=== PATIENT | male | born 1935 | race African-American/Black ===

== ENCOUNTER 2017-02-01 19:03 | Inpatient (IN) | payer OTHER, MEDICARE ==
--- NOTE | 2017-02-01 19:08 | ER Document Report ---
ED General - General Chief Complaint: Altered Mental Status Stated Complaint: ALTERED MENTAL STATUS Time Seen by Provider: 02/01/17 19:04 Notes: The patient is a 81-year-old male, past medical history dementia, HTN, presents with increasing altered mental status over the past week. He was diagnosed with a UTI 5 days ago and started on Cipro by his primary care physician, Dr. Ojeda. Patient's and son are at bedside and said that he is taking his Cipro as prescribed. Patient also having increased abdominal distention over the past day. At baseline, patient is interactive and able to ambulate without assistance, but he is frequently confused due to his dementia. Patient is confirmed to be full code by and son. Unable to obtain any additional history from patient. TRAVEL OUTSIDE OF THE [place] IN LAST 30 DAYS: No - Related Data Allergies/Adverse Reactions: No Known Allergies Allergy (Verified 02/01/17 19:12) Home Medications: Current Home Medications Glipizide [Glipizide] 5 mg PO DAILY 02/01/17 [History] Hydroxyzine Pamoate [Vistaril 25 mg Capsule] 25 mg PO QHS 02/01/17 [History] Lisinopril [Lisinopril] 0.5 tab PO DAILY 02/01/17 [History] Simvastatin [Zocor 40 mg Tablet] 0.5 tab PO DAILY 02/01/17 [History] Past Medical History - General Information source: Patient, Relative, Emergency Med Personnel - Social History Smoking Status: Unknown if Ever Smoked Family History: Hypertension - Past Medical History Cardiac Medical History: Reports: Hx Hypertension GI Medical History: Reports: Hx Gastroesophageal Reflux Disease Psychiatric Medical History: Reports: Hx Dementia - Immunizations Hx Diphtheria, Pertussis, Tetanus Vaccination: Yes Review of Systems - Review of Systems -: Yes ROS unobtainable due to patient's medical condition Physical Exam - Vital signs Vitals: Pulse Ox 96 02/01/17 19:06 - Notes Notes: PHYSICAL EXAMINATION: GENERAL: No acute distress. Somnolent, but will open his eyes to voice. Does not follow commands. HEAD: Atraumatic, normocephalic. EYES: Pupils equal round and reactive to light, extraocular movements intact, sclera anicteric, conjunctiva are normal. ENT: nares patent, oropharynx clear without exudates. Moist mucous membranes. NECK: Normal range of motion, supple without lymphadenopathy LUNGS: Breath sounds clear to auscultation bilaterally and equal. No wheezes rales or rhonchi. HEART: Tachycardia, regular rhythm ABDOMEN: Distended. Soft, nontender, normoactive bowel sounds. No guarding, no rebound. No masses appreciated. EXTREMITIES: No pitting or edema. No cyanosis. Strong distal pulses. NEUROLOGICAL: Moving all 4 extremities. Symmetrical facial movements. Unable to test strength or sensation. SKIN: Warm, Dry, normal turgor, no rashes or lesions noted. Course - Re-evaluation Re-evalutation: Patient with altered mental status for the past week with evidence of a right hypodense subacute infarction on CT head. MRI is recommended and ordered, but unable to be completed until the morning. He is out of the TPA window because of 7 days of symptoms. Patient is protecting his airway. He has a lactic acidosis and hyperglycemia with anion gap. His accucheck improved to low 300's from 550's after IVF. No ketones in urine to suggest DKA. Patient also has acute kidney injury with doubling of his prior creatinine. Chest x-ray and CT abdomen and pelvis did not show any acute changes. No evidence of infection at this time, but Zosyn was started prior to urine collection due to suspected worsening UTI. Patient's primary care physician is Dr. Victor/Markus. 02/01/17 23:[address] Song and will admit patient to [facility] as full admission. - Vital Signs Vital signs: Temp Pulse Resp BP Pulse Ox 96.2 F L 18 125/73 96 02/01/17 19:08 02/01/17 22:32 02/01/17 22:32 02/01/17 22:32 - Laboratory Result Diagrams: 02/01/17 19:30 02/01/17 19:30 Laboratory results interpreted by me: 02/01/17 02/01/17 02/01/17 19:30 19:30 19:30 WBC 12.8 H RBC 6.42 H MCV 72 L MCH 23.1 L MCHC 31.9 L RDW 15.3 H Seg Neutrophils % 79.3 H Lymphocytes % 7.8 L Absolute Neutrophils 10.2 H Absolute Monocytes 1.6 H VBG pH VBG HCO3 Carbon Dioxide 16 L Anion Gap 20 H BUN 53 H Creatinine 2.74 H Est GFR ( Amer) 27 L Est GFR (Non-Af Amer) 22 L Glucose 534 H* POC Glucose Lactic Acid 3.4 H Direct Bilirubin 0.6 H Alkaline Phosphatase 132 H Urine Protein Urine Glucose (UA) Urine Blood 02/01/17 02/01/17 02/01/17 21:30 22:00 22:28 WBC RBC MCV MCH MCHC RDW Seg Neutrophils % Lymphocytes % Absolute Neutrophils Absolute Monocytes VBG pH 7.24 L VBG HCO3 19.2 L Carbon Dioxide Anion Gap BUN Creatinine Est GFR ( Amer) Est GFR (Non-Af Amer) Glucose POC Glucose 319 H Lactic Acid Direct Bilirubin Alkaline Phosphatase Urine Protein 30 H Urine Glucose (UA) >=500 H Urine Blood MODERATE H - Diagnostic Test Radiology reviewed: Image reviewed, Reports reviewed Radiology results interpreted by me: CT Head: Ovoid 5 cm hypodense area is present in the right frontotemporal region , possible subacute infarct, consider MRI to further characterize. CT A/P: No acute inflammatory changes. Mild gas distention of the colon. No evidence for obstruction or free fluid. CXR: Gas-filled bowel throughout the upper abdomen.Mild basilar subsegmental atelectasis. - EKG Interpretation by Me EKG shows normal: Sinus rhythm, Wittmann, Intervals, QRS Complexes, ST-T Waves Rate: Tachycardia Discharge - Discharge Clinical Impression: DIAMANTE (acute kidney injury), Hyperglycemia, Lactic acidosis Altered mental status Qualifiers: Altered mental status type: unspecified Qualified Code(s): R41.82 - Altered mental status, unspecified CVA (cerebral vascular accident) Qualifiers: CVA mechanism: unspecified Qualified Code(s): I63.9 - Cerebral infarction, unspecified Condition: Serious Disposition: ADMITTED INPATIENT Admitting Provider: [facility] Admitted: [facility] Referrals: OMAR LOWE MD [Primary Care Provider] - Follow up as needed
[2017-02-01] MEDS ORDERED: PIPERACILLIN/TAZOBACTAM 3.375 GM VIAL IV ONE (19:19)
[2017-02-01] MEDS ORDERED: NORMAL SALINE 500 ML IV ONE (19:19)
[2017-02-01 19:48] LABS: ABSOLUTE MONOCYTES (AUTO) 1.6 10^3/uL (0.1-1.4); ABSOLUTE NEUT (AUTO) 10.2 10^3/uL (1.7-8.2); BASOPHILS % (AUTO) 0.3 % (0-2); HEMATOCRIT 46.4 % (37.9-51.0); HEMOGLOBIN 14.8 g/dL (13.5-17.0); LYMPHOCYTES % (AUTO) 7.8 % (13-45); MEAN CORPUSCULAR HEMOGLOBIN 23.1 pg (27.0-33.4); MEAN CORPUSCULAR HGB CONC 31.9 g/dL (32.0-36.0); MEAN CORPUSCULAR VOLUME 72 fl (80-97); MONOCYTES % (AUTO) 12.6 % (3-13); RED BLOOD COUNT 6.42 10^6/uL (4.35-5.55); RED CELL DISTRIBUTION WIDTH 15.3 % (11.5-14.0); SEGMENTED NEUTROPHILS % (AUTO) 79.3 % (42-78); WHITE BLOOD COUNT 12.8 10^3/uL (4.0-10.5)
[2017-02-01 19:59] LABS: ALANINE AMINOTRANSFERASE 43 U/L (21-72); ALBUMIN 4.1 g/dL (3.5-5.0); ALKALINE PHOSPHATASE 132 U/L (38-126); ASPARTATE AMINO TRANSFERASE 31 U/L (17-59); BILIRUBIN,DIRECT 0.6 mg/dL (0.0-0.4); BILIRUBIN,TOTAL 0.7 mg/dL (0.2-1.3); BLOOD UREA NITROGEN 53 mg/dL (7-20); CALCIUM 9.8 mg/dL (8.4-10.2); CARBON DIOXIDE 16 mmol/L (22-30); CREATININE RESULT 2.74 mg/dL (0.52-1.25); POTASSIUM 4.1 mmol/L (3.6-5.0); TOTAL PROTEIN 7.7 g/dL (6.3-8.2)
[2017-02-01 20:15] LABS: CHLORIDE 105 mmol/L (98-107); SODIUM 141.1 mmol/L (137-145)
[2017-02-01 20:18] LABS: ANION GAP 20 (5-19); GLUCOSE 534 mg/dL (75-110)
[2017-02-01] MEDS: NORMAL SALINE 1000 ML 1,000 ML IV PRN ×2 (20:24→22:51)
--- NOTE | 2017-02-01 20:45 | RADIOLOGY REPORT (SQ) ---
EXAM DESCRIPTION: CHEST SINGLE VIEW COMPLETED DATE/TIME: 02/01/2017 8:08 pm REASON FOR STUDY: bed 2 sepsis protocol COMPARISON: None. EXAM PARAMETERS: NUMBER OF VIEWS: One view. TECHNIQUE: Single frontal radiographic view of the chest acquired. RADIATION DOSE: NA LIMITATIONS: Expiratory lung volume. FINDINGS: LUNGS AND PLEURA: Mild basilar subsegmental atelectasis. No consolidation, masses or pneu mothorax. No pleural effusion. MEDIASTINUM AND HILAR STRUCTURES: No masses. Contour normal. HEART AND VASCULAR STRUCTURES: Heart normal in size. Normal vasculature. BONES: No acute findings. HARDWARE: None in the chest. OTHER: Gas-filled bowel throughout the upper abdomen. IMPRESSION: Gas-filled bowel throughout the upper abdomen.Mild basilar subsegmental atelectasis. TECHNICAL DOCUMENTATION: JOB ID: [id number]
--- NOTE | 2017-02-01 21:23 | RADIOLOGY REPORT (SQ) ---
EXAM DESCRIPTION: CT HEAD WITHOUT COMPLETED DATE/TIME: 02/01/2017 9:02 pm REASON FOR STUDY: AMS COMPARISON: 08/08/2014 TECHNIQUE: Axial images acquired through the brain without intravenous contrast. Images reviewed wi th bone, brain and subdural windows. Images stored on PACS. All CT scanners at this facility use dose modulation, iterative reconstruction, and/or weight based d osing when appropriate to reduce radiation dose to as low as reasonably achievable (ALARA). [facility]: Dose Right [facility]: CareDose [facility]: Dose Right [facility]: Teradose 4D [facility]: [employer] RADIATION DOSE: Up-to-date CT equipment and radiation dose reduction techniques were employed. CTDIv ol: 64.6 mGy. DLP: 1163 mGy-cm. mGy. LIMITATIONS: None. FINDINGS: VENTRICLES: Stable. CEREBRUM: Ovoid 5 cm hypodense area is present in the right frontotemporal region. No hemorrhage. N o midline shift. CEREBELLUM: No masses. No hemorrhage. No alteration of density. No evidence for acute infarction. EXTRAAXIAL SPACES: No fluid collections. No masses. ORBITS AND GLOBE: No intra- or extraconal masses. Normal contour of globe without masses. CALVARIUM: No fracture. PARANASAL SINUSES: No fluid or mucosal thickening. SOFT TISSUES: No mass or hematoma. OTHER: No other significant finding. IMPRESSION: Ovoid 5 cm hypodense area is present in the right frontotemporal region, possible subacu te infarct, consider MRI to further characterize. TECHNICAL DOCUMENTATION: JOB ID: [id number] Quality ID # [id number]: Final reports with documentation of one or more dose reduction techniques (e.g., Au tomated exposure control, adjustment of the mA and/or kV according to patient size, use of iterative reconstruction technique) 2010 [employer]- All Rights Reserved
--- NOTE | 2017-02-01 21:29 | RADIOLOGY REPORT (SQ) ---
EXAM DESCRIPTION: CT ABDOMEN NO ORAL OR IV COMPLETED DATE/TIME: 02/01/2017 9:06 pm REASON FOR STUDY: abdominal distention and tenderness; septic COMPARISON: None. TECHNIQUE: CT scan of the abdomen performed without intravenous contrast and without oral contrast. Images reviewed with lung, soft tissue, and bone windows. Reconstructed coronal and sagittal MPR im ages reviewed. All images stored on PACS. All CT scanners at this facility use dose modulation, iterative reconstruction, and/or weight based d osing when appropriate to reduce radiation dose to as low as reasonably achievable (ALARA). [facility]: Dose Right [facility]: CareDose [facility]: Dose Right [facility]: Teradose 4D [facility]: Smart [employer] RADIATION DOSE: Up-to-date CT equipment and radiation dose reduction techniques were employed. CTDIv ol: 14.4 mGy. DLP: 922 mGy-cm.mGy. LIMITATIONS: None. FINDINGS: LOWER CHEST: No significant findings. No nodules or infiltrates. NONCONTRASTED LIVER, SPLEEN, ADRENALS: Evaluation limited by lack of IV contrast. No identified sign ificant masses. PANCREAS: No masses. No peripancreatic inflammatory changes. GALLBLADDER: Surgically absent. RIGHT KIDNEY AND URETER: No suspicious masses. Assessment limited by lack of IV contrast. No signif icant calcifications. No hydronephrosis or hydroureter. LEFT KIDNEY AND URETER: No suspicious masses. Assessment limited by lack of IV contrast. No signifi cant calcifications. No hydronephrosis or hydroureter. AORTA AND RETROPERITONEUM: No aneurysm. No retroperitoneal masses or adenopathy. BOWEL AND PERITONEAL CAVITY: Mild gas distention of the colon. No evidence for obstruction or free f luid. APPENDIX: Normal. ABDOMINAL WALL: No abdominal wall hernias. BONES: No significant findings. OTHER: No other significant finding. IMPRESSION: No acute inflammatory changes. Mild gas distention of the colon. No evidence for obst ruction or free fluid. TECHNICAL DOCUMENTATION: JOB ID: [id number] Quality ID # [id number]: Final reports with documentation of one or more dose reduction techniques (e.g., Au tomated exposure control, adjustment of the mA and/or kV according to patient size, use of iterative reconstruction technique) 2010 [employer]- All Rights Reserved
[2017-02-01 21:39] LABS: VENOUS BLOOD BASE EXCESS -8.2 mmol/L; VENOUS BLOOD HCO3 19.2 mmol/L (20-32); VENOUS BLOOD PCO2 46.4 mmHg (35-63); VENOUS BLOOD PH 7.24 (7.30-7.42)
[2017-02-01] MEDS ORDERED: INSULIN REG, HUMAN 100 UNIT/ML 3 ML VIAL (PYX) IV ONE (21:41)
[2017-02-01] MEDS ORDERED: NORMAL SALINE 100 ML with INSULIN REGULAR, HUMAN 100 UNIT IV PRN ×2 (22:25)
[2017-02-01 22:37] LABS: APPEARANCE,URINE SLIGHTLY-CLOUDY; BILIRUBIN,URINE NEGATIVE (NEGATIVE); GLUCOSE, URINE >=500 mg/dL (NEGATIVE); KETONES,URINE NEGATIVE (NEGATIVE); LEUKOCYTE ESTERASE,URINE NEGATIVE (NEGATIVE); NITRITE,URINE NEGATIVE (NEGATIVE); PROTEIN,URINE 30 mg/dL (NEGATIVE); URINE SPECIFIC GRAVITY 1.021; UROBILINOGEN,URINE NEGATIVE mg/dL (<2.0)
--- NOTE | 2017-02-01 23:05 | EKG REPORT ---
SEVERITY:- ABNORMAL ECG - SINUS TACHYCARDIA ATRIAL PREMATURE COMPLEX LVH WITH SECONDARY REPOLARIZATION ABNORMALITY : Confirmed by: Alfonso Werner 01-Feb-2017 23:04:38
[2017-02-01] MEDS ORDERED: NORMAL SALINE 1000 ML 1,000 ML IV ONE (23:06)
--- NOTE | 2017-02-01 23:37 | ER Document Report ---
ED NIH Stroke Scale - NIH Stroke Scale When completed:: Before Alteplase *: 1. NIH scale should be completed with appropriate accompanying assessment tools. *: 2. The NIH should reflect what the patient is capable of doing and should not be coached by the clinician. 1a. Level of Consciousness: 0=Alert;keenly responsive -: 1=Drowsy -: 2=Obtunded -: 3=Coma/unresponsive or reflex to noxious stimuli. 1a. Responses: 1 1b. Orientation Questions: a. What month is it? -: b. How old are you? -: 0=Answers both questions correctly. -: 1=Answers one question correctly or patient is intubated or has orotracheal trauma. -: 2=Answers neither question correctly. 1b. Responses: 0 - unable to assess 1c. Response to commands: a. Open and close eyes? -: b. Maintenance Equipment Operator and release hand? -: Credit is given despite weakness. Demonstration of task is permitted. Substitute command if hands cannot be used. -: 0=Performs both tasks correctly -: 1=Performs one task correctly -: 2=Performs neither task correctly 1c. Responses: 2 2. Gaze: Establish eye contact and instruct patient to "Follow my finger" -: 0=Normal -: 1=Partial gaze palsy. Gaze is abnormal in one or both eyes, but where forced deviation or total gaze paresis is not present. -: 2=Forced deviation or total gaze paresis. 2. Responses: 0 3. Visual Butcher: Sees fingers in all four quadrants. -: 0=No visual loss. -: 1=Partial hemianopsia. -: 2=Complete hemianopsia. -: 3=Bilateral hemianopsia (including Cortical blindness) 3. Responses: 0 - unable to assess 4. Facial Movement: Instruct patient to: -: a. Show me your teeth -: b. Raise your eyebrows -: c. Close your eyes -: d. Smile -: 0=Normal symmetrical movement -: 1=Minor paralysis (flattened nasolabial fold, asymmetry on smiling). -: 2=Partial paralysis (total or near total paralysis of lower face). -: 3=Complete paralysis of upper and lower face 4. Responses: 0 5. Motor functions (left arm): Alternate sides and extend each arm with palms down (90 degrees if sitting or 45 degrees for supine). -: 0=No drift;limb holds for full 10 seconds. -: 1=Drift; limb holds but drifts down before full 10 seconds, but does not hit bed. -: 2=Some effort against gravity; limb cannot get to or maintain position. -: 3=No effort against gravity; limb falls. -: 4=No movement. -: UN=Amputation, joint fusion, explain in comments. 5. Responses (left arm): UN - uncooperative 5. Motor Functions (right arm): Alternate sides and extend each arm with palms down (90 degrees if sitting or 45 degrees for supine). -: 0=No drift;limb holds for full 10 seconds. -: 1=Drift; limb holds but drifts down before full 10 seconds, but does not hit bed. -: 2=Some effort against gravity; limb cannot get to or maintain position. -: 3=No effort against gravity; limb falls. -: 4=No movement. -: UN=Amputation, joint fusion, explain in comments. 5. Responses (right arm): UN - uncooperative 6. Motor Functions (left leg): With patient lying supine, alternate sides and extend each leg (30 degrees always while supine). -: 0=No drift, leg holds position for full 5 seconds -: 1=Drift; leg falls before full 5 seconds but does not hit bed. -: 2=Some effort against gravity, leg falls to bed but some effort against gravity. -: 3=No effort against gravity, leg falls to bed immediately. -: 4=No movement. -: UN=Amputation, joint fusion; explain in comments. 6. Responses (left leg): UN - uncooperative 6. Motor Functions (right leg): With patient lying supine, alternate sides and extend each leg (30 degrees always while supine). -: 0=No drift, leg holds position for full 5 seconds -: 1=Drift; leg falls before full 5 seconds but does not hit bed. -: 2=Some effort against gravity, leg falls to bed but some effort against gravity. -: 3=No effort against gravity, leg falls to bed immediately. -: 4=No movement. -: UN=Amputation, joint fusion; explain in comments. 6. Responses (right leg): UN - uncooperative 7. Limb Ataxia: With eyes open instruct patient to: -: a. "Touch your finger to your nose". -: b. "Touch your heel to your hardy" -: 0=Absent -: 1=Present in one limb. -: 2=Present in two limbs. -: UN=Amputation or joint fusion; explain in comments. 7. Responses: UN - uncooperative 8. Sensory: Test sensation using pinprick or noxious stimuli. Test as many body parts as possible. -: 0=Normal;no sensory loss -: 1=Mile to moderate sensory loss (patient feels pin prick but is less sharp on affected side). -: 2=Severe or total sensory loss. 8. Responses: 0 - uncooperative 9. Best Language: Instruct patient to: -: a. "Describe what you see in this picture." -: b. "Name the items in this picture." -: c. "Read these sentences." -: 0=No aphasia, normal -: 1=Mild to moderate aphasia. -: 2=Severe aphasia -: 3=Mute, global aphasia, no usable speech or auditory comprehension. 9. Responses: 0 - unable to assess 10. Articulation, Dysarthia: Instruct patient to: -: "Read these words" or "Repeat these words" -: 0=Normal -: 1=Mild to moderate; patient may slur some words but can be understood without difficulty. -: 2=Severe; patients speech so slurred as to be unintelligible in the absence of dysphasia. -: UN=Intubated or other physical barrier, explain in comments. 10. Responses: UN - unable to assess 11. Extinction or inattention: 0=No abnormality -: 1= Visual, tactile, auditory, spatial, or personal inattention or extinction to bilateral simulation in one or the sensory modalities. -: 2=Profound riya-inattention or riya-inattention to more than one modality; does not recognize own hand. 11. Responses: 0 - unable to assess Total Score: 3 Notes: Limited NIHSS exam due to AMS and uncooperative state.
[2017-02-01] MEDS ORDERED: ASPIRIN 300 MG SUPP, RECTAL PR ONE (23:47)
[2017-02-02 00:33] LABS: ANION GAP 12 (5-19); BLOOD UREA NITROGEN 47 mg/dL (7-20); CARBON DIOXIDE 19 mmol/L (22-30); CHLORIDE 114 mmol/L (98-107); CREATININE RESULT 2.28 mg/dL (0.52-1.25); GLUCOSE 320 mg/dL (75-110); POTASSIUM 3.8 mmol/L (3.6-5.0); SODIUM 145.4 mmol/L (137-145)
[2017-02-02 01:08] LABS: ADD ON TESTING BLD IN LAB ACKNOWLEDGE
[2017-02-02 01:35] LABS: MAGNESIUM 2.6 mg/dL (1.6-2.3)
[2017-02-02] MEDS ORDERED: DEXTROSE 40% GEL 15 GM TUBE PO PRN ×2 (02:48)
[2017-02-02] MEDS ORDERED: GLUCAGON,HUMAN RECOMB 1 MG INJ IM PRN (02:48)
[2017-02-02] MEDS ORDERED: DEXTROSE 50%-WATER 25 GM/50 ML DISP.SYRIN IV PRN ×2 (02:48)
[2017-02-02] MEDS ORDERED: 1/2 NORMAL SALINE 1,000 ML IV PRN (02:49)
[2017-02-02] MEDS ORDERED: PROMETHAZINE HCL 25 MG SUPP.RECT PR PRN (03:08)
[2017-02-02] MEDS ORDERED: ACETAMINOPHEN 650 MG SUPP.RECT PR PRN (03:09)
--- NOTE | 2017-02-02 03:35 | PDOC H&P ---
History of Present Illness Admission Date/PCP: 02/01/17 23:48 Dr. Victor, [place] Patient complains of: Altered mental status History of Present Illness: COMPA CHOI JR is a 81 year old -[place]ian male, with underlying prominent dementia, hypertension, type 2 diabetes mellitus, hyperlipidemia, who presents to the emergency room for evaluation of above complaint. Patient has been discussed with emergency room physician who evaluated the patient. Patient is globally disoriented and minimally conversant and is able to provide no history whatsoever in terms of acute or chronic events, review of systems, personal habits, family history, etc. and son, along with 2 friends and/or family members are present and are helpful, although they themselves are not the best historians. Old inpatient records are reviewed. At his baseline, patient is able to walk unassisted, and is somewhat interactive. However, over the last week he has been sleeping more than usual, less oral intake, and less interactive. Has been sweating a lot. Generalized weakness, and occasional shaking. At times he has been holding food in his mouth instead of swallowing. no vomiting or diarrhea. Started on Cipro 5 days ago by his primary care provider for a urinary tract infection. Has been taking this as prescribed. Family has also noted increased abdominal distention over the last day. No patient complaints of pain. Hospitalized on our service the through 10 August 2014, with final diagnoses including likely TIA, along dementia with sundowning newly diagnosed diabetes mellitus, and bilateral lower extremity weakness, improved, among other diagnoses. Was not able to undergo MRI during that hospital stay due to metal in his hand from prior surgery. History and physical and discharge summary have been reviewed. Dictation via voice recognition software. Laboratory results are listed in [employer] and are reviewed. X-ray summary results are listed below, with full report(s) reviewed. . EKG reviewed and compared to prior tracing from August 052014. Social history/personal habits: . Has a son. Disabled due to his severe dementia. No use of alcohol tobacco or illicit drugs. No known drug allergies. Home medications initially autopopulated into [place] [facility] may not accurately reflect patient's true medications, dosages, and/or frequencies. prior authorization technician to reconcile medications. Unfortunately, patient not able to provide any information related to medications/dosages/frequencies. Family also uncertain as to his medications. REVIEW OF SYSTEMS: See history and present illness. No further information available this point in time. PHYSICAL EXAMINATION: 76 kg. Height is not recorded on the chart. Blood pressure 136/89. Pulse 97 and regular. 97% saturation on room air. Respirations are 14 and unlabored. Temperature 98.4. Well-nourished well-developed -[place] male appearing a number of years younger than his stated age. Keeps eyes tightly shut. Occasionally speaks 3 or 4 words at a time, sometimes parroting what has been said to him. Sometimes does not answer questions. Globally disoriented. and son and 2 other friends and/or family members are present at his side. Skin is warm and dry. No grossly obvious evidence of rash in areas of skin examined. No subcutaneous nodules palpated. ENT: Hearing grossly normal to normal conversation. Will not protrude tongue on request. Eyes: Not able to be adequately evaluated; patient keeps eyes tightly shut during attempted exam. No raccoon eyes. Neck is supple and nontender to gentle active range of motion and palpation. Midline trachea. No palpable thyroid nodule mass enlargement or tenderness. Lymphatic: No palpable cervical or clavicular nodes. Neck and lymphatic exams limited by patient body habitus. Psychiatric: Not able to be adequately evaluated due to his current status. See above comments. Lungs: Auscultation reveals clear and equal breath sounds bilaterally. No use of accessory respiratory muscles. Cardiovascular: Heart regular rate and rhythm, without gallop murmur or rub. No carotid or abdominal aortic bruits. Very slight bilateral symmetric ankle and pedal edema. Faintly palpable posterior tibial pulses. Abdomen:soft moderately distended nontender with positive bowel sounds. Unable to adequately evaluate abdomen for masses or organomegaly due to distention. Extremities: Hands and feet are warm and dry. No calf tenderness to compression. No grossly obvious visual evidence of calf swelling. Gentle manipulation of lower extremities fails to reveal any obvious evidence of injury or instability to knees hips or ankles. Neurologic: Moves all 4 extremities grossly normally. Patellar reflexes absent. Absent Babinski. Light touch cannot be adequately evaluated due to his current status. Past Medical History Cardiac Medical History: Reports: Hyperlipidema, Hypertension Denies: Atrial Fibrillation, Congestive Heart Failure, Coronary Artery Disease, DVT, Myocardial Infarction, Pulmonary Embolism Pulmonary Medical History: Denies: Asthma, Chronic Obstructive Pulmonary Disease (COPD), Sleep Apnea EENT Medical History: Denies: Eyes, Ears, Throat Neurological Medical History: Reports: Other - History of TIA, July 2014 Denies: Hemorrhagic CVA, Ischemic CVA, Seizures Endocrine Medical History: Reports: Diabetes Mellitus Type 2 Denies: Diabetes Mellitus Type 1, Hyperthyroidism, Hypothyroidism Renal/ Medical History: Reports: None GI Medical History: Reports: Peptic Ulcer Disease - History of Denies: Cirrhosis, Hepatitis Musculoskeltal Medical History: Denies: Arthritis Skin Medical History: Reports: None Psychiatric Medical History: Reports: Dementia Denies: Alcohol Dependency, Substance Abuse, Tobacco Dependency Hematology: Reports: None Infectious Medical History: Denies: Hepatitis B, Hepatitis C Past Surgical History Past Surgical History: Reports: None Social History Information Source: Relative - and son, Emergency Med Personnel, [facility] Records Lives with: Family Smoking Status: Unknown if Ever Smoked Frequency of Alcohol Use: None Hx Recreational Drug Use: No Drugs: None Hx Prescription Drug Abuse: No - Advance Directive Resuscitation Status: Full Code Surrogate healthcare decision maker:: and son Family History Family History: Hypertension Parental Family History Reviewed: Yes - Cause of parents deaths uncertain Children Family History Reviewed: Yes - Healthy Sibling(s) Family History Reviewed.: Yes - Uncertain health status Medication/Allergy Home Medications: Aspirin [Aspirin EC] 81 mg PO DAILY 02/02/17 Ciprofloxacin HCl [Cipro 500 mg Tablet] 500 mg PO BID 02/02/17 Glipizide [Glocotrol 5 Mg Tablet] 5 mg PO QAM 02/02/17 Hydroxyzine Pamoate [Vistaril 25 mg Capsule] 25 mg PO QHS 02/02/17 Lisinopril [Prinivil] 10 mg PO DAILY 02/02/17 Metoprolol Tartrate [Lopressor 25 mg Tablet] 12.5 mg PO Q12 02/02/17 Omeprazole 40 mg PO BIDBS 02/02/17 Simvastatin 20 mg PO QHS 02/02/17 Allergies/Adverse Reactions: No Known Allergies Allergy (Verified 02/01/17 19:12) Physical Exam Vital Signs: Temp Pulse Resp BP Pulse Ox 98.4 F 95 16 136/110 H 97 02/01/17 23:00 02/02/17 02:59 02/02/17 00:45 02/02/17 00:33 02/02/17 00:45 Results Laboratory Results: 02/02/17 00:06 02/02/17 02/02/1702/02/17 00:06 00:06 00:06 Sodium 145.4 H Potassium 3.8 Chloride 114 H Carbon Dioxide 19 L Anion Gap 12 BUN 47 H Creatinine 2.28 H Est GFR ( Amer) 34 L Est GFR (Non-Af Amer) 28 L Glucose 320 H Lactic Acid 3.0 H Calcium 8.0 L Magnesium 2.6 H 02/02/17 00:06 Troponin I 1.300 Impressions: Chest X-Ray 02/01/17 19:04 IMPRESSION: Gas-filled bowel throughout the upper abdomen.Mild basilar subsegmental atelectasis. Abdomen CT 02/01/17 19:14 IMPRESSION: No acute inflammatory changes. Mild gas distention of the colon. No evidence for obstruction or free fluid. Head CT 02/01/17 19:14 IMPRESSION: Ovoid 5 cm hypodense area is present in the right frontotemporal region, possible subacute infarct, consider MRI to further characterize. Assessment & Plan - Diagnosis (1) ARF (acute renal failure) Qualifiers: Acute renal failure type: unspecified Qualified Code(s): N17.9 - Acute kidney failure, unspecified Is this a current diagnosis for this admission?: Yes Plan: Suspect prerenal due to decreased p.o. intake over the last week. No evidence of obstruction on CT scan. IV fluids. Serial chemistry. (2) Acute encephalopathy Is this a current diagnosis for this admission?: Yes (3) CVA (cerebral vascular accident) Qualifiers: CVA mechanism: unspecified Qualified Code(s): I63.9 - Cerebral infarction, unspecified Is this a current diagnosis for this admission?: Yes Plan: Patient will be placed in observation bed admitted under CVA/TIA protocol. Multiple imaging procedures, intracranial, vascular, and cardiac. lipid panel. Will proceed with repeat CT scan; patient not able to have MRI due to metal in hand. Permissive hypertension. Patient is a full code. Knee high SCDs for DVT prophylaxis, along with subcutaneous heparin. Impression and plans were discussed with family, who concur. and son both understand his underlying dementia and confusion may very well worsen during his hospital stay. Time spent in evaluation and management of patient: 76 minutes (4) Elevated troponin Is this a current diagnosis for this admission?: Yes Plan: Suspect due to underlying stroke, but will trend troponins. Discussed with and son. Cardiology consult. (5) Dementia Qualifiers: Dementia type: unspecified type Dementia behavioral disturbance: without behavioral disturbance Qualified Code(s): F03.90 - Unspecified dementia without behavioral disturbance Is this a current diagnosis for this admission?: Yes (6) Diabetes mellitus type 2 in nonobese Is this a current diagnosis for this admission?: Yes Plan: N.p.o. until seen by speech therapy. Accu-Cheks with appropriate sliding scale coverage. (7) HLD (hyperlipidemia) Qualifiers: Hyperlipidemia type: unspecified Qualified Code(s): E78.5 - Hyperlipidemia , unspecified Is this a current diagnosis for this admission?: Yes Plan: Lipid panel. Resume home medications as appropriate once these have been determined and reviewed. (8) HTN (hypertension) Qualifiers: Hypertension type: essential hypertension Qualified Code(s): I10 - Essential (primary) hypertension Is this a current diagnosis for this admission?: Yes Plan: Permissive hypertension - Time Time Spent: Greater than 70 Minutes Anticipated discharge: Acute Rehab Within: within 72 hours - Inpatient Certification Based on my medical assessment, after consideration of the patient's comorbidities, presenting symptoms, or acuity I expect that the services needed warrant INPATIENT care.: Yes I certify that my determination is in accordance with my understanding of Medicare's requirements for reasonable and necessary INPATIENT services [42 CFR 412.3e].: Yes Medical Necessity: Need Close Monitoring Due to Risk of Patient Decompensation, Need For IV Fluids, Need for Neurological Checks, Risk of Complication if Not Cared For in Hospital Post Hospital Care: D/C or Transfer Summary
[2017-02-02 03:47] LABS: VENOUS BLOOD BASE EXCESS -5.5 mmol/L; VENOUS BLOOD HCO3 19.9 mmol/L (20-32); VENOUS BLOOD PCO2 38.3 mmHg (35-63); VENOUS BLOOD PH 7.33 (7.30-7.42)
[2017-02-02 03:53] LABS: PARTIAL THROMBOPLASTIN TIME 27.7 SEC (23.5-35.8); PROTHROMBIN TIME 15.3 SEC (11.4-15.4)
[2017-02-02] MEDS: INSULIN REG, HUMAN 100 UNIT/ML 3 ML VIAL (PYX) SUBCUT PRN (07:08)
[2017-02-02 07:32] LABS: ABSOLUTE LYMPHOCYTES (AUTO) 1.2 10^3/uL (0.5-4.7); ABSOLUTE MONOCYTES (AUTO) 1.5 10^3/uL (0.1-1.4); ABSOLUTE NEUT (AUTO) 7.7 10^3/uL (1.7-8.2); BASOPHILS % (AUTO) 0.5 % (0-2); EOSINOPHILS % (AUTO) 0.1 % (0-6); HEMATOCRIT 40.2 % (37.9-51.0); HGB HCT DIFFERENCE -1.2; LYMPHOCYTES % (AUTO) 11.2 % (13-45); MEAN CORPUSCULAR HEMOGLOBIN 23.4 pg (27.0-33.4); MEAN CORPUSCULAR HGB CONC 32.3 g/dL (32.0-36.0); MEAN CORPUSCULAR VOLUME 72 fl (80-97); MONOCYTES % (AUTO) 14.4 % (3-13); RED BLOOD COUNT 5.55 10^6/uL (4.35-5.55); SEGMENTED NEUTROPHILS % (AUTO) 73.8 % (42-78); WHITE BLOOD COUNT 10.5 10^3/uL (4.0-10.5)
--- NOTE | 2017-02-02 07:51 | EKG REPORT ---
SEVERITY:- ABNORMAL ECG - SINUS RHYTHM MULTIFORM VENTRICULAR PREMATURE COMPLEXES LEFT AXIS DEVIATION BORDERLINE T WAVE ABNORMALITIES : Confirmed by: Joey Jaramillo MD 02-Feb-2017 07:50:39
[2017-02-02 07:54] LABS: ANION GAP 9 (5-19); BLOOD UREA NITROGEN 40 mg/dL (7-20); CALCIUM 8.4 mg/dL (8.4-10.2); CARBON DIOXIDE 19 mmol/L (22-30); CHLORIDE 117 mmol/L (98-107); CHOLESTEROL 114.67 mg/dL (0-200); CREATININE RESULT 2.05 mg/dL (0.52-1.25); Direct HDL 17 mg/dL (>40); GLUCOSE 261 mg/dL (75-110); POTASSIUM 3.7 mmol/L (3.6-5.0); SODIUM 145.3 mmol/L (137-145); TRIGLYCERIDES 179 mg/dL (<150)
[2017-02-02 08:05] LABS: DIRECT LDL 62 mg/dL (<100)
[2017-02-02 08:11] LABS: VLDL CHOLESTEROL 35.8 mg/dL (10-31)
[2017-02-02] MEDS: HEPARIN SOD (PORCINE) 5,000 UNIT/ML 1 ML SYRINGE SUBCUT SCH ×2 (09:56→21:37)
[2017-02-02] MEDS: ASPIRIN 300 MG SUPP, RECTAL PR SCH (09:57)
[2017-02-02] MEDS: POTASSI CL 20 MEQ/1/2NS 1L 1,000 ML IV PRN (13:56)
[2017-02-02] MEDS ORDERED: METOPROLOL TARTRATE PF/INJ 5 MG/5 ML SDV IV PRN (14:05)
--- NOTE | 2017-02-02 14:09 | PDOC PROGRESS REPORT ---
Subjective Progress Note for:: 02/02/17 Subjective:: Patient remains very confused. Difficult to obtain any history from patient secondary to altered mental status. Physical Exam Vital Signs: Temp Pulse Resp BP Pulse Ox 97.7 F 91 18 153/94 H 100 02/02/17 07:20 02/02/17 07:20 02/02/17 07:20 02/02/17 07:20 02/02/17 07:20 Intake & Output 02/01/17 02/02/17 02/03/17 06:59 06:59 06:59 Intake Total 300 Balance 300 Weight 76.9 kg GENERAL: No acute distress HEENT: Conjunctiva clear, nonicteric, moist mucous membranes, no JVD, midline trachea RESPIRATORY: Clear to auscultation bilaterally, no wheezes, no rhonchi CARDIAC: Regular rate and rhythm, no murmurs/gallops/rubs ABDOMEN: Soft, nondistended, nontender, positive bowel sounds, no rebound, no guarding EXTREMETIES: No edema, cyanosis, clubbing NEUROLOGIC: Alert, disoriented, CN's grossly intact, no focal deficits SKIN: No rash, wounds Results Laboratory Results: 02/02/17 07:10 02/02/17 07:10 02/02/17 02/02/17 02/02/17 03:35 07:10 07:10 WBC 10.5 RBC 5.55 Hgb 13.0 L Hct 40.2 MCV 72 L MCH 23.4 L MCHC 32.3 RDW 15.0 H Plt Count 165 Seg Neutrophils % 73.8 Lymphocytes % 11.2 L Monocytes % 14.4 H Eosinophils % 0.1 Basophils % 0.5 Absolute Neutrophils 7.7 Absolute Lymphocytes 1.2 Absolute Monocytes 1.5 H Absolute Eosinophils 0.0 Absolute Basophils 0.0 VBG pH 7.33 VBG pCO2 38.3 VBG HCO3 19.9 L VBG Base Excess -5.5 Sodium 145.3 H Potassium 3.7 Chloride 117 H Carbon Dioxide 19 L Anion Gap 9 BUN 40 H Creatinine 2.05 H Est GFR ( Amer) 38 L Est GFR (Non-Af Amer) 31 L Glucose 261 H Calcium 8.4 Triglycerides 179 H Cholesterol 114.67 LDL Cholesterol Direct 62 VLDL Cholesterol 35.8 H HDL Cholesterol 17 L TSH 02/02/17 12:04 WBC RBC Hgb Hct MCV MCH MCHC RDW Plt Count Seg Neutrophils % Lymphocytes % Monocytes % Eosinophils % Basophils % Absolute Neutrophils Absolute Lymphocytes Absolute Monocytes Absolute Eosinophils Absolute Basophils VBG pH VBG pCO2 VBG HCO3 VBG Base Excess Sodium Potassium Chloride Carbon Dioxide Anion Gap BUN Creatinine Est GFR ( Amer) Est GFR (Non-Af Amer) Glucose Calcium Triglycerides Cholesterol LDL Cholesterol Direct VLDL Cholesterol HDL Cholesterol TSH 0.99 02/02/17 02/02/17 07:10 12:04 Troponin I 1.720 1.590 Impressions: Chest X-Ray 02/01/17 19:04 IMPRESSION: Gas-filled bowel throughout the upper abdomen.Mild basilar subsegmental atelectasis. Abdomen CT 02/01/17 19:14 IMPRESSION: No acute inflammatory changes. Mild gas distention of the colon. No evidence for obstruction or free fluid. Head CT 02/01/17 19:14 IMPRESSION: Ovoid 5 cm hypodense area is present in the right frontotemporal region, possible subacute infarct, consider MRI to further characterize. Assessment & Plan - Diagnosis (1) CVA (cerebral vascular accident) Qualifiers: CVA mechanism: unspecified Qualified Code(s): I63.9 - Cerebral infarction, unspecified Is this a current diagnosis for this admission?: YesPlan: Continue rectal aspirin for now until able to take oral intake. Resume outpatient simvastatin once able to take oral intake. PT/OT/ST evaluation. N.p.o. status and IV fluids pending speech therapy evaluation. No MRI due to metal in hand. (2) Acute encephalopathy Is this a current diagnosis for this admission?: YesPlan: Likely secondary to acute stroke and dehydration. Continue n.p.o. status pending speech therapy evaluation. Continue supportive care. (3) ARF (acute renal failure) Qualifiers: Acute renal failure type: unspecified Qualified Code(s): N17.9 - Acute kidney failure, unspecified Is this a current diagnosis for this admission?: YesPlan: Hold lisinopril. Improving with IV fluid administration. (4) Elevated troponin Is this a current diagnosis for this admission?: YesPlan: Secondary to acute stroke. (5) Dementia Qualifiers: Dementia type: unspecified type Dementia behavioral disturbance: without behavioral disturbance Qualified Code(s): F03.90 - Unspecified dementia without behavioral disturbance Is this a current diagnosis for this admission?: Yes (6) Diabetes mellitus type 2 in nonobese Is this a current diagnosis for this admission?: YesPlan: Hold oral hypoglycemics while n.p.o. Sliding scale insulin. (7) HLD (hyperlipidemia) Qualifiers: Hyperlipidemia type: unspecified Qualified Code(s): E78.5 - Hyperlipidemia, unspecified Is this a current diagnosis for this admission?: Yes (8) HTN (hypertension) Qualifiers: Hypertension type: essential hypertension Qualified Code(s): I10 - Essential (primary) hypertension Is this a current diagnosis for this admission?: YesPlan: Resume oral metoprolol once able to take oral intake. As needed IV Lopressor. (9) Frequent PVCs Is this a current diagnosis for this admission?: YesPlan: resume metoprolol - Time Time Spent with patient: 35 or more minutes
[2017-02-02] MEDS: LORAZEPAM INJ 2 MG/1 ML VIAL IV PRN (17:01)
--- NOTE | 2017-02-02 17:30 | RADIOLOGY REPORT (SQ) ---
EXAM DESCRIPTION: CAROTID DOPPLER COMPLETED DATE/TIME: 02/02/2017 5:11 pm REASON FOR STUDY: cva COMPARISON: None. TECHNIQUE: Grayscale ultrasound, Doppler velocity and spectra, and color Doppler images acquired of the extra-cranial carotid and vertebral arteries. Images stored on PACS. LIMITATIONS: Study is limited somewhat due to the patient's condition and noncompliance FINDINGS: RIGHT CAROTID CCA Velocities: Within normal limits. ICA Velocities Peak systolic 0.42 m/s. End diastolic 0.11 m/s. Proximal ICA/CCA peak systolic ratio 0.8. Spectra normal. No significant plaque. LEFT CAROTID CCA Velocities: Within normal limits. ICA Velocities Peak systolic 0.41 m/s. End diastolic 0.12 m/s. Proximal ICA/CCA peak systolic ratio 0.7. Spectra normal. No significant plaque. VERTEBRAL ARTERIES: Right vertebral artery could not be visualized. Antegrade flow is identified in the left vertebral artery. SUBCLAVIAN ARTERIES: No finding. OTHER: No other significant finding. IMPRESSION: NO HEMODYNAMICALLY SIGNIFICANT STENOSIS. Right vertebral artery could not be visualized COMMENT: Quality ID #[id number]: Velocity criteria are extrapolated from the diameter data as defined by t he Society of Radiologists in Ultrasound Consensus Conference. Radiology 2003: 229; 340-346. TECHNICAL DOCUMENTATION: JOB ID: [id number] [employer]- All Rights Reserved
--- NOTE | 2017-02-02 19:51 | XCELERA REPORT ---
[address] [address] Transthoracic Echocardiogram Report Name: COMPA CHIO JR Age: 81 yrs Gender: Male : 1935 Patient Status: Inpatient Patient Location: [id number] Study Date: 02/02/2017 02:57 PM Procedure: A two-dimensional transthoracic echocardiogram with color flow and Doppler was performed. Study Quality: Technically suboptimal. Reason For Study: CVA / ELEVATED TROPONIN History: CVA / ELEVATED TROPONIN. Ordering Physician: SANDIE BERNARD Performed By: Prisca Stone Interpretation Summary There is no obvious cardiac source of embolus noted on this transthoracic echocardiogram. Follow-up with a [facility] is suggested if cardiac source is still suspected. The left ventricle is normal in size. There is normal left ventricular wall thickness. LV EF is > than 60% Left ventricular systolic function is normal. Doppler measurements suggest impaired left ventricular relaxation, which is associated with grade I/IV or mild diastolic dysfunction The left ventricular wall motion is normal. There is no thrombus. The left atrial size is normal. There is no evidence of mitral valve prolapse. There is no mitral valve stenosis. There is a trace to mild amount of mitral regurgitation There is no aortic valve stenosis There is no LVOT obstruction. No aortic regurgitation is present. There is no tricuspid stenosis. There is a trace to mild amount of tricuspid regurgitation There is mild to moderate pulmonary hypertension by echo RVSP is 49 mm of Hg , with RA mean of 10. There is no pericardial effusion. MMode/2D Measurements \T\ Calculations RVDd: 3.8 cm LVIDd: 4.6 cm FS: 37.6 % Ao root diam: 3.5 cm IVSd: 1.1 cm LVIDs: 2.9 cm EDV(Teich): 97.5 ml Ao root area: 9.6 cm2 LVPWd: 1.1 cm ESV(Teich): 31.5 ml EF(Teich): 67.7 % Doppler Measurements \T\ Calculations MV E max martin: MV dec slope: Ao V2 max: LV V1 max P.9 cm/sec 206.0 cm/sec2 98.6 cm/sec 2.4 mmHg MV A max martin: MV dec time: Ao max PG: LV V1 max: 109.8 cm/sec 0.23 sec 3.9 mmHg 76.9 cm/sec MV E/A: 0.42 PA V2 max: PI end-d martin: TR max martin: 76.3 cm/sec 171.7 cm/sec 313.2 cm/sec PA max P.3 mmHg TR max P.2 mmHg Left Ventricle The left ventricle is normal in size. There is normal left ventricular wall thickness. LV EF is > than 60%. Left ventricular systolic function is normal. Doppler measurements suggest impaired left ventricular relaxation, which is associated with grade I/IV or mild diastolic dysfunction. The left ventricular wall motion is normal. There is no thrombus. Right Ventricle The right ventricle is not well visualized secondary to technical limitations. Atria The right atrium is normal. The left atrial size is normal. Mitral Valve There is mild mitral annular calcification. There is no evidence of mitral valve prolapse. There is no mitral valve stenosis. There is a trace to mild amount of mitral regurgitation. Aortic Valve There is no aortic valvular vegetation. There is no aortic valve stenosis. There is no LVOT obstruction. No aortic regurgitation is present. Tricuspid Valve There is no tricuspid stenosis. There is a trace to mild amount of tricuspid regurgitation. There is mild to moderate pulmonary hypertension by echo. RVSP is 49 mm of Hg , with RA mean of 10. Pulmonic Valve There is no pulmonic valvular stenosis. There is a trace amount of pulmonic regurgitation. Great Vessels The aortic root is normal size. Effusions There is no pericardial effusion. : SANDIE BERNARD > Samantha Soares
[2017-02-02] MEDS: METOPROLOL TARTRATE 25 MG TABLET PO SCH (21:40)
[2017-02-02] MEDS: SIMVASTATIN 40 MG TABLET PO SCH (21:40)
[2017-02-03] MEDS: LORAZEPAM INJ 2 MG/1 ML VIAL IV PRN ×3 (02:29→23:42)
[2017-02-03 06:04] LABS: ABSOLUTE EOSINOPHILS # (AUTO) 0.1 10^3/uL (0.0-0.6); ABSOLUTE LYMPHOCYTES (AUTO) 1.4 10^3/uL (0.5-4.7); ABSOLUTE NEUT (AUTO) 7.1 10^3/uL (1.7-8.2); BASOPHILS % (AUTO) 0.3 % (0-2); EOSINOPHILS % (AUTO) 1.1 % (0-6); HEMATOCRIT 38.7 % (37.9-51.0); HEMOGLOBIN 12.6 g/dL (13.5-17.0); HGB HCT DIFFERENCE -0.9; LYMPHOCYTES % (AUTO) 14.7 % (13-45); MEAN CORPUSCULAR HEMOGLOBIN 23.4 pg (27.0-33.4); MEAN CORPUSCULAR HGB CONC 32.5 g/dL (32.0-36.0); MEAN CORPUSCULAR VOLUME 72 fl (80-97); MONOCYTES % (AUTO) 10.8 % (3-13); RED BLOOD COUNT 5.36 10^6/uL (4.35-5.55); RED CELL DISTRIBUTION WIDTH 14.8 % (11.5-14.0); SEGMENTED NEUTROPHILS % (AUTO) 73.1 % (42-78); WHITE BLOOD COUNT 9.7 10^3/uL (4.0-10.5)
[2017-02-03 06:18] LABS: ANION GAP 9 (5-19); BLOOD UREA NITROGEN 24 mg/dL (7-20); CALCIUM 8.5 mg/dL (8.4-10.2); CARBON DIOXIDE 23 mmol/L (22-30); CHLORIDE 115 mmol/L (98-107); GLUCOSE 156 mg/dL (75-110); POTASSIUM 3.8 mmol/L (3.6-5.0); SODIUM 146.7 mmol/L (137-145)
[2017-02-03] MEDS: POTASSI CL 20 MEQ/1/2NS 1L 1,000 ML IV PRN (09:48)
[2017-02-03] MEDS: METOPROLOL TARTRATE 25 MG TABLET PO SCH ×2 (11:47→23:41)
[2017-02-03] MEDS: ASPIRIN 300 MG SUPP, RECTAL PR SCH (11:48)
[2017-02-03] MEDS: HEPARIN SOD (PORCINE) 5,000 UNIT/ML 1 ML SYRINGE SUBCUT SCH ×2 (11:48→23:40)
--- NOTE | 2017-02-03 15:27 | PDOC PROGRESS REPORT ---
Subjective Progress Note for:: 02/03/17 Subjective:: Patient was seen this morning at the bedside. Unfortunately not very verbal. He is also not with physical exam. There have been no acute events overnight. I have spoken with his nurse about his current behavior. Apparently the patient had been combative at some point during this hospitalization. At the moment he is calm but is in generally not cooperative. Physical Exam Vital Signs: Temp Pulse Resp BP Pulse Ox 97.9 F 102 H 19 164/105 H 100 02/03/17 11:51 02/03/17 12:00 02/03/17 12:00 02/03/17 12:00 02/03/17 12:00 Intake & Output 02/02/17 02/03/17 02/04/17 06:59 06:59 06:59 Intake Total 300 1650 Balance 300 1650 Weight 76.9 kg 77.6 kg GENERAL: This is a well-developed and nourished appearing -[place] male resting in bed currently in no acute distress. HEART: Regular rate and rhythm. No murmurs, rubs or gallops. LUNGS: Clear to auscultation anterior perspective bilaterally with equal rise and fall of the chest. ABDOMEN: Soft, nontender, nondistended with normoactive bowel sounds EXTREMETIES: No clubbing, cyanosis , edema. 2+ peripheral pulses bilaterally. NEURO: Awake. Alert and not oriented. Moves all extremities. He does not cooperate with neurologic exam. When asked to squeeze my hand in order to move his arms and legs he does not do them upon request. Results Laboratory Results: 02/03/17 05:20 02/03/17 05:20 02/03/17 02/03/17 05:20 05:20 WBC 9.7 RBC 5.36 Hgb 12.6 L Hct 38.7 MCV 72 L MCH 23.4 L MCHC 32.5 RDW 14.8 H Plt Count 163 Seg Neutrophils % 73.1 Lymphocytes % 14.7 Monocytes % 10.8 Eosinophils % 1.1 Basophils % 0.3 Absolute Neutrophils 7.1 Absolute Lymphocytes 1.4 Absolute Monocytes 1.0 Absolute Eosinophils 0.1 Absolute Basophils 0.0 Sodium 146.7 H Potassium 3.8 Chloride 115 H Carbon Dioxide 23 Anion Gap 9 BUN 24 H Creatinine 1.50 H Est GFR ( Amer) 54 L Est GFR (Non-Af Amer) 45 L Glucose 156 H Calcium 8.5 02/02/17 02/02/17 02/03/17 07:10 12:04 05:20 Troponin I 1.720 1.590 0.624 Impressions: Chest X-Ray 02/01/17 19:04 IMPRESSION: Gas-filled bowel throughout the upper abdomen.Mild basilar subsegmental atelectasis. Abdomen CT 02/01/17 19:14 IMPRESSION: No acute inflammatory changes. Mild gas distention of the colon. No evidence for obstruction or free fluid. Carotid Doppler Study 02/02/17 03:07 IMPRESSION: NO HEMODYNAMICALLY SIGNIFICANT STENOSIS. Right vertebral artery could not be visualized Assessment & Plan - Diagnosis (1) Acute encephalopathy Is this a current diagnosis for this admission?: YesPlan: Seems to be a change from his baseline of known dementia. It could be secondary to recently diagnosed urinary tract infection and or use of Cipro. Continue to monitor. (2) CVA (cerebral vascular accident) Qualifiers: CVA mechanism: unspecified Qualified Code(s): I63.9 - Cerebral infarction, unspecified Is this a current diagnosis for this admission?: YesPlan: There appears to be a possible right frontal temporal subacute infarct. At the moment the patient is altered. He did receive a speech evaluation. Pure with thin liquids is recommended at this time. If his mentation clears certainly bump this up. I will be the next step in assessment of his subacute stroke. (3) Diabetes Plan: Current regimen (4) Dementia Qualifiers: Dementia type: unspecified type Dementia behavioral disturbance: without behavioral disturbance Qualified Code(s): F03.90 - Unspecified dementia without behavioral disturbance Is this a current diagnosis for this admission?: Yes - Time Time Spent with patient: 25-34 minutes
--- NOTE | 2017-02-03 16:06 | RADIOLOGY REPORT (SQ) ---
EXAM DESCRIPTION: CT HEAD WITHOUT COMPLETED DATE/TIME: 02/03/2017 2:35 pm REASON FOR STUDY: REPEAT. INPT FOR CVA/TIA OBSERVATION. COMPARISON: 02/01/2017 TECHNIQUE: Axial images acquired through the brain without intravenous contrast. Images reviewed wi th bone, brain and subdural windows. Images stored on PACS. All CT scanners at this facility use dose modulation, iterative reconstruction, and/or weight based d osing when appropriate to reduce radiation dose to as low as reasonably achievable (ALARA). [facility]: Dose Right [facility]: CareDose [facility]: Dose Right [facility]: Teradose 4D [facility]: Smart [employer] Software RADIATION DOSE: Up-to-date CT equipment and radiation dose reduction techniques were employed. CTDIv ol: 49.0 mGy. DLP: 1371 mGy-cm. mGy. LIMITATIONS: None. FINDINGS: VENTRICLES: Normal size and contour. CEREBRUM: 5 cm area generally decreased attenuation in the right frontal temporal region. No masses. No hemorrhage. No midline shift. Normal waldrop/white matter differentiation. No evidence for acute infarction. CEREBELLUM: No masses. No hemorrhage. No alteration of density. No evidence for acute infarction. EXTRAAXIAL SPACES: No fluid collections. No masses. ORBITS AND GLOBE: No intra- or extraconal masses. Normal contour of globe without masses. CALVARIUM: No fracture. PARANASAL SINUSES: No fluid or mucosal thickening. SOFT TISSUES: No mass or hematoma. OTHER: No other significant finding. IMPRESSION: Subacute right frontal temporal infarct with little change since the earlier study of Angela blake . TECHNICAL DOCUMENTATION: JOB ID: [id number] Quality ID # [id number]: Final reports with documentation of one or more dose reduction techniques (e.g., Au tomated exposure control, adjustment of the mA and/or kV according to patient size, use of iterative reconstruction technique) 2010 [employer]- All Rights Reserved
[2017-02-03] MEDS: SIMVASTATIN 40 MG TABLET PO SCH (23:39)
[2017-02-04] MEDS: POTASSI CL 20 MEQ/1/2NS 1L 1,000 ML IV PRN (04:43)
[2017-02-04 07:43] LABS: ABSOLUTE BASOPHILS # (AUTO) 0.1 10^3/uL (0.0-0.2); ABSOLUTE EOSINOPHILS # (AUTO) 0.2 10^3/uL (0.0-0.6); ABSOLUTE LYMPHOCYTES (AUTO) 1.6 10^3/uL (0.5-4.7); ABSOLUTE NEUT (AUTO) 8.9 10^3/uL (1.7-8.2); BASOPHILS % (AUTO) 0.9 % (0-2); EOSINOPHILS % (AUTO) 1.5 % (0-6); HEMATOCRIT 41.4 % (37.9-51.0); HEMOGLOBIN 13.5 g/dL (13.5-17.0); HGB HCT DIFFERENCE -0.9; MEAN CORPUSCULAR HEMOGLOBIN 23.3 pg (27.0-33.4); MEAN CORPUSCULAR HGB CONC 32.6 g/dL (32.0-36.0); MEAN CORPUSCULAR VOLUME 72 fl (80-97); MONOCYTES % (AUTO) 8.1 % (3-13); RED BLOOD COUNT 5.79 10^6/uL (4.35-5.55); RED CELL DISTRIBUTION WIDTH 15.1 % (11.5-14.0); SEGMENTED NEUTROPHILS % (AUTO) 75.5 % (42-78); WHITE BLOOD COUNT 11.7 10^3/uL (4.0-10.5)
[2017-02-04 07:58] LABS: ANION GAP 8 (5-19); BLOOD UREA NITROGEN 17 mg/dL (7-20); CARBON DIOXIDE 24 mmol/L (22-30); CHLORIDE 113 mmol/L (98-107); CREATININE RESULT 1.39 mg/dL (0.52-1.25); GLUCOSE 172 mg/dL (75-110); MAGNESIUM 2.2 mg/dL (1.6-2.3); POTASSIUM 3.8 mmol/L (3.6-5.0); SODIUM 145.3 mmol/L (137-145)
[2017-02-04] MEDS: INSULIN REG, HUMAN 100 UNIT/ML 3 ML VIAL (PYX) SUBCUT PRN ×2 (08:43→12:13)
[2017-02-04] MEDS ORDERED: POTASSI CL 20 MEQ/D5-1/2NS 1L 1000 ML IV PRN (11:23)
[2017-02-04] MEDS: METOPROLOL TARTRATE 25 MG TABLET PO SCH ×2 (12:13→22:33)
[2017-02-04] MEDS: ASPIRIN 300 MG SUPP, RECTAL PR SCH (12:13)
[2017-02-04] MEDS: HEPARIN SOD (PORCINE) 5,000 UNIT/ML 1 ML SYRINGE SUBCUT SCH ×2 (12:13→22:35)
[2017-02-04] MEDS: LORAZEPAM INJ 2 MG/1 ML VIAL IV PRN ×2 (13:00→22:33)
--- NOTE | 2017-02-04 13:36 | PDOC PROGRESS REPORT ---
Subjective Progress Note for:: 02/04/17 Subjective:: The patient was seen in the presence of his . He was just getting back into bed after working with occupational therapy and physical therapy. Apparently the patient was able to stand. He was not able to follow even simple commands. I tried to get him to open his eyes for me several times that he does not. I had his tries well and he does not open his eyes for her either. According to his , he had opened his eyes earlier in the morning. The patient does not verbalize very well. He says good morning once while in the room but does not answer other questions. It is difficult to ascertain whether or not this is deliberate or part of his symptomatology. Physical Exam Vital Signs: Temp Pulse Resp BP Pulse Ox 98.6 F 82 19 141/72 H 97 02/04/17 11:45 02/04/17 11:45 02/04/17 11:45 02/04/17 11:45 02/04/17 11:45 Intake & Output 02/03/17 02/04/17 02/05/17 06:59 06:59 06:59 Intake Total 1650 1825 320 Balance 1650 1825 320 Weight 77.6 kg 77.4 kg GENERAL: This is a well-developed and nourished appearing -[place] male resting in bed currently in no acute distress. HEART: Regular rate and rhythm. No murmurs, rubs or gallops. LUNGS: Clear to auscultation anteriorlly with equal rise and fall of the chest. ABDOMEN: Soft, nontender, nondistended with normoactive bowel sounds EXTREMETIES: No clubbing, cyanosis , edema. 2+ peripheral pulses bilaterally. NEURO: Moves all extremities. He does not cooperate with neurologic exam. He does not follow simple commands. Results Laboratory Results: 02/04/17 05:47 02/04/17 05:47 02/04/17 02/04/17 05:47 05:47 WBC 11.7 H RBC 5.79 H Hgb 13.5 Hct 41.4 MCV 72 L MCH 23.3 L MCHC 32.6 RDW 15.1 H Plt Count 199 Seg Neutrophils % 75.5 Lymphocytes % 14.0 Monocytes % 8.1 Eosinophils % 1.5 Basophils % 0.9 Absolute Neutrophils 8.9 H Absolute Lymphocytes 1.6 Absolute Monocytes 1.0 Absolute Eosinophils 0.2 Absolute Basophils 0.1 Sodium 145.3 H Potassium 3.8 Chloride 113 H Carbon Dioxide 24 Anion Gap 8 BUN 17 Creatinine 1.39 H Est GFR ( Amer) 59 L Est GFR (Non-Af Amer) 49 L Glucose 172 H Calcium 9.0 Magnesium 2.2 02/02/17 02/02/17 02/03/17 07:10 12:04 05:20 Troponin I 1.720 1.590 0.624 Impressions: Chest X-Ray 02/01/17 19:04 IMPRESSION: Gas-filled bowel throughout the upper abdomen.Mild basilar subsegmental atelectasis. Abdomen CT 02/01/17 19:14 IMPRESSION: No acute inflammatory changes. Mild gas distention of the colon. No evidence for obstruction or free fluid. Carotid Doppler Study 02/02/17 03:07 IMPRESSION: NO HEMODYNAMICALLY SIGNIFICANT STENOSIS. Right vertebral artery could not be visualized Head CT 02/03/17 03:06 IMPRESSION: Subacute right frontal temporal infarct with little change since the earlier study of February 01. Assessment & Plan - Diagnosis (1) Acute encephalopathy Is this a current diagnosis for this admission?: Yes Plan: Seems to be a change from his baseline of known dementia. His confirms that he is not exactly himself. Likely this change is secondary from his new stroke. Continue to monitor. (2) CVA (cerebral vascular accident) Qualifiers: CVA mechanism: unspecified Qualified Code(s): I63.9 - Cerebral infarction, unspecified Is this a current diagnosis for this admission?: Yes Plan: Right frontal temporal subacute infarct. Continue pure with thin liquids at this time. If his mentation clears we can certainly bump this up. Repeat CT scan of the brain confirms subacute infarct. The patient will need continued physical therapy and Occupational Therapy. Will discuss with discharge planning. He will likely need SNF placement (3) Diabetes Qualifiers: Diabetes mellitus type: type 2 Plan: Continue current regimen (4) Dementia Qualifiers: Dementia type: unspecified type Dementia behavioral disturbance: without behavioral disturbance Qualified Code(s): F03.90 - Unspecified dementia without behavioral disturbance Is this a current diagnosis for this admission?: Yes (5) ARF (acute renal failure) Qualifiers: Acute renal failure type: unspecified Qualified Code(s): N17.9 - Acute kidney failure, unspecified Is this a current diagnosis for this admission?: Yes Plan: Improved with hydration. (6) HTN (hypertension) Qualifiers: Hypertension type: essential hypertension Qualified Code(s): I10 - Essential (primary) hypertension Is this a current diagnosis for this admission?: Yes Plan: Continue antihypertensives - Time Time Spent with patient: 15-24 minutes - Inpatient Certification Medical Necessity: Need Close Monitoring Due to Risk of Patient Decompensation
[2017-02-04] MEDS: POTASSI CL 20 MEQ/1/2NS 1L 20 MEQ/1,000 ML RTUINJ IV PRN (14:02)
[2017-02-04] MEDS: ASPIRIN/DIPYRIDAMOLE 25-200 MG 1 CAP.SR CPMP.12HR PO SCH (22:34)
[2017-02-04] MEDS: SIMVASTATIN 40 MG TABLET PO SCH (22:35)
[2017-02-05] MEDS: POTASSI CL 20 MEQ/1/2NS 1L 20 MEQ/1,000 ML RTUINJ IV PRN ×2 (04:15→17:57)
[2017-02-05] MEDS: INSULIN REG, HUMAN 100 UNIT/ML 3 ML VIAL (PYX) SUBCUT PRN ×3 (08:05→16:46)
[2017-02-05] MEDS: HEPARIN SOD (PORCINE) 5,000 UNIT/ML 1 ML SYRINGE SUBCUT SCH ×2 (10:59→22:05)
[2017-02-05] MEDS: METOPROLOL TARTRATE 25 MG TABLET PO SCH ×2 (11:11→22:04)
[2017-02-05] MEDS: ASPIRIN/DIPYRIDAMOLE 25-200 MG 1 CAP.SR CPMP.12HR PO SCH ×2 (11:16→22:05)
--- NOTE | 2017-02-05 14:03 | PDOC PROGRESS REPORT ---
Subjective Progress Note for:: 02/05/17 Subjective:: The patient was seen in the presence of his and son. He is more awake this morning and says good morning to me and nice to see you. Other than this salutation the patient does not speak when asked questions. He is just finishing up breakfast. No acute events overnight. Physical Exam Vital Signs: Temp Pulse Resp BP Pulse Ox 98.7 F 91 21 H 117/77 93 02/05/17 11:20 02/05/17 11:20 02/05/17 11:20 02/05/17 11:20 02/05/17 11:20 Intake & Output 02/04/17 02/05/17 02/06/17 06:59 06:59 06:59 Intake Total 1825 2367 100 Balance 1825 2367 100 Weight 77.4 kg 77 kg GENERAL: This is a well-developed and nourished appearing -[place]izen [place] male resting in bed currently in no acute distress. HEART: Regular rate and rhythm. No murmurs, rubs or gallops. LUNGS: Clear to auscultation anteriorlly with equal rise and fall of the chest. ABDOMEN: Soft, nontender, nondistended with normoactive bowel sounds EXTREMETIES: No clubbing, cyanosis , edema. 2+ peripheral pulses bilaterally. NEURO: Moves all extremities. He does not cooperate with neurologic exam. He does not follow simple commands. Results Laboratory Results: 02/04/17 05:47 02/04/17 05:47 02/02/17 02/02/17 02/03/17 07:10 12:04 05:20 Troponin I 1.720 1.590 0.624 Impressions: Chest X-Ray 02/01/17 19:04 IMPRESSION: Gas-filled bowel throughout the upper abdomen.Mild basilar subsegmental atelectasis. Abdomen CT 02/01/17 19:14 IMPRESSION: No acute inflammatory changes. Mild gas distention of the colon. No evidence for obstruction or free fluid. Carotid Doppler Study 02/02/17 03:07 IMPRESSION: NO HEMODYNAMICALLY SIGNIFICANT STENOSIS. Right vertebral artery could not be visualized Head CT 02/03/17 03:06 IMPRESSION: Subacute right frontal temporal infarct with little change since the earlier study of February 01. Assessment & Plan - Diagnosis (1) Acute encephalopathy Is this a current diagnosis for this admission?: Yes Plan: Seems to be a change from his baseline of known dementia. His confirms that he is not exactly himself. Likely this change is secondary from his new stroke. He is only slightly improved today. Continue to monitor. (2) CVA (cerebral vascular accident) Qualifiers: CVA mechanism: unspecified Qualified Code(s): I63.9 - Cerebral infarction, unspecified Is this a current diagnosis for this admission?: Yes Plan: Right frontal temporal subacute infarct. Continue pure with thin liquids at this time. If his mentation clears we can certainly bump this up. Repeat CT scan of the brain confirms subacute infarct. The patient will need continued physical therapy and Occupational Therapy. He will likely need SNF placement (3) Diabetes Qualifiers: Diabetes mellitus type: type 2 Plan: Continue current regimen (4) Dementia Qualifiers: Dementia type: unspecified type Dementia behavioral disturbance: without behavioral disturbance Qualified Code(s): F03.90 - Unspecified dementia without behavioral disturbance Is this a current diagnosis for this admission?: Yes (5) ARF (acute renal failure) Qualifiers: Acute renal failure type: unspecified Qualified Code(s): N17.9 - Acute kidney failure, unspecified Is this a current diagnosis for this admission?: Yes Plan: Improved with hydration. (6) HTN (hypertension) Qualifiers: Hypertension type: essential hypertension Qualified Code(s): I10 - Essential (primary) hypertension Is this a current diagnosis for this admission?: Yes Plan: Continue antihypertensives - Time Time Spent with patient: 25-34 minutes - Inpatient Certification Medical Necessity: Need Close Monitoring Due to Risk of Patient Decompensation
[2017-02-05] MEDS ORDERED: METOPROLOL TARTRATE PF/INJ 5 MG/5 ML SDV IV PRN (15:30)
[2017-02-05] MEDS: SIMVASTATIN 40 MG TABLET PO SCH (22:05)
[2017-02-06] MEDS: POTASSI CL 20 MEQ/1/2NS 1L 20 MEQ/1,000 ML RTUINJ IV PRN ×2 (06:23→18:27)
[2017-02-06] MEDS: METOPROLOL TARTRATE 25 MG TABLET PO SCH ×2 (09:26→21:39)
[2017-02-06] MEDS: HEPARIN SOD (PORCINE) 5,000 UNIT/ML 1 ML SYRINGE SUBCUT SCH ×2 (09:28→21:46)
[2017-02-06] MEDS: ASPIRIN/DIPYRIDAMOLE 25-200 MG 1 CAP.SR CPMP.12HR PO SCH ×2 (09:28→21:31)
--- NOTE | 2017-02-06 17:37 | PDOC PROGRESS REPORT ---
Subjective Progress Note for:: 02/06/17 Subjective:: The patient was seen in the presence of his . No acute events overnight. The patient is not as awake as he was yesterday. He is quite fidgety at the bedside. I have discussed with the at length about rehab. She is chosen [facility]. She is been very specific that she does not want him transferred to the [place] for rehab because it is at such a great distance. Physical Exam Vital Signs: Temp Pulse Resp BP Pulse Ox 97.8 F 93 20 133/99 H 98 02/06/17 16:00 02/06/17 16:00 02/06/17 16:00 02/06/17 16:00 02/06/17 16:00 Intake & Output 02/05/17 02/06/17 02/07/17 06:59 06:59 06:59 Intake Total 2367 1549 240 Balance 2367 1549 240 Weight 77 kg 77 kg GENERAL: This is a well-developed and nourished appearing -[place] male resting in bed currently in no acute distress. HEART: Regular rate and rhythm. No murmurs, rubs or gallops. LUNGS: Clear to auscultation anteriorly with equal rise and fall of the chest. ABDOMEN: Soft, nontender, nondistended with normoactive bowel sounds EXTREMETIES: No clubbing, cyanosis , edema. 2+ peripheral pulses bilaterally. NEURO: He is not quite as wide-eyed and awake as he was yesterday. Moves all extremities. He does not cooperate with neurologic exam. He does not follow simple commands. He has a fidget blanket in place that he plays with. Results Laboratory Results: 02/04/17 05:47 02/04/17 05:47 02/02/17 02/02/17 02/03/17 07:10 12:04 05:20 Troponin I 1.720 1.590 0.624 Impressions: Chest X-Ray 02/01/17 19:04 IMPRESSION: Gas-filled bowel throughout the upper abdomen.Mild basilar subsegmental atelectasis. Abdomen CT 02/01/17 19:14 IMPRESSION: No acute inflammatory changes. Mild gas distention of the colon. No evidence for obstruction or free fluid. Carotid Doppler Study 02/02/17 03:07 IMPRESSION: NO HEMODYNAMICALLY SIGNIFICANT STENOSIS. Right vertebral artery could not be visualized Head CT 02/03/17 03:06 IMPRESSION: Subacute right frontal temporal infarct with little change since the earlier study of February 01. Assessment & Plan - Diagnosis (1) Acute encephalopathy Is this a current diagnosis for this admission?: Yes Plan: Seems to be a change from his baseline of known dementia. His confirms that he is not exactly himself. Likely this change is secondary from his new stroke. No change from yesterday. Continue to monitor. (2) CVA (cerebral vascular accident) Qualifiers: CVA mechanism: unspecified Qualified Code(s): I63.9 - Cerebral infarction, unspecified Is this a current diagnosis for this admission?: Yes Plan: Right frontal temporal subacute infarct. Continue pure with thin liquids at this time. If his mentation clears we can increase. Repeat CT scan of the brain confirms subacute infarct. The patient will need continued physical therapy and Occupational Therapy. His has chosen [facility]. Aggrenox was started 2 days ago. (3) Diabetes Qualifiers: Diabetes mellitus type: type 2 Plan: Continue current regimen (4) Dementia Qualifiers: Dementia type: unspecified type Dementia behavioral disturbance: without behavioral disturbance Qualified Code(s): F03.90 - Unspecified dementia without behavioral disturbance Is this a current diagnosis for this admission?: Yes Plan: Begin Namenda. (5) ARF (acute renal failure) Qualifiers: Acute renal failure type: unspecified Qualified Code(s): N17.9 - Acute kidney failure, unspecified Is this a current diagnosis for this admission?: Yes Plan: Improved with hydration. (6) HTN (hypertension) Qualifiers: Hypertension type: essential hypertension Qualified Code(s): I10 - Essential (primary) hypertension Is this a current diagnosis for this admission?: Yes Plan: Continue antihypertensives - Time Time Spent with patient: 35 or more minutes - Inpatient Certification I certify that my determination is in accordance with my understanding of Medicare's requirements for reasonable and necessary INPATIENT services [42 CFR 412.3e].: Yes Medical Necessity: Need Close Monitoring Due to Risk of Patient Decompensation
[2017-02-06] MEDS: SIMVASTATIN 40 MG TABLET PO SCH (21:40)
[2017-02-06] MEDS: INSULIN REG, HUMAN 100 UNIT/ML 3 ML VIAL (PYX) SUBCUT PRN (21:54)
[2017-02-07 05:12] LABS: ABSOLUTE BASOPHILS # (AUTO) 0.1 10^3/uL (0.0-0.2); ABSOLUTE EOSINOPHILS # (AUTO) 0.2 10^3/uL (0.0-0.6); ABSOLUTE LYMPHOCYTES (AUTO) 1.5 10^3/uL (0.5-4.7); ABSOLUTE NEUT (AUTO) 8.2 10^3/uL (1.7-8.2); BASOPHILS % (AUTO) 0.8 % (0-2); EOSINOPHILS % (AUTO) 1.8 % (0-6); HEMOGLOBIN 12.2 g/dL (13.5-17.0); HGB HCT DIFFERENCE -1.4; MEAN CORPUSCULAR HEMOGLOBIN 23.1 pg (27.0-33.4); MEAN CORPUSCULAR VOLUME 72 fl (80-97); MONOCYTES % (AUTO) 9.4 % (3-13); RED BLOOD COUNT 5.26 10^6/uL (4.35-5.55); RED CELL DISTRIBUTION WIDTH 14.7 % (11.5-14.0); WHITE BLOOD COUNT 11.1 10^3/uL (4.0-10.5)
[2017-02-07 05:25] LABS: ANION GAP 6 (5-19); BLOOD UREA NITROGEN 12 mg/dL (7-20); CARBON DIOXIDE 24 mmol/L (22-30); CHLORIDE 107 mmol/L (98-107); CREATININE RESULT 1.33 mg/dL (0.52-1.25); GLUCOSE 158 mg/dL (75-110); MAGNESIUM 1.9 mg/dL (1.6-2.3); POTASSIUM 4.1 mmol/L (3.6-5.0); SODIUM 137.2 mmol/L (137-145)
[2017-02-07] MEDS: METOPROLOL TARTRATE 25 MG TABLET PO SCH ×2 (11:50→22:55)
[2017-02-07] MEDS: ASPIRIN/DIPYRIDAMOLE 25-200 MG 1 CAP.SR CPMP.12HR PO SCH ×2 (11:53→22:55)
[2017-02-07] MEDS: HEPARIN SOD (PORCINE) 5,000 UNIT/ML 1 ML SYRINGE SUBCUT SCH ×2 (11:53→22:55)
[2017-02-07] MEDS: POTASSI CL 20 MEQ/1/2NS 1L 20 MEQ/1,000 ML RTUINJ IV PRN (12:01)
--- NOTE | 2017-02-07 15:48 | PDOC PROGRESS REPORT ---
Subjective Progress Note for:: 02/07/17 Subjective:: No new issues. Nursing states that pt will occasionally refuse medications. Physical Exam Vital Signs: Temp Pulse Resp BP Pulse Ox 97.9 F 96 20 145/94 H 98 02/07/17 12:00 02/07/17 12:00 02/07/17 12:00 02/07/17 12:00 02/07/17 12:00 Intake & Output 02/06/17 02/07/17 02/08/17 06:59 06:59 06:59 Intake Total 1549 1290 Balance 1549 1290 Weight 77 kg 77 kg General appearance: PRESENT: no acute distress, well-developed, well-nourished Head exam: PRESENT: atraumatic, normocephalic Eye exam: PRESENT: conjunctiva pink, EOMI Respiratory exam: PRESENT: clear to auscultation samreen. ABSENT: rales, rhonchi, wheezes Cardiovascular exam: PRESENT: RRR. ABSENT: diastolic murmur, rubs, systolic murmur GI/Abdominal exam: PRESENT: normal bowel sounds, soft. ABSENT: distended, guarding, mass, organolmegaly, rebound, tenderness Neurological exam: PRESENT: awake, oriented to person Psychiatric exam: PRESENT: agitated, flat affect Skin exam: PRESENT: dry, warm Results Laboratory Results: 02/07/17 04:45 02/07/17 04:45 02/07/17 02/07/17 04:45 04:45 WBC 11.1 H RBC 5.26 Hgb 12.2 L Hct 38.0 MCV 72 L MCH 23.1 L MCHC 32.0 RDW 14.7 H Plt Count 312 Seg Neutrophils % 74.0 Lymphocytes % 14.0 Monocytes % 9.4 Eosinophils % 1.8 Basophils % 0.8 Absolute Neutrophils 8.2 Absolute Lymphocytes 1.5 Absolute Monocytes 1.0 Absolute Eosinophils 0.2 Absolute Basophils 0.1 Sodium 137.2 Potassium 4.1 Chloride 107 Carbon Dioxide 24 Anion Gap 6 BUN 12 Creatinine 1.33 H Est GFR ( Amer) > 60 Est GFR (Non-Af Amer) 52 L Glucose 158 H Calcium 9.0 Magnesium 1.9 02/02/17 02/02/17 02/03/17 07:10 12:04 05:20 Troponin I 1.720 1.590 0.624 Impressions: Chest X-Ray 02/01/17 19:04 IMPRESSION: Gas-filled bowel throughout the upper abdomen.Mild basilar subsegmental atelectasis. Abdomen CT 02/01/17 19:14 IMPRESSION: No acute inflammatory changes. Mild gas distention of the colon. No evidence for obstruction or free fluid. Carotid Doppler Study 02/02/17 03:07 IMPRESSION: NO HEMODYNAMICALLY SIGNIFICANT STENOSIS. Right vertebral artery could not be visualized Head CT 02/03/17 03:06 IMPRESSION: Subacute right frontal temporal infarct with little change since the earlier study of February 01. Assessment & Plan - Diagnosis (1) Altered mental status Qualifiers: Altered mental status type: unspecified Qualified Code(s): R41.82 - Altered mental status, unspecified Is this a current diagnosis for this admission?: Yes Plan: Secondary to New CVA and Underlying Dementia: Resolving. Will continue to monitor. (2) CVA (cerebral vascular accident) Qualifiers: CVA mechanism: unspecified Qualified Code(s): I63.9 - Cerebral infarction, unspecified Is this a current diagnosis for this admission?: Yes Plan: Secondar to Right frontal temporal Subacute infarct: Will continue Aggrenox. (3) ARF (acute renal failure) Qualifiers: Acute renal failure type: unspecified Qualified Code(s): N17.9 - Acute kidney failure, unspecified Is this a current diagnosis for this admission?: Yes Plan: Resolving with IVF. Will continue to monitor. (4) Acute encephalopathy Is this a current diagnosis for this admission?: Yes Plan: in setting of CVA and Underlying Dementia: Will continue current treatment (5) Diabetes Qualifiers: Diabetes mellitus type: type 2 (6) Elevated troponin Is this a current diagnosis for this admission?: Yes Plan: Secondary to Acute Renal Injury:2 D echo demonstrated normal EF. No new changes. No additional workup needed. (7) Dementia Qualifiers: Dementia type: unspecified type Dementia behavioral disturbance: without behavioral disturbance Qualified Code(s): F03.90 - Unspecified dementia without behavioral disturbance Is this a current diagnosis for this admission?: Yes Plan: Nemanda. (8) Diabetes mellitus type 2 in nonobese Is this a current diagnosis for this admission?: Yes - Time Time Spent with patient: Less than 15 minutes
[2017-02-07] MEDS: SIMVASTATIN 40 MG TABLET PO SCH (22:55)
[2017-02-08] MEDS: POTASSI CL 20 MEQ/1/2NS 1L 20 MEQ/1,000 ML RTUINJ IV PRN (00:37)
[2017-02-08] MEDS: METOPROLOL TARTRATE 25 MG TABLET PO SCH ×2 (10:34→22:05)
[2017-02-08] MEDS: ASPIRIN/DIPYRIDAMOLE 25-200 MG 1 CAP.SR CPMP.12HR PO SCH ×2 (10:35→22:06)
[2017-02-08] MEDS: HEPARIN SOD (PORCINE) 5,000 UNIT/ML 1 ML SYRINGE SUBCUT SCH ×2 (10:36→22:06)
--- NOTE | 2017-02-08 13:20 | PDOC PROGRESS REPORT ---
Subjective Progress Note for:: 02/08/17 Subjective:: No new issues. Pt doing well. Physical Exam Vital Signs: Temp Pulse Resp BP Pulse Ox 97.8 F 67 20 131/93 H 96 02/08/17 12:00 02/08/17 12:00 02/08/17 12:00 02/08/17 12:00 02/08/17 12:00 Intake & Output 02/07/17 02/08/17 02/09/17 06:59 06:59 06:59 Intake Total 1290 1850 Balance 1290 1850 Weight 77 kg 77.6 kg General appearance: PRESENT: no acute distress, well-developed, well-nourished Head exam: PRESENT: atraumatic, normocephalic Eye exam: PRESENT: conjunctiva pink, EOMI Ear exam: PRESENT: normal external ear exam Mouth exam: PRESENT: moist Neck exam: PRESENT: full ROM Respiratory exam: PRESENT: clear to auscultation samreen. ABSENT: rales, rhonchi, wheezes Cardiovascular exam: PRESENT: RRR. ABSENT: diastolic murmur, rubs, systolic murmur Pulses: PRESENT: normal dorsalis pedis pul GI/Abdominal exam: PRESENT: normal bowel sounds, soft. ABSENT: distended, guarding, mass, organolmegaly, rebound, tenderness Extremities exam: PRESENT: full ROM. ABSENT: calf tenderness, clubbing, pedal edema Neurological exam: PRESENT: awake Skin exam: PRESENT: dry, warm Results Laboratory Results: 02/07/17 04:45 02/07/17 04:45 02/02/17 02/02/17 02/03/17 07:10 12:04 05:20 Troponin I 1.720 1.590 0.624 Impressions: Chest X-Ray 02/01/17 19:04 IMPRESSION: Gas-filled bowel throughout the upper abdomen.Mild basilar subsegmental atelectasis. Abdomen CT 02/01/17 19:14 IMPRESSION: No acute inflammatory changes. Mild gas distention of the colon. No evidence for obstruction or free fluid. Carotid Doppler Study 02/02/17 03:07 IMPRESSION: NO HEMODYNAMICALLY SIGNIFICANT STENOSIS. Right vertebral artery could not be visualized Head CT 02/03/17 03:06 IMPRESSION: Subacute right frontal temporal infarct with little change since the earlier study of February 01. Assessment & Plan - Diagnosis (1) Altered mental status Qualifiers: Altered mental status type: unspecified Qualified Code(s): R41.82 - Altered mental status, unspecified Is this a current diagnosis for this admission?: Yes Plan: Secondary to New CVA and Underlying Dementia: Resolving. Will continue to monitor. Pt placed Aggrenox. (2) CVA (cerebral vascular accident) Qualifiers: CVA mechanism: unspecified Qualified Code(s): I63.9 - Cerebral infarction, unspecified Is this a current diagnosis for this admission?: Yes Plan: Secondar to Right frontal temporal Subacute infarct: Will continue Aggrenox. (3) ARF (acute renal failure) Qualifiers: Acute renal failure type: unspecified Qualified Code(s): N17.9 - Acute kidney failure, unspecified Is this a current diagnosis for this admission?: Yes Plan: Resolved. (4) Acute encephalopathy Is this a current diagnosis for this admission?: Yes Plan: in setting of CVA and Underlying Dementia: Will continue current treatment (5) Diabetes Qualifiers: Diabetes mellitus type: type 2 Plan: Will continue current treatment. (6) Elevated troponin Is this a current diagnosis for this admission?: Yes Plan: Secondary to Acute Renal Injury:2 D echo demonstrated normal EF. No new changes. No additional workup needed. (7) Dementia Qualifiers: Dementia type: unspecified type Dementia behavioral disturbance: without behavioral disturbance Qualified Code(s): F03.90 - Unspecified dementia without behavioral disturbance Is this a current diagnosis for this admission?: Yes Plan: Nemanda. (8) Diabetes mellitus type 2 in nonobese Is this a current diagnosis for this admission?: Yes Plan: Will continue current treatment plan. - Time Time Spent with patient: 15-24 minutes - Spoke to and sister in-law.
[2017-02-08] MEDS: NORMAL SALINE 1000 ML 1,000 ML IV PRN (14:41)
[2017-02-08] MEDS: SIMVASTATIN 40 MG TABLET PO SCH (22:06)
[2017-02-09 07:05] LABS: ALANINE AMINOTRANSFERASE 35 U/L (21-72); ALBUMIN 3.4 g/dL (3.5-5.0); ALKALINE PHOSPHATASE 94 U/L (38-126); ANION GAP 8 (5-19); ASPARTATE AMINO TRANSFERASE 37 U/L (17-59); BILIRUBIN,DIRECT 0.6 mg/dL (0.0-0.4); BLOOD UREA NITROGEN 15 mg/dL (7-20); CALCIUM 9.3 mg/dL (8.4-10.2); CARBON DIOXIDE 23 mmol/L (22-30); CHLORIDE 104 mmol/L (98-107); CREATININE RESULT 1.34 mg/dL (0.52-1.25); GLUCOSE 152 mg/dL (75-110); POTASSIUM 5.2 mmol/L (3.6-5.0); SODIUM 135.1 mmol/L (137-145); TOTAL PROTEIN 6.6 g/dL (6.3-8.2)
[2017-02-09] MEDS: ASPIRIN/DIPYRIDAMOLE 25-200 MG 1 CAP.SR CPMP.12HR PO SCH ×2 (09:09→22:20)
[2017-02-09] MEDS: METOPROLOL TARTRATE 25 MG TABLET PO SCH ×2 (09:10→22:20)
[2017-02-09] MEDS: HEPARIN SOD (PORCINE) 5,000 UNIT/ML 1 ML SYRINGE SUBCUT SCH ×2 (09:11→22:20)
[2017-02-09] MEDS: NORMAL SALINE 1000 ML 1,000 ML IV PRN (11:08)
--- NOTE | 2017-02-09 12:07 | PDOC PROGRESS REPORT ---
Subjective Progress Note for:: 02/09/17 Subjective:: No new issues. Physical Exam Vital Signs: Temp Pulse Resp BP Pulse Ox 97.8 F 84 17 116/89 H 99 02/09/17 07:47 02/09/17 07:47 02/09/17 07:47 02/09/17 07:47 02/09/17 07:47 Intake & Output 02/08/17 02/09/17 02/10/17 06:59 06:59 06:59 Intake Total 1850 1270 Balance 1850 1270 Weight 77.6 kg 73.5 kg General appearance: PRESENT: no acute distress, well-developed, well-nourished Head exam: PRESENT: atraumatic, normocephalic Eye exam: PRESENT: conjunctiva pink, EOMI Ear exam: PRESENT: normal external ear exam Mouth exam: PRESENT: dry mucosa Neck exam: ABSENT: carotid bruit, JVD, lymphadenopathy, thyromegaly Respiratory exam: PRESENT: clear to auscultation samreen. ABSENT: rales, rhonchi, wheezes Cardiovascular exam: PRESENT: RRR. ABSENT: diastolic murmur, rubs, systolic murmur Pulses: PRESENT: normal dorsalis pedis pul Vascular exam: PRESENT: normal capillary refill GI/Abdominal exam: PRESENT: normal bowel sounds, soft. ABSENT: distended, guarding, mass, organolmegaly, rebound, tenderness Extremities exam: PRESENT: full ROM. ABSENT: calf tenderness, clubbing, pedal edema Musculoskeletal exam: PRESENT: full ROM Neurological exam: PRESENT: awake Skin exam: PRESENT: dry, warm Results Laboratory Results: 02/07/17 04:45 02/09/17 06:14 02/09/17 06:14 Sodium 135.1 L Potassium 5.2 H Chloride 104 Carbon Dioxide 23 Anion Gap 8 BUN 15 Creatinine 1.34 H Est GFR ( Amer) > 60 Est GFR (Non-Af Amer) 51 L Glucose 152 H Calcium 9.3 Total Bilirubin 1.0 AST 37 ALT 35 Alkaline Phosphatase 94 Total Protein 6.6 Albumin 3.4 L 02/02/17 02/02/17 02/03/17 07:10 12:04 05:20 Troponin I 1.720 1.590 0.624 Impressions: Chest X-Ray 02/01/17 19:04 IMPRESSION: Gas-filled bowel throughout the upper abdomen.Mild basilar subsegmental atelectasis. Abdomen CT 02/01/17 19:14 IMPRESSION: No acute inflammatory changes. Mild gas distention of the colon. No evidence for obstruction or free fluid. Carotid Doppler Study 02/02/17 03:07 IMPRESSION: NO HEMODYNAMICALLY SIGNIFICANT STENOSIS. Right vertebral artery could not be visualized Head CT 02/03/17 03:06 IMPRESSION: Subacute right frontal temporal infarct with little change since the earlier study of February 01. Assessment & Plan - Diagnosis (1) Altered mental status Qualifiers: Altered mental status type: unspecified Qualified Code(s): R41.82 - Altered mental status, unspecified Is this a current diagnosis for this admission?: Yes Plan: Secondary to New CVA and Underlying Dementia: Resolving. Will continue to monitor. Pt placed Aggrenox. (2) CVA (cerebral vascular accident) Qualifiers: CVA mechanism: unspecified Qualified Code(s): I63.9 - Cerebral infarction, unspecified Is this a current diagnosis for this admission?: Yes Plan: Secondar to Right frontal temporal Subacute infarct: Will continue Aggrenox. (3) ARF (acute renal failure) Qualifiers: Acute renal failure type: unspecified Qualified Code(s): N17.9 - Acute kidney failure, unspecified Is this a current diagnosis for this admission?: Yes Plan: Resolved. (4) Acute encephalopathy Is this a current diagnosis for this admission?: Yes Plan: in setting of CVA and Underlying Dementia: Will continue current treatment (5) Diabetes Qualifiers: Diabetes mellitus type: type 2 Plan: Will continue current treatment. (6) Elevated troponin Is this a current diagnosis for this admission?: Yes Plan: Secondary to Acute Renal Injury:2 D echo demonstrated normal EF. No new changes. No additional workup needed. (7) Dementia Qualifiers: Dementia type: unspecified type Dementia behavioral disturbance: without behavioral disturbance Qualified Code(s): F03.90 - Unspecified dementia without behavioral disturbance Is this a current diagnosis for this admission?: Yes Plan: Nemanda. (8) Diabetes mellitus type 2 in nonobese Is this a current diagnosis for this admission?: Yes Plan: Will continue current treatment plan. - Time Time Spent with patient: 15-24 minutes
[2017-02-09] MEDS: SIMVASTATIN 40 MG TABLET PO SCH (22:20)
[2017-02-10 06:31] LABS: ANION GAP 8 (5-19); BLOOD UREA NITROGEN 16 mg/dL (7-20); CALCIUM 9.3 mg/dL (8.4-10.2); CARBON DIOXIDE 24 mmol/L (22-30); CHLORIDE 105 mmol/L (98-107); CREATININE RESULT 1.42 mg/dL (0.52-1.25); GLUCOSE 160 mg/dL (75-110); POTASSIUM 4.5 mmol/L (3.6-5.0); SODIUM 137.4 mmol/L (137-145)
[2017-02-10] MEDS: METOPROLOL TARTRATE 25 MG TABLET PO SCH ×2 (10:00→22:51)
[2017-02-10] MEDS: HEPARIN SOD (PORCINE) 5,000 UNIT/ML 1 ML SYRINGE SUBCUT SCH ×2 (10:18→22:51)
[2017-02-10] MEDS ORDERED: CLOPIDOGREL BISULFATE 75 MG TABLET PO ONE (11:00)
[2017-02-10] MEDS ORDERED: ASPIRIN 81 MG TABLET, ENT COATED PO ONE (11:00)
[2017-02-10] MEDS ORDERED: NORMAL SALINE 1000 ML 500 ML IV ONE (13:51)
--- NOTE | 2017-02-10 14:03 | PDOC PROGRESS REPORT ---
Subjective Progress Note for:: 02/10/17 Subjective:: No new issues. Physical Exam Vital Signs: Temp Pulse Resp BP Pulse Ox 97.5 F 73 20 132/79 H 96 02/10/17 11:30 02/10/17 11:30 02/10/17 11:30 02/10/17 11:30 02/10/17 11:30 Intake & Output 02/09/17 02/10/17 02/11/17 06:59 06:59 06:59 Intake Total 1270 1300 Balance 1270 1300 Weight 73.5 kg 74.3 kg General appearance: PRESENT: no acute distress, well-developed, well-nourished Head exam: PRESENT: atraumatic, normocephalic Eye exam: PRESENT: conjunctiva pink, EOMI. ABSENT: scleral icterus Ear exam: PRESENT: normal external ear exam Neck exam: ABSENT: carotid bruit, JVD, lymphadenopathy, thyromegaly Respiratory exam: PRESENT: clear to auscultation samreen. ABSENT: rales, rhonchi, wheezes Cardiovascular exam: PRESENT: RRR. ABSENT: diastolic murmur, rubs, systolic murmur Pulses: PRESENT: normal dorsalis pedis pul GI/Abdominal exam: PRESENT: normal bowel sounds, soft. ABSENT: distended, guarding, mass, organolmegaly, rebound, tenderness Extremities exam: PRESENT: full ROM. ABSENT: calf tenderness, clubbing, pedal edema Musculoskeletal exam: PRESENT: full ROM Neurological exam: PRESENT: awake, other - Pt will speak occasionally. Skin exam: PRESENT: dry, warm Results Laboratory Results: 02/07/17 04:45 02/10/17 06:02 02/10/17 06:02 Sodium 137.4 Potassium 4.5 Chloride 105 Carbon Dioxide 24 Anion Gap 8 BUN 16 Creatinine 1.42 H Est GFR ( Amer) 58 L Est GFR (Non-Af Amer) 48 L Glucose 160 H Calcium 9.3 02/02/17 02/02/17 02/03/17 07:10 12:04 05:20 Troponin I 1.720 1.590 0.624 Impressions: Chest X-Ray 02/01/17 19:04 IMPRESSION: Gas-filled bowel throughout the upper abdomen.Mild basilar subsegmental atelectasis. Abdomen CT 02/01/17 19:14 IMPRESSION: No acute inflammatory changes. Mild gas distention of the colon. No evidence for obstruction or free fluid. Carotid Doppler Study 02/02/17 03:07 IMPRESSION: NO HEMODYNAMICALLY SIGNIFICANT STENOSIS. Right vertebral artery could not be visualized Head CT 02/03/17 03:06 IMPRESSION: Subacute right frontal temporal infarct with little change since the earlier study of February 01. Assessment & Plan - Diagnosis (1) Altered mental status Qualifiers: Altered mental status type: unspecified Qualified Code(s): R41.82 - Altered mental status, unspecified Is this a current diagnosis for this admission?: Yes Plan: Secondary to New CVA and Underlying Dementia: Resolving. Will continue to monitor. Pt not consistent about taking Aggrenox. Will discontinue Aggrenox and place on ASA 81mg/Plavix 75 mg PO due to being able to be crushed. (2) CVA (cerebral vascular accident) Qualifiers: CVA mechanism: unspecified Qualified Code(s): I63.9 - Cerebral infarction, unspecified Is this a current diagnosis for this admission?: Yes Plan: Secondar to Right frontal temporal Subacute infarct: Will continue ASA and Plavix. (3) ARF (acute renal failure) Qualifiers: Acute renal failure type: unspecified Qualified Code(s): N17.9 - Acute kidney failure, unspecified Is this a current diagnosis for this admission?: Yes Plan: Will give 500cc fluid bolus X 1. (4) Acute encephalopathy Is this a current diagnosis for this admission?: Yes Plan: in setting of CVA and Underlying Dementia: Will continue current treatment (5) Diabetes Qualifiers: Diabetes mellitus type: type 2 Plan: Will continue current treatment. (6) Elevated troponin Is this a current diagnosis for this admission?: Yes Plan: Secondary to Acute Renal Injury:2 D echo demonstrated normal EF. No new changes. No additional workup needed. (7) Dementia Qualifiers: Dementia type: unspecified type Dementia behavioral disturbance: without behavioral disturbance Qualified Code(s): F03.90 - Unspecified dementia without behavioral disturbance Is this a current diagnosis for this admission?: Yes Plan: Nemanda. (8) Diabetes mellitus type 2 in nonobese Is this a current diagnosis for this admission?: Yes Plan: Will continue current treatment plan. - Time Time Spent with patient: Less than 15 minutes
[2017-02-10] MEDS: SIMVASTATIN 40 MG TABLET PO SCH (22:51)
[2017-02-11 05:40] LABS: ANION GAP 10 (5-19); BLOOD UREA NITROGEN 16 mg/dL (7-20); CALCIUM 9.3 mg/dL (8.4-10.2); CARBON DIOXIDE 21 mmol/L (22-30); CHLORIDE 104 mmol/L (98-107); CREATININE RESULT 1.34 mg/dL (0.52-1.25); GLUCOSE 142 mg/dL (75-110); POTASSIUM 5.1 mmol/L (3.6-5.0); SODIUM 134.8 mmol/L (137-145)
[2017-02-11] MEDS ORDERED: CLOPIDOGREL BISULFATE 75 MG TABLET PO SCH (10:00)
[2017-02-11] MEDS ORDERED: ASPIRIN 81 MG TABLET, ENT COATED PO SCH (10:00)
--- NOTE | 2017-02-11 13:11 | PDOC DISCHARGE SUMMARY ---
General - Admit/Disc Date/PCP Admission Date/Primary Care Provider: 02/02/17 02:54 OMAR LOWE MD Discharge Date: 02/11/17 - Discharge Diagnosis (1) Altered mental status Is this a current diagnosis for this admission?: Yes Summary: Secondary to right frontal temporal subacute infarct: Patient on aspirin and Plavix. (2) CVA (cerebral vascular accident) Is this a current diagnosis for this admission?: Yes Summary: Subacute right frontal temporal infarct: Patient on aspirin and Plavix (3) ARF (acute renal failure) Is this a current diagnosis for this admission?: Yes Summary: In setting of chronic CKD stage II secondary to dehydration: Resolved (4) Acute encephalopathy Is this a current diagnosis for this admission?: Yes Summary: Secondary to right frontotemporal subacute infarct: Patient currently at baseline (5) Diabetes Is this a current diagnosis for this admission?: Yes Summary: We will continue sliding scale insulin (6) Elevated troponin Is this a current diagnosis for this admission?: Yes Summary: In setting of acute renal injury: Patient had 2D echo that demonstrated preserved left EF. No further evaluation was warranted. (7) Dementia Is this a current diagnosis for this admission?: Yes Summary: Supportive care. Will add Megace BID - Additional Information Resuscitation Status: Full Code Discharge Diet: Other (Comments) - regular pureed regular liquid diet. Discharge Activity: Other - fall precautions Home Medications: Aspirin [Aspirin EC] 81 mg PO DAILY 02/02/17 Metoprolol Tartrate [Lopressor 25 mg Tablet] 12.5 mg PO Q12 02/02/17 Omeprazole 40 mg PO BIDBS 02/02/17 Simvastatin 20 mg PO QHS 02/02/17 Acetaminophen [Tylenol 650 mg Supp] 650 mg VT Q8HP PRN supp.rect 02/11/17 Clopidogrel Bisulfate [Plavix 75 mg Tablet] 75 mg PO DAILY tablet 02/11/17 Insulin Regular, Human [Humulin R (Reg) Insulin 100 unit/mL] 0 - 12 unit SUBCUT Q6HP PRN #1 unit 02/11/17 Lisinopril 5 mg PO DAILY #30 tablet 02/11/17 Megestrol Acetate [Megace Es] 625 mg PO BID #60 ml 02/11/17 History of Present Illness History of Present Illness: COMPA CHOI is a 81 year old male admitted for Acute Metabolic Encephalopathy Secondary to Subacute Right Frontotemporal Infarct. Hospital Course Hospital Course: Patient is an 81-year-old gentleman that was admitted for acute metabolic encephalopathy. Patient was brought to the emergency room for further evaluation because family had noted that he was slow with ambulating around the house and appear to be more confused. When patient was evaluated patient was found to have a right frontal temporal CVA. She was admitted to the hospital where he was evaluated further. The recommendation was to place patient on Aggrenox. Patient did not take Aggrenox as prescribed and therefore patient was transitioned to aspirin and Plavix which could be crushed. Patient's appetite would wax and wane therefore patient was placed on Megace for more consistent food intake. Prior to admission have been's placed on Cipro for 5 days by his primary doctor during this hospitalization patient had no problems in regards to infection. Patient was noted to have acute renal injury in setting of chronic kidney disease 23 which resolved with IV fluids. Patient was noted to have elevated troponins at time of admission which was due to patient's acute renal injury. When patient received IV fluids patient's troponins trended down. Patient did have a 2D echo that demonstrated normal left ventricular function. Patient did not complain of chest pain or chest discomfort. EKGs demonstrated no acute findings. Patient has underlying dementia which has demonstrated no significant changes. Physical Exam Vital Signs: Temp Pulse Resp BP Pulse Ox 97.5 F 65 19 123/88 H 100 02/11/17 07:29 02/11/17 07:29 02/11/17 07:29 02/11/17 07:29 02/11/17 07:29 Intake & Output 02/10/17 02/11/17 02/12/17 06:59 06:59 06:59 Intake Total 1300 1780 Balance 1300 1780 Weight 74.3 kg 72.4 kg General appearance: PRESENT: no acute distress Head exam: PRESENT: atraumatic, normocephalic Eye exam: PRESENT: conjunctiva pink, EOMI Ear exam: PRESENT: normal external ear exam Mouth exam: PRESENT: moist, tongue midline Neck exam: ABSENT: carotid bruit, JVD, lymphadenopathy, thyromegaly Respiratory exam: PRESENT: clear to auscultation samreen. ABSENT: rales, rhonchi, wheezes Cardiovascular exam: PRESENT: RRR. ABSENT: diastolic murmur, rubs, systolic murmur Pulses: PRESENT: normal dorsalis pedis pul GI/Abdominal exam: PRESENT: normal bowel sounds, soft. ABSENT: distended, guarding, mass, organolmegaly, rebound, tenderness Extremities exam: PRESENT: full ROM. ABSENT: calf tenderness, clubbing, pedal edema Musculoskeletal exam: PRESENT: full ROM Neurological exam: PRESENT: alert Psychiatric exam: PRESENT: flat affect Skin exam: PRESENT: erythema, warm Results Laboratory Results: 02/07/17 04:45 02/11/17 04:42 02/11/17 04:42 Sodium 134.8 L Potassium 5.1 H Chloride 104 Carbon Dioxide 21 L Anion Gap 10 BUN 16 Creatinine 1.34 H Est GFR ( Amer) > 60 Est GFR (Non-Af Amer) 51 L Glucose 142 H Calcium 9.3 02/02/17 02/02/17 02/03/17 07:10 12:04 05:20 Troponin I 1.720 1.590 0.624 Impressions: Chest X-Ray 02/01/17 19:04 IMPRESSION: Gas-filled bowel throughout the upper abdomen.Mild basilar subsegmental atelectasis. Abdomen CT 02/01/17 19:14 IMPRESSION: No acute inflammatory changes. Mild gas distention of the colon. No evidence for obstruction or free fluid. Carotid Doppler Study 02/02/17 03:07 IMPRESSION: NO HEMODYNAMICALLY SIGNIFICANT STENOSIS. Right vertebral artery could not be visualized Head CT 02/03/17 03:06 IMPRESSION: Subacute right frontal temporal infarct with little change since the earlier study of February 01. Qualifiers PATEINT BEING DISCHARGED WITH ANY OF THE FOLLOWING DIAGNOSIS?: Stroke VTE patient discharged on overlapping Therapy?: Yes Stroke Pt being discharged on Anti-thrombolytic therapy?: Yes Stroke Pt being discharged on Anti-coagulation therapy?: Yes Stroke Pt being discharged on Statins?: Yes
[2017-02-11] MEDS: NORMAL SALINE 1000 ML 1,000 ML IV PRN (13:44)
[2017-02-11] MEDS: HEPARIN SOD (PORCINE) 5,000 UNIT/ML 1 ML SYRINGE SUBCUT SCH (13:45)
[2017-02-11] MEDS: METOPROLOL TARTRATE 25 MG TABLET PO SCH (13:46)
[2017-02-11 17:11] VITALS: BP 122/44
[2017-02-11] MEDS ORDERED: MEGESTROL ACETATE SUSP 400 MG/10 ML UDCUP PO SCH (18:00)
== END 2017-02-11 17:20 | DRG 64 ==
LOC: ER 19:03 → EH 23:48 → UNDOADMIN 23:48 → 3S 02-02 02:15 → EH 02-02 02:15 → 3S 02-02 02:54 → 3W 02-02 17:22 → 4N 02-05 15:15
PROVIDERS: ADMIT Family Medicine; ATTEND Family Medicine
DX: I63.8 Other cerebral infarction (principal); G93.41 Metabolic encephalopathy; N17.9 Acute kidney failure, unspecified; I12.9 Hypertensive chronic kidney disease with stage 1 through stage 4 chronic kidney disease, or unspecified chronic kidney disease; E11.22 Type 2 diabetes mellitus with diabetic chronic kidney disease; N18.9 Chronic kidney disease, unspecified; E78.5 Hyperlipidemia, unspecified; F03.90 Unspecified dementia, unspecified severity, without behavioral disturbance, psychotic disturbance, mood disturbance, and anxiety; Z79.82 Long term (current) use of aspirin; Z79.899 Other long term (current) drug therapy; Z86.73 Personal history of transient ischemic attack (TIA), and cerebral infarction without residual deficits
CPT/HCPCS: 36415; 70450; 71010; 74150; 80048; 80053; 80061; 81001; 82803; 82962; 83605; 83735; 84443; 84484; 85025; 85610; 85730; 87040; 87086; 93005; 93010; 93306; 93880; 96361; 96365; 99291; G8978-GP; G8979-GP; G8987-GO; G8988-GO; G8989-GO; J1644; J1815; J2060; J2543; J3480; J3490; J7030; J7040

== ENCOUNTER 2017-02-18 14:27 | Inpatient (IN) | payer OTHER, MEDICARE ==
[2017-02-18] MEDS ORDERED: DEXTROSE 5%-1/2 NORMAL SALINE 1,000 ML IV ONE (15:29)
[2017-02-18 16:03] LABS: ABSOLUTE LYMPHOCYTES (AUTO) 1.2 10^3/uL (0.5-4.7); ABSOLUTE MONOCYTES (AUTO) 0.9 10^3/uL (0.1-1.4); ABSOLUTE NEUT (AUTO) 5.3 10^3/uL (1.7-8.2); BASOPHILS % (AUTO) 0.5 % (0-2); EOSINOPHILS % (AUTO) 0.4 % (0-6); HEMATOCRIT 50.2 % (37.9-51.0); HEMOGLOBIN 16.2 g/dL (13.5-17.0); HGB HCT DIFFERENCE -1.6; LYMPHOCYTES % (AUTO) 16.7 % (13-45); MEAN CORPUSCULAR HEMOGLOBIN 23.7 pg (27.0-33.4); MEAN CORPUSCULAR HGB CONC 32.2 g/dL (32.0-36.0); MEAN CORPUSCULAR VOLUME 74 fl (80-97); MONOCYTES % (AUTO) 11.8 % (3-13); RED BLOOD COUNT 6.83 10^6/uL (4.35-5.55); RED CELL DISTRIBUTION WIDTH 15.3 % (11.5-14.0); SEGMENTED NEUTROPHILS % (AUTO) 70.6 % (42-78); WHITE BLOOD COUNT 7.5 10^3/uL (4.0-10.5)
[2017-02-18 16:22] LABS: ALANINE AMINOTRANSFERASE 42 U/L (21-72); ALBUMIN 4.8 g/dL (3.5-5.0); ALKALINE PHOSPHATASE 134 U/L (38-126); ANION GAP 19 (5-19); ASPARTATE AMINO TRANSFERASE 34 U/L (17-59); BILIRUBIN,DIRECT 1.3 mg/dL (0.0-0.4); BILIRUBIN,TOTAL 2.3 mg/dL (0.2-1.3); BLOOD UREA NITROGEN 42 mg/dL (7-20); CALCIUM 11.4 mg/dL (8.4-10.2); CARBON DIOXIDE 20 mmol/L (22-30); CHLORIDE 104 mmol/L (98-107); CREATININE RESULT 2.05 mg/dL (0.52-1.25); GLUCOSE 164 mg/dL (75-110); POTASSIUM 5.5 mmol/L (3.6-5.0); SODIUM 142.7 mmol/L (137-145); TOTAL PROTEIN 9.1 g/dL (6.3-8.2)
--- NOTE | 2017-02-18 16:59 | ER Document Report ---
ED General - General Chief Complaint: General Weakness Stated Complaint: WEAKNESS Time Seen by Provider: 02/18/17 15:26 Notes: Patient was sent here from a local detention to have a PEG tube inserted. Patient had a stroke about 3 weeks ago. He was admitted to this hospital for 10 days. He was transferred to the local detention 1 week ago today. He has not been eating or drinking. He was assessed and felt to need a feeding PEG tube and was referred here for admission for that procedure. TRAVEL OUTSIDE OF THE [place] IN LAST 30 DAYS: No - Related Data Allergies/Adverse Reactions: No Known Allergies Allergy (Verified 02/01/17 19:12) Past Medical History - Social History Smoking Status: Unknown if Ever Smoked Chew tobacco use (# tins/day): No Frequency of alcohol use: None Drug Abuse: None Family History: Reviewed & Not Pertinent, Hypertension - Past Medical History Cardiac Medical History: Reports: Hx Hypercholesterolemia, Hx Hypertension Neurological Medical History: Reports: Hx Cerebrovascular Accident Endocrine Medical History: Reports: Hx Diabetes Mellitus Type 2 Renal/ Medical History: Denies: Hx Peritoneal Dialysis GI Medical History: Reports: Hx Gastroesophageal Reflux Disease. Denies: Hx Cirrhosis, Hx Hepatitis Musculoskeltal Medical History: Denies Hx Arthritis Psychiatric Medical History: Reports: Hx Dementia Infectious Medical History: Denies: Hx Hepatitis - Immunizations Hx Diphtheria, Pertussis, Tetanus Vaccination: Yes Review of Systems - Review of Systems -: Yes ROS unobtainable due to patient's medical condition - Patient does not speak. Family is not very helpful with history either. Physical Exam - Vital signs Vitals: Resp Pulse Ox 17 97 02/18/17 14:43 02/18/17 14:43 Interpretation: Normal - Notes Notes: PHYSICAL EXAMINATION: GENERAL: Vital signs essentially normal. Patient is poorly responsive. Moves his extremities, does not open his eyes, does not respond to commands or questions. HEAD: Atraumatic, normocephalic. EYES: Unable to visualize because of lack of patient cooperation. ENT: oropharynx clear without exudates. Dry mucous membranes. NECK: Normal range of motion, supple. LUNGS: Breath sounds clear and equal bilaterally. HEART: Regular rate and rhythm without murmurs. ABDOMEN: Soft, nontender. No guarding or rebound. BACK: No tenderness throughout entire back. EXTREMITIES: Normal range of motion without pain. NEUROLOGICAL: Patient does not respond to questions. Does not follow commands. Appears to be moving all 4 extremities to some extent, but not necessarily purposeful. PSYCH: Normal mood, normal affect. SKIN: Warm, dry, no rashes. Course - Vital Signs Vital signs: Temp Pulse Resp BP Pulse Ox 97.5 F 16 137/101 H 99 02/18/17 16:51 02/18/17 16:51 02/18/17 16:51 02/18/17 16:51 - Laboratory Result Diagrams: 02/18/17 15:39 02/18/17 15:39 Laboratory results interpreted by me: 02/18/17 02/18/17 15:39 15:39 RBC 6.83 H MCV 74 L MCH 23.7 L RDW 15.3 H Potassium 5.5 H Carbon Dioxide 20 L BUN 42 H Creatinine 2.05 H Est GFR ( Amer) 38 L Est GFR (Non-Af Amer) 31 L Glucose 164 H Calcium 11.4 H Total Bilirubin 2.3 H Direct Bilirubin 1.3 H Alkaline Phosphatase 134 H Total Protein 9.1 H Discharge - Discharge Clinical Impression: Dehydration Condition: Fair Disposition: ADMITTED OBSERVATION Admitting Provider: Hospitalist Unit Admitted: Medical Floor
[2017-02-18] MEDS ORDERED: DEXTROSE 50%-WATER 25 GM/50 ML DISP.SYRIN IV PRN ×4 (17:07→17:21)
[2017-02-18] MEDS ORDERED: DEXTROSE 40% GEL 15 GM TUBE PO PRN ×4 (17:07→17:21)
[2017-02-18] MEDS ORDERED: ACETAMINOPHEN 325 MG TABLET PO PRN (17:07)
[2017-02-18] MEDS ORDERED: GLUCAGON,HUMAN RECOMB 1 MG INJ SUBCUT PRN (17:07)
[2017-02-18] MEDS ORDERED: GLUCAGON,HUMAN RECOMB 1 MG INJ IM PRN (17:21)
[2017-02-18] MEDS ORDERED: INSULIN LISPRO 100 UNIT/ML 3 ML VIAL SUBCUT PRN (17:21)
--- NOTE | 2017-02-18 17:44 | PDOC H&P ---
History of Present Illness Admission Date/PCP: 02/18/17 17:04 Patient complains of: Not eating or drinking History of Present Illness: COMPA CHOI JR is a 81 year old male who was discharged earlier this month from our service after having a CVA in the frontotemporal area. Patient was sent to the longterm for rehabilitation however he has had very little p.o. intake. The gives most of the history and she is at the bedside. The patient has not shown any interest in food. He does not have any problems swallowing just does not want to eat. Patient was seen at the longterm by gastroenterology who suggested placing a PEG tube. The patient presented today he shows evidence for some dehydration and he will be admitted as observation in anticipation of a PEG tube placement tomorrow. The patient gives no history as he will not interact with me. Past Medical History Cardiac Medical History: Reports: Hyperlipidema, Hypertension Denies: Atrial Fibrillation, Congestive Heart Failure, Myocardial Infarction Pulmonary Medical History: Denies: Asthma, Chronic Obstructive Pulmonary Disease (COPD) EENT Medical History: Reports: None Neurological Medical History: Reports: Ischemic CVA Denies: Seizures Endocrine Medical History: Reports: Diabetes Mellitus Type 2 Denies: Diabetes Mellitus Type 1 Renal/ Medical History: Reports: Chronic Kidney Disease Malignancy Medical History: Reports: None GI Medical History: Reports: Gastroesophageal Reflux Disease Denies: Cirrhosis, Hepatitis Musculoskeltal Medical History: Denies: Arthritis Skin Medical History: Reports: None Psychiatric Medical History: Reports: Dementia Traumatic Medical History: Reports: None Hematology: Reports: None Infectious Medical History: Reports: None Past Surgical History Past Surgical History: Reports: None Social History Information Source: Relative Lives with: Custodial Smoking Status: Unknown if Ever Smoked Frequency of Alcohol Use: None Hx Recreational Drug Use: No Drugs: None Hx Prescription Drug Abuse: No - Advance Directive Resuscitation Status: Full Code Surrogate healthcare decision maker:: Family History Family History: Hypertension Family History: is uncertain of the history but they lived to their 80's Parental Family History Reviewed: Yes Children Family History Reviewed: No Sibling(s) Family History Reviewed.: No Medication/Allergy Allergies/Adverse Reactions: No Known Allergies Allergy (Verified 02/01/17 19:12) Review of Systems ROS unobtainable: Due to mental status Physical Exam Vital Signs: Temp Pulse Resp BP Pulse Ox 97.5 F 16 137/101 H 99 02/18/17 16:51 02/18/17 16:51 02/18/17 16:51 02/18/17 16:51 General appearance: PRESENT: no acute distress, well-developed, well-nourished Head exam: PRESENT: atraumatic, normocephalic Eye exam: PRESENT: conjunctiva pink. ABSENT: scleral icterus Ear exam: PRESENT: normal external ear exam Mouth exam: PRESENT: moist, tongue midline Neck exam: ABSENT: carotid bruit, JVD, lymphadenopathy, thyromegaly Respiratory exam: PRESENT: clear to auscultation samreen. ABSENT: rales, rhonchi, wheezes Cardiovascular exam: PRESENT: RRR. ABSENT: diastolic murmur, rubs, systolic murmur Pulses: PRESENT: normal dorsalis pedis pul Vascular exam: PRESENT: normal capillary refill GI/Abdominal exam: PRESENT: normal bowel sounds, soft. ABSENT: distended, guarding, mass, organolmegaly, rebound, tenderness Rectal exam: PRESENT: deferred Extremities exam: PRESENT: full ROM. ABSENT: calf tenderness, clubbing, pedal edema Neurological exam: PRESENT: altered. ABSENT: motor sensory deficit Psychiatric exam: PRESENT: flat affect Skin exam: PRESENT: dry, intact, warm. ABSENT: cyanosis, rash Assessment & Plan - Diagnosis (1) Dehydration Is this a current diagnosis for this admission?: Yes Plan: Patient has had decreased p.o. intake since being sent to rehab after his stroke. Will start the patient on IV fluids. Patient is already been evaluated by gastroenterology for PEG tube placement. (2) ARF (acute renal failure) Qualifiers: Acute renal failure type: unspecified Qualified Code(s): N17.9 - Acute kidney failure, unspecified Is this a current diagnosis for this admission?: Yes Plan: Patient has acute on chronic renal failure stage III. This hopefully will improve with IV fluids. (3) CVA (cerebral vascular accident) Qualifiers: CVA mechanism: unspecified Qualified Code(s): I63.9 - Cerebral infarction, unspecified Is this a current diagnosis for this admission?: Yes Plan: The patient had a recent CVA. He is on aspirin and Plavix. Will hold the dose for now until after his PEG tube placement. (4) Diabetes Qualifiers: Diabetes mellitus type: type 2 Is this a current diagnosis for this admission?: Yes Plan: We will cover with sliding scale insulin. (5) Dementia Qualifiers: Dementia type: unspecified type Dementia behavioral disturbance: without behavioral disturbance Qualified Code(s): F03.90 - Unspecified dementia without behavioral disturbance Is this a current diagnosis for this admission?: Yes Plan: The reports that he is at his baseline since his stroke. (6) HLD (hyperlipidemia) Qualifiers: Hyperlipidemia type: unspecified Qualified Code(s): E78.5 - Hyperlipidemia , unspecified Is this a current diagnosis for this admission?: Yes Plan: We will continue with his statin. (7) HTN (hypertension) Qualifiers: Hypertension type: essential hypertension Qualified Code(s): I10 - Essential (primary) hypertension Is this a current diagnosis for this admission?: Yes Plan: We will continue with the lisinopril and metoprolol. - Time Time Spent: 50 to 70 Minutes - Inpatient Certification Medical Necessity: Need Close Monitoring Due to Risk of Patient Decompensation, Need For IV Fluids - Plan Summary Plan Summary: We will admit as observation. The patient's request that he be a full code.
[2017-02-18] MEDS ORDERED: MEGESTROL ACETATE 625 MG PO SCH ×2 (18:00)
[2017-02-18] MEDS: NORMAL SALINE 1000 ML 1,000 ML IV PRN (20:59)
[2017-02-18] MEDS: METOPROLOL TARTRATE 25 MG TABLET PO SCH (21:52)
[2017-02-18] MEDS: FAMOTIDINE INJ/PF 20 MG/2 ML SDV IV SCH (21:52)
[2017-02-18] MEDS: SIMVASTATIN 40 MG TABLET PO SCH (21:52)
[2017-02-19] MEDS: NORMAL SALINE 1000 ML 1,000 ML IV PRN ×2 (03:37→10:50)
[2017-02-19 05:41] LABS: PROTHROMBIN TIME 14.9 SEC (11.4-15.4)
[2017-02-19 05:42] LABS: PARTIAL THROMBOPLASTIN TIME 32.7 SEC (23.5-35.8)
[2017-02-19 06:00] LABS: ANION GAP 16 (5-19); BLOOD UREA NITROGEN 37 mg/dL (7-20); CARBON DIOXIDE 21 mmol/L (22-30); CHLORIDE 109 mmol/L (98-107); CREATININE RESULT 1.68 mg/dL (0.52-1.25); GLUCOSE 149 mg/dL (75-110); HEMATOCRIT 43.2 % (37.9-51.0); HGB HCT DIFFERENCE -1.5; MAGNESIUM 2.5 mg/dL (1.6-2.3); MEAN CORPUSCULAR HEMOGLOBIN 23.5 pg (27.0-33.4); MEAN CORPUSCULAR HGB CONC 32.1 g/dL (32.0-36.0); MEAN CORPUSCULAR VOLUME 73 fl (80-97); POTASSIUM 5.3 mmol/L (3.6-5.0); RED CELL DISTRIBUTION WIDTH 15.6 % (11.5-14.0); SODIUM 145.5 mmol/L (137-145); WHITE BLOOD COUNT 7.4 10^3/uL (4.0-10.5)
[2017-02-19 06:06] LABS: HEMOGLOBIN 13.9 g/dL (13.5-17.0)
[2017-02-19] MEDS: LANSOPRAZOLE 30 MG TAB.RAP.DR PO SCH ×2 (08:25→16:01)
--- NOTE | 2017-02-19 10:14 | PDOC PROGRESS REPORT ---
Subjective Progress Note for:: 02/19/17 Subjective:: Patient does not answer questions. Physical Exam Vital Signs: Temp Pulse Resp BP Pulse Ox 97.3 F 87 16 101/65 98 02/19/17 08:00 02/19/17 08:00 02/19/17 08:00 02/19/17 08:00 02/19/17 08:00 Intake & Output 02/18/17 02/19/17 02/20/17 06:59 06:59 06:59 Intake Total 240 Balance 240 Weight 53.3 kg General appearance: PRESENT: no acute distress Eye exam: PRESENT: conjunctiva pink. ABSENT: scleral icterus Mouth exam: PRESENT: moist, tongue midline Neck exam: ABSENT: JVD Respiratory exam: PRESENT: clear to auscultation samreen. ABSENT: rales, rhonchi, wheezes Cardiovascular exam: PRESENT: RRR. ABSENT: diastolic murmur, rubs, systolic murmur GI/Abdominal exam: PRESENT: normal bowel sounds, soft. ABSENT: distended, guarding, mass, organolmegaly, rebound, tenderness Extremities exam: ABSENT: calf tenderness, clubbing, pedal edema Neurological exam: PRESENT: awake. ABSENT: oriented to person, oriented to place, oriented to time, oriented to situation Psychiatric exam: PRESENT: flat affect Skin exam: PRESENT: dry, intact, warm. ABSENT: cyanosis, rash Results Laboratory Results: 02/19/17 04:40 02/19/17 04:40 02/19/17 02/19/17 04:40 04:40 WBC 7.4 RBC 5.90 H Hgb 13.9 D Hct 43.2 MCV 73 L MCH 23.5 L MCHC 32.1 RDW 15.6 H Plt Count 164 Sodium 145.5 H Potassium 5.3 H Chloride 109 H Carbon Dioxide 21 L Anion Gap 16 BUN 37 H Creatinine 1.68 H Est GFR ( Amer) 48 L Est GFR (Non-Af Amer) 39 L Glucose 149 H Calcium 10.0 Magnesium 2.5 H Assessment & Plan - Diagnosis (1) Dehydration Is this a current diagnosis for this admission?: Yes Plan: Patient has had decreased p.o. intake since being sent to rehab after his stroke. Will start the patient on IV fluids. Patient is already been evaluated by gastroenterology for PEG tube placement. (2) ARF (acute renal failure) Qualifiers: Acute renal failure type: unspecified Qualified Code(s): N17.9 - Acute kidney failure, unspecified Is this a current diagnosis for this admission?: Yes Plan: Patient has acute on chronic renal failure stage III. This has improved with IV fluids. (3) CVA (cerebral vascular accident) Qualifiers: CVA mechanism: unspecified Qualified Code(s): I63.9 - Cerebral infarction, unspecified Is this a current diagnosis for this admission?: Yes Plan: The patient had a recent CVA. He is on aspirin and Plavix. Will hold the dose for now until after his PEG tube placement. (4) Diabetes Qualifiers: Diabetes mellitus type: type 2 Is this a current diagnosis for this admission?: Yes Plan: We will cover with sliding scale insulin. (5) Dementia Qualifiers: Dementia type: unspecified type Dementia behavioral disturbance: without behavioral disturbance Qualified Code(s): F03.90 - Unspecified dementia without behavioral disturbance Is this a current diagnosis for this admission?: Yes Plan: The reports that he is at his baseline since his stroke. (6) HLD (hyperlipidemia) Qualifiers: Hyperlipidemia type: unspecified Qualified Code(s): E78.5 - Hyperlipidemia , unspecified Is this a current diagnosis for this admission?: Yes Plan: We will continue with his statin. (7) HTN (hypertension) Qualifiers: Hypertension type: essential hypertension Qualified Code(s): I10 - Essential (primary) hypertension Is this a current diagnosis for this admission?: Yes Plan: We will continue with the lisinopril and metoprolol. - Time Time Spent with patient: 25-34 minutes - Plan Summary Plan Summary: The patient should get his PEG tube placed today.
[2017-02-19] MEDS: LISINOPRIL 5 MG TABLET PO SCH (10:59)
[2017-02-19] MEDS: METOPROLOL TARTRATE 25 MG TABLET PO SCH ×2 (10:59→22:14)
[2017-02-19] MEDS: FAMOTIDINE INJ/PF 20 MG/2 ML SDV IV SCH (11:33)
[2017-02-19] MEDS: MEGESTROL ACETATE SUSP 400 MG/10 ML UDCUP PO SCH (16:01)
[2017-02-19] MEDS: 1/2 NORMAL SALINE 1,000 ML IV PRN ×2 (16:10→22:12)
[2017-02-19] MEDS ORDERED: MEGESTROL ACETATE SUSP 400 MG/10 ML UDCUP PO SCH (18:00)
[2017-02-19] MEDS: SIMVASTATIN 40 MG TABLET PO SCH (22:14)
[2017-02-20 05:18] LABS: ANION GAP 11 (5-19); BLOOD UREA NITROGEN 24 mg/dL (7-20); CALCIUM 9.4 mg/dL (8.4-10.2); CARBON DIOXIDE 17 mmol/L (22-30); CHLORIDE 112 mmol/L (98-107); CREATININE RESULT 1.39 mg/dL (0.52-1.25); GLUCOSE 118 mg/dL (75-110); POTASSIUM 4.5 mmol/L (3.6-5.0); SODIUM 139.6 mmol/L (137-145)
[2017-02-20 05:24] LABS: ABSOLUTE EOSINOPHILS # (AUTO) 0.1 10^3/uL (0.0-0.6); ABSOLUTE LYMPHOCYTES (AUTO) 1.3 10^3/uL (0.5-4.7); ABSOLUTE MONOCYTES (AUTO) 0.8 10^3/uL (0.1-1.4); ABSOLUTE NEUT (AUTO) 3.4 10^3/uL (1.7-8.2); BASOPHILS % (AUTO) 0.6 % (0-2); EOSINOPHILS % (AUTO) 2.5 % (0-6); HEMATOCRIT 38.4 % (37.9-51.0); HEMOGLOBIN 12.3 g/dL (13.5-17.0); HGB HCT DIFFERENCE -1.5; LYMPHOCYTES % (AUTO) 22.3 % (13-45); MEAN CORPUSCULAR HEMOGLOBIN 23.6 pg (27.0-33.4); MEAN CORPUSCULAR HGB CONC 32.1 g/dL (32.0-36.0); MEAN CORPUSCULAR VOLUME 74 fl (80-97); MONOCYTES % (AUTO) 13.6 % (3-13); RED BLOOD COUNT 5.22 10^6/uL (4.35-5.55); RED CELL DISTRIBUTION WIDTH 14.9 % (11.5-14.0); WHITE BLOOD COUNT 5.6 10^3/uL (4.0-10.5)
[2017-02-20] MEDS: 1/2 NORMAL SALINE 1,000 ML IV PRN ×3 (05:59→21:37)
[2017-02-20] MEDS: FAMOTIDINE INJ/PF 20 MG/2 ML SDV IV SCH (09:44)
[2017-02-20] MEDS: CEFAZOLIN 1 GM/D5W RTU 1 GM/50 ML RTUPB IV SCH ×3 (09:47→21:38)
[2017-02-20] MEDS ORDERED: FAMOTIDINE INJ/PF 20 MG/2 ML SDV IV SCH (10:00)
--- NOTE | 2017-02-20 10:05 | PDOC PROGRESS REPORT ---
Subjective Progress Note for:: 02/20/17 Subjective:: Patient does not answer questions. Physical Exam Vital Signs: Temp Pulse Resp BP Pulse Ox 97.5 F 83 20 135/99 H 99 02/20/17 04:11 02/20/17 04:11 02/20/17 04:11 02/20/17 04:11 02/20/17 04:11 Intake & Output 02/19/17 02/20/17 02/21/17 06:59 06:59 06:59 Intake Total 240 3600 Balance 240 3600 Weight 53.3 kg 67.3 kg General appearance: PRESENT: no acute distress Eye exam: PRESENT: conjunctiva pink. ABSENT: scleral icterus Mouth exam: PRESENT: moist, tongue midline Neck exam: ABSENT: JVD Respiratory exam: PRESENT: clear to auscultation samreen. ABSENT: rales, rhonchi, wheezes Cardiovascular exam: PRESENT: RRR. ABSENT: diastolic murmur, rubs, systolic murmur GI/Abdominal exam: PRESENT: normal bowel sounds, soft. ABSENT: distended, guarding, mass, organolmegaly, rebound, tenderness Extremities exam: ABSENT: calf tenderness, clubbing, pedal edema Neurological exam: PRESENT: other - Will not cooperate for an exam but moves all 4 extremities. Psychiatric exam: PRESENT: flat affect Skin exam: PRESENT: dry, intact, warm. ABSENT: cyanosis, rash Results Laboratory Results: 02/20/17 04:23 02/20/17 04:23 02/20/17 02/20/17 04:23 04:23 WBC 5.6 RBC 5.22 Hgb 12.3 L Hct 38.4 MCV 74 L MCH 23.6 L MCHC 32.1 RDW 14.9 H Plt Count 143 L Seg Neutrophils % 61.0 Lymphocytes % 22.3 Monocytes % 13.6 H Eosinophils % 2.5 Basophils % 0.6 Absolute Neutrophils 3.4 Absolute Lymphocytes 1.3 Absolute Monocytes 0.8 Absolute Eosinophils 0.1 Absolute Basophils 0.0 Sodium 139.6 Potassium 4.5 Chloride 112 H Carbon Dioxide 17 L Anion Gap 11 BUN 24 H Creatinine 1.39 H Est GFR ( Amer) 59 L Est GFR (Non-Af Amer) 49 L Glucose 118 H Calcium 9.4 Assessment & Plan - Diagnosis (1) Dehydration Is this a current diagnosis for this admission?: Yes Plan: Patient has had decreased p.o. intake since being sent to rehab after his stroke. Continue with IV fluids. (2) ARF (acute renal failure) Qualifiers: Acute renal failure type: unspecified Qualified Code(s): N17.9 - Acute kidney failure, unspecified Is this a current diagnosis for this admission?: Yes Plan: Patient has acute on chronic renal failure stage III. This has improved with IV fluids. (3) CVA (cerebral vascular accident) Qualifiers: CVA mechanism: unspecified Qualified Code(s): I63.9 - Cerebral infarction, unspecified Is this a current diagnosis for this admission?: Yes Plan: The patient had a recent CVA. He is on aspirin and Plavix. Will hold the dose for now until after his PEG tube placement. (4) Diabetes Qualifiers: Diabetes mellitus type: type 2 Is this a current diagnosis for this admission?: Yes Plan: We will cover with sliding scale insulin. (5) Dementia Qualifiers: Dementia type: unspecified type Dementia behavioral disturbance: without behavioral disturbance Qualified Code(s): F03.90 - Unspecified dementia without behavioral disturbance Is this a current diagnosis for this admission?: Yes Plan: The reports that he is at his baseline since his stroke. (6) HLD (hyperlipidemia) Qualifiers: Hyperlipidemia type: unspecified Qualified Code(s): E78.5 - Hyperlipidemia , unspecified Is this a current diagnosis for this admission?: Yes Plan: We will continue with his statin. (7) HTN (hypertension) Qualifiers: Hypertension type: essential hypertension Qualified Code(s): I10 - Essential (primary) hypertension Is this a current diagnosis for this admission?: Yes Plan: We will continue with the lisinopril and metoprolol. - Time Time Spent with patient: 25-34 minutes - Inpatient Certification Medical Necessity: Need Close Monitoring Due to Risk of Patient Decompensation - Plan Summary Plan Summary: We will hopefully get PEG tube placement today.
[2017-02-20] MEDS: LANSOPRAZOLE 30 MG TAB.RAP.DR PO SCH ×2 (10:16→17:06)
[2017-02-20] MEDS: MEGESTROL ACETATE SUSP 400 MG/10 ML UDCUP PO SCH ×2 (10:16→17:06)
[2017-02-20] MEDS: LISINOPRIL 5 MG TABLET PO SCH (10:16)
[2017-02-20] MEDS: METOPROLOL TARTRATE 25 MG TABLET PO SCH (10:16)
[2017-02-20] MEDS ORDERED: NALOXONE HCL INJ/PF 0.4 MG/1 ML SDV ONE (15:05)
[2017-02-20] MEDS ORDERED: MIDAZOLAM 2 MG/2 ML INJ ONE (15:05)
[2017-02-20] MEDS ORDERED: FENTANYL CITRATE INJ/PF 100 MCG/2 ML AMPUL ONE (15:06)
[2017-02-20] MEDS ORDERED: FLUMAZENIL INJ 0.5 MG/5 ML VIAL ONE (15:06)
[2017-02-20] MEDS ORDERED: GLUCAGON,HUMAN RECOMB 1 MG INJ ONE (15:06)
[2017-02-20] MEDS ORDERED: EPINEPHRINE INJ 1 MG/10 ML DISP.SYRIN ONE (15:06)
--- NOTE | 2017-02-20 17:26 | PDOC CONSULTATION ---
Consultation Consult Date: 02/19/17 History of Present Illness Admission Date/PCP: 02/20/17 14:15 History of Present Illness: This is an 81-year-old patient was admitted to the hospital on 02/19/2017 with dehydration, inability to eat or drink. I saw the patient in the office on the day of admission. He had not been eating or drinking for more than a week, was tachycardic, very dry and with increased confusion according to the family. He had a stroke a few weeks ago. On admission his sodium was 145 with elevated BUN and creatinine. No history is obtainable from patient. He is currently on hydration and does require a PEG tube. He had the swallow study performed at the [facility] a few days ago which he failed. Past Medical History Cardiac Medical History: Reports: Hyperlipidema, Hypertension Denies: Atrial Fibrillation, Congestive Heart Failure, Myocardial Infarction Pulmonary Medical History: Denies: Asthma, Chronic Obstructive Pulmonary Disease (COPD) EENT Medical History: Reports: None Neurological Medical History: Reports: Ischemic CVA Denies: Seizures Endocrine Medical History: Reports: Diabetes Mellitus Type 2 Denies: Diabetes Mellitus Type 1 Renal/ Medical History: Reports: Chronic Kidney Disease Malignancy Medical History: Reports: None GI Medical History: Reports: Gastroesophageal Reflux Disease Denies: Cirrhosis, Hepatitis Musculoskeltal Medical History: Denies: Arthritis Skin Medical History: Reports: None Psychiatric Medical History: Reports: Dementia Traumatic Medical History: Reports: None Hematology: Reports: None Infectious Medical History: Reports: None Past Surgical History Past Surgical History: Reports: None Social History Lives with: [facility] Smoking Status: Unknown if Ever Smoked Frequency of Alcohol Use: None Hx Recreational Drug Use: No Drugs: None Hx Prescription Drug Abuse: No - Advance Directive Resuscitation Status: Full Code Family History Family History: Reviewed & Not Pertinent, Hypertension Parental Family History Reviewed: No Children Family History Reviewed: NA Sibling(s) Family History Reviewed.: NA Medication/Allergy Home Medications: Clopidogrel Bisulfate [Plavix 75 mg Tablet] 75 mg PO DAILY 02/18/17 Glipizide [Glocotrol 5 Mg Tablet] 5 mg PO DAILY 02/18/17 Hydroxyzine Pamoate [Vistaril 25 mg Capsule] 25 mg PO DAILY 02/18/17 Insulin Regular, Human [Humulin R (Pyxis) Insulin 100 Unit/ml 3Ml] 0 unit SUBCUT ASDIR PRN 02/18/17 Metoprolol Tartrate [Lopressor 25 mg Tablet] 25 mg PO DAILY 02/18/17 Omeprazole 20 mg PO DAILY 02/18/17 Allergies/Adverse Reactions: No Known Allergies Allergy (Verified 02/01/17 19:12) Review of Systems ROS unobtainable: Due to mental status Physical Exam Vital Signs: Temp Pulse Resp BP Pulse Ox 97.7 F 84 11 L 178/102 H 98 02/20/17 08:16 02/20/17 17:15 02/20/17 17:15 02/20/17 17:15 02/20/17 17:15 Exam: General: Patient is alert but not communicative. HEENT: There is no pallor or jaundice. PERRLA. Oropharynx dry Respiratory: No chest deformity. No respiratory distress. Chest wall palpitation was unremarkable. Breath sounds were normal Cardiovascular: Heart sounds 1 and 2 normal with no murmurs. Abdominal: Not distended. Soft and nontender. Liver and spleen not palpable. No ascites demonstrated. Bowel sounds active. Rectal examination was deferred. Extremities: No edema Neurological: There is left hemiparesis. He is aphasic Skin: Dry Assessment & Plan - Diagnosis (1) Dysphagia due to recent cerebrovascular accident Is this a current diagnosis for this admission?: Yes Plan: He has developed significant dysphagia following his recent stroke. He will undergo a PEG tube placement and this was explained to his family (2) Dehydration Is this a current diagnosis for this admission?: Yes (3) ARF (acute renal failure) Qualifiers: Acute renal failure type: unspecified Qualified Code(s): N17.9 - Acute kidney failure, unspecified Is this a current diagnosis for this admission?: Yes Plan: His sodium has actually increased since admission and he is currently receiving 150 cc/ hour of normal saline. This was changed to half normal saline (4) Altered mental status Qualifiers: Altered mental status type: unspecified Qualified Code(s): R41.82 - Altered mental status, unspecified Is this a current diagnosis for this admission?: Yes
--- NOTE | 2017-02-20 17:28 | Operative Report ---
Operative Report DATE OF SURGERY: 02/20/17 Operative Report: Pre-op diagnosis: Dysphagia status post CVA Post-op diagnosis: Antral gastritis Surgery: Esophagogastroduodenoscopy with biopsy and PEG tube placement Medications: Versed 3mg Fentanyl 100mcg IV push Tissue removed: Antral biopsy for pathology Procedure: After informed consent obtained from patient, the throat was sprayed with Hurricane and conscious sedation was achieved. The upper endoscope was inserted into the esophagus under direct vision and advanced into the stomach. The duodenum was entered and examined to the second part. An appropriate site was then localized in the gastric body and over the abdominal wall. The site was cleaned with Betadine and draped. Xylocaine was then injected for local anesthesia. In the standard fashion a 20 Maltese gastrostomy tube was then placed with no difficulty. The position of the inner bumper was confirmed at the second endoscopy. Patient tolerated procedure well. Findings Esophagus: Normal Z-line at: 40 cm Antrum: Moderate erythema Body: Normal. Gastrostomy tube was placed in this area Fundus: Normal Duodenum first part: Normal Duodenum second part: Normal Plan: Resume feeding in the morning. Prevacid 30 mg daily OPERATION: .
[2017-02-20] MEDS ORDERED: ACETAMINOPHEN SOLN 325 MG/10.15 ML UDCUP PEG PRN (18:17)
[2017-02-20] MEDS: SIMVASTATIN 40 MG TABLET PEG SCH (21:37)
[2017-02-20] MEDS: METOPROLOL TARTRATE 25 MG TABLET PEG SCH (21:38)
[2017-02-21] MEDS: CEFAZOLIN 1 GM/D5W RTU 1 GM/50 ML RTUPB IV SCH (03:08)
[2017-02-21 05:08] LABS: ABSOLUTE EOSINOPHILS # (AUTO) 0.1 10^3/uL (0.0-0.6); ABSOLUTE MONOCYTES (AUTO) 0.6 10^3/uL (0.1-1.4); ABSOLUTE NEUT (AUTO) 4.7 10^3/uL (1.7-8.2); BASOPHILS % (AUTO) 0.5 % (0-2); EOSINOPHILS % (AUTO) 0.8 % (0-6); HEMATOCRIT 38.3 % (37.9-51.0); HEMOGLOBIN 12.4 g/dL (13.5-17.0); HGB HCT DIFFERENCE -1.1; LYMPHOCYTES % (AUTO) 15.1 % (13-45); MEAN CORPUSCULAR HEMOGLOBIN 23.4 pg (27.0-33.4); MEAN CORPUSCULAR HGB CONC 32.3 g/dL (32.0-36.0); MEAN CORPUSCULAR VOLUME 73 fl (80-97); MONOCYTES % (AUTO) 9.6 % (3-13); RED BLOOD COUNT 5.27 10^6/uL (4.35-5.55); RED CELL DISTRIBUTION WIDTH 15.3 % (11.5-14.0); WHITE BLOOD COUNT 6.3 10^3/uL (4.0-10.5)
[2017-02-21] MEDS: 1/2 NORMAL SALINE 1,000 ML IV PRN ×2 (05:18→18:57)
[2017-02-21 05:24] LABS: ANION GAP 13 (5-19); BLOOD UREA NITROGEN 18 mg/dL (7-20); CALCIUM 9.2 mg/dL (8.4-10.2); CARBON DIOXIDE 16 mmol/L (22-30); CHLORIDE 103 mmol/L (98-107); CREATININE RESULT 1.22 mg/dL (0.52-1.25); GLUCOSE 155 mg/dL (75-110); POTASSIUM 4.4 mmol/L (3.6-5.0); SODIUM 131.7 mmol/L (137-145)
[2017-02-21 09:38] LABS: PROTHROMBIN TIME 16.3 SEC (11.4-15.4)
[2017-02-21 09:39] LABS: PARTIAL THROMBOPLASTIN TIME 36.7 SEC (23.5-35.8)
[2017-02-21] MEDS: ENOXAPARIN SODIUM INJ 40 MG/0.4 ML DISP.SYRIN SUBCUT SCH (09:59)
[2017-02-21] MEDS: FAMOTIDINE INJ/PF 20 MG/2 ML SDV IV SCH (09:59)
--- NOTE | 2017-02-21 10:18 | PDOC PROGRESS REPORT ---
Subjective Progress Note for:: 02/21/17 Subjective:: Patient does not answer questions. Physical Exam Vital Signs: Temp Pulse Resp BP Pulse Ox 98.4 F 92 12 127/73 H 95 02/21/17 07:43 02/21/17 08:36 02/21/17 07:43 02/21/17 07:43 02/21/17 07:43 Intake & Output 02/20/17 02/21/17 02/22/17 06:59 06:59 06:59 Intake Total 3720 Balance 3720 Weight 67.3 kg General appearance: PRESENT: no acute distress Eye exam: PRESENT: conjunctiva pink. ABSENT: scleral icterus Mouth exam: PRESENT: moist, tongue midline Neck exam: ABSENT: JVD Respiratory exam: PRESENT: clear to auscultation samreen. ABSENT: rales, rhonchi, wheezes Cardiovascular exam: PRESENT: irregular rhythm, tachycardia. ABSENT: diastolic murmur, rubs, systolic murmur GI/Abdominal exam: PRESENT: normal bowel sounds, soft, other - PEG tube in place in the upper abdomen.. ABSENT: distended, guarding, mass, organolmegaly, rebound, tenderness Extremities exam: ABSENT: calf tenderness, clubbing, pedal edema Neurological exam: PRESENT: awake. ABSENT: oriented to person, oriented to place, oriented to time, oriented to situation Psychiatric exam: PRESENT: flat affect Skin exam: PRESENT: dry, intact, warm. ABSENT: cyanosis, rash Results Laboratory Results: 02/21/17 04:20 02/21/17 04:20 02/21/17 02/21/17 04:20 04:20 WBC 6.3 RBC 5.27 Hgb 12.4 L Hct 38.3 MCV 73 L MCH 23.4 L MCHC 32.3 RDW 15.3 H Plt Count 143 L Seg Neutrophils % 74.0 Lymphocytes % 15.1 Monocytes % 9.6 Eosinophils % 0.8 Basophils % 0.5 Absolute Neutrophils 4.7 Absolute Lymphocytes 1.0 Absolute Monocytes 0.6 Absolute Eosinophils 0.1 Absolute Basophils 0.0 Sodium 131.7 L Potassium 4.4 Chloride 103 Carbon Dioxide 16 L Anion Gap 13 BUN 18 Creatinine 1.22 Est GFR ( Amer) > 60 Est GFR (Non-Af Amer) 57 L Glucose 155 H Calcium 9.2 Assessment & Plan - Diagnosis (1) Dehydration Is this a current diagnosis for this admission?: Yes Plan: Patient has had decreased p.o. intake since being sent to rehab after his stroke. Continue with IV fluids. (2) ARF (acute renal failure) Qualifiers: Acute renal failure type: unspecified Qualified Code(s): N17.9 - Acute kidney failure, unspecified Is this a current diagnosis for this admission?: Yes Plan: Patient has acute on chronic renal failure stage III. This has improved with IV fluids. (3) CVA (cerebral vascular accident) Qualifiers: CVA mechanism: unspecified Qualified Code(s): I63.9 - Cerebral infarction, unspecified Is this a current diagnosis for this admission?: Yes Plan: The patient had a recent CVA. Will restart the aspirin and Plavix. (4) Diabetes Qualifiers: Diabetes mellitus type: type 2 Is this a current diagnosis for this admission?: Yes Plan: We will cover with sliding scale insulin. (5) Dementia Qualifiers: Dementia type: unspecified type Dementia behavioral disturbance: without behavioral disturbance Qualified Code(s): F03.90 - Unspecified dementia without behavioral disturbance Is this a current diagnosis for this admission?: Yes Plan: The reports that he is at his baseline since his stroke. (6) HLD (hyperlipidemia) Qualifiers: Hyperlipidemia type: unspecified Qualified Code(s): E78.5 - Hyperlipidemia , unspecified Is this a current diagnosis for this admission?: Yes Plan: We will continue with his statin. (7) HTN (hypertension) Qualifiers: Hypertension type: essential hypertension Qualified Code(s): I10 - Essential (primary) hypertension Is this a current diagnosis for this admission?: Yes Plan: We will continue with the lisinopril and metoprolol. - Time Time Spent with patient: 25-34 minutes - Inpatient Certification Medical Necessity: Need Close Monitoring Due to Risk of Patient Decompensation
[2017-02-21] MEDS: LANSOPRAZOLE 30 MG TAB.RAP.DR PEG SCH ×2 (10:19→17:19)
[2017-02-21] MEDS: LISINOPRIL 5 MG TABLET PEG SCH (10:20)
[2017-02-21] MEDS: METOPROLOL TARTRATE 25 MG TABLET PEG SCH ×2 (10:20→22:51)
--- NOTE | 2017-02-21 13:55 | EKG REPORT ---
SEVERITY:- ABNORMAL ECG - SINUS RHYTHM ATRIAL PREMATURE COMPLEX LEFT AXIS DEVIATION ABNORMAL T, CONSIDER ISCHEMIA, LATERAL LEADS : Confirmed by: Alfonso Werner 21-Feb-2017 13:54:26
[2017-02-21] MEDS: SIMVASTATIN 40 MG TABLET PEG SCH (22:51)
--- NOTE | 2017-02-22 05:17 | RADIOLOGY REPORT (SQ) ---
EXAM DESCRIPTION: ACUTE ABDOMEN SERIES COMPLETED DATE/TIME: 02/22/2017 5:01 am REASON FOR STUDY: High residual, possible retention COMPARISON: CT abdomen and pelvis and chest x-ray 02/01/2017. NUMBER OF VIEWS: Three views. TECHNIQUE: Frontal chest, supine abdomen and upright/decubitus abdomen radiographic images acquired. LIMITATIONS: None. FINDINGS: CHEST: Mild bibasilar atelectasis. No pleural effusion or pneumothorax. FREE AIR: None. BOWEL GAS PATTERN: There is diffuse gaseous distension of the small and large bowel. CALCIFICATIONS: No suspicious calcifications. HARDWARE: None in the abdomen. SOFT TISSUES: No gross mass or suggestion of organomegaly. BONES: Degenerative changes in the spine. IMPRESSION: Diffuse gaseous distention of the bowel, suggestive of generalized ileus. Mild bibasilar atelectasis. TECHNICAL DOCUMENTATION: JOB ID: [id number] [email or web address]- All Rights Reserved
[2017-02-22 06:46] LABS: ABSOLUTE EOSINOPHILS # (AUTO) 0.1 10^3/uL (0.0-0.6); ABSOLUTE MONOCYTES (AUTO) 0.8 10^3/uL (0.1-1.4); ABSOLUTE NEUT (AUTO) 3.7 10^3/uL (1.7-8.2); BASOPHILS % (AUTO) 0.3 % (0-2); EOSINOPHILS % (AUTO) 2.3 % (0-6); HEMATOCRIT 38.5 % (37.9-51.0); HEMOGLOBIN 12.6 g/dL (13.5-17.0); HGB HCT DIFFERENCE -0.7; LYMPHOCYTES % (AUTO) 17.4 % (13-45); MEAN CORPUSCULAR HEMOGLOBIN 23.3 pg (27.0-33.4); MEAN CORPUSCULAR HGB CONC 32.6 g/dL (32.0-36.0); MEAN CORPUSCULAR VOLUME 71 fl (80-97); MONOCYTES % (AUTO) 14.8 % (3-13); RED CELL DISTRIBUTION WIDTH 15.2 % (11.5-14.0); SEGMENTED NEUTROPHILS % (AUTO) 65.2 % (42-78); WHITE BLOOD COUNT 5.7 10^3/uL (4.0-10.5)
[2017-02-22 06:58] LABS: ANION GAP 12 (5-19); BLOOD UREA NITROGEN 15 mg/dL (7-20); CALCIUM 9.3 mg/dL (8.4-10.2); CARBON DIOXIDE 19 mmol/L (22-30); CHLORIDE 104 mmol/L (98-107); CREATININE RESULT 1.17 mg/dL (0.52-1.25); GLUCOSE 148 mg/dL (75-110); POTASSIUM 4.1 mmol/L (3.6-5.0); SODIUM 135.4 mmol/L (137-145)
[2017-02-22] MEDS: 1/2 NORMAL SALINE 1,000 ML IV PRN ×2 (07:04→17:21)
[2017-02-22] MEDS: LANSOPRAZOLE 30 MG TAB.RAP.DR PEG SCH (09:09)
[2017-02-22] MEDS: METOPROLOL TARTRATE PF/INJ 5 MG/5 ML SDV IV PRN (09:34)
[2017-02-22] MEDS ORDERED: CLOPIDOGREL BISULFATE 75 MG TABLET PO SCH (10:00)
[2017-02-22] MEDS ORDERED: ASPIRIN 81 MG TABLET, ENT COATED PO SCH ×2 (10:00)
--- NOTE | 2017-02-22 10:09 | PDOC PROGRESS REPORT ---
Subjective Progress Note for:: 02/22/17 Subjective:: The patient has developed an ileus overnight. He is demented and gives no history. Physical Exam Vital Signs: Temp Pulse Resp BP Pulse Ox 97.4 F 85 16 131/76 H 99 02/22/17 07:29 02/22/17 07:29 02/22/17 07:29 02/22/17 07:29 02/22/17 07:29 Intake & Output 02/21/17 02/22/17 02/23/17 06:59 06:59 06:59 Intake Total 3720 3326 Balance 3720 3326 Weight 67.3 kg 71.2 kg General appearance: PRESENT: no acute distress Eye exam: PRESENT: conjunctiva pink. ABSENT: scleral icterus Mouth exam: PRESENT: moist, tongue midline Neck exam: ABSENT: JVD Respiratory exam: PRESENT: clear to auscultation samreen. ABSENT: rales, rhonchi, wheezes Cardiovascular exam: PRESENT: RRR. ABSENT: diastolic murmur, rubs, systolic murmur GI/Abdominal exam: PRESENT: normal bowel sounds, soft, other - PEG tube in place.. ABSENT: distended, guarding, mass, organolmegaly, rebound, tenderness Extremities exam: ABSENT: calf tenderness, clubbing, pedal edema Neurological exam: PRESENT: awake. ABSENT: oriented to person, oriented to place, oriented to time, oriented to situation Psychiatric exam: PRESENT: flat affect Skin exam: PRESENT: dry, intact, warm. ABSENT: cyanosis, rash Results Laboratory Results: 02/22/17 06:35 02/22/17 06:35 02/22/17 02/22/17 06:35 06:35 WBC 5.7 RBC 5.40 Hgb 12.6 L Hct 38.5 MCV 71 L MCH 23.3 L MCHC 32.6 RDW 15.2 H Plt Count 113 L Seg Neutrophils % 65.2 Lymphocytes % 17.4 Monocytes % 14.8 H Eosinophils % 2.3 Basophils % 0.3 Absolute Neutrophils 3.7 Absolute Lymphocytes 1.0 Absolute Monocytes 0.8 Absolute Eosinophils 0.1 Absolute Basophils 0.0 Sodium 135.4 L Potassium 4.1 Chloride 104 Carbon Dioxide 19 L Anion Gap 12 BUN 15 Creatinine 1.17 Est GFR ( Amer) > 60 Est GFR (Non-Af Amer) > 60 Glucose 148 H Calcium 9.3 Magnesium 2.0 Impressions: Acute Abdomen Series 02/22/17 00:00 IMPRESSION: Diffuse gaseous distention of the bowel, suggestive of generalized ileus. Mild bibasilar atelectasis. Assessment & Plan - Diagnosis (1) Dehydration Is this a current diagnosis for this admission?: Yes Plan: Patient has had decreased p.o. intake since being sent to rehab after his stroke. Continue with IV fluids. (2) ARF (acute renal failure) Qualifiers: Acute renal failure type: unspecified Qualified Code(s): N17.9 - Acute kidney failure, unspecified Is this a current diagnosis for this admission?: Yes Plan: Patient has acute on chronic renal failure stage III. It has resolved (3) CVA (cerebral vascular accident) Qualifiers: CVA mechanism: unspecified Qualified Code(s): I63.9 - Cerebral infarction, unspecified Is this a current diagnosis for this admission?: Yes Plan: The patient had a recent CVA. Continue with the aspirin and Plavix. (4) Diabetes Qualifiers: Diabetes mellitus type: type 2 Is this a current diagnosis for this admission?: Yes Plan: We will cover with sliding scale insulin. (5) Dementia Qualifiers: Dementia type: unspecified type Dementia behavioral disturbance: without behavioral disturbance Qualified Code(s): F03.90 - Unspecified dementia without behavioral disturbance Is this a current diagnosis for this admission?: Yes Plan: The reports that he is at his baseline since his stroke. (6) HLD (hyperlipidemia) Qualifiers: Hyperlipidemia type: unspecified Qualified Code(s): E78.5 - Hyperlipidemia , unspecified Is this a current diagnosis for this admission?: Yes Plan: We will continue with his statin. (7) HTN (hypertension) Qualifiers: Hypertension type: essential hypertension Qualified Code(s): I10 - Essential (primary) hypertension Is this a current diagnosis for this admission?: Yes Plan: We will continue with the lisinopril and metoprolol. (8) Ileus Is this a current diagnosis for this admission?: Yes Plan: We will hold PEG tube feedings for today and hopefully be able to restart tomorrow. - Time Time Spent with patient: 25-34 minutes - Inpatient Certification Medical Necessity: Need For IV Fluids
[2017-02-22] MEDS: ENOXAPARIN SODIUM INJ 40 MG/0.4 ML DISP.SYRIN SUBCUT SCH (10:48)
[2017-02-22] MEDS: FAMOTIDINE INJ/PF 20 MG/2 ML SDV IV SCH (10:48)
[2017-02-23 06:25] LABS: ABSOLUTE EOSINOPHILS # (AUTO) 0.2 10^3/uL (0.0-0.6); ABSOLUTE LYMPHOCYTES (AUTO) 1.1 10^3/uL (0.5-4.7); ABSOLUTE NEUT (AUTO) 3.2 10^3/uL (1.7-8.2); BASOPHILS % (AUTO) 0.4 % (0-2); EOSINOPHILS % (AUTO) 2.9 % (0-6); HEMATOCRIT 39.5 % (37.9-51.0); HEMOGLOBIN 12.9 g/dL (13.5-17.0); HGB HCT DIFFERENCE -0.8; LYMPHOCYTES % (AUTO) 20.6 % (13-45); MEAN CORPUSCULAR HEMOGLOBIN 23.7 pg (27.0-33.4); MEAN CORPUSCULAR HGB CONC 32.8 g/dL (32.0-36.0); MEAN CORPUSCULAR VOLUME 73 fl (80-97); MONOCYTES % (AUTO) 18.1 % (3-13); RED BLOOD COUNT 5.44 10^6/uL (4.35-5.55); RED CELL DISTRIBUTION WIDTH 14.9 % (11.5-14.0); WHITE BLOOD COUNT 5.5 10^3/uL (4.0-10.5)
[2017-02-23 06:37] LABS: ANION GAP 13 (5-19); BLOOD UREA NITROGEN 11 mg/dL (7-20); CALCIUM 9.5 mg/dL (8.4-10.2); CARBON DIOXIDE 18 mmol/L (22-30); CHLORIDE 104 mmol/L (98-107); CREATININE RESULT 1.02 mg/dL (0.52-1.25); GLUCOSE 124 mg/dL (75-110); SODIUM 134.6 mmol/L (137-145)
--- NOTE | 2017-02-23 08:36 | RADIOLOGY REPORT (SQ) ---
EXAM DESCRIPTION: KUB/ABDOMEN (SINGLE VIEW) COMPLETED DATE/TIME: 02/23/2017 8:05 am REASON FOR STUDY: ileus COMPARISON: 02/22/2017 NUMBER OF VIEWS: One view. TECHNIQUE: Supine radiographic image of the abdomen acquired. LIMITATIONS: None. FINDINGS: BOWEL GAS PATTERN: Essentially stable appearance of gas distended small and large bowel co mpatible with ileus. CALCIFICATIONS: No suspicious calcifications. SOFT TISSUES: No gross mass or suggestion of organomegaly. HARDWARE: None in the abdomen. BONES: No acute fracture. No worrisome bone lesions. OTHER: No other significant finding. IMPRESSION: STABLE RADIOGRAPHIC APPEARANCE OF THE ABDOMEN AGAIN CONSISTENT WITH ILEUS. TECHNICAL DOCUMENTATION: JOB ID: [id number] [employer]- All Rights Reserved
[2017-02-23] MEDS: FAMOTIDINE INJ/PF 20 MG/2 ML SDV IV SCH (09:58)
[2017-02-23] MEDS: ENOXAPARIN SODIUM INJ 40 MG/0.4 ML DISP.SYRIN SUBCUT SCH (09:58)
[2017-02-23] MEDS: METOCLOPRAMIDE HCL INJ/PF 10 MG/2 ML SDV IV SCH ×2 (12:15→18:38)
--- NOTE | 2017-02-23 13:27 | PDOC PROGRESS REPORT ---
Subjective Progress Note for:: 02/23/17 Subjective:: The patient has an ileus. He is demented and gives no history. This occurred since having his PEG tube placed. Physical Exam Vital Signs: Temp Pulse Resp BP Pulse Ox 97.6 F 83 17 153/90 H 100 02/23/17 11:16 02/23/17 11:16 02/23/17 11:16 02/23/17 11:16 02/23/17 11:16 Intake & Output 02/22/17 02/23/17 02/24/17 06:59 06:59 06:59 Intake Total 3326 2260 Balance 3326 2260 Weight 71.2 kg 70.9 kg General appearance: PRESENT: no acute distress Eye exam: PRESENT: conjunctiva pink. ABSENT: scleral icterus Mouth exam: PRESENT: moist, tongue midline Neck exam: ABSENT: JVD Respiratory exam: PRESENT: clear to auscultation samreen. ABSENT: rales, rhonchi, wheezes Cardiovascular exam: PRESENT: RRR. ABSENT: diastolic murmur, rubs, systolic murmur GI/Abdominal exam: PRESENT: normal bowel sounds, soft, other - PEG tube in place.. ABSENT: distended, guarding, mass, organolmegaly, rebound, tenderness Extremities exam: ABSENT: calf tenderness, clubbing, pedal edema Neurological exam: PRESENT: other - Patient is nonverbal. He is moving all 4 extremities. Psychiatric exam: PRESENT: appropriate affect Skin exam: PRESENT: dry, intact, warm. ABSENT: cyanosis, rash Results Laboratory Results: 02/23/17 06:04 02/23/17 06:04 02/23/17 02/23/17 02/23/17 04:18 04:18 06:04 WBC Cancelled 5.5 RBC Cancelled 5.44 Hgb Cancelled 12.9 L Hct Cancelled 39.5 MCV Cancelled 73 L MCH Cancelled 23.7 L MCHC Cancelled 32.8 RDW Cancelled 14.9 H Plt Count Cancelled 102 L Seg Neutrophils % Cancelled 58.0 Lymphocytes % Cancelled 20.6 Monocytes % Cancelled 18.1 H Eosinophils % Cancelled 2.9 Basophils % Cancelled 0.4 Absolute Neutrophils Cancelled 3.2 Absolute Lymphocytes Cancelled 1.1 Absolute Monocytes Cancelled 1.0 Absolute Eosinophils Cancelled 0.2 Absolute Basophils Cancelled 0.0 Sodium Cancelled Potassium Cancelled Chloride Cancelled Carbon Dioxide Cancelled Anion Gap Cancelled BUN Cancelled Creatinine Cancelled Est GFR ( Amer) Cancelled Est GFR (Non-Af Amer) Cancelled Glucose Cancelled Calcium Cancelled 02/23/17 06:04 WBC RBC Hgb Hct MCV MCH MCHC RDW Plt Count Seg Neutrophils % Lymphocytes % Monocytes % Eosinophils % Basophils % Absolute Neutrophils Absolute Lymphocytes Absolute Monocytes Absolute Eosinophils Absolute Basophils Sodium 134.6 L Potassium 4.0 Chloride 104 Carbon Dioxide 18 L Anion Gap 13 BUN 11 Creatinine 1.02 Est GFR ( Amer) > 60 Est GFR (Non-Af Amer) > 60 Glucose 124 H Calcium 9.5 Impressions: Acute Abdomen Series 02/22/17 00:00 IMPRESSION: Diffuse gaseous distention of the bowel, suggestive of generalized ileus. Mild bibasilar atelectasis. KUB X-Ray 02/23/17 06:00 IMPRESSION: STABLE RADIOGRAPHIC APPEARANCE OF THE ABDOMEN AGAIN CONSISTENT WITH ILEUS. Assessment & Plan - Diagnosis (1) Dehydration Is this a current diagnosis for this admission?: Yes Plan: Patient has had decreased p.o. intake since being sent to rehab after his stroke. Continue with IV fluids. Will start tube feeds again once his ileus resolves. (2) ARF (acute renal failure) Qualifiers: Acute renal failure type: unspecified Qualified Code(s): N17.9 - Acute kidney failure, unspecified Is this a current diagnosis for this admission?: Yes Plan: Patient has acute on chronic renal failure stage III. It has resolved (3) CVA (cerebral vascular accident) Qualifiers: CVA mechanism: unspecified Qualified Code(s): I63.9 - Cerebral infarction, unspecified Is this a current diagnosis for this admission?: Yes Plan: The patient had a recent CVA. Continue with the aspirin and Plavix when he is able to take po or per PEG (4) Diabetes Qualifiers: Diabetes mellitus type: type 2 Is this a current diagnosis for this admission?: Yes Plan: We will cover with sliding scale insulin. (5) Dementia Qualifiers: Dementia type: unspecified type Dementia behavioral disturbance: without behavioral disturbance Qualified Code(s): F03.90 - Unspecified dementia without behavioral disturbance Is this a current diagnosis for this admission?: Yes Plan: The reports that he is at his baseline since his stroke. (6) HLD (hyperlipidemia) Qualifiers: Hyperlipidemia type: unspecified Qualified Code(s): E78.5 - Hyperlipidemia , unspecified Is this a current diagnosis for this admission?: Yes Plan: We will continue with his statin. (7) HTN (hypertension) Qualifiers: Hypertension type: essential hypertension Qualified Code(s): I10 - Essential (primary) hypertension Is this a current diagnosis for this admission?: Yes Plan: We will continue with the lisinopril and metoprolol. (8) Ileus Is this a current diagnosis for this admission?: Yes Plan: We will continue to hold his PEG tube feedings. We will start the patient on IV Reglan today. Will repeat KUB tomorrow to see if his ileus has resolved. As will be started his PEG tube feedings. - Time Time Spent with patient: 25-34 minutes - Inpatient Certification Medical Necessity: Need Close Monitoring Due to Risk of Patient Decompensation, Need For IV Fluids
[2017-02-23] MEDS: 1/2 NORMAL SALINE 1,000 ML IV PRN (15:02)
[2017-02-23] MEDS: METOPROLOL TARTRATE PF/INJ 5 MG/5 ML SDV IV PRN (19:55)
[2017-02-24] MEDS: METOCLOPRAMIDE HCL INJ/PF 10 MG/2 ML SDV IV SCH ×2 (00:01→05:36)
[2017-02-24 05:41] LABS: ABSOLUTE EOSINOPHILS # (AUTO) 0.2 10^3/uL (0.0-0.6); ABSOLUTE LYMPHOCYTES (AUTO) 1.4 10^3/uL (0.5-4.7); ABSOLUTE MONOCYTES (AUTO) 0.9 10^3/uL (0.1-1.4); ABSOLUTE NEUT (AUTO) 2.6 10^3/uL (1.7-8.2); BASOPHILS % (AUTO) 0.4 % (0-2); EOSINOPHILS % (AUTO) 3.5 % (0-6); HEMATOCRIT 41.4 % (37.9-51.0); HEMOGLOBIN 13.7 g/dL (13.5-17.0); HGB HCT DIFFERENCE -0.3; LYMPHOCYTES % (AUTO) 26.9 % (13-45); MEAN CORPUSCULAR HEMOGLOBIN 23.6 pg (27.0-33.4); MEAN CORPUSCULAR VOLUME 72 fl (80-97); MONOCYTES % (AUTO) 17.6 % (3-13); RED BLOOD COUNT 5.79 10^6/uL (4.35-5.55); RED CELL DISTRIBUTION WIDTH 14.9 % (11.5-14.0); SEGMENTED NEUTROPHILS % (AUTO) 51.6 % (42-78); WHITE BLOOD COUNT 5.1 10^3/uL (4.0-10.5)
[2017-02-24 05:55] LABS: ANION GAP 13 (5-19); BLOOD UREA NITROGEN 11 mg/dL (7-20); CALCIUM 9.9 mg/dL (8.4-10.2); CARBON DIOXIDE 21 mmol/L (22-30); CHLORIDE 102 mmol/L (98-107); CREATININE RESULT 1.08 mg/dL (0.52-1.25); GLUCOSE 116 mg/dL (75-110); SODIUM 136.1 mmol/L (137-145)
--- NOTE | 2017-02-24 09:13 | PDOC PROGRESS REPORT ---
Subjective Progress Note for:: 02/24/17 Subjective:: Family at bedside. Patient has been nonverbal. Occasionally he can respond but most of the time he does not. He did have 2 bowel movements reported. No temperature spikes, respiratory distress, chills or fever reported. Off tube feedings for now due to ileus. Physical Exam Vital Signs: Temp Pulse Resp BP Pulse Ox 97.6 F 74 17 156/92 H 96 02/24/17 03:43 02/24/17 07:00 02/24/17 03:43 02/24/17 03:43 02/24/17 03:43 Intake & Output 02/23/17 02/24/17 02/25/17 06:59 06:59 06:59 Intake Total 2260 2500 Balance 2260 2500 Weight 70.9 kg General appearance: PRESENT: no acute distress Head exam: PRESENT: normocephalic Eye exam: PRESENT: EOMI Mouth exam: PRESENT: moist, neck supple Neck exam: ABSENT: JVD Respiratory exam: PRESENT: clear to auscultation samreen, decreased breath sounds, unlabored Cardiovascular exam: PRESENT: RRR. ABSENT: gallop GI/Abdominal exam: PRESENT: distended - Mildly, soft, other - Tympanitic to percussion slightly Extremities exam: ABSENT: pedal edema Neurological exam: PRESENT: alert, awake Psychiatric exam: ABSENT: agitated Focused psych exam: ABSENT: restlessness Skin exam: PRESENT: dry, warm. ABSENT: cyanosis Results Laboratory Results: 02/24/17 05:21 02/24/17 05:21 02/24/17 02/24/17 05:21 05:21 WBC 5.1 RBC 5.79 H Hgb 13.7 Hct 41.4 MCV 72 L MCH 23.6 L MCHC 33.0 RDW 14.9 H Plt Count 119 L Seg Neutrophils % 51.6 Lymphocytes % 26.9 Monocytes % 17.6 H Eosinophils % 3.5 Basophils % 0.4 Absolute Neutrophils 2.6 Absolute Lymphocytes 1.4 Absolute Monocytes 0.9 Absolute Eosinophils 0.2 Absolute Basophils 0.0 Sodium 136.1 L Potassium 4.0 Chloride 102 Carbon Dioxide 21 L Anion Gap 13 BUN 11 Creatinine 1.08 Est GFR ( Amer) > 60 Est GFR (Non-Af Amer) > 60 Glucose 116 H Calcium 9.9 Impressions: Acute Abdomen Series 02/22/17 00:00 IMPRESSION: Diffuse gaseous distention of the bowel, suggestive of generalized ileus. Mild bibasilar atelectasis. KUB X-Ray 02/23/17 06:00 IMPRESSION: STABLE RADIOGRAPHIC APPEARANCE OF THE ABDOMEN AGAIN CONSISTENT WITH ILEUS. Assessment & Plan - Diagnosis (1) Ileus Is this a current diagnosis for this admission?: Yes (2) Dehydration Is this a current diagnosis for this admission?: Yes (3) Dysphagia due to recent cerebrovascular accident Is this a current diagnosis for this admission?: Yes (4) Gastritis Qualifiers: Gastritis type: unspecified gastritis Chronicity: unspecified Gastritis bleeding: without bleeding Qualified Code(s): K29.70 - Gastritis, unspecified , without bleeding Is this a current diagnosis for this admission?: Yes (5) GERD (gastroesophageal reflux disease) Qualifiers: Esophagitis presence: without esophagitis Qualified Code(s): K21.9 - Gastro -esophageal reflux disease without esophagitis Is this a current diagnosis for this admission?: Yes (6) ARF (acute renal failure) Qualifiers: Acute renal failure type: unspecified Qualified Code(s): N17.9 - Acute kidney failure, unspecified Is this a current diagnosis for this admission?: Yes (7) CVA (cerebral vascular accident) Qualifiers: CVA mechanism: unspecified Qualified Code(s): I63.9 - Cerebral infarction, unspecified Is this a current diagnosis for this admission?: Yes (8) Diabetes mellitus type 2 in nonobese Is this a current diagnosis for this admission?: Yes (9) HLD (hyperlipidemia) Qualifiers: Hyperlipidemia type: unspecified Qualified Code(s): E78.5 - Hyperlipidemia , unspecified Is this a current diagnosis for this admission?: Yes (10) HTN (hypertension) Qualifiers: Hypertension type: essential hypertension Qualified Code(s): I10 - Essential (primary) hypertension Is this a current diagnosis for this admission?: Yes - Time Time Spent with patient: 25-34 minutes - Plan Summary Plan Summary: Obtain KUB. Check serum magnesium. Try Dulcolax suppository. We will discontinue Reglan at this time. Patient had good bowel movements reported. Continue supportive care. Hopefully we can restart tube feedings sometime today.
--- NOTE | 2017-02-24 09:16 | RADIOLOGY REPORT (SQ) ---
EXAM DESCRIPTION: KUB/ABDOMEN (SINGLE VIEW) COMPLETED DATE/TIME: 02/24/2017 9:02 am REASON FOR STUDY: ileus COMPARISON: Abdominal films 02/23/2017, 02/22/2017 NUMBER OF VIEWS: One view. TECHNIQUE: Supine radiographic image of the abdomen acquired. LIMITATIONS: None. FINDINGS: BOWEL GAS PATTERN: Diffuse gaseous distension of colon out of proportion to small bowel. Question colonic ileus. No constipation or fecal impaction. There is a gastrostomy tube with the ti p in the gastric antrum. Stomach decompressed. Overall bowel gas pattern is similar compared to 02/23 and 02/22/2017 CALCIFICATIONS: Calcified pelvic phleboliths. SOFT TISSUES: No gross mass or suggestion of organomegaly. HARDWARE: None in the abdomen. BONES: Osteopenic. Lower lumbar degenerative disc changes OTHER: No other significant finding. IMPRESSION: Gaseous distension of colon out of proportion to stomach and small bowel. Question colo jean carlos ileus. TECHNICAL DOCUMENTATION: JOB ID: [id number] [employer]- All Rights Reserved
[2017-02-24] MEDS: ENOXAPARIN SODIUM INJ 40 MG/0.4 ML DISP.SYRIN SUBCUT SCH (09:50)
[2017-02-24] MEDS: FAMOTIDINE INJ/PF 20 MG/2 ML SDV IV SCH (09:53)
[2017-02-24] MEDS ORDERED: BISACODYL 10 MG SUPP.RECT PR ONE (10:15)
[2017-02-24] MEDS: NORMAL SALINE 1000 ML 1,000 ML IV PRN (11:19)
[2017-02-24] MEDS ORDERED: METOPROLOL TARTRATE PF/INJ 5 MG/5 ML SDV IV PRN (20:30)
[2017-02-24] MEDS: METOPROLOL TARTRATE 25 MG TABLET PEG SCH (21:15)
[2017-02-25 05:14] LABS: ANION GAP 13 (5-19); BLOOD UREA NITROGEN 12 mg/dL (7-20); CALCIUM 9.9 mg/dL (8.4-10.2); CARBON DIOXIDE 22 mmol/L (22-30); CHLORIDE 103 mmol/L (98-107); CREATININE RESULT 1.17 mg/dL (0.52-1.25); GLUCOSE 116 mg/dL (75-110); POTASSIUM 4.3 mmol/L (3.6-5.0); SODIUM 138.2 mmol/L (137-145)
--- NOTE | 2017-02-25 10:55 | PDOC PROGRESS REPORT ---
Subjective Progress Note for:: 02/25/17 Subjective:: Patient is nonverbal. Had to reported good bowel movements yesterday. Still not back on tube feedings due to ileus. No reported nausea or vomiting. No chills or fever nor respiratory distress. Physical Exam Vital Signs: Temp Pulse Resp BP Pulse Ox 98.3 F 68 18 154/85 H 100 02/25/17 07:54 02/25/17 07:54 02/25/17 07:54 02/25/17 07:54 02/25/17 07:54 Intake & Output 02/24/17 02/25/17 02/26/17 06:59 06:59 06:59 Intake Total 2500 1920 Balance 2500 1920 Weight 71.8 kg General appearance: PRESENT: no acute distress, cooperative Head exam: PRESENT: normocephalic Eye exam: PRESENT: EOMI Mouth exam: PRESENT: moist, neck supple Neck exam: ABSENT: JVD Respiratory exam: PRESENT: clear to auscultation samreen. ABSENT: rhonchi, wheezes Cardiovascular exam: PRESENT: RRR. ABSENT: gallop GI/Abdominal exam: PRESENT: soft, other - Slight tympany to percussion. ABSENT : distended Extremities exam: ABSENT: pedal edema Neurological exam: PRESENT: awake Skin exam: PRESENT: dry, warm. ABSENT: cyanosis Results Laboratory Results: 02/24/17 05:21 02/25/17 04:46 02/25/17 04:46 Sodium 138.2 Potassium 4.3 Chloride 103 Carbon Dioxide 22 Anion Gap 13 BUN 12 Creatinine 1.17 Est GFR ( Amer) > 60 Est GFR (Non-Af Amer) > 60 Glucose 116 H Calcium 9.9 Impressions: Acute Abdomen Series 02/22/17 00:00 IMPRESSION: Diffuse gaseous distention of the bowel, suggestive of generalized ileus. Mild bibasilar atelectasis. KUB X-Ray 02/24/17 06:00 IMPRESSION: Gaseous distension of colon out of proportion to stomach and small bowel. Question colonic ileus. Assessment & Plan - Diagnosis (1) Ileus Is this a current diagnosis for this admission?: Yes (2) Dehydration Is this a current diagnosis for this admission?: Yes (3) Dysphagia due to recent cerebrovascular accident Is this a current diagnosis for this admission?: Yes (4) Gastritis Qualifiers: Gastritis type: unspecified gastritis Chronicity: unspecified Gastritis bleeding: without bleeding Qualified Code(s): K29.70 - Gastritis, unspecified , without bleeding Is this a current diagnosis for this admission?: Yes (5) GERD (gastroesophageal reflux disease) Qualifiers: Esophagitis presence: without esophagitis Qualified Code(s): K21.9 - Gastro -esophageal reflux disease without esophagitis Is this a current diagnosis for this admission?: Yes (6) ARF (acute renal failure) Qualifiers: Acute renal failure type: unspecified Qualified Code(s): N17.9 - Acute kidney failure, unspecified Is this a current diagnosis for this admission?: Yes (7) CVA (cerebral vascular accident) Qualifiers: CVA mechanism: unspecified Qualified Code(s): I63.9 - Cerebral infarction, unspecified Is this a current diagnosis for this admission?: Yes (8) Diabetes mellitus type 2 in nonobese Is this a current diagnosis for this admission?: Yes (9) HLD (hyperlipidemia) Qualifiers: Hyperlipidemia type: unspecified Qualified Code(s): E78.5 - Hyperlipidemia , unspecified Is this a current diagnosis for this admission?: Yes (10) HTN (hypertension) Qualifiers: Hypertension type: essential hypertension Qualified Code(s): I10 - Essential (primary) hypertension Is this a current diagnosis for this admission?: Yes - Time Time Spent with patient: 25-34 minutes - Plan Summary Plan Summary: Continue hydration. Recheck KUB if x-ray improved we will do a trial of resumption of tube feedings. Check electrolytes. Continue supportive care.
[2017-02-25] MEDS: NORMAL SALINE 1000 ML 1,000 ML IV PRN (12:36)
[2017-02-25] MEDS: FAMOTIDINE INJ/PF 20 MG/2 ML SDV IV SCH (12:37)
[2017-02-25] MEDS: ENOXAPARIN SODIUM INJ 40 MG/0.4 ML DISP.SYRIN SUBCUT SCH (12:39)
--- NOTE | 2017-02-25 14:44 | RADIOLOGY REPORT (SQ) ---
EXAM DESCRIPTION: KUB/ABDOMEN (SINGLE VIEW) COMPLETED DATE/TIME: 02/25/2017 2:31 pm REASON FOR STUDY: Follow-up ileus COMPARISON: CT abdomen pelvis 02/01/2017 Abdominal films 02/22/2017, 02/23/2017, 02/24/2017 NUMBER OF VIEWS: One view. TECHNIQUE: Supine radiographic image of the abdomen acquired. LIMITATIONS: None. FINDINGS: BOWEL GAS PATTERN: Mild gas distention of colon. This is improved compared to 02/22/2017. Small bowel decompressed. Stomach decompressed, gastrostomy tube in the gastric antrum. . CALCIFICATIONS: No suspicious calcifications. SOFT TISSUES: No gross mass or suggestion of organomegaly. HARDWARE: Gastrostomy tube tip in the gastric antrum. BONES: No acute fracture. No worrisome bone lesions. OTHER: Results called to Dr. Heaton IMPRESSION: Decrease in gaseous distension of colon and small bowel compared to previous studies TECHNICAL DOCUMENTATION: JOB ID: [id number] [employer]- All Rights Reserved
[2017-02-25] MEDS: METOPROLOL TARTRATE 25 MG TABLET PEG SCH ×2 (19:50→23:38)
[2017-02-26 05:38] LABS: ANION GAP 10 (5-19); BLOOD UREA NITROGEN 11 mg/dL (7-20); CALCIUM 9.7 mg/dL (8.4-10.2); CARBON DIOXIDE 22 mmol/L (22-30); CHLORIDE 103 mmol/L (98-107); CREATININE RESULT 1.13 mg/dL (0.52-1.25); GLUCOSE 116 mg/dL (75-110); MAGNESIUM 1.8 mg/dL (1.6-2.3); POTASSIUM 4.1 mmol/L (3.6-5.0); SODIUM 134.8 mmol/L (137-145)
[2017-02-26] MEDS: ENOXAPARIN SODIUM INJ 40 MG/0.4 ML DISP.SYRIN SUBCUT SCH (11:39)
[2017-02-26] MEDS: FAMOTIDINE INJ/PF 20 MG/2 ML SDV IV SCH (11:43)
[2017-02-26] MEDS: METOPROLOL TARTRATE 25 MG TABLET PEG SCH ×2 (11:43→22:58)
--- NOTE | 2017-02-26 13:40 | PDOC PROGRESS REPORT ---
Subjective Progress Note for:: 02/26/17 Subjective:: Patient does not verbalize. No reported temperature spikes, respiratory distress, chills nor fever. Patient had another bowel movement according to the staff. KUB showed improvement in ileus. Discussed with radiologist, picture looks like institutionalized colon. Physical Exam Vital Signs: Temp Pulse Resp BP Pulse Ox 97.5 F 95 16 153/88 H 100 02/26/17 11:27 02/26/17 11:27 02/26/17 11:27 02/26/17 11:27 02/26/17 11:27 Intake & Output 02/25/17 02/26/17 02/27/17 06:59 06:59 06:59 Intake Total 1919 2009 Balance 1919 2009 Weight 71.8 kg 68.8 kg General appearance: PRESENT: no acute distress Head exam: PRESENT: normocephalic Eye exam: PRESENT: EOMI Mouth exam: PRESENT: moist, neck supple Neck exam: ABSENT: JVD Respiratory exam: PRESENT: clear to auscultation samreen - Poor effort however, unlabored. ABSENT: rhonchi, wheezes Cardiovascular exam: PRESENT: RRR. ABSENT: gallop GI/Abdominal exam: PRESENT: soft, other - No tympany noted. ABSENT: distended Extremities exam: ABSENT: pedal edema Neurological exam: PRESENT: altered Skin exam: PRESENT: dry, warm. ABSENT: cyanosis Results Laboratory Results: 02/24/17 05:21 02/26/17 05:06 02/26/17 05:06 Sodium 134.8 L Potassium 4.1 Chloride 103 Carbon Dioxide 22 Anion Gap 10 BUN 11 Creatinine 1.13 Est GFR ( Amer) > 60 Est GFR (Non-Af Amer) > 60 Glucose 116 H Calcium 9.7 Magnesium 1.8 Impressions: Acute Abdomen Series 02/22/17 00:00 IMPRESSION: Diffuse gaseous distention of the bowel, suggestive of generalized ileus. Mild bibasilar atelectasis. KUB X-Ray 02/25/17 00:00 IMPRESSION: Decrease in gaseous distension of colon and small bowel compared to previous studies Assessment & Plan - Diagnosis (1) Ileus Is this a current diagnosis for this admission?: Yes (2) Dehydration Is this a current diagnosis for this admission?: Yes (3) Dysphagia due to recent cerebrovascular accident Is this a current diagnosis for this admission?: Yes (4) Gastritis Qualifiers: Gastritis type: unspecified gastritis Chronicity: unspecified Gastritis bleeding: without bleeding Qualified Code(s): K29.70 - Gastritis, unspecified , without bleeding Is this a current diagnosis for this admission?: Yes (5) GERD (gastroesophageal reflux disease) Qualifiers: Esophagitis presence: without esophagitis Qualified Code(s): K21.9 - Gastro -esophageal reflux disease without esophagitis Is this a current diagnosis for this admission?: Yes (6) ARF (acute renal failure) Qualifiers: Acute renal failure type: unspecified Qualified Code(s): N17.9 - Acute kidney failure, unspecified Is this a current diagnosis for this admission?: Yes (7) CVA (cerebral vascular accident) Qualifiers: CVA mechanism: unspecified Qualified Code(s): I63.9 - Cerebral infarction, unspecified Is this a current diagnosis for this admission?: Yes (8) Diabetes mellitus type 2 in nonobese Is this a current diagnosis for this admission?: Yes (9) HLD (hyperlipidemia) Qualifiers: Hyperlipidemia type: unspecified Qualified Code(s): E78.5 - Hyperlipidemia , unspecified Is this a current diagnosis for this admission?: Yes (10) HTN (hypertension) Qualifiers: Hypertension type: essential hypertension Qualified Code(s): I10 - Essential (primary) hypertension Is this a current diagnosis for this admission?: Yes - Time Time Spent with patient: 25-34 minutes - Plan Summary Plan Summary: We are going to resume tube feedings. Begin water flushes as well through the PEG tube. We will decrease intravenous fluids to KVO. Once the patient tolerates then likely patient can return back to long term facility. Continue other medications and supportive care.
[2017-02-26] MEDS: NORMAL SALINE 1000 ML 1,000 ML IV PRN (16:55)
[2017-02-26 17:29] LABS: ANION GAP 14 (5-19); BLOOD UREA NITROGEN 12 mg/dL (7-20); CALCIUM 10.1 mg/dL (8.4-10.2); CARBON DIOXIDE 21 mmol/L (22-30); CHLORIDE 102 mmol/L (98-107); CREATININE RESULT 1.13 mg/dL (0.52-1.25); GLUCOSE 117 mg/dL (75-110); POTASSIUM 4.3 mmol/L (3.6-5.0); SODIUM 137.4 mmol/L (137-145)
[2017-02-27] MEDS: FAMOTIDINE INJ/PF 20 MG/2 ML SDV IV SCH (11:34)
[2017-02-27] MEDS: ENOXAPARIN SODIUM INJ 40 MG/0.4 ML DISP.SYRIN SUBCUT SCH (11:35)
[2017-02-27] MEDS: METOPROLOL TARTRATE 25 MG TABLET PEG SCH ×2 (11:36→23:18)
--- NOTE | 2017-02-27 11:42 | PDOC PROGRESS REPORT ---
Subjective Progress Note for:: 02/27/17 Subjective:: No reported agitation. Reported diarrhea. No nausea or vomiting reported. Tolerating tube feedings. Physical Exam Vital Signs: Temp Pulse Resp BP Pulse Ox 97.9 F 92 18 148/93 H 100 02/27/17 07:49 02/27/17 07:49 02/27/17 07:49 02/27/17 07:49 02/27/17 07:49 Intake & Output 02/26/17 02/27/17 02/28/17 06:59 06:59 06:59 Intake Total 2009 400 Balance 2009 400 Weight 68.8 kg 67.9 kg General appearance: PRESENT: no acute distress Head exam: PRESENT: normocephalic Mouth exam: PRESENT: moist, neck supple Neck exam: ABSENT: JVD Respiratory exam: PRESENT: clear to auscultation samreen - Poor effort however. Cardiovascular exam: PRESENT: RRR. ABSENT: gallop GI/Abdominal exam: PRESENT: normal bowel sounds, soft. ABSENT: distended, tenderness Extremities exam: ABSENT: pedal edema Neurological exam: PRESENT: awake Psychiatric exam: ABSENT: agitated Focused psych exam: ABSENT: restlessness Skin exam: PRESENT: dry, warm. ABSENT: cyanosis Results Laboratory Results: 02/24/17 05:21 02/26/17 16:40 02/26/17 02/26/17 15:50 16:40 Sodium Cancelled 137.4 Potassium Cancelled 4.3 Chloride Cancelled 102 Carbon Dioxide Cancelled 21 L Anion Gap Cancelled 14 BUN Cancelled 12 Creatinine Cancelled 1.13 Est GFR ( Amer) Cancelled > 60 Est GFR (Non-Af Amer) Cancelled > 60 Glucose Cancelled 117 H Calcium Cancelled 10.1 Impressions: Acute Abdomen Series 02/22/17 00:00 IMPRESSION: Diffuse gaseous distention of the bowel, suggestive of generalized ileus. Mild bibasilar atelectasis. KUB X-Ray 02/25/17 00:00 IMPRESSION: Decrease in gaseous distension of colon and small bowel compared to previous studies Assessment & Plan - Diagnosis (1) Ileus Is this a current diagnosis for this admission?: Yes (2) Dehydration Is this a current diagnosis for this admission?: Yes (3) Dysphagia due to recent cerebrovascular accident Is this a current diagnosis for this admission?: Yes (4) Gastritis Qualifiers: Gastritis type: unspecified gastritis Chronicity: unspecified Gastritis bleeding: without bleeding Qualified Code(s): K29.70 - Gastritis, unspecified , without bleeding Is this a current diagnosis for this admission?: Yes (5) GERD (gastroesophageal reflux disease) Qualifiers: Esophagitis presence: without esophagitis Qualified Code(s): K21.9 - Gastro -esophageal reflux disease without esophagitis Is this a current diagnosis for this admission?: Yes (6) ARF (acute renal failure) Qualifiers: Acute renal failure type: unspecified Qualified Code(s): N17.9 - Acute kidney failure, unspecified Is this a current diagnosis for this admission?: Yes (7) CVA (cerebral vascular accident) Qualifiers: CVA mechanism: unspecified Qualified Code(s): I63.9 - Cerebral infarction, unspecified Is this a current diagnosis for this admission?: Yes (8) Diabetes mellitus type 2 in nonobese Is this a current diagnosis for this admission?: Yes (9) HLD (hyperlipidemia) Qualifiers: Hyperlipidemia type: unspecified Qualified Code(s): E78.5 - Hyperlipidemia , unspecified Is this a current diagnosis for this admission?: Yes (10) HTN (hypertension) Qualifiers: Hypertension type: essential hypertension Qualified Code(s): I10 - Essential (primary) hypertension Is this a current diagnosis for this admission?: Yes - Time Time Spent with patient: Less than 15 minutes - Plan Summary Plan Summary: Try to increase tube feedings today. If patient continues to tolerate we will transfer back to skilled facility in the morning.
[2017-02-27] MEDS ORDERED: METOPROLOL TARTRATE 25 MG TABLET PEG ONE (19:30)
[2017-02-27] MEDS ORDERED: POLYETHYLENE GLYCOL 3350 POWDER 17 GM/1 PACKET PEG SCH (22:00)
[2017-02-28] MEDS: NORMAL SALINE 1000 ML 1,000 ML IV PRN (02:42)
[2017-02-28] MEDS: POLYETHYLENE GLYCOL 3350 POWDER 17 GM/1 PACKET PEG SCH (10:41)
[2017-02-28] MEDS: ENOXAPARIN SODIUM INJ 40 MG/0.4 ML DISP.SYRIN SUBCUT SCH (10:42)
[2017-02-28] MEDS: FAMOTIDINE INJ/PF 20 MG/2 ML SDV IV SCH (10:43)
[2017-02-28] MEDS: METOPROLOL TARTRATE 25 MG TABLET PEG SCH ×2 (10:43→23:12)
--- NOTE | 2017-02-28 11:16 | PDOC PROGRESS REPORT ---
Subjective Progress Note for:: 02/28/17 Subjective:: Nonverbal, reported episodes of sinus tachycardia yesterday, metoprolol was increased, no further episodes were reported per staff. No bowel movement reported yet. Tolerating 20 mL/h tube feedings. No chills or fever, nor any respiratory distress. Physical Exam Vital Signs: Temp Pulse Resp BP Pulse Ox 97.6 F 70 12 131/78 H 99 02/28/17 08:09 02/28/17 08:09 02/28/17 08:09 02/28/17 08:09 02/28/17 08:09 Intake & Output 02/27/17 02/28/17 03/01/17 06:59 06:59 06:59 Intake Total 400 1021 Balance 400 1021 Weight 67.9 kg 68 kg General appearance: PRESENT: no acute distress, other - Aphasic Head exam: PRESENT: normocephalic Eye exam: PRESENT: EOMI Mouth exam: PRESENT: moist, neck supple Neck exam: ABSENT: JVD Respiratory exam: PRESENT: clear to auscultation samreen. ABSENT: rhonchi, wheezes Cardiovascular exam: PRESENT: RRR. ABSENT: gallop GI/Abdominal exam: PRESENT: soft. ABSENT: distended, tenderness Extremities exam: ABSENT: pedal edema Neurological exam: PRESENT: alert, awake Skin exam: PRESENT: dry, warm. ABSENT: cyanosis Results Laboratory Results: 02/24/17 05:21 02/26/17 16:40 Impressions: Acute Abdomen Series 02/22/17 00:00 IMPRESSION: Diffuse gaseous distention of the bowel, suggestive of generalized ileus. Mild bibasilar atelectasis. KUB X-Ray 02/25/17 00:00 IMPRESSION: Decrease in gaseous distension of colon and small bowel compared to previous studies Assessment & Plan - Diagnosis (1) Ileus Is this a current diagnosis for this admission?: Yes (2) Dehydration Is this a current diagnosis for this admission?: Yes (3) Dysphagia due to recent cerebrovascular accident Is this a current diagnosis for this admission?: Yes (4) Gastritis Qualifiers: Gastritis type: unspecified gastritis Chronicity: unspecified Gastritis bleeding: without bleeding Qualified Code(s): K29.70 - Gastritis, unspecified , without bleeding Is this a current diagnosis for this admission?: Yes (5) GERD (gastroesophageal reflux disease) Qualifiers: Esophagitis presence: without esophagitis Qualified Code(s): K21.9 - Gastro -esophageal reflux disease without esophagitis Is this a current diagnosis for this admission?: Yes (6) ARF (acute renal failure) Qualifiers: Acute renal failure type: unspecified Qualified Code(s): N17.9 - Acute kidney failure, unspecified Is this a current diagnosis for this admission?: Yes (7) CVA (cerebral vascular accident) Qualifiers: CVA mechanism: unspecified Qualified Code(s): I63.9 - Cerebral infarction, unspecified Is this a current diagnosis for this admission?: Yes (8) Diabetes mellitus type 2 in nonobese Is this a current diagnosis for this admission?: Yes (9) HLD (hyperlipidemia) Qualifiers: Hyperlipidemia type: unspecified Qualified Code(s): E78.5 - Hyperlipidemia , unspecified Is this a current diagnosis for this admission?: Yes (10) HTN (hypertension) Qualifiers: Hypertension type: essential hypertension Qualified Code(s): I10 - Essential (primary) hypertension Is this a current diagnosis for this admission?: Yes - Time Time Spent with patient: 15-24 minutes - Plan Summary Plan Summary: Family refusing patient to return to the [facility] today and prefers patient to return on Thursday. Otherwise we will go ahead and increase the patient's tube feedings, give Dulcolax suppository today. Continue supportive care. Continue current dose of beta-federico for now.
[2017-02-28] MEDS ORDERED: BISACODYL 10 MG SUPP.RECT PR ONE (12:00)
[2017-03-01] MEDS: ENOXAPARIN SODIUM INJ 40 MG/0.4 ML DISP.SYRIN SUBCUT SCH (09:52)
[2017-03-01] MEDS: FAMOTIDINE INJ/PF 20 MG/2 ML SDV IV SCH (09:53)
[2017-03-01] MEDS: METOPROLOL TARTRATE 25 MG TABLET PEG SCH ×2 (09:53→22:37)
[2017-03-01] MEDS: POLYETHYLENE GLYCOL 3350 POWDER 17 GM/1 PACKET PEG SCH (09:54)
--- NOTE | 2017-03-01 12:10 | PDOC PROGRESS REPORT ---
Subjective Progress Note for:: 03/01/17 Subjective:: Patient is tolerating tube feedings well. Had bowel movement once yesterday. No reported respiratory distress or temperature spikes. Physical Exam Vital Signs: Temp Pulse Resp BP Pulse Ox 97.6 F 71 20 116/59 L 97 03/01/17 07:45 03/01/17 07:45 03/01/17 07:45 03/01/17 07:45 03/01/17 07:45 Intake & Output 02/28/17 03/01/17 03/02/17 06:59 06:59 06:59 Intake Total 1021 1996 Balance 1021 1996 Weight 68 kg 68.3 kg General appearance: PRESENT: no acute distress Head exam: PRESENT: normocephalic Eye exam: PRESENT: conjunctiva pink Mouth exam: PRESENT: moist, neck supple Neck exam: ABSENT: JVD Respiratory exam: PRESENT: clear to auscultation samreen Cardiovascular exam: PRESENT: RRR. ABSENT: gallop GI/Abdominal exam: PRESENT: soft. ABSENT: distended, tenderness Extremities exam: ABSENT: pedal edema Results Laboratory Results: 02/24/17 05:21 02/26/17 16:40 Impressions: Acute Abdomen Series 02/22/17 00:00 IMPRESSION: Diffuse gaseous distention of the bowel, suggestive of generalized ileus. Mild bibasilar atelectasis. KUB X-Ray 02/25/17 00:00 IMPRESSION: Decrease in gaseous distension of colon and small bowel compared to previous studies Assessment & Plan - Diagnosis (1) Ileus Is this a current diagnosis for this admission?: Yes (2) Dehydration Is this a current diagnosis for this admission?: Yes (3) Dysphagia due to recent cerebrovascular accident Is this a current diagnosis for this admission?: Yes (4) Gastritis Qualifiers: Gastritis type: unspecified gastritis Chronicity: unspecified Gastritis bleeding: without bleeding Qualified Code(s): K29.70 - Gastritis, unspecified , without bleeding Is this a current diagnosis for this admission?: Yes (5) GERD (gastroesophageal reflux disease) Qualifiers: Esophagitis presence: without esophagitis Qualified Code(s): K21.9 - Gastro -esophageal reflux disease without esophagitis Is this a current diagnosis for this admission?: Yes (6) ARF (acute renal failure) Qualifiers: Acute renal failure type: unspecified Qualified Code(s): N17.9 - Acute kidney failure, unspecified Is this a current diagnosis for this admission?: Yes (7) CVA (cerebral vascular accident) Qualifiers: CVA mechanism: unspecified Qualified Code(s): I63.9 - Cerebral infarction, unspecified Is this a current diagnosis for this admission?: Yes (8) Diabetes mellitus type 2 in nonobese Is this a current diagnosis for this admission?: Yes (9) HLD (hyperlipidemia) Qualifiers: Hyperlipidemia type: unspecified Qualified Code(s): E78.5 - Hyperlipidemia , unspecified Is this a current diagnosis for this admission?: Yes (10) HTN (hypertension) Qualifiers: Hypertension type: essential hypertension Qualified Code(s): I10 - Essential (primary) hypertension Is this a current diagnosis for this admission?: Yes - Time Time Spent with patient: Less than 15 minutes - Plan Summary Plan Summary: We will increase tube feedings to 40 mL/h today. Continue other medications and supportive care. I will resume the patient's home medication and discontinue the IV Pepcid.
[2017-03-01] MEDS: NORMAL SALINE 1000 ML 1,000 ML IV PRN (12:17)
[2017-03-01] MEDS: LANSOPRAZOLE 30 MG TAB.RAP.DR PEG SCH (17:22)
[2017-03-01] MEDS: SIMVASTATIN 40 MG TABLET PEG SCH (22:35)
[2017-03-02 07:04] LABS: HEMATOCRIT 39.7 % (37.9-51.0); HEMOGLOBIN 12.7 g/dL (13.5-17.0); HGB HCT DIFFERENCE -1.6; MEAN CORPUSCULAR HEMOGLOBIN 23.3 pg (27.0-33.4); MEAN CORPUSCULAR VOLUME 73 fl (80-97); RED BLOOD COUNT 5.44 10^6/uL (4.35-5.55); RED CELL DISTRIBUTION WIDTH 15.2 % (11.5-14.0); WHITE BLOOD COUNT 4.8 10^3/uL (4.0-10.5)
[2017-03-02] MEDS ORDERED: CLOPIDOGREL BISULFATE 75 MG TABLET PEG SCH (10:00)
[2017-03-02] MEDS ORDERED: ASPIRIN 81 MG TABLET, CHEWABLE PEG SCH (10:00)
[2017-03-02] MEDS: ENOXAPARIN SODIUM INJ 40 MG/0.4 ML DISP.SYRIN SUBCUT SCH (10:51)
[2017-03-02] MEDS: POLYETHYLENE GLYCOL 3350 POWDER 17 GM/1 PACKET PEG SCH (11:04)
[2017-03-02] MEDS: LANSOPRAZOLE 30 MG TAB.RAP.DR PEG SCH (11:04)
[2017-03-02] MEDS: METOPROLOL TARTRATE 25 MG TABLET PEG SCH (11:05)
[2017-03-02] MEDS: LISINOPRIL 5 MG TABLET PEG SCH (11:05)
--- NOTE | 2017-03-02 12:21 | PDOC DISCHARGE SUMMARY ---
General - Admit/Disc Date/PCP Admission Date/Primary Care Provider: 02/20/17 14:15 Discharge Date: 03/02/17 - Discharge Diagnosis (1) Ileus Is this a current diagnosis for this admission?: Yes (2) Dehydration Is this a current diagnosis for this admission?: Yes (3) Dysphagia due to recent cerebrovascular accident Is this a current diagnosis for this admission?: Yes (4) Gastritis Is this a current diagnosis for this admission?: Yes (5) GERD (gastroesophageal reflux disease) Is this a current diagnosis for this admission?: Yes (6) ARF (acute renal failure) Is this a current diagnosis for this admission?: Yes (7) CVA (cerebral vascular accident) Is this a current diagnosis for this admission?: Yes (8) Diabetes mellitus type 2 in nonobese Is this a current diagnosis for this admission?: Yes (9) HLD (hyperlipidemia) Is this a current diagnosis for this admission?: Yes (10) HTN (hypertension) Is this a current diagnosis for this admission?: Yes - Additional Information Resuscitation Status: Full Code Discharge Diet: Tube Feeding (Comments) - glucerna 1.2 at 40ml/hr. Flush tube with 30 ml of water q4h. Discharge Activity: Activity As Tolerated, Balance Activity w/Rest Home Medications: Clopidogrel Bisulfate [Plavix 75 mg Tablet] 75 mg PO DAILY 02/18/17 Glipizide [Glucotrol 5 mg Tablet] 5 mg PO DAILY 02/18/17 Insulin Regular, Human [Humulin R (Reg) Insulin 100 unit/mL] 0 unit SUBCUT ASDIR PRN 02/18/17 Omeprazole 20 mg PO DAILY 02/18/17 Lisinopril [Prinivil 5 mg Tablet] 5 mg PEG DAILY tablet 03/02/17 Metoprolol Tartrate [Lopressor 25 mg Tablet] 25 mg PEG Q12 tablet 03/02/17 Polyethylene Glycol 3350 [Miralax Powder 17 gm/Packet] 17 gm PEG DAILY #0 powd.pack 03/02/17 Simvastatin [Zocor 40 mg Tablet] 20 mg PEG QHS tablet 03/02/17 History of Present Illness Patient complains of: Failure to thrive History of Present Illness: COMPA CHOI JR is a 81 year old male who was discharged earlier this month from our service after having a CVA in the frontotemporal area. Patient was sent to the [facility] for [facility] however he has had very little p.o. intake. The gives most of the history and she is at the bedside. The patient has not shown any interest in food. He does not have any problems swallowing just does not want to eat. Patient was seen at the correction by gastroenterology who suggested placing a PEG tube. The patient presented today he shows evidence for some dehydration and he will be admitted as observation in anticipation of a PEG tube placement tomorrow. The patient gives no history as he will not interact with me. For details please refer to history and physical examination performed by the admitting physician. Hospital Course Hospital Course: The patient was admitted to the medical floor with telemetry. The patient was referred to gastroenterology for placement of feeding tube. Dr. Penn performed the procedure and eventually he was started on tube feedings. His course however was complicated by increasing residuals and unable to tolerate tube feedings. x-ray of the abdomen shows findings suggestive of ileus. CT of the abdomen did not reveal any obstruction. Therefore the patient was kept off the tube feedings until the ileus resolved. Electrolytes were monitored and were replaced. He was given laxatives and enema. Patient responded well to the medications. 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 This was described by radiology service. At this point the patient was started back on tube feedings and he tolerated it. It was slowly advanced to 40 mL/h. The rest of the hospital stay is unremarkable. Further titration of the tube feedings as per recommendation by the library aide of 60 mL/h can be done in a subacute facility. He was eventually transferred back to long-term care facility. Physical Exam Vital Signs: Temp Pulse Resp BP Pulse Ox 97.7 F 69 18 154/74 H 100 03/02/17 07:56 03/02/17 07:56 03/02/17 07:56 03/02/17 07:56 03/02/17 07:56 Intake & Output 03/01/17 03/02/17 03/03/17 06:59 06:59 06:59 Intake Total 1996 1505 120 Output Total 3 Balance 1996 1502 120 Weight 68.3 kg 68.3 kg General appearance: PRESENT: no acute distress Head exam: PRESENT: normocephalic Mouth exam: PRESENT: moist, neck supple Neck exam: ABSENT: JVD Respiratory exam: PRESENT: clear to auscultation samreen Cardiovascular exam: PRESENT: RRR GI/Abdominal exam: PRESENT: distended - mild, soft Extremities exam: ABSENT: pedal edema Neurological exam: PRESENT: alert, awake Skin exam: PRESENT: dry, warm. ABSENT: cyanosis Results Laboratory Results: 03/02/17 06:39 02/26/17 16:40 03/02/17 06:39 WBC 4.8 RBC 5.44 Hgb 12.7 L Hct 39.7 MCV 73 L MCH 23.3 L MCHC 32.0 RDW 15.2 H Plt Count 165 Impressions: Acute Abdomen Series 02/22/17 00:00 IMPRESSION: Diffuse gaseous distention of the bowel, suggestive of generalized ileus. Mild bibasilar atelectasis. KUB X-Ray 02/25/17 00:00 IMPRESSION: Decrease in gaseous distension of colon and small bowel compared to previous studies Qualifiers PATEINT BEING DISCHARGED WITH ANY OF THE FOLLOWING DIAGNOSIS?: No Plan Discharge Plan: Follow up with primary physician in 1 week. Time Spent: Less than 30 Minutes
[2017-03-02 16:52] VITALS: BP 128/75
== END 2017-03-02 19:40 | DRG 57 ==
LOC: ER 14:27 → EH 17:04 → UNDOADMOB 17:04 → EH 17:07 → 4N 20:15 → OBSVTOIN 02-20 14:15
PROVIDERS: ADMIT Family Medicine; ATTEND Family Medicine
PROC: 0DH63UZ Insertion of Feeding Device into Stomach, Percutaneous Approach (ICD-10-PCS; principal; 2017-02-20 15:00)
DX: I69.391 Dysphagia following cerebral infarction (principal); N17.9 Acute kidney failure, unspecified; K56.7 Ileus, unspecified; E86.0 Dehydration; I12.9 Hypertensive chronic kidney disease with stage 1 through stage 4 chronic kidney disease, or unspecified chronic kidney disease; N18.3 Chronic kidney disease, stage 3 (moderate); R13.10 Dysphagia, unspecified; E11.22 Type 2 diabetes mellitus with diabetic chronic kidney disease; R00.0 Tachycardia, unspecified; E78.5 Hyperlipidemia, unspecified; K21.9 Gastro-esophageal reflux disease without esophagitis; F03.90 Unspecified dementia, unspecified severity, without behavioral disturbance, psychotic disturbance, mood disturbance, and anxiety; K29.70 Gastritis, unspecified, without bleeding; Z82.49 Family history of ischemic heart disease and other diseases of the circulatory system; Z79.02 Long term (current) use of antithrombotics/antiplatelets; Z79.82 Long term (current) use of aspirin; Z79.899 Other long term (current) drug therapy
CPT/HCPCS: 36415; 43239; 43246; 74000; 74022; 80048; 80053; 82962; 83735; 85025; 85027; 85610; 85730; 88305; 88342; 93005; 93010; 96365; 96366; 99285; G0378; J0171; J0690; J1610; J1650; J2250; J2310; J2765; J3010; J3490; J7030; S0028

== ENCOUNTER 2017-03-03 12:00 | Emergency (ER) | payer OTHER, MEDICARE ==
[2017-03-03] MEDS ORDERED: DEXTROSE 50%-WATER 25 GM/50 ML DISP.SYRIN IV ONE (12:33)
--- NOTE | 2017-03-03 12:42 | ER Document Report ---
ED General - General Chief Complaint: Unresponsive Stated Complaint: UNRESPONSIVE Time Seen by Provider: 03/03/17 12:15 TRAVEL OUTSIDE OF THE [place] IN LAST 30 DAYS: No - HPI Notes: This is an 81-year-old male with history of diabetes recently discharged last night from the hospital after a CVA, problems with dehydration, poor p.o. intake with resultant PEG tube placement presents with decreased responsiveness. Apparently he was "unresponsive for a little bit of time". Limited history as this was not witnessed by family but they stated it was reported he took about 40 steps during rehab today and then almost collapsed. Patient is very somnolent which family states is normal for him but he will not give me history as apparently does not talk very much and when he does it usually in "spurts". He did have some problems getting PEG tube feeding after he developed an ileus so is currently per records receiving Glucerna 1.2 at 40 mL/h which he apparently got last night though it is recommended it be increased slowly to 60 mL's per hour. There is been no vomiting. states that his abdominal distention has improved significantly from admission. EMS noted his blood sugar to be 61. At this point he does not have an IV. Apparently he was normal after resting after physical therapy per report. - Related Data Allergies/Adverse Reactions: No Known Allergies Allergy (Verified 02/01/17 19:12) Past Medical History - Social History Smoking Status: Former Smoker Chew tobacco use (# tins/day): No Frequency of alcohol use: None Drug Abuse: None Lives with: Other - [facility] Family History: Reviewed & Not Pertinent, Hypertension - Past Medical History Cardiac Medical History: Reports: Hx Hypercholesterolemia, Hx Hypertension Denies: Hx Atrial Fibrillation, Hx Congestive Heart Failure, Hx Heart Attack Pulmonary Medical History: Denies: Hx Asthma, Hx COPD Neurological Medical History: Reports: Hx Cerebrovascular Accident. Denies: Hx Seizures Endocrine Medical History: Reports: Hx Diabetes Mellitus Type 2. Denies: Hx Diabetes Mellitus Type 1 Renal/ Medical History: Denies: Hx Peritoneal Dialysis GI Medical History: Reports: Hx Gastroesophageal Reflux Disease. Denies: Hx Cirrhosis, Hx Hepatitis Musculoskeltal Medical History: Denies Hx Arthritis Psychiatric Medical History: Reports: Hx Dementia Infectious Medical History: Denies: Hx Hepatitis - Immunizations Hx Diphtheria, Pertussis, Tetanus Vaccination: Yes Review of Systems - Review of Systems -: Yes ROS unobtainable due to patient's medical condition Physical Exam - Vital signs Vitals: Resp Pulse Ox 15 100 03/03/17 12:18 03/03/17 12:18 - Notes Notes: GENERAL: VS as per nursing doc. chronically ill-appearing, somnolent and in no acute distress. HEAD: Atraumatic, normocephalic. EYES: Sclera anicteric, no conjunctival injection or discharge. ENT: Nares patent, oropharynx clear without exudates, slightly dry mucous membranes. NECK: Normal range of motion, supple without lymphadenopathy. LUNGS: Coarse breath sounds bilaterally and equal. No wheezes rales or rhonchi. HEART: Regular rate and rhythm without murmurs. ABDOMEN: Soft, nontender, PEG tube in place. Some distention but no notable tenderness. Bowel sounds are very hyperactive EXTREMITIES: Some muscular wasting noted NEUROLOGICAL: Poorly responsive, will not follow commands PSYCH: Somnolent and flat l affect. SKIN: Dry flaking skin, no evidence of infection at PEG tube site. Course - Re-evaluation Re-evalutation: 03/03/17 14:35 I spoke with the at length. The patient is at his baseline. I am not convinced that the blood sugar of 61 documented by EMS is not incorrect as are actual blood stick showed a blood sugar much higher prior to the patient even receiving the half amp of D50. Obviously this will need to be watched as the Glucerna continuous feed is reinstituted and increased. There are no neurologic deficits that I can tell but are new. I discussed admission versus further observation. Family would like for the patient to go back which seems reasonable. They do request the patient be started back at a slower rate as a thought he may have overdone it as he has not been up and around. They understand the broad differential which could include cardiac arrhythmia, hypoglycemia, infection, hypotension, other and request discharge back to rehab. - Vital Signs Vital signs: Temp Pulse Resp BP Pulse Ox 97.2 F 83 13 111/78 98 03/03/17 12:22 03/03/17 12:22 03/03/17 14:02 03/03/17 14:02 03/03/17 14:02 - Laboratory Result Diagrams: 03/03/17 13:05 03/03/17 13:05 Laboratory results interpreted by me: 03/03/17 03/03/17 13:05 13:05 RBC 5.89 H Hgb 13.4 L MCV 74 L MCH 22.8 L MCHC 31.0 L RDW 15.7 H Monocytes % 13.1 H Est GFR (Non-Af Amer) 57 L Glucose 165 H - EKG Interpretation by Me EKG shows normal: Sinus rhythm - Normal sinus rhythm with frequent PVCs. Nonspecific ST abnormalities with some T-wave inversions laterally. These T- wave inversions are apparent on prior EKG from 02/21/2017. Discharge - Discharge Clinical Impression: Syncope Condition: Fair Disposition: REHAB FACILITY Additional Instructions: Return for any problems or concerns. Watch the blood sugars closely as the Glucerna is reinstituted and increased. Per family request, they would like to institute a more gradual rehab process. Please discuss with your staff if that is appropriate. Follow-up with primary care physician or rehab physician.
[2017-03-03 13:24] LABS: ABSOLUTE EOSINOPHILS # (AUTO) 0.1 10^3/uL (0.0-0.6); ABSOLUTE MONOCYTES (AUTO) 0.7 10^3/uL (0.1-1.4); ABSOLUTE NEUT (AUTO) 3.9 10^3/uL (1.7-8.2); BASOPHILS % (AUTO) 0.8 % (0-2); EOSINOPHILS % (AUTO) 1.2 % (0-6); HEMATOCRIT 43.3 % (37.9-51.0); HEMOGLOBIN 13.4 g/dL (13.5-17.0); HGB HCT DIFFERENCE -3.1; LYMPHOCYTES % (AUTO) 17.4 % (13-45); MEAN CORPUSCULAR HEMOGLOBIN 22.8 pg (27.0-33.4); MEAN CORPUSCULAR VOLUME 74 fl (80-97); MONOCYTES % (AUTO) 13.1 % (3-13); RED BLOOD COUNT 5.89 10^6/uL (4.35-5.55); RED CELL DISTRIBUTION WIDTH 15.7 % (11.5-14.0); SEGMENTED NEUTROPHILS % (AUTO) 67.5 % (42-78); WHITE BLOOD COUNT 5.7 10^3/uL (4.0-10.5)
[2017-03-03 13:46] LABS: ANION GAP 13 (5-19); BLOOD UREA NITROGEN 15 mg/dL (7-20); CARBON DIOXIDE 26 mmol/L (22-30); CHLORIDE 99 mmol/L (98-107); CREATININE RESULT 1.22 mg/dL (0.52-1.25); GLUCOSE 165 mg/dL (75-110); SODIUM 137.9 mmol/L (137-145)
[2017-03-03 15:31] VITALS: BP 130/97
--- NOTE | 2017-03-03 20:02 | EKG REPORT ---
SEVERITY:- ABNORMAL ECG - SINUS RHYTHM VENTRICULAR BIGEMINY BORDERLINE LEFT AXIS DEVIATION ABNORMAL T, CONSIDER ISCHEMIA, LATERAL LEADS : Confirmed by: Alfonso Werner 03-Mar-2017 20:02:30
== END 2017-03-03 15:40 ==
LOC: ER 12:00
DX: R55 Syncope and collapse (principal); E78.00 Pure hypercholesterolemia, unspecified; I10 Essential (primary) hypertension; E11.9 Type 2 diabetes mellitus without complications; Z86.73 Personal history of transient ischemic attack (TIA), and cerebral infarction without residual deficits; Z87.891 Personal history of nicotine dependence
CPT/HCPCS: 93005; 99285; 96374; 36415; 82962; 85025; 80048; 93010; J3490

== ENCOUNTER 2017-03-05 09:43 | Inpatient (IN) | payer OTHER, MEDICARE ==
[2017-03-05 10:22] LABS: ABSOLUTE LYMPHOCYTES (AUTO) 1.2 10^3/uL (0.5-4.7); ABSOLUTE MONOCYTES (AUTO) 1.1 10^3/uL (0.1-1.4); ABSOLUTE NEUT (AUTO) 14.6 10^3/uL (1.7-8.2); BASOPHILS % (AUTO) 0.2 % (0-2); EOSINOPHILS % (AUTO) 0.2 % (0-6); HEMATOCRIT 40.5 % (37.9-51.0); HEMOGLOBIN 13.4 g/dL (13.5-17.0); HGB HCT DIFFERENCE -0.3; LYMPHOCYTES % (AUTO) 6.9 % (13-45); MEAN CORPUSCULAR HEMOGLOBIN 23.4 pg (27.0-33.4); MEAN CORPUSCULAR HGB CONC 33.2 g/dL (32.0-36.0); MEAN CORPUSCULAR VOLUME 71 fl (80-97); MONOCYTES % (AUTO) 6.5 % (3-13); RED BLOOD COUNT 5.74 10^6/uL (4.35-5.55); RED CELL DISTRIBUTION WIDTH 15.5 % (11.5-14.0); SEGMENTED NEUTROPHILS % (AUTO) 86.2 % (42-78); VENOUS BLOOD HCO3 25.6 mmol/L (20-32); VENOUS BLOOD PCO2 40.6 mmHg (35-63); VENOUS BLOOD PH 7.42 (7.30-7.42)
[2017-03-05 10:34] LABS: WHITE BLOOD COUNT 16.9 10^3/uL (4.0-10.5)
[2017-03-05 10:36] LABS: PROTHROMBIN TIME 14.7 SEC (11.4-15.4)
[2017-03-05 10:41] LABS: ALANINE AMINOTRANSFERASE 42 U/L (21-72); ALBUMIN 4.2 g/dL (3.5-5.0); ALKALINE PHOSPHATASE 126 U/L (38-126); ANION GAP 16 (5-19); ASPARTATE AMINO TRANSFERASE 34 U/L (17-59); BILIRUBIN,DIRECT 0.6 mg/dL (0.0-0.4); BILIRUBIN,TOTAL 0.9 mg/dL (0.2-1.3); BLOOD UREA NITROGEN 32 mg/dL (7-20); CALCIUM 10.8 mg/dL (8.4-10.2); CARBON DIOXIDE 24 mmol/L (22-30); CHLORIDE 99 mmol/L (98-107); CREATININE RESULT 1.49 mg/dL (0.52-1.25); GLUCOSE 191 mg/dL (75-110); POTASSIUM 4.8 mmol/L (3.6-5.0); SODIUM 138.7 mmol/L (137-145); TOTAL PROTEIN 7.4 g/dL (6.3-8.2)
[2017-03-05] MEDS ORDERED: CEFTRIAXONE 1 GM/D5W RTU 1 GM/50 ML RTUPB IV ONE (10:57)
--- NOTE | 2017-03-05 10:59 | RADIOLOGY REPORT (SQ) ---
EXAM DESCRIPTION: CHEST SINGLE VIEW COMPLETED DATE/TIME: 03/05/2017 10:49 am REASON FOR STUDY: sob COMPARISON: 02/01/2017 EXAM PARAMETERS: NUMBER OF VIEWS: One view. TECHNIQUE: Single frontal radiographic view of the chest acquired. RADIATION DOSE: NA LIMITATIONS: None. FINDINGS: LUNGS AND PLEURA: Low lung volumes. Subsegmental atelectasis lung bases. There is retroc ardiac opacity on the left. The left hemidiaphragm is indistinct. MEDIASTINUM AND HILAR STRUCTURES: No masses. Contour normal. HEART AND VASCULAR STRUCTURES: Heart normal in size. Normal vasculature. BONES: No acute findings. HARDWARE: None in the chest. OTHER: There is gaseous distention of bowel in the upper abdomen. IMPRESSION: 1 Cannot exclude left lower lobe pneumonia. 2. Gaseous distension of bowel. TECHNICAL DOCUMENTATION: JOB ID: [id number]
[2017-03-05] MEDS: NORMAL SALINE 1000 ML 1,000 ML IV PRN ×3 (12:03→16:45)
--- NOTE | 2017-03-05 13:36 | ER Document Report ---
ED General - General Chief Complaint: Breathing Difficulty Stated Complaint: DIFFICULTY BREATHING Time Seen by Provider: 03/05/17 09:44 Mode of Arrival: Medic Information source: Patient, Relative, [facility] Records Cannot obtain history due to: Dementia Notes: 81-year-old male history of recent CVA as well as a visit to the emergency department 2 days prior for shortness of breath unresponsive episode presents by EMS with concerns of difficulty breathing. Patient himself denies any concerns but has history of severe dementia family member notes he does aspirate often and that he was having some difficulty breathing earlier today TRAVEL OUTSIDE OF THE [place] IN LAST 30 DAYS: No - HPI Onset: Last week Onset/Duration: Persistent, Worse Quality of pain: No pain Severity: Moderate Pain Level: Denies Associated symptoms: Shortness of breath Exacerbated by: Denies Relieved by: Denies Similar symptoms previously: Yes Recently seen / treated by doctor: Yes - Related Data Allergies/Adverse Reactions: No Known Allergies Allergy (Verified 02/01/17 19:12) Past Medical History - Social History Smoking Status: Never Smoker Cigarette use (# per day): No Chew tobacco use (# tins/day): No Smoking Education Provided: No Family History: Reviewed & Not Pertinent, Hypertension - Past Medical History Cardiac Medical History: Reports: Hx Hypercholesterolemia, Hx Hypertension Denies: Hx Atrial Fibrillation, Hx Congestive Heart Failure, Hx Heart Attack Pulmonary Medical History: Denies: Hx Asthma, Hx COPD Neurological Medical History: Reports: Hx Cerebrovascular Accident. Denies: Hx Seizures Endocrine Medical History: Reports: Hx Diabetes Mellitus Type 2. Denies: Hx Diabetes Mellitus Type 1 Renal/ Medical History: Denies: Hx Peritoneal Dialysis GI Medical History: Reports: Hx Gastroesophageal Reflux Disease. Denies: Hx Cirrhosis, Hx Hepatitis Musculoskeltal Medical History: Denies Hx Arthritis Psychiatric Medical History: Reports: Hx Dementia Infectious Medical History: Denies: Hx Hepatitis - Immunizations Hx Diphtheria, Pertussis, Tetanus Vaccination: Yes Review of Systems - Review of Systems Notes: REVIEW OF SYSTEMS: CONSTITUTIONAL : Denies fever, chills, or sweats. Denies recent illness. EENT: Denies eye, ear, throat, or mouth pain or symptoms. Denies nasal or sinus congestion or discharge. Denies throat, tongue, or mouth swelling or difficulty swallowing. CARDIOVASCULAR: Denies chest pain. Denies palpitations or racing or irregular heart beat. Denies ankle edema. RESPIRATORY: Cough noted as well as difficulty breathing GASTROINTESTINAL: Denies abdominal pain or distention. Denies nausea, vomiting , or diarrhea. Denies blood in vomitus, stools, or per rectum. Denies black, tarry stools. Denies constipation. GENITOURINARY: Denies difficulty urinating, painful urination, burning, frequency, blood in urine, or discharge. FEMALE GENITOURINARY: Denies vaginal bleeding, heavy or abnormal periods, irregular periods. Denies vaginal discharge or odor. MUSCULOSKELETAL: Denies back or neck pain or stiffness. Denies joint pain or swelling. SKIN: Denies rash, lesions or sores. HEMATOLOGIC : Denies easy bruising or bleeding. LYMPHATIC: Denies swollen, enlarged glands. NEUROLOGICAL: Denies confusion or altered mental status. Denies passing out or loss of consciousness. Denies dizziness or lightheadedness. Denies headache. Denies weakness or paralysis or loss of use of either side. Denies problems with gait or speech. Denies sensory loss, numbness, or tingling. Denies seizures. PSYCHIATRIC: Denies anxiety or stress. Denies depression, suicidal ideation, or homicidal ideation. ALL OTHER SYSTEMS REVIEWED AND NEGATIVE. PHYSICAL EXAMINATION: GENERAL: Well-appearing, well-nourished and in no acute distress. HEAD: Atraumatic, normocephalic. EYES: Pupils equal round and reactive to light, extraocular movements intact, conjunctiva are normal. ENT: Nares patent, oropharynx clear without exudates. Moist mucous membranes. NECK: Normal range of motion, supple without lymphadenopathy LUNGS: Coarse rhonchi left base HEART: Regular rate and rhythm without murmurs ABDOMEN: Abdominal distention Female : deferred Musculoskeletal: Normal range of motion, no pitting or edema. No cyanosis. NEUROLOGICAL: Cranial nerves grossly intact. Normal speech, normal gait. Normal sensory, motor exams PSYCH: Normal mood, normal affect. SKIN: Warm, Dry, normal turgor, no rashes or lesions noted. Dictation was performed using [employer] voice recognition software Physical Exam - Vital signs Vitals: Resp 22 H 03/05/17 09:56 Course - Re-evaluation Re-evalutation: 03/05/17 13:57 Patient is noted to have had an increase in white count over the past 2 days, patient x-ray is consistent with a left lower lobe pneumonia, there is abdominal distention and a CT has been ordered for this however he appears he has been evaluated multiple times for this distention over the past month patient does meet sepsis criteria - Vital Signs Vital signs: Temp Pulse Resp BP Pulse Ox 18 122/89 H 94 03/05/17 10:34 03/05/17 10:34 03/05/17 10:34 - Laboratory Result Diagrams: 03/05/17 10:08 03/05/17 10:08 Laboratory results interpreted by me: 03/05/17 03/05/17 03/05/17 10:08 10:08 10:08 WBC 16.9 H D RBC 5.74 H Hgb 13.4 L MCV 71 L MCH 23.4 L RDW 15.5 H Seg Neutrophils % 86.2 H Lymphocytes % 6.9 L Absolute Neutrophils 14.6 H BUN 32 H Creatinine 1.49 H Est GFR ( Amer) 55 L Est GFR (Non-Af Amer) 45 L Glucose 191 H Lactic Acid 3.3 H Calcium 10.8 H Direct Bilirubin 0.6 H - Diagnostic Test Radiology reviewed: Image reviewed, Reports reviewed - EKG Interpretation by Me EKG shows normal: Sinus rhythm, [place], Intervals, QRS Complexes Discharge - Discharge Clinical Impression: LLL pneumonia Qualifiers: Pneumonia type: due to unspecified organism Qualified Code(s): J18.1 - Lobar pneumonia, unspecified organism Sepsis Qualifiers: Sepsis type: sepsis due to unspecified organism Qualified Code(s): A41.9 - Sepsis, unspecified organism Altered mental status Qualifiers: Altered mental status type: unspecified Qualified Code(s): R41.82 - Altered mental status, unspecified Condition: Stable Disposition: ADMITTED INPATIENT Admitting Provider: Hospitalist Unit Admitted: Telemetry
[2017-03-05] MEDS ORDERED: DEXTROSE 50%-WATER 25 GM/50 ML DISP.SYRIN IV PRN ×2 (14:24)
[2017-03-05] MEDS ORDERED: ACETAMINOPHEN 325 MG TABLET PO PRN (14:24)
[2017-03-05] MEDS ORDERED: DEXTROSE 40% GEL 15 GM TUBE PO PRN ×2 (14:24)
[2017-03-05] MEDS ORDERED: GLUCAGON,HUMAN RECOMB 1 MG INJ SUBCUT PRN (14:24)
--- NOTE | 2017-03-05 14:27 | RADIOLOGY REPORT (SQ) ---
EXAM DESCRIPTION: CT ABD/PELVIS WITH IV ONLY COMPLETED DATE/TIME: 03/05/2017 1:57 pm REASON FOR STUDY: abd distension COMPARISON: 02/01/2017 TECHNIQUE: CT scan of the abdomen and pelvis performed using helical scanning technique with dynamic intravenous contrast injection. No oral contrast. Images reviewed with lung, soft tissue, and bone windows. Reconstructed coronal and sagittal MPR images reviewed. Delayed images for evaluation of the urinary system also acquired. All images stored on PACS. All CT scanners at this facility use dose modulation, iterative reconstruction, and/or weight based d osing when appropriate to reduce radiation dose to as low as reasonably achievable (ALARA). [facility]: Dose Right [facility]: CareDose [facility]: Dose Right [facility]: Teradose 4D [facility]: [place] CONTRAST TYPE AND DOSE: contrast/concentration: Isovue 370.00 mg/ml; Total Contrast Delivered: 79.0 ml; Total Saline Delivered: 64.0 ml RENAL FUNCTION: Creatinine 1.49 RADIATION DOSE: Up-to-date CT equipment and radiation dose reduction techniques were employed. CTDIv ol: 9.0 - 12.9 mGy. DLP: 1173 mGy-cm.. LIMITATIONS: None. FINDINGS: LOWER CHEST: Mild atelectasis or scarring. LIVER: Normal size. No masses. No dilated ducts. SPLEEN: Normal size. No focal lesions. PANCREAS: No masses. No significant calcifications. No adjacent inflammation or peripancreatic fluid collections. Pancreatic duct not dilated. GALLBLADDER: No identified stones by CT criteria. No inflammatory changes to suggest cholecystitis. ADRENAL GLANDS: No significant masses or asymmetry. RIGHT KIDNEY AND URETER: 1 cm cyst. No solid masses. No significant calcifications. No hydroneph rosis or hydroureter. LEFT KIDNEY AND URETER: No solid masses. No significant calcifications. No hydronephrosis or hydr oureter. AORTA AND VESSELS: No aneurysm. No dissection. Renal arteries, SMA, celiac without stenosis. RETROPERITONEUM: No retroperitoneal adenopathy, hemorrhage or masses. BOWEL AND PERITONEAL CAVITY: Gastrostomy tube which appears to be in good position. CT chest distens ion of the colon similar to the prior study without evidence of obstructing abnormality most consiste nt with colonic pseudo-obstruction. APPENDIX: Normal. PELVIS: No mass. No free fluid. Normal bladder. ABDOMINAL WALL: No masses. No hernias. BONES: No significant or acute findings. OTHER: No other significant finding. IMPRESSION: 1. Chronic colonic dilatation without evidence of obstructing abnormality consistent wi th colonic pseudo-obstruction. TECHNICAL DOCUMENTATION: JOB ID: [id number] Quality ID # [id number]: Final reports with documentation of one or more dose reduction techniques (e.g., Au tomated exposure control, adjustment of the mA and/or kV according to patient size, use of iterative reconstruction technique) 2010 [employer]- All Rights Reserved
--- NOTE | 2017-03-05 14:41 | PDOC H&P ---
History of Present Illness Admission Date/PCP: 03/05/17 13:50 Patient complains of: Cough History of Present Illness: COMPA CHOI JR is a 81 year old male who has dementia and is a resident at a skilled nurse facility who presents with cough. Patient was seen in the emergency room 2 days ago with cough and sent home. The patient presents today with worsening cough as well as fever. Patient is found to have a left lower lobe pneumonia. Patient is demented and there is no family at the bedside to give history. I have taken care of this patient within the last 2 weeks and am aware of his history after talking to his during the last hospitalization. He has had problems with a stroke earlier in January and was sent to rehab after that. At rehab he failed to eat or drink anything and presented back with dehydration. He had a PEG tube placed and was discharged back to rehab. Patient has had problems with an ileus while he was hospitalized. On x-ray today he is found to have dilated loops of bowel consistent with an ileus. Patient however is unable to give any complaint. Past Medical History Cardiac Medical History: Reports: Hyperlipidema, Hypertension Denies: Atrial Fibrillation, Congestive Heart Failure, Myocardial Infarction Pulmonary Medical History: Denies: Asthma, Chronic Obstructive Pulmonary Disease (COPD) Neurological Medical History: Reports: Ischemic CVA Denies: Seizures Endocrine Medical History: Reports: Diabetes Mellitus Type 2 Denies: Diabetes Mellitus Type 1 Renal/ Medical History: Reports: Chronic Kidney Disease Malignancy Medical History: Reports: None GI Medical History: Reports: Gastroesophageal Reflux Disease Denies: Cirrhosis, Hepatitis Musculoskeltal Medical History: Denies: Arthritis Psychiatric Medical History: Reports: Dementia Hematology: Reports: None Infectious Medical History: Reports: None Past Surgical History Past Surgical History: Reports: Other - PEG tube placement earlier this month. Social History Information Source: [facility] Records Lives with: Long Term Smoking Status: Never Smoker Frequency of Alcohol Use: None Hx Recreational Drug Use: No Drugs: None Hx Prescription Drug Abuse: No - Advance Directive Resuscitation Status: Full Code Surrogate healthcare decision maker:: His is his power of attorney at law and surrogate decision-maker. Family History Family History: Hypertension Parental Family History Reviewed: No - Patient is unable to comment. The gave this history during his last h Children Family History Reviewed: No Sibling(s) Family History Reviewed.: No Medication/Allergy Allergies/Adverse Reactions: No Known Allergies Allergy (Verified 02/01/17 19:12) Review of Systems ROS unobtainable: Due to mental status Physical Exam Vital Signs: Temp Pulse Resp BP Pulse Ox 18 122/89 H 94 03/05/17 10:34 03/05/17 10:34 03/05/17 10:34 General appearance: PRESENT: no acute distress Eye exam: PRESENT: conjunctiva pink. ABSENT: scleral icterus Ear exam: PRESENT: normal external ear exam Mouth exam: PRESENT: dry mucosa Neck exam: ABSENT: carotid bruit, JVD, lymphadenopathy, thyromegaly Respiratory exam: PRESENT: rales - Bibasilar inspiratory rales. ABSENT: rhonchi , wheezes Cardiovascular exam: PRESENT: RRR. ABSENT: diastolic murmur, rubs, systolic murmur GI/Abdominal exam: PRESENT: normal bowel sounds, soft. ABSENT: distended, guarding, mass, organolmegaly, rebound, tenderness Rectal exam: PRESENT: deferred Extremities exam: ABSENT: calf tenderness, clubbing, pedal edema Neurological exam: PRESENT: awake, CN II-XII grossly intact. ABSENT: oriented to person, oriented to place, oriented to time, oriented to situation, motor sensory deficit Psychiatric exam: PRESENT: flat affect Skin exam: PRESENT: dry, intact, warm. ABSENT: cyanosis, rash Results Laboratory Results: Labs- All tests 24 hr 03/05/17 03/05/17 03/05/17 10:08 10:08 10:08 WBC 16.9 H D RBC 5.74 H Hgb 13.4 L Hct 40.5 MCV 71 L MCH 23.4 L MCHC 33.2 RDW 15.5 H Plt Count 312 Seg Neutrophils % 86.2 H Lymphocytes % 6.9 L Monocytes % 6.5 Eosinophils % 0.2 Basophils % 0.2 Absolute Neutrophils 14.6 H Absolute Lymphocytes 1.2 Absolute Monocytes 1.1 Absolute Eosinophils 0.0 Absolute Basophils 0.0 PT 14.7 INR 1.07 VBG pH VBG pCO2 VBG HCO3 VBG Base Excess Sodium 138.7 Potassium 4.8 Chloride 99 Carbon Dioxide 24 Anion Gap 16 BUN 32 H Creatinine 1.49 H Est GFR ( Amer) 55 L Est GFR (Non-Af Amer) 45 L Glucose 191 H Lactic Acid Calcium 10.8 H Total Bilirubin 0.9 Direct Bilirubin 0.6 H Indirect Bilirubin Not Reportable Neonat Total Bilirubin Not Reportable AST 34 ALT 42 Alkaline Phosphatase 126 Total Protein 7.4 Albumin 4.2 03/05/17 03/05/17 10:08 10:08 WBC RBC Hgb Hct MCV MCH MCHC RDW Plt Count Seg Neutrophils % Lymphocytes % Monocytes % Eosinophils % Basophils % Absolute Neutrophils Absolute Lymphocytes Absolute Monocytes Absolute Eosinophils Absolute Basophils PT INR VBG pH 7.42 VBG pCO2 40.6 VBG HCO3 25.6 VBG Base Excess 1.0 Sodium Potassium Chloride Carbon Dioxide Anion Gap BUN Creatinine Est GFR ( Amer) Est GFR (Non-Af Amer) Glucose Lactic Acid 3.3 H Calcium Total Bilirubin Direct Bilirubin Indirect Bilirubin Neonat Total Bilirubin AST ALT Alkaline Phosphatase Total Protein Albumin Impressions: Chest X-Ray 03/05/17 10:34 IMPRESSION: 1 Cannot exclude left lower lobe pneumonia. 2. Gaseous distension of bowel. Abdomen/Pelvis CT 03/05/17 12:29 IMPRESSION: 1. 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 Assessment & Plan - Diagnosis (1) LLL pneumonia Qualifiers: Pneumonia type: due to unspecified organism Qualified Code(s): J18.1 - Lobar pneumonia, unspecified organism Is this a current diagnosis for this admission?: Yes Plan: The patient has pneumonia and we will start on Rocephin and Zithromax. We will also give oxygen and nebulizers as needed. Given the patient's recent ileus the possibility of aspiration is considered. We will check blood cultures and sputum cultures also. (2) ARF (acute renal failure) Qualifiers: Is this a current diagnosis for this admission?: Yes Plan: Patient has acute on chronic renal failure. Stage III. Will give IV fluids and watch closely. (3) Ileus Is this a current diagnosis for this admission?: Yes Plan: We will hold his tube feeds for now. (4) GERD (gastroesophageal reflux disease) Qualifiers: Is this a current diagnosis for this admission?: Yes Plan: We will give Pepcid. (5) Dementia Qualifiers: Is this a current diagnosis for this admission?: Yes (6) Diabetes mellitus type 2 in nonobese Is this a current diagnosis for this admission?: Yes Plan: We will hold his oral agents and give sliding scale insulin as needed. (7) HLD (hyperlipidemia) Qualifiers: Is this a current diagnosis for this admission?: Yes Plan: Patient has been on Zocor as an outpatient. (8) HTN (hypertension) Qualifiers: Is this a current diagnosis for this admission?: Yes Plan: Patient has been on Lopressor. (9) CVA (cerebral vascular accident) Is this a current diagnosis for this admission?: Yes Plan: Patient had a CVA last month. Will continue with the Plavix. - Time Time Spent: 50 to 70 Minutes - Inpatient Certification Medical Necessity: Need for IV Antibiotics
[2017-03-05] MEDS: AZITHROMYCIN 500 MG in DEXTROSE 5%-WATER 250 ML IV SCH (16:44)
--- NOTE | 2017-03-05 20:08 | EKG REPORT ---
SEVERITY:- ABNORMAL ECG - SINUS TACHYCARDIA VENTRICULAR PREMATURE COMPLEX LEFT AXIS DEVIATION LVH WITH SECONDARY REPOLARIZATION ABNORMALITY : Confirmed by: Alfonso Werner 05-Mar-2017 20:06:29
[2017-03-05] MEDS: IPRATROPIUM/ALBUTEROL 0.5-2.5 MG/3 ML AMPUL NEB SCH (20:47)
[2017-03-05] MEDS ORDERED: FAMOTIDINE 20 MG TABLET PO SCH (22:00)
[2017-03-05] MEDS ORDERED: FAMOTIDINE INJ/PF 20 MG/2 ML SDV IV ONE (23:48)
[2017-03-06] MEDS: IPRATROPIUM/ALBUTEROL 0.5-2.5 MG/3 ML AMPUL NEB SCH ×4 (01:53→20:37)
[2017-03-06 06:12] LABS: ABSOLUTE EOSINOPHILS # (AUTO) 0.1 10^3/uL (0.0-0.6); ABSOLUTE LYMPHOCYTES (AUTO) 0.9 10^3/uL (0.5-4.7); ABSOLUTE MONOCYTES (AUTO) 1.2 10^3/uL (0.1-1.4); ABSOLUTE NEUT (AUTO) 9.6 10^3/uL (1.7-8.2); BASOPHILS % (AUTO) 0.3 % (0-2); EOSINOPHILS % (AUTO) 0.4 % (0-6); HEMATOCRIT 34.2 % (37.9-51.0); HGB HCT DIFFERENCE -0.9; LYMPHOCYTES % (AUTO) 7.4 % (13-45); MEAN CORPUSCULAR HEMOGLOBIN 23.1 pg (27.0-33.4); MEAN CORPUSCULAR HGB CONC 32.5 g/dL (32.0-36.0); MEAN CORPUSCULAR VOLUME 71 fl (80-97); RED CELL DISTRIBUTION WIDTH 15.6 % (11.5-14.0); SEGMENTED NEUTROPHILS % (AUTO) 81.9 % (42-78); WHITE BLOOD COUNT 11.7 10^3/uL (4.0-10.5)
[2017-03-06 06:13] LABS: HEMOGLOBIN 11.1 g/dL (13.5-17.0)
[2017-03-06 06:23] LABS: ANION GAP 12 (5-19); BLOOD UREA NITROGEN 18 mg/dL (7-20); CALCIUM 9.3 mg/dL (8.4-10.2); CARBON DIOXIDE 22 mmol/L (22-30); CHLORIDE 106 mmol/L (98-107); CREATININE RESULT 1.16 mg/dL (0.52-1.25); GLUCOSE 136 mg/dL (75-110); SODIUM 139.8 mmol/L (137-145)
[2017-03-06] MEDS: ENOXAPARIN SODIUM INJ 40 MG/0.4 ML DISP.SYRIN SUBCUT SCH (10:05)
[2017-03-06] MEDS: CEFTRIAXONE 1 GM/D5W RTU 1 GM/50 ML RTUPB IV SCH (10:05)
[2017-03-06] MEDS: NORMAL SALINE 1000 ML 1,000 ML IV PRN (13:38)
--- NOTE | 2017-03-06 13:41 | PDOC PROGRESS REPORT ---
Subjective Progress Note for:: 03/06/17 Subjective:: Patient is nonverbal. The patient did have some episodes of tachycardia with SVT last night. Physical Exam Vital Signs: Temp Pulse Resp BP Pulse Ox 99.0 F 96 17 139/60 H 100 03/06/17 11:47 03/06/17 11:47 03/06/17 11:47 03/06/17 11:47 03/06/17 11:47 Intake & Output 03/05/17 03/06/17 03/07/17 06:59 06:59 06:59 Intake Total 788 Balance 788 Weight 72.6 kg General appearance: PRESENT: no acute distress Eye exam: PRESENT: conjunctiva pink. ABSENT: scleral icterus Mouth exam: PRESENT: moist, tongue midline Neck exam: ABSENT: JVD Respiratory exam: PRESENT: rhonchi - Coarse rhonchi bilaterally.. ABSENT: rales , wheezes Cardiovascular exam: PRESENT: RRR. ABSENT: diastolic murmur, rubs, systolic murmur GI/Abdominal exam: PRESENT: normal bowel sounds, soft, other - PEG tube in place.. ABSENT: distended, guarding, mass, organolmegaly, rebound, tenderness Extremities exam: ABSENT: calf tenderness, clubbing, pedal edema Neurological exam: PRESENT: other - Patient does not follow commands. Psychiatric exam: PRESENT: flat affect Skin exam: PRESENT: dry, intact, warm. ABSENT: cyanosis, rash Results Laboratory Results: 03/06/17 05:00 03/06/17 05:00 03/06/17 03/06/17 05:00 05:00 WBC 11.7 H RBC 4.80 Hgb 11.1 L D Hct 34.2 L MCV 71 L MCH 23.1 L MCHC 32.5 RDW 15.6 H Plt Count 281 Seg Neutrophils % 81.9 H Lymphocytes % 7.4 L Monocytes % 10.0 Eosinophils % 0.4 Basophils % 0.3 Absolute Neutrophils 9.6 H Absolute Lymphocytes 0.9 Absolute Monocytes 1.2 Absolute Eosinophils 0.1 Absolute Basophils 0.0 Sodium 139.8 Potassium 4.0 Chloride 106 Carbon Dioxide 22 Anion Gap 12 BUN 18 Creatinine 1.16 Est GFR ( Amer) > 60 Est GFR (Non-Af Amer) > 60 Glucose 136 H Calcium 9.3 Impressions: Chest X-Ray 03/05/17 10:34 IMPRESSION: 1 Cannot exclude left lower lobe pneumonia. 2. Gaseous distension of bowel. Abdomen/Pelvis CT 03/05/17 12:29 IMPRESSION: 1. 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 Assessment & Plan - Diagnosis (1) LLL pneumonia Qualifiers: Pneumonia type: due to unspecified organism Qualified Code(s): J18.1 - Lobar pneumonia, unspecified organism Is this a current diagnosis for this admission?: Yes Plan: The patient has pneumonia and we will start on Rocephin and Zithromax. We will also give oxygen and nebulizers as needed. Given the patient's recent ileus the possibility of aspiration is considered. (2) ARF (acute renal failure) Qualifiers: Is this a current diagnosis for this admission?: Yes Plan: Patient has acute on chronic renal failure. Stage III. Resolved. (3) Ileus Is this a current diagnosis for this admission?: Yes Plan: We will hold his tube feeds for now. (4) GERD (gastroesophageal reflux disease) Qualifiers: Is this a current diagnosis for this admission?: Yes Plan: We will give Pepcid. (5) Dementia Qualifiers: Is this a current diagnosis for this admission?: Yes (6) Diabetes mellitus type 2 in nonobese Is this a current diagnosis for this admission?: Yes Plan: We will hold his oral agents and give sliding scale insulin as needed. (7) HLD (hyperlipidemia) Qualifiers: Is this a current diagnosis for this admission?: Yes Plan: Patient has been on Zocor as an outpatient. (8) HTN (hypertension) Qualifiers: Is this a current diagnosis for this admission?: Yes Plan: Patient has been on Lopressor. (9) CVA (cerebral vascular accident) Is this a current diagnosis for this admission?: Yes Plan: Patient had a CVA last month. Will continue with the Plavix. - Time Time Spent with patient: 25-34 minutes - Inpatient Certification Medical Necessity: Need for IV Antibiotics
[2017-03-06] MEDS: AZITHROMYCIN 500 MG in DEXTROSE 5%-WATER 250 ML IV SCH (16:12)
[2017-03-06] MEDS: METOPROLOL TARTRATE 25 MG TABLET PEG SCH (21:10)
[2017-03-06] MEDS: SIMVASTATIN 40 MG TABLET PO SCH (21:10)
[2017-03-06] MEDS: FAMOTIDINE INJ/PF 20 MG/2 ML SDV IV SCH (21:10)
[2017-03-07] MEDS: IPRATROPIUM/ALBUTEROL 0.5-2.5 MG/3 ML AMPUL NEB SCH ×4 (02:30→19:57)
[2017-03-07 05:41] LABS: ABSOLUTE EOSINOPHILS # (AUTO) 0.1 10^3/uL (0.0-0.6); ABSOLUTE LYMPHOCYTES (AUTO) 1.1 10^3/uL (0.5-4.7); ABSOLUTE MONOCYTES (AUTO) 1.1 10^3/uL (0.1-1.4); ABSOLUTE NEUT (AUTO) 7.3 10^3/uL (1.7-8.2); BASOPHILS % (AUTO) 0.3 % (0-2); EOSINOPHILS % (AUTO) 1.3 % (0-6); HEMATOCRIT 32.3 % (37.9-51.0); HEMOGLOBIN 10.4 g/dL (13.5-17.0); HGB HCT DIFFERENCE -1.1; LYMPHOCYTES % (AUTO) 11.4 % (13-45); MEAN CORPUSCULAR HEMOGLOBIN 23.3 pg (27.0-33.4); MEAN CORPUSCULAR HGB CONC 32.3 g/dL (32.0-36.0); MEAN CORPUSCULAR VOLUME 72 fl (80-97); MONOCYTES % (AUTO) 11.2 % (3-13); RED BLOOD COUNT 4.49 10^6/uL (4.35-5.55); RED CELL DISTRIBUTION WIDTH 15.6 % (11.5-14.0); SEGMENTED NEUTROPHILS % (AUTO) 75.8 % (42-78); WHITE BLOOD COUNT 9.6 10^3/uL (4.0-10.5)
[2017-03-07 05:50] LABS: ANION GAP 11 (5-19); BLOOD UREA NITROGEN 12 mg/dL (7-20); CARBON DIOXIDE 23 mmol/L (22-30); CHLORIDE 104 mmol/L (98-107); CREATININE RESULT 0.99 mg/dL (0.52-1.25); GLUCOSE 147 mg/dL (75-110); POTASSIUM 3.9 mmol/L (3.6-5.0); SODIUM 137.8 mmol/L (137-145)
--- NOTE | 2017-03-07 11:08 | PDOC PROGRESS REPORT ---
Subjective Progress Note for:: 03/07/17 Subjective:: Patient is nonverbal. Physical Exam Vital Signs: Temp Pulse Resp BP Pulse Ox 98.3 F 99 18 139/89 H 96 03/07/17 07:46 03/07/17 08:29 03/07/17 08:29 03/07/17 07:46 03/07/17 08:29 Intake & Output 03/06/17 03/07/17 03/08/17 06:59 06:59 06:59 Intake Total 788 3842 Balance 788 3842 Weight 72.6 kg 71.7 kg General appearance: PRESENT: no acute distress Eye exam: PRESENT: conjunctiva pink. ABSENT: scleral icterus Mouth exam: PRESENT: moist, tongue midline Neck exam: ABSENT: JVD Respiratory exam: PRESENT: clear to auscultation samreen. ABSENT: rales, rhonchi, wheezes Cardiovascular exam: PRESENT: RRR. ABSENT: diastolic murmur, rubs, systolic murmur GI/Abdominal exam: PRESENT: normal bowel sounds, soft. ABSENT: distended, guarding, mass, organolmegaly, rebound, tenderness Extremities exam: ABSENT: calf tenderness, clubbing, pedal edema Neurological exam: PRESENT: other - Patient will not follow commands but is moving all 4 extremities. Psychiatric exam: PRESENT: flat affect Skin exam: PRESENT: dry, intact, warm. ABSENT: cyanosis, rash Results Laboratory Results: 03/07/17 04:46 03/07/17 04:46 03/07/17 03/07/17 04:46 04:46 WBC 9.6 RBC 4.49 Hgb 10.4 L Hct 32.3 L MCV 72 L MCH 23.3 L MCHC 32.3 RDW 15.6 H Plt Count 266 Seg Neutrophils % 75.8 Lymphocytes % 11.4 L Monocytes % 11.2 Eosinophils % 1.3 Basophils % 0.3 Absolute Neutrophils 7.3 Absolute Lymphocytes 1.1 Absolute Monocytes 1.1 Absolute Eosinophils 0.1 Absolute Basophils 0.0 Sodium 137.8 Potassium 3.9 Chloride 104 Carbon Dioxide 23 Anion Gap 11 BUN 12 Creatinine 0.99 Est GFR ( Amer) > 60 Est GFR (Non-Af Amer) > 60 Glucose 147 H Calcium 9.0 Impressions: Chest X-Ray 03/05/17 10:34 IMPRESSION: 1 Cannot exclude left lower lobe pneumonia. 2. Gaseous distension of bowel. Abdomen/Pelvis CT 03/05/17 12:29 IMPRESSION: 1. 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 Assessment & Plan - Diagnosis (1) LLL pneumonia Qualifiers: Pneumonia type: due to unspecified organism Qualified Code(s): J18.1 - Lobar pneumonia, unspecified organism Is this a current diagnosis for this admission?: Yes Plan: The patient has pneumonia and is on Rocephin and Zithromax. We will also give oxygen and nebulizers as needed. Given the patient's recent ileus the possibility of aspiration is considered. (2) ARF (acute renal failure) Qualifiers: Is this a current diagnosis for this admission?: Yes Plan: Patient has acute on chronic renal failure. Stage III. Resolved. (3) Ileus Is this a current diagnosis for this admission?: Yes Plan: Resolved (4) GERD (gastroesophageal reflux disease) Qualifiers: Is this a current diagnosis for this admission?: Yes Plan: We will give Pepcid. (5) Dementia Qualifiers: Is this a current diagnosis for this admission?: Yes (6) Diabetes mellitus type 2 in nonobese Is this a current diagnosis for this admission?: Yes Plan: We will hold his oral agents and give sliding scale insulin as needed. (7) HLD (hyperlipidemia) Qualifiers: Is this a current diagnosis for this admission?: Yes Plan: Patient has been on Zocor as an outpatient. (8) HTN (hypertension) Qualifiers: Is this a current diagnosis for this admission?: Yes Plan: Patient has been on Lopressor. (9) CVA (cerebral vascular accident) Is this a current diagnosis for this admission?: Yes Plan: Patient had a CVA last month. Will continue with the Plavix. - Time Time Spent with patient: 25-34 minutes - Inpatient Certification Medical Necessity: Need Close Monitoring Due to Risk of Patient Decompensation
[2017-03-07] MEDS: POLYETHYLENE GLYCOL 3350 POWDER 17 GM/1 PACKET PO SCH (11:43)
[2017-03-07] MEDS: CEFTRIAXONE 1 GM/D5W RTU 1 GM/50 ML RTUPB IV SCH (11:43)
[2017-03-07] MEDS: LISINOPRIL 5 MG TABLET PO SCH (11:44)
[2017-03-07] MEDS: ENOXAPARIN SODIUM INJ 40 MG/0.4 ML DISP.SYRIN SUBCUT SCH (11:44)
[2017-03-07] MEDS: METOPROLOL TARTRATE 25 MG TABLET PEG SCH ×2 (11:44→23:51)
[2017-03-07] MEDS: CLOPIDOGREL BISULFATE 75 MG TABLET PO SCH (11:45)
[2017-03-07] MEDS: NORMAL SALINE 1000 ML 1,000 ML IV PRN ×2 (12:33→23:57)
[2017-03-07] MEDS: AZITHROMYCIN 500 MG in DEXTROSE 5%-WATER 250 ML IV SCH (17:09)
[2017-03-07] MEDS: FAMOTIDINE INJ/PF 20 MG/2 ML SDV IV SCH (23:52)
[2017-03-07] MEDS: SIMVASTATIN 40 MG TABLET PO SCH (23:52)
[2017-03-08] MEDS: IPRATROPIUM/ALBUTEROL 0.5-2.5 MG/3 ML AMPUL NEB SCH ×4 (02:57→19:46)
[2017-03-08 05:28] LABS: ABSOLUTE BASOPHILS # (AUTO) 0.1 10^3/uL (0.0-0.2); ABSOLUTE EOSINOPHILS # (AUTO) 0.2 10^3/uL (0.0-0.6); ABSOLUTE LYMPHOCYTES (AUTO) 0.9 10^3/uL (0.5-4.7); ABSOLUTE MONOCYTES (AUTO) 1.2 10^3/uL (0.1-1.4); ABSOLUTE NEUT (AUTO) 5.3 10^3/uL (1.7-8.2); BASOPHILS % (AUTO) 0.8 % (0-2); HEMATOCRIT 33.3 % (37.9-51.0); HEMOGLOBIN 11.1 g/dL (13.5-17.0); LYMPHOCYTES % (AUTO) 12.2 % (13-45); MEAN CORPUSCULAR HEMOGLOBIN 23.6 pg (27.0-33.4); MEAN CORPUSCULAR HGB CONC 33.3 g/dL (32.0-36.0); MEAN CORPUSCULAR VOLUME 71 fl (80-97); MONOCYTES % (AUTO) 15.4 % (3-13); RED BLOOD COUNT 4.71 10^6/uL (4.35-5.55); RED CELL DISTRIBUTION WIDTH 15.5 % (11.5-14.0); SEGMENTED NEUTROPHILS % (AUTO) 69.6 % (42-78); WHITE BLOOD COUNT 7.6 10^3/uL (4.0-10.5)
[2017-03-08] MEDS: NORMAL SALINE 1000 ML 1,000 ML IV PRN ×2 (05:37→14:20)
[2017-03-08 05:48] LABS: ANION GAP 10 (5-19); BLOOD UREA NITROGEN 10 mg/dL (7-20); CALCIUM 9.2 mg/dL (8.4-10.2); CARBON DIOXIDE 21 mmol/L (22-30); CHLORIDE 104 mmol/L (98-107); CREATININE RESULT 0.92 mg/dL (0.52-1.25); GLUCOSE 174 mg/dL (75-110); POTASSIUM 4.2 mmol/L (3.6-5.0); SODIUM 134.6 mmol/L (137-145)
--- NOTE | 2017-03-08 09:53 | PDOC PROGRESS REPORT ---
Subjective Progress Note for:: 03/08/17 Subjective:: Patient is nonverbal. Physical Exam Vital Signs: Temp Pulse Resp BP Pulse Ox 98.2 F 99 18 134/77 H 95 03/08/17 04:29 03/08/17 08:43 03/08/17 08:43 03/08/17 04:29 03/08/17 08:43 Intake & Output 03/07/17 03/08/17 03/09/17 06:59 06:59 06:59 Intake Total 3842 3445 Balance 3842 3445 Weight 71.7 kg 70.7 kg General appearance: PRESENT: no acute distress, well-developed, well-nourished Eye exam: PRESENT: conjunctiva pink. ABSENT: scleral icterus Mouth exam: PRESENT: moist, tongue midline Neck exam: ABSENT: JVD Respiratory exam: PRESENT: clear to auscultation samreen. ABSENT: rales, rhonchi, wheezes Cardiovascular exam: PRESENT: RRR. ABSENT: diastolic murmur, rubs, systolic murmur GI/Abdominal exam: PRESENT: normal bowel sounds, soft, other - PEG tube in place.. ABSENT: distended, guarding, mass, organolmegaly, rebound, tenderness Extremities exam: ABSENT: calf tenderness, clubbing, pedal edema Neurological exam: PRESENT: other - Patient is nonverbal but moves all 4 extremities. Psychiatric exam: PRESENT: flat affect Skin exam: PRESENT: dry, intact, warm. ABSENT: cyanosis, rash Results Laboratory Results: 03/08/17 05:00 03/08/17 05:00 03/08/17 03/08/17 05:00 05:00 WBC 7.6 RBC 4.71 Hgb 11.1 L Hct 33.3 L MCV 71 L MCH 23.6 L MCHC 33.3 RDW 15.5 H Plt Count 279 Seg Neutrophils % 69.6 Lymphocytes % 12.2 L Monocytes % 15.4 H Eosinophils % 2.0 Basophils % 0.8 Absolute Neutrophils 5.3 Absolute Lymphocytes 0.9 Absolute Monocytes 1.2 Absolute Eosinophils 0.2 Absolute Basophils 0.1 Sodium 134.6 L Potassium 4.2 Chloride 104 Carbon Dioxide 21 L Anion Gap 10 BUN 10 Creatinine 0.92 Est GFR ( Amer) > 60 Est GFR (Non-Af Amer) > 60 Glucose 174 H Calcium 9.2 Impressions: Chest X-Ray 03/05/17 10:34 IMPRESSION: 1 Cannot exclude left lower lobe pneumonia. 2. Gaseous distension of bowel. Abdomen/Pelvis CT 03/05/17 12:29 IMPRESSION: 1. 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 Assessment & Plan - Diagnosis (1) LLL pneumonia Qualifiers: Pneumonia type: due to unspecified organism Qualified Code(s): J18.1 - Lobar pneumonia, unspecified organism Is this a current diagnosis for this admission?: Yes Plan: The patient has pneumonia and is on Rocephin and Zithromax. We will also give oxygen and nebulizers as needed. Given the patient's recent ileus the possibility of aspiration is considered. (2) ARF (acute renal failure) Qualifiers: Is this a current diagnosis for this admission?: Yes Plan: Patient has acute on chronic renal failure. Stage III. Resolved. (3) Ileus Is this a current diagnosis for this admission?: Yes Plan: Resolved (4) GERD (gastroesophageal reflux disease) Qualifiers: Is this a current diagnosis for this admission?: Yes Plan: We will give Pepcid. (5) Dementia Qualifiers: Is this a current diagnosis for this admission?: Yes (6) Diabetes mellitus type 2 in nonobese Is this a current diagnosis for this admission?: Yes Plan: We will hold his oral agents and give sliding scale insulin as needed. (7) HLD (hyperlipidemia) Qualifiers: Is this a current diagnosis for this admission?: Yes Plan: Patient has been on Zocor as an outpatient. (8) HTN (hypertension) Qualifiers: Is this a current diagnosis for this admission?: Yes Plan: Patient has been on Lopressor. (9) CVA (cerebral vascular accident) Is this a current diagnosis for this admission?: Yes Plan: Patient had a CVA last month. Will continue with the Plavix. - Inpatient Certification Medical Necessity: Need for IV Antibiotics
[2017-03-08] MEDS: CEFTRIAXONE 1 GM/D5W RTU 1 GM/50 ML RTUPB IV SCH (11:15)
[2017-03-08] MEDS: ENOXAPARIN SODIUM INJ 40 MG/0.4 ML DISP.SYRIN SUBCUT SCH (11:17)
[2017-03-08] MEDS: LISINOPRIL 5 MG TABLET PO SCH (11:18)
[2017-03-08] MEDS: CLOPIDOGREL BISULFATE 75 MG TABLET PO SCH (11:19)
[2017-03-08] MEDS: METOPROLOL TARTRATE 25 MG TABLET PEG SCH ×2 (11:21→22:55)
[2017-03-08] MEDS: POLYETHYLENE GLYCOL 3350 POWDER 17 GM/1 PACKET PO SCH (11:22)
[2017-03-08] MEDS: AZITHROMYCIN 500 MG in DEXTROSE 5%-WATER 250 ML IV SCH (15:59)
[2017-03-08] MEDS: FAMOTIDINE INJ/PF 20 MG/2 ML SDV IV SCH (22:54)
[2017-03-08] MEDS: SIMVASTATIN 40 MG TABLET PO SCH (22:54)
[2017-03-09] MEDS: IPRATROPIUM/ALBUTEROL 0.5-2.5 MG/3 ML AMPUL NEB SCH ×4 (02:59→20:26)
[2017-03-09 05:23] LABS: ANION GAP 11 (5-19); BLOOD UREA NITROGEN 9 mg/dL (7-20); CALCIUM 9.3 mg/dL (8.4-10.2); CARBON DIOXIDE 20 mmol/L (22-30); CHLORIDE 105 mmol/L (98-107); CREATININE RESULT 0.86 mg/dL (0.52-1.25); GLUCOSE 166 mg/dL (75-110); POTASSIUM 4.1 mmol/L (3.6-5.0); SODIUM 136.3 mmol/L (137-145)
[2017-03-09 06:52] LABS: ABSOLUTE BASOPHILS # (AUTO) 0.1 10^3/uL (0.0-0.2); ABSOLUTE EOSINOPHILS # (AUTO) 0.2 10^3/uL (0.0-0.6); ABSOLUTE LYMPHOCYTES (AUTO) 1.3 10^3/uL (0.5-4.7); ABSOLUTE MONOCYTES (AUTO) 1.3 10^3/uL (0.1-1.4); ABSOLUTE NEUT (AUTO) 5.1 10^3/uL (1.7-8.2); BASOPHILS % (AUTO) 0.8 % (0-2); EOSINOPHILS % (AUTO) 2.4 % (0-6); HEMATOCRIT 34.3 % (37.9-51.0); HEMOGLOBIN 11.3 g/dL (13.5-17.0); HGB HCT DIFFERENCE -0.4; LYMPHOCYTES % (AUTO) 16.4 % (13-45); MEAN CORPUSCULAR HEMOGLOBIN 23.2 pg (27.0-33.4); MEAN CORPUSCULAR HGB CONC 32.8 g/dL (32.0-36.0); MEAN CORPUSCULAR VOLUME 71 fl (80-97); MONOCYTES % (AUTO) 16.2 % (3-13); RED BLOOD COUNT 4.84 10^6/uL (4.35-5.55); RED CELL DISTRIBUTION WIDTH 15.3 % (11.5-14.0); SEGMENTED NEUTROPHILS % (AUTO) 64.2 % (42-78); WHITE BLOOD COUNT 7.9 10^3/uL (4.0-10.5)
[2017-03-09] MEDS: ENOXAPARIN SODIUM INJ 40 MG/0.4 ML DISP.SYRIN SUBCUT SCH (09:15)
[2017-03-09] MEDS: LISINOPRIL 5 MG TABLET PO SCH (09:15)
[2017-03-09] MEDS: METOPROLOL TARTRATE 25 MG TABLET PEG SCH ×2 (09:15→22:01)
[2017-03-09] MEDS: POLYETHYLENE GLYCOL 3350 POWDER 17 GM/1 PACKET PO SCH (09:15)
[2017-03-09] MEDS: CLOPIDOGREL BISULFATE 75 MG TABLET PO SCH (09:15)
[2017-03-09] MEDS: CEFTRIAXONE 1 GM/D5W RTU 1 GM/50 ML RTUPB IV SCH (09:15)
--- NOTE | 2017-03-09 12:55 | PDOC PROGRESS REPORT ---
Subjective Progress Note for:: 03/09/17 Subjective:: Patient is nonverbal. Physical Exam Vital Signs: Temp Pulse Resp BP Pulse Ox 98.1 F 70 16 147/92 H 98 03/09/17 08:00 03/09/17 08:37 03/09/17 08:37 03/09/17 08:00 03/09/17 08:37 Intake & Output 03/08/17 03/09/17 03/10/17 06:59 06:59 06:59 Intake Total 3445 6193 Balance 3445 6140 Weight 70.7 kg 70.2 kg General appearance: PRESENT: no acute distress Eye exam: PRESENT: conjunctiva pink. ABSENT: scleral icterus Ear exam: PRESENT: normal external ear exam Mouth exam: PRESENT: moist, tongue midline Neck exam: ABSENT: JVD Respiratory exam: PRESENT: clear to auscultation samreen. ABSENT: rales, rhonchi, wheezes Cardiovascular exam: PRESENT: RRR. ABSENT: diastolic murmur, rubs, systolic murmur GI/Abdominal exam: PRESENT: normal bowel sounds, soft, other - PEG tube in place. ABSENT: distended, guarding, mass, organolmegaly, rebound, tenderness Extremities exam: ABSENT: calf tenderness, clubbing, pedal edema Neurological exam: PRESENT: other - Patient is nonverbal Psychiatric exam: PRESENT: flat affect Skin exam: PRESENT: dry, intact, warm. ABSENT: cyanosis, rash Results Laboratory Results: 03/09/17 06:38 03/09/17 04:19 03/09/17 03/09/17 03/09/17 04:19 04:19 06:38 WBC Cancelled 7.9 RBC Cancelled 4.84 Hgb Cancelled 11.3 L Hct Cancelled 34.3 L MCV Cancelled 71 L MCH Cancelled 23.2 L MCHC Cancelled 32.8 RDW Cancelled 15.3 H Plt Count Cancelled 358 Seg Neutrophils % Cancelled 64.2 Lymphocytes % Cancelled 16.4 Monocytes % Cancelled 16.2 H Eosinophils % Cancelled 2.4 Basophils % Cancelled 0.8 Absolute Neutrophils Cancelled 5.1 Absolute Lymphocytes Cancelled 1.3 Absolute Monocytes Cancelled 1.3 Absolute Eosinophils Cancelled 0.2 Absolute Basophils Cancelled 0.1 Sodium 136.3 L Potassium 4.1 Chloride 105 Carbon Dioxide 20 L Anion Gap 11 BUN 9 Creatinine 0.86 Est GFR ( Amer) > 60 Est GFR (Non-Af Amer) > 60 Glucose 166 H Calcium 9.3 Impressions: Chest X-Ray 03/05/17 10:34 IMPRESSION: 1 Cannot exclude left lower lobe pneumonia. 2. Gaseous distension of bowel. Abdomen/Pelvis CT 03/05/17 12:29 IMPRESSION: 1. 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 Assessment & Plan - Diagnosis (1) LLL pneumonia Qualifiers: Pneumonia type: due to unspecified organism Qualified Code(s): J18.1 - Lobar pneumonia, unspecified organism Is this a current diagnosis for this admission?: Yes Plan: The patient has pneumonia and is on Rocephin and Zithromax. We will also give oxygen and nebulizers as needed. Given the patient's recent ileus the possibility of aspiration is considered. (2) ARF (acute renal failure) Qualifiers: Is this a current diagnosis for this admission?: Yes Plan: Patient has acute on chronic renal failure. Stage III. Resolved. (3) Ileus Is this a current diagnosis for this admission?: Yes Plan: Resolved (4) GERD (gastroesophageal reflux disease) Qualifiers: Is this a current diagnosis for this admission?: Yes Plan: We will give Pepcid. (5) Dementia Qualifiers: Is this a current diagnosis for this admission?: Yes (6) Diabetes mellitus type 2 in nonobese Is this a current diagnosis for this admission?: Yes Plan: We will hold his oral agents and give sliding scale insulin as needed. (7) HLD (hyperlipidemia) Qualifiers: Is this a current diagnosis for this admission?: Yes Plan: Patient has been on Zocor as an outpatient. (8) HTN (hypertension) Qualifiers: Is this a current diagnosis for this admission?: Yes Plan: Patient has been on Lopressor. (9) CVA (cerebral vascular accident) Is this a current diagnosis for this admission?: Yes Plan: Patient had a CVA last month. Will continue with the Plavix. (10) Tachycardia Is this a current diagnosis for this admission?: Yes Plan: We will consult cardiology. - Time Time Spent with patient: 25-34 minutes - Inpatient Certification Medical Necessity: Need Close Monitoring Due to Risk of Patient Decompensation
[2017-03-09] MEDS ORDERED: AZITHROMYCIN 500 MG in DEXTROSE 5%-WATER 250 ML IV SCH (16:00)
[2017-03-09] MEDS: DILTIAZEM HCL 30 MG TABLET GT SCH (18:02)
[2017-03-09] MEDS: INSULIN REG, HUMAN 100 UNIT/ML 3 ML VIAL (PYX) SUBCUT PRN (18:02)
--- NOTE | 2017-03-09 19:43 | PDOC CONSULTATION ---
Consultation Consult Date: 03/09/17 Attending physician:: MICHAEL GARZA Consult reason:: Tachycardia History of Present Illness Admission Date/PCP: 03/05/17 14:25 Patient complains of: Palpitations History of Present Illness: COMPA CHOI JR is a 81 year old male who has dementia and is a resident at a skilled nurse facility who presents with cough. Patient was seen in the emergency room 2 days ago with cough and sent home. The patient presents today with worsening cough as well as fever. Patient is found to have a left lower lobe pneumonia. Patient has dementia. He has had problems with a stroke earlier in January and was sent to rehab after that. At rehab he failed to eat or drink anything and presented back with dehydration. He had a PEG tube placed and was discharged back to rehab. Patient has had problems with an ileus while he was hospitalized. On x-ray today he is found to have dilated loops of bowel consistent with an ileus. Patient however is unable to give any complaint. While being monitored, he has had multiple episodes of narrow complex tachycardia, which seems to be junctional tachycardia but could well be a sinus tachycardia episode with prolonged [place] interval. Patient has been placed on increasing doses of metoprolol but so far patient still is having spells. I was therefore asked to evaluate this patient. He did have a echocardiogram last admission which showed normal LVEF without any significant valvular abnormalities. Past Medical History Cardiac Medical History: Reports: Hyperlipidema, Hypertension Denies: Atrial Fibrillation, Congestive Heart Failure, Myocardial Infarction Pulmonary Medical History: Denies: Asthma, Chronic Obstructive Pulmonary Disease (COPD) Neurological Medical History: Reports: Ischemic CVA Denies: Seizures Endocrine Medical History: Reports: Diabetes Mellitus Type 2 Denies: Diabetes Mellitus Type 1 Renal/ Medical History: Reports: Chronic Kidney Disease Malignancy Medical History: Reports: None GI Medical History: Reports: Gastroesophageal Reflux Disease Denies: Cirrhosis, Hepatitis Musculoskeltal Medical History: Denies: Arthritis Psychiatric Medical History: Reports: Dementia Hematology: Reports: None Infectious Medical History: Reports: None Past Surgical History Past Surgical History: Reports: Other - PEG tube placement earlier this month. Social History Information Source: Patient Lives with: Long Term Smoking Status: Never Smoker Frequency of Alcohol Use: None Hx Recreational Drug Use: No Drugs: None Hx Prescription Drug Abuse: No - Advance Directive Resuscitation Status: Full Code Family History Family History: Hypertension Parental Family History Reviewed: Yes Children Family History Reviewed: Yes Sibling(s) Family History Reviewed.: Yes Medication/Allergy Home Medications: Clopidogrel Bisulfate [Plavix 75 mg Tablet] 75 mg PO DAILY 03/05/17 Glipizide [Glucotrol 5 mg Tablet] 5 mg PO DAILY 03/05/17 Lisinopril [Prinivil 5 mg Tablet] 5 mg PO DAILY 03/05/17 Metoprolol Tartrate [Lopressor 25 mg Tablet] 25 mg PO Q12 03/05/17 Polyethylene Glycol 3350 [Miralax Powder 17 gm/Packet] 1 packet PO DAILY Simvastatin [Zocor 40 mg Tablet] 20 mg PO QHS 03/05/17 Bisacodyl [Dulcolax 10 mg Supp.rect] 10 mg [place] Q3D PRN 30 Days supp.rect Diltiazem HCl [Cardizem 30 mg Tablet] 30 mg GT Q6 tablet 03/12/17 Famotidine [Pepcid 20 mg Tablet] 20 mg PO QHS tablet 03/12/17 Ipratropium/Albuterol Sulfate [Duoneb 3 ml Ampul] 3 ml [facility] RTQ6 vial.neb Levofloxacin [Levaquin 750 mg Tablet] 750 mg GT NOON tablet 03/12/17 Metronidazole [Flagyl 500 mg Tablet] 500 mg PEG Q6 #0 tablet 03/12/17 Allergies/Adverse Reactions: No Known Allergies Allergy (Verified 02/01/17 19:12) Review of Systems Review of Systems: This is limited because patient cannot give any history, patient has dementia and also seems to have aphasia. Please see HPI for details. Physical Exam Vital Signs: Temp Pulse Resp BP Pulse Ox 98.1 F 139 H 18 130/85 H 92 03/09/17 16:00 03/09/17 16:00 03/09/17 16:00 03/09/17 16:00 03/09/17 16:00 Intake & Output 03/08/17 03/09/17 03/10/17 06:59 06:59 06:59 Intake Total 0063 8911 2084 Balance 8577 8612 2087 Weight 70.7 kg 70.2 kg 71.6 kg Exam: GENERAL: well-nourished and in no acute distress. Patient is alert but not oriented to place time or person. HEAD: Atraumatic, normocephalic. EYES: Pupils equal round and reactive to light, extraocular movements intact, sclera anicteric, conjunctiva are normal. ENT: TMs normal, nares patent, oropharynx clear without exudates. Moist mucous membranes. No oral ulcerations or bleeding gums noted NECK: supple without lymphadenopathy or JVD. Trachea is central. No cervical or axillary lymphadenopathy noted. Carotids are 2+ LUNGS: Breath sounds bibasilar fine crackles at bases. No significant dullness noted. CHEST: Palpation of chest wall shows no significant chest wall tenderness. 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 ABDOMEN: Soft, no significant tenderness appreciated, normoactive bowel sounds. No guarding, no rebound. No rigidity noted . No masses appreciated. EXTREMITIES: Pedal pulses are 1-2+, no calf tenderness noted, Trace + pedal edema noted. No clubbing or cyanosis. NEUROLOGICAL: Patient is alert but is not able to participate in neurological exam because of patient's current mental status. Patient noted to have signs of right hemiparesis and aphasia. PSYCH: Patient cannot participate in a neurologic and psych exam because of the patient's current mental status SKIN: No significant ecchymosis, rash, ulcerations or signs of pruritus noted. MUSCULOSKELETAL EXAM: No significant joint swelling noted. Results Laboratory Results: 03/09/17 06:38 03/09/17 04:19 03/09/17 03/09/17 03/09/17 04:19 04:19 06:38 WBC Cancelled 7.9 RBC Cancelled 4.84 Hgb Cancelled 11.3 L Hct Cancelled 34.3 L MCV Cancelled 71 L MCH Cancelled 23.2 L MCHC Cancelled 32.8 RDW Cancelled 15.3 H Plt Count Cancelled 358 Seg Neutrophils % Cancelled 64.2 Lymphocytes % Cancelled 16.4 Monocytes % Cancelled 16.2 H Eosinophils % Cancelled 2.4 Basophils % Cancelled 0.8 Absolute Neutrophils Cancelled 5.1 Absolute Lymphocytes Cancelled 1.3 Absolute Monocytes Cancelled 1.3 Absolute Eosinophils Cancelled 0.2 Absolute Basophils Cancelled 0.1 Sodium 136.3 L Potassium 4.1 Chloride 105 Carbon Dioxide 20 L Anion Gap 11 BUN 9 Creatinine 0.86 Est GFR ( Amer) > 60 Est GFR (Non-Af Amer) > 60 Glucose 166 H Calcium 9.3 EKG Comments: Sinus rhythm, no acute ST-T wave changes noted Impressions: Chest X-Ray 03/05/17 10:34 IMPRESSION: 1 Cannot exclude left lower lobe pneumonia. 2. Gaseous distension of bowel. Abdomen/Pelvis CT 03/05/17 12:29 IMPRESSION: 1. 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 Assessment & Plan - Diagnosis (1) Tachycardia Is this a current diagnosis for this admission?: Yes (2) LLL pneumonia Qualifiers: Pneumonia type: due to unspecified organism Qualified Code(s): J18.1 - Lobar pneumonia, unspecified organism Is this a current diagnosis for this admission?: Yes (3) Diabetes Qualifiers: Diabetes mellitus type: type 2 Diabetes mellitus complication status: with unspecified complications Diabetes mellitus salvage determiner insulin use: unspecified prison insulin use status Qualified Code(s): E11.8 - Type 2 diabetes mellitus with unspecified complications Is this a current diagnosis for this admission?: Yes (4) HLD (hyperlipidemia) Qualifiers: Is this a current diagnosis for this admission?: Yes (5) HTN (hypertension) Qualifiers: Hypertension type: essential hypertension Qualified Code(s): I10 - Essential (primary) hypertension Is this a current diagnosis for this admission?: Yes - Notes Notes: Tachycardia: Review of rhythm strip shows paroxysmal narrow complex tachycardia. Most likely junctional tachycardia, possible slow SVT, cannot rule out sinus tachycardia with a long [place] interval. At this point have added Cardizem 60 mg p.o. every 6 to metoprolol that he is already getting. Observe for any advanced AV block etc. Left lower lobe pneumonia: Continue antibiotic therapy. Diabetes: Recommend good management of blood sugar. Consider checking blood sugar at time of tachycardia to rule out any hypoglycemia induced tachycardia. Hypertension: Recommend liberal controlled in this patient with dementia and prior CVA. - Time Time Spent: 30 to 50 Minutes - CODE STATUS was discussed, patient remains full code. Surrogate decision-maker pt . Multiple medical problems were addressed. More than 50% of the time spent coordinating care, discussing management plans with involved caregivers. Management plans discussed with involved personnels. Medical decision making was of moderate to high complexity , patient's has multiple comorbidities. Medications reviewed and adjusted accordingly: Yes
[2017-03-09] MEDS: FAMOTIDINE 20 MG TABLET PO SCH (22:01)
[2017-03-09] MEDS: SIMVASTATIN 40 MG TABLET PO SCH (22:02)
[2017-03-10] MEDS: INSULIN REG, HUMAN 100 UNIT/ML 3 ML VIAL (PYX) SUBCUT PRN ×2 (00:23→17:25)
[2017-03-10] MEDS: DILTIAZEM HCL 30 MG TABLET GT SCH ×5 (01:04→23:36)
[2017-03-10] MEDS: IPRATROPIUM/ALBUTEROL 0.5-2.5 MG/3 ML AMPUL NEB SCH ×4 (01:57→20:19)
[2017-03-10 04:55] LABS: ABSOLUTE EOSINOPHILS # (AUTO) 0.2 10^3/uL (0.0-0.6); ABSOLUTE LYMPHOCYTES (AUTO) 1.3 10^3/uL (0.5-4.7); ABSOLUTE MONOCYTES (AUTO) 1.3 10^3/uL (0.1-1.4); ABSOLUTE NEUT (AUTO) 4.9 10^3/uL (1.7-8.2); BASOPHILS % (AUTO) 0.6 % (0-2); EOSINOPHILS % (AUTO) 2.5 % (0-6); HEMATOCRIT 33.4 % (37.9-51.0); HEMOGLOBIN 10.9 g/dL (13.5-17.0); HGB HCT DIFFERENCE -0.7; LYMPHOCYTES % (AUTO) 16.6 % (13-45); MEAN CORPUSCULAR HGB CONC 32.7 g/dL (32.0-36.0); MEAN CORPUSCULAR VOLUME 70 fl (80-97); MONOCYTES % (AUTO) 16.5 % (3-13); RED BLOOD COUNT 4.75 10^6/uL (4.35-5.55); RED CELL DISTRIBUTION WIDTH 15.1 % (11.5-14.0); SEGMENTED NEUTROPHILS % (AUTO) 63.8 % (42-78); WHITE BLOOD COUNT 7.7 10^3/uL (4.0-10.5)
[2017-03-10 05:03] LABS: ANION GAP 8 (5-19); BLOOD UREA NITROGEN 10 mg/dL (7-20); CALCIUM 9.2 mg/dL (8.4-10.2); CARBON DIOXIDE 22 mmol/L (22-30); CHLORIDE 107 mmol/L (98-107); CREATININE RESULT 0.99 mg/dL (0.52-1.25); GLUCOSE 141 mg/dL (75-110); SODIUM 136.9 mmol/L (137-145)
[2017-03-10] MEDS: CEFTRIAXONE 1 GM/D5W RTU 1 GM/50 ML RTUPB IV SCH (09:45)
[2017-03-10] MEDS: METOPROLOL TARTRATE 25 MG TABLET PEG SCH ×2 (09:45→23:35)
[2017-03-10] MEDS: CLOPIDOGREL BISULFATE 75 MG TABLET PO SCH (09:45)
[2017-03-10] MEDS: LISINOPRIL 5 MG TABLET PO SCH (09:45)
[2017-03-10] MEDS: ENOXAPARIN SODIUM INJ 40 MG/0.4 ML DISP.SYRIN SUBCUT SCH (09:45)
[2017-03-10] MEDS: POLYETHYLENE GLYCOL 3350 POWDER 17 GM/1 PACKET PO SCH (09:46)
--- NOTE | 2017-03-10 09:46 | PDOC PROGRESS REPORT ---
Subjective Progress Note for:: 03/10/17 Subjective:: Patient seems to be doing somewhat better and is showing some improvement in general status. Patient is not noted to have any chest arm or neck discomfort. Patient not noted to have or describing any PND, orthopnea.. Patient not noted to have fever chills. Patient does not seem to be in any other significant discomfort. Patient is maintaining sinus rhythm. Telemetry strips reviewed showed 1 episode of narrow complex tachycardia. System review: No significant changes Medications reviewed. Physical Exam Vital Signs: Temp Pulse Resp BP Pulse Ox 97.9 F 92 16 134/89 H 100 03/10/17 00:33 03/10/17 08:15 03/10/17 08:15 03/10/17 00:33 03/10/17 08:15 Intake & Output 03/09/17 03/10/17 03/11/17 06:59 06:59 06:59 Intake Total 6126 3920 Balance 6126 3920 Weight 70.2 kg 71.6 kg Exam: GENERAL: well-nourished and in no acute distress. Patient is alert but not oriented to place time or person. Patient noted to be intermittently agitated. HEAD: Atraumatic, normocephalic. EYES: Pupils equal round and reactive to light, extraocular movements intact, sclera anicteric, conjunctiva are normal. ENT: TMs normal, nares patent, oropharynx clear without exudates. Moist mucous membranes. No oral ulcerations or bleeding gums noted NECK: supple without lymphadenopathy or JVD. Trachea is central. No cervical or axillary lymphadenopathy noted. Carotids are 2+ LUNGS: Breath sounds bibasilar fine crackles at bases. No significant dullness noted. CHEST: Palpation of chest wall shows no significant chest wall tenderness. 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 ABDOMEN: Soft, no significant tenderness appreciated, normoactive bowel sounds. No guarding, no rebound. No rigidity noted . No masses appreciated. EXTREMITIES: Pedal pulses are 1-2+, no calf tenderness noted, Trace + pedal edema noted. No clubbing or cyanosis. NEUROLOGICAL: Patient is alert but is not able to participate in neurological exam because of patient's current mental status PSYCH: Patient cannot participate in a neurologic and psych exam because of the patient's current mental status SKIN: No significant ecchymosis, rash, ulcerations or signs of pruritus noted. MUSCULOSKELETAL EXAM: No significant joint swelling noted. Results Laboratory Results: 03/10/17 04:33 03/10/17 04:33 03/10/17 03/10/17 04:33 04:33 WBC 7.7 RBC 4.75 Hgb 10.9 L Hct 33.4 L MCV 70 L MCH 23.0 L MCHC 32.7 RDW 15.1 H Plt Count 305 Seg Neutrophils % 63.8 Lymphocytes % 16.6 Monocytes % 16.5 H Eosinophils % 2.5 Basophils % 0.6 Absolute Neutrophils 4.9 Absolute Lymphocytes 1.3 Absolute Monocytes 1.3 Absolute Eosinophils 0.2 Absolute Basophils 0.0 Sodium 136.9 L Potassium 4.0 Chloride 107 Carbon Dioxide 22 Anion Gap 8 BUN 10 Creatinine 0.99 Est GFR ( Amer) > 60 Est GFR (Non-Af Amer) > 60 Glucose 141 H Calcium 9.2 EKG Comments: Telemetry strips reviewed showed APCs, VPCs, underlying sinus rhythm with one episode of narrow complex tachycardia. Impressions: Chest X-Ray 03/05/17 10:34 IMPRESSION: 1 Cannot exclude left lower lobe pneumonia. 2. Gaseous distension of bowel. Abdomen/Pelvis CT 03/05/17 12:29 IMPRESSION: 1. 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 Assessment & Plan - Diagnosis (1) Tachycardia Is this a current diagnosis for this admission?: Yes (2) LLL pneumonia Qualifiers: Pneumonia type: due to unspecified organism Qualified Code(s): J18.1 - Lobar pneumonia, unspecified organism Is this a current diagnosis for this admission?: Yes (3) Diabetes Qualifiers: Diabetes mellitus type: type 2 Diabetes mellitus complication status: with unspecified complications Diabetes mellitus penitentiary insulin use: unspecified termite treater helper insulin use status Qualified Code(s): E11.8 - Type 2 diabetes mellitus with unspecified complications Is this a current diagnosis for this admission?: Yes (4) HLD (hyperlipidemia) Qualifiers: Is this a current diagnosis for this admission?: Yes (5) HTN (hypertension) Qualifiers: Hypertension type: essential hypertension Qualified Code(s): I10 - Essential (primary) hypertension Is this a current diagnosis for this admission?: Yes - Notes Notes: Tachycardia: Review of rhythm strip shows paroxysmal narrow complex tachycardia. Most likely junctional tachycardia, possible slow SVT, cannot rule out sinus tachycardia with a long [place] interval. Patient was started on Cardizem 30 mg p.o. every 6 yesterday. Will continue this dose for today and increase as needed.. Observe for any advanced AV block etc. Left lower lobe pneumonia: Continue antibiotic therapy. Diabetes: Recommend good management of blood sugar. Consider checking blood sugar at time of tachycardia to rule out any hypoglycemia induced tachycardia. Hypertension: Recommend liberal controlled in this patient with dementia and prior CVA. - Time Time with patient: 15-25 minutes - CODE STATUS was discussed, patient remains full code. Surrogate decision-maker unchanged. Multiple medical problems were addressed. More than 50% of the time spent coordinating care, discussing management plans with involved caregivers. Management plans discussed with involved personnels. Medical decision making was of moderate to high complexity , patient's has multiple comorbidities. Medications reviewed and adjusted accordingly: Yes
--- NOTE | 2017-03-10 10:06 | PDOC PROGRESS REPORT ---
Subjective Progress Note for:: 03/10/17 Subjective:: Readmitted back for aspiration and reported renal failure. No respiratory distress, temperature spikes, nausea nor vomiting. Still with tachycardia and patient started on Cardizem. Patient been having diarrhea. No noted aspiration while on the [facility]ensen. Physical Exam Vital Signs: Temp Pulse Resp BP Pulse Ox 97.9 F 92 16 134/89 H 100 03/10/17 00:33 03/10/17 08:15 03/10/17 08:15 03/10/17 00:33 03/10/17 08:15 Intake & Output 03/09/17 03/10/17 03/11/17 06:59 06:59 06:59 Intake Total 6126 3920 Balance 6126 3920 Weight 70.2 kg 71.6 kg General appearance: PRESENT: no acute distress Head exam: PRESENT: normocephalic Eye exam: PRESENT: EOMI Mouth exam: PRESENT: moist, neck supple Neck exam: ABSENT: JVD Respiratory exam: PRESENT: clear to auscultation samreen - Poor effort. ABSENT: rhonchi, wheezes Cardiovascular exam: PRESENT: RRR, tachycardia GI/Abdominal exam: PRESENT: hypoactive bowel sounds, soft. ABSENT: distended, tenderness Extremities exam: ABSENT: pedal edema Neurological exam: PRESENT: alert, awake, oriented to situation Results Laboratory Results: 03/10/17 04:33 03/10/17 04:33 03/10/17 03/10/17 04:33 04:33 WBC 7.7 RBC 4.75 Hgb 10.9 L Hct 33.4 L MCV 70 L MCH 23.0 L MCHC 32.7 RDW 15.1 H Plt Count 305 Seg Neutrophils % 63.8 Lymphocytes % 16.6 Monocytes % 16.5 H Eosinophils % 2.5 Basophils % 0.6 Absolute Neutrophils 4.9 Absolute Lymphocytes 1.3 Absolute Monocytes 1.3 Absolute Eosinophils 0.2 Absolute Basophils 0.0 Sodium 136.9 L Potassium 4.0 Chloride 107 Carbon Dioxide 22 Anion Gap 8 BUN 10 Creatinine 0.99 Est GFR ( Amer) > 60 Est GFR (Non-Af Amer) > 60 Glucose 141 H Calcium 9.2 Impressions: Chest X-Ray 03/05/17 10:34 IMPRESSION: 1 Cannot exclude left lower lobe pneumonia. 2. Gaseous distension of bowel. Abdomen/Pelvis CT 03/05/17 12:29 IMPRESSION: 1. 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 Assessment & Plan - Diagnosis (1) LLL pneumonia Qualifiers: Pneumonia type: due to unspecified organism Qualified Code(s): J18.1 - Lobar pneumonia, unspecified organism Is this a current diagnosis for this admission?: Yes (2) Tachycardia Is this a current diagnosis for this admission?: Yes (3) ARF (acute renal failure) Qualifiers: Acute renal failure type: unspecified Is this a current diagnosis for this admission?: Yes (4) Chronic kidney disease, stage III (moderate) Is this a current diagnosis for this admission?: Yes (5) Colonic pseudoobstruction Is this a current diagnosis for this admission?: Yes (6) Diabetes Qualifiers: Diabetes mellitus type: type 2 Diabetes mellitus complication status: with unspecified complications Diabetes mellitus group home insulin use: unspecified group home insulin use status Qualified Code(s): E11.8 - Type 2 diabetes mellitus with unspecified complications Is this a current diagnosis for this admission?: Yes (7) GERD (gastroesophageal reflux disease) Qualifiers: Is this a current diagnosis for this admission?: Yes (8) Dementia Qualifiers: Is this a current diagnosis for this admission?: Yes (9) Diabetes mellitus type 2 in nonobese Is this a current diagnosis for this admission?: Yes (10) HLD (hyperlipidemia) Qualifiers: Is this a current diagnosis for this admission?: Yes (11) HTN (hypertension) Qualifiers: Hypertension type: essential hypertension Qualified Code(s): I10 - Essential (primary) hypertension Is this a current diagnosis for this admission?: Yes (12) CVA (cerebral vascular accident) Qualifiers: CVA mechanism: unspecified Qualified Code(s): I63.9 - Cerebral infarction, unspecified Is this a current diagnosis for this admission?: Yes - Time Time Spent with patient: 25-34 minutes - Plan Summary Plan Summary: We will discontinue azithromycin. Check stool for Clostridium difficile toxin. Begin Flagyl and lactobacillus. Continue ceftriaxone. Continue tube feedings. Check magnesium and phosphorus level. Continue supportive care.
[2017-03-10 10:41] LABS: MAGNESIUM 1.8 mg/dL (1.6-2.3); PHOSPHORUS 3.2 mg/dL (2.5-4.5)
[2017-03-10] MEDS: METRONIDAZOLE 500 MG TABLET PEG SCH ×3 (11:02→23:36)
[2017-03-10] MEDS: LACTOBACILLUS ACIDOPHILUS 250 MG TAB PEG SCH ×2 (11:02→17:25)
[2017-03-10] MEDS: NORMAL SALINE 1000 ML 1,000 ML IV PRN ×2 (11:03→18:56)
[2017-03-10] MEDS: FAMOTIDINE 20 MG TABLET PO SCH (23:35)
[2017-03-10] MEDS: SIMVASTATIN 40 MG TABLET PO SCH (23:36)
[2017-03-11] MEDS: IPRATROPIUM/ALBUTEROL 0.5-2.5 MG/3 ML AMPUL NEB SCH ×4 (02:24→20:20)
[2017-03-11] MEDS: METRONIDAZOLE 500 MG TABLET PEG SCH ×3 (06:47→17:58)
[2017-03-11] MEDS: DILTIAZEM HCL 30 MG TABLET GT SCH ×3 (06:47→17:58)
[2017-03-11] MEDS: LACTOBACILLUS ACIDOPHILUS 250 MG TAB PEG SCH ×2 (10:09→17:58)
[2017-03-11] MEDS: METOPROLOL TARTRATE 25 MG TABLET PEG SCH (10:09)
[2017-03-11] MEDS: POLYETHYLENE GLYCOL 3350 POWDER 17 GM/1 PACKET PO SCH (10:09)
[2017-03-11] MEDS: LISINOPRIL 5 MG TABLET PO SCH (10:09)
[2017-03-11] MEDS: CLOPIDOGREL BISULFATE 75 MG TABLET PO SCH (10:09)
[2017-03-11] MEDS: ENOXAPARIN SODIUM INJ 40 MG/0.4 ML DISP.SYRIN SUBCUT SCH (10:10)
--- NOTE | 2017-03-11 10:13 | PDOC PROGRESS REPORT ---
Subjective Progress Note for:: 03/11/17 Subjective:: Patient reportedly doing well. Had the diarrhea resolved. No reported respiratory distress nor temperature spikes. No reported nausea and vomiting. Residuals were fine. Tolerating tube feedings. Physical Exam Vital Signs: Temp Pulse Resp BP Pulse Ox 98.3 F 97 16 126/82 H 96 03/11/17 04:38 03/11/17 08:39 03/11/17 08:39 03/11/17 04:38 03/11/17 08:39 Intake & Output 03/10/17 03/11/17 03/12/17 06:59 06:59 06:59 Intake Total 3920 4837 Output Total 200 Balance 3920 4637 Weight 71.6 kg 71.6 kg General appearance: PRESENT: no acute distress Head exam: PRESENT: normocephalic Eye exam: PRESENT: EOMI Mouth exam: PRESENT: moist, neck supple Neck exam: ABSENT: JVD Respiratory exam: PRESENT: rhonchi - few bilateral Cardiovascular exam: PRESENT: RRR. ABSENT: gallop GI/Abdominal exam: PRESENT: distended - Mildly, hyperactive bowel sounds, soft, tenderness - Slight tympany Extremities exam: ABSENT: pedal edema Neurological exam: PRESENT: alert, awake Skin exam: PRESENT: dry, warm. ABSENT: cyanosis Results Laboratory Results: 03/10/17 04:33 03/10/17 04:33 03/10/17 04:33 Phosphorus 3.2 Magnesium 1.8 Impressions: Chest X-Ray 03/05/17 10:34 IMPRESSION: 1 Cannot exclude left lower lobe pneumonia. 2. Gaseous distension of bowel. Abdomen/Pelvis CT 03/05/17 12:29 IMPRESSION: 1. 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 Assessment & Plan - Diagnosis (1) LLL pneumonia Qualifiers: Pneumonia type: due to unspecified organism Qualified Code(s): J18.1 - Lobar pneumonia, unspecified organism Is this a current diagnosis for this admission?: Yes (2) Tachycardia Is this a current diagnosis for this admission?: Yes (3) ARF (acute renal failure) Qualifiers: Acute renal failure type: unspecified Is this a current diagnosis for this admission?: Yes (4) Chronic kidney disease, stage III (moderate) Is this a current diagnosis for this admission?: Yes (5) Colonic pseudoobstruction Is this a current diagnosis for this admission?: Yes (6) Diabetes Qualifiers: Diabetes mellitus type: type 2 Diabetes mellitus complication status: with unspecified complications Diabetes mellitus senior care insulin use: unspecified termite control representative insulin use status Qualified Code(s): E11.8 - Type 2 diabetes mellitus with unspecified complications Is this a current diagnosis for this admission?: Yes (7) GERD (gastroesophageal reflux disease) Qualifiers: Is this a current diagnosis for this admission?: Yes (8) Dementia Qualifiers: Is this a current diagnosis for this admission?: Yes (9) Diabetes mellitus type 2 in nonobese Is this a current diagnosis for this admission?: Yes (10) HLD (hyperlipidemia) Qualifiers: Is this a current diagnosis for this admission?: Yes (11) HTN (hypertension) Qualifiers: Hypertension type: essential hypertension Qualified Code(s): I10 - Essential (primary) hypertension Is this a current diagnosis for this admission?: Yes (12) CVA (cerebral vascular accident) Qualifiers: CVA mechanism: unspecified Qualified Code(s): I63.9 - Cerebral infarction, unspecified Is this a current diagnosis for this admission?: Yes - Time Time Spent with patient: 15-24 minutes - Plan Summary Plan Summary: We are going to discontinue intravenous fluids. We will discontinue IV ceftriaxone and switch to oral Levaquin. Consult retail planner for possible return to half-way facility in the morning. Continue other medication and supportive care.
[2017-03-11] MEDS: INSULIN REG, HUMAN 100 UNIT/ML 3 ML VIAL (PYX) SUBCUT PRN (11:52)
[2017-03-11] MEDS: LEVOFLOXACIN 750 MG TABLET GT SCH (11:52)
[2017-03-12] MEDS: FAMOTIDINE 20 MG TABLET PO SCH (00:46)
[2017-03-12] MEDS: SIMVASTATIN 40 MG TABLET PO SCH (00:46)
[2017-03-12] MEDS: METOPROLOL TARTRATE 25 MG TABLET PEG SCH ×2 (00:46→10:29)
[2017-03-12] MEDS: METRONIDAZOLE 500 MG TABLET PEG SCH ×3 (00:46→12:40)
[2017-03-12] MEDS: DILTIAZEM HCL 30 MG TABLET GT SCH ×3 (00:47→12:41)
[2017-03-12] MEDS: IPRATROPIUM/ALBUTEROL 0.5-2.5 MG/3 ML AMPUL NEB SCH ×3 (02:33→13:59)
[2017-03-12] MEDS: LISINOPRIL 5 MG TABLET PO SCH (10:28)
[2017-03-12] MEDS: POLYETHYLENE GLYCOL 3350 POWDER 17 GM/1 PACKET PO SCH (10:28)
[2017-03-12] MEDS: LACTOBACILLUS ACIDOPHILUS 250 MG TAB PEG SCH (10:28)
[2017-03-12] MEDS: ENOXAPARIN SODIUM INJ 40 MG/0.4 ML DISP.SYRIN SUBCUT SCH (10:28)
[2017-03-12] MEDS: CLOPIDOGREL BISULFATE 75 MG TABLET PO SCH (10:29)
--- NOTE | 2017-03-12 11:55 | PDOC PROGRESS REPORT ---
Subjective Progress Note for:: 03/11/17 Subjective:: Patient seems to be doing somewhat better and is showing some improvement in general status. Patient is not noted to have any chest arm or neck discomfort. Patient not noted to have or describing any PND, orthopnea.. Patient not noted to have fever chills. Patient does not seem to be in any other significant discomfort. Patient is maintaining sinus rhythm. Telemetry strips reviewed showed 1 episode of narrow complex tachycardia, this happened yesterday. System review: No significant changes Medications reviewed. Physical Exam Vital Signs: Temp Pulse Resp BP Pulse Ox 98.4 F 98 20 182/93 H 96 03/11/17 15:59 03/11/17 15:59 03/11/17 15:59 03/11/17 15:59 03/11/17 16:00 Intake & Output 03/10/17 03/11/17 03/12/17 06:59 06:59 06:59 Intake Total 3920 4837 590 Output Total 200 2 Balance 3920 4637 588 Weight 71.6 kg 71.6 kg Exam: GENERAL: well-nourished and in no acute distress. Patient is alert but not oriented to place time or person. HEAD: Atraumatic, normocephalic. EYES: Pupils equal round and reactive to light, extraocular movements intact, sclera anicteric, conjunctiva are normal. ENT: TMs normal, nares patent, oropharynx clear without exudates. Moist mucous membranes. No oral ulcerations or bleeding gums noted NECK: supple without lymphadenopathy or JVD. Trachea is central. No cervical or axillary lymphadenopathy noted. Carotids are 2+ LUNGS: Breath sounds bibasilar fine crackles at bases. No significant dullness noted. CHEST: Palpation of chest wall shows no significant chest wall tenderness. 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 ABDOMEN: Soft, no significant tenderness appreciated, normoactive bowel sounds. No guarding, no rebound. No rigidity noted . No masses appreciated. Patient being fed via G-tube. EXTREMITIES: Pedal pulses are 1-2+, no calf tenderness noted, Trace + pedal edema noted. No clubbing or cyanosis. NEUROLOGICAL: Patient is alert but is not able to participate in neurological exam because of patient's current mental status PSYCH: Patient cannot participate in a neurologic and psych exam because of the patient's current mental status SKIN: No significant ecchymosis, rash, ulcerations or signs of pruritus noted. MUSCULOSKELETAL EXAM: No significant joint swelling noted. Results Laboratory Results: 03/10/17 04:33 03/10/17 04:33 Impressions: Chest X-Ray 03/05/17 10:34 IMPRESSION: 1 Cannot exclude left lower lobe pneumonia. 2. Gaseous distension of bowel. Abdomen/Pelvis CT 03/05/17 12:29 IMPRESSION: 1. 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 Assessment & Plan - Diagnosis (1) Tachycardia Is this a current diagnosis for this admission?: Yes (2) LLL pneumonia Qualifiers: Pneumonia type: due to unspecified organism Qualified Code(s): J18.1 - Lobar pneumonia, unspecified organism Is this a current diagnosis for this admission?: Yes (3) Diabetes Qualifiers: Diabetes mellitus type: type 2 Diabetes mellitus complication status: with unspecified complications Diabetes mellitus section 8 property manager insulin use: unspecified section 8 property manager insulin use status Qualified Code(s): E11.8 - Type 2 diabetes mellitus with unspecified complications Is this a current diagnosis for this admission?: Yes (4) HLD (hyperlipidemia) Qualifiers: Is this a current diagnosis for this admission?: Yes (5) HTN (hypertension) Qualifiers: Hypertension type: essential hypertension Qualified Code(s): I10 - Essential (primary) hypertension Is this a current diagnosis for this admission?: Yes - Notes Notes: Tachycardia: Review of rhythm strip shows paroxysmal narrow complex tachycardia. Most likely junctional tachycardia, possible slow SVT, cannot rule out sinus tachycardia with a long SD interval. Continue Cardizem at current dose delay steady-state levels are achieved after 4 or 5 doses. Will continue this dose for today and increase as needed. Observe for any advanced AV block etc. Left lower lobe pneumonia: Continue antibiotic therapy. Diabetes: Recommend good management of blood sugar. Consider checking blood sugar at time of tachycardia to rule out any hypoglycemia induced tachycardia. Hypertension: Recommend liberal controlled in this patient with dementia and prior CVA. Blood pressure seems to be under satisfactory control. Will continue to follow - Time Time with patient: 15-25 minutes - CODE STATUS was discussed, patient remains full code. Surrogate decision-maker unchanged. Multiple medical problems were addressed. More than 50% of the time spent coordinating care, discussing management plans with involved caregivers. Management plans discussed with involved personnels. Medical decision making was of moderate to high complexity , patient's has multiple comorbidities. Medications reviewed and adjusted accordingly: Yes
--- NOTE | 2017-03-12 11:58 | PDOC PROGRESS REPORT ---
Subjective Progress Note for:: 03/12/17 Subjective:: Patient seems to be doing about the same in general status. Patient is not noted to have any chest arm or neck discomfort. Patient not noted to have or describing any PND, orthopnea.. Patient not noted to have fever chills. Patient does not seem to be in any other significant discomfort. Patient is maintaining sinus rhythm. Telemetry strips reviewed showed occasional APCs and VPCs but no sustained narrow complex tachycardia noted. System review: No significant changes Medications reviewed. Physical Exam Vital Signs: Temp Pulse Resp BP Pulse Ox 97.5 F 94 18 132/69 H 94 03/12/17 08:18 03/12/17 08:38 03/12/17 08:38 03/12/17 08:18 03/12/17 08:38 Intake & Output 03/11/17 03/12/17 03/13/17 06:59 06:59 06:59 Intake Total 4837 2465 Output Total 200 3602 Balance 4637 -1137 Weight 71.6 kg 71.6 kg Exam: GENERAL: well-nourished and in no acute distress. Patient is alert but not oriented to place time or person. HEAD: Atraumatic, normocephalic. EYES: Pupils equal round and reactive to light, extraocular movements intact, sclera anicteric, conjunctiva are normal. ENT: TMs normal, nares patent, oropharynx clear without exudates. Moist mucous membranes. No oral ulcerations or bleeding gums noted NECK: supple without lymphadenopathy or JVD. Trachea is central. No cervical or axillary lymphadenopathy noted. Carotids are 2+ LUNGS: Breath sounds bibasilar fine crackles at bases. No significant dullness noted. Increased crackles noted left base CHEST: Palpation of chest wall shows no significant chest wall tenderness. 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 ABDOMEN: Soft, no significant tenderness appreciated, normoactive bowel sounds. No guarding, no rebound. No rigidity noted . No masses appreciated. EXTREMITIES: Pedal pulses are 1-2+, no calf tenderness noted, Trace + pedal edema noted. No clubbing or cyanosis. NEUROLOGICAL: Patient is alert but is not able to participate in neurological exam because of patient's current mental status PSYCH: Patient cannot participate in a neurologic and psych exam because of the patient's current mental status SKIN: No significant ecchymosis, rash, ulcerations or signs of pruritus noted. MUSCULOSKELETAL EXAM: No significant joint swelling noted. Results Laboratory Results: 03/10/17 04:33 03/10/17 04:33 Impressions: Chest X-Ray 03/05/17 10:34 IMPRESSION: 1 Cannot exclude left lower lobe pneumonia. 2. Gaseous distension of bowel. Abdomen/Pelvis CT 03/05/17 12:29 IMPRESSION: 1. 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 Assessment & Plan - Diagnosis (1) Tachycardia Is this a current diagnosis for this admission?: Yes (2) LLL pneumonia Qualifiers: Pneumonia type: due to unspecified organism Qualified Code(s): J18.1 - Lobar pneumonia, unspecified organism Is this a current diagnosis for this admission?: Yes (3) Diabetes Qualifiers: Diabetes mellitus type: type 2 Diabetes mellitus complication status: with unspecified complications Diabetes mellitus long-term insulin use: unspecified long-term insulin use status Qualified Code(s): E11.8 - Type 2 diabetes mellitus with unspecified complications Is this a current diagnosis for this admission?: Yes (4) HLD (hyperlipidemia) Qualifiers: Is this a current diagnosis for this admission?: Yes (5) HTN (hypertension) Qualifiers: Hypertension type: essential hypertension Qualified Code(s): I10 - Essential (primary) hypertension Is this a current diagnosis for this admission?: Yes - Notes Notes: Tachycardia: Review of rhythm strip shows paroxysmal narrow complex tachycardia. Most likely junctional tachycardia, possible slow SVT, cannot rule out sinus tachycardia with a long IN interval. Telemetry strips were reviewed. It seems medical management is working. Continue current dose of Cardizem. Observe for any advanced AV block etc. Left lower lobe pneumonia: Continue antibiotic therapy. Diabetes: Recommend good management of blood sugar. Consider checking blood sugar at time of tachycardia to rule out any hypoglycemia induced tachycardia. Hypertension: Recommend liberal controlled in this patient with dementia and prior CVA. Blood pressure seems under reasonable control. Overall prognosis is guarded because of poor baseline status. - Time Time with patient: 15-25 minutes - CODE STATUS was discussed, patient remains full code. Surrogate decision-maker unchanged. Multiple medical problems were addressed. More than 50% of the time spent coordinating care, discussing management plans with involved caregivers. Management plans discussed with involved personnels. Medical decision making was of moderate to high complexity , patient's has multiple comorbidities. Medications reviewed and adjusted accordingly: Yes
--- NOTE | 2017-03-12 12:00 | PDOC DISCHARGE SUMMARY ---
General - Admit/Disc Date/PCP Admission Date/Primary Care Provider: 03/05/17 14:25 Discharge Date: 03/12/17 - Discharge Diagnosis (1) LLL pneumonia Is this a current diagnosis for this admission?: Yes (2) Tachycardia Is this a current diagnosis for this admission?: Yes (3) ARF (acute renal failure) Is this a current diagnosis for this admission?: Yes (4) Chronic kidney disease, stage III (moderate) Is this a current diagnosis for this admission?: Yes (5) Colonic pseudoobstruction Is this a current diagnosis for this admission?: Yes (6) Diabetes Is this a current diagnosis for this admission?: Yes (7) GERD (gastroesophageal reflux disease) Is this a current diagnosis for this admission?: Yes (8) Dementia Is this a current diagnosis for this admission?: Yes (9) Diabetes mellitus type 2 in nonobese Is this a current diagnosis for this admission?: Yes (10) HLD (hyperlipidemia) Is this a current diagnosis for this admission?: Yes (11) HTN (hypertension) Is this a current diagnosis for this admission?: Yes (12) CVA (cerebral vascular accident) Is this a current diagnosis for this admission?: Yes - Additional Information Resuscitation Status: Full Code Discharge Diet: Other (Comments) - Tube feedings Glucerna 1.2 at 40 mL/h, water flush 30ml every 4 hours Discharge Activity: Activity As Tolerated, Balance Activity w/Rest Home Medications: Clopidogrel Bisulfate [Plavix 75 mg Tablet] 75 mg PO DAILY 03/05/17 Glipizide [Glucotrol 5 mg Tablet] 5 mg PO DAILY 03/05/17 Lisinopril [Prinivil 5 mg Tablet] 5 mg PO DAILY 03/05/17 Metoprolol Tartrate [Lopressor 25 mg Tablet] 25 mg PO Q12 03/05/17 Polyethylene Glycol 3350 [Miralax Powder 17 gm/Packet] 1 packet PO DAILY Simvastatin [Zocor 40 mg Tablet] 20 mg PO QHS 03/05/17 Bisacodyl [Dulcolax 10 mg Supp.rect] 10 mg AL Q3D PRN 30 Days supp.rect Diltiazem HCl [Cardizem 30 mg Tablet] 30 mg GT Q6 tablet 03/12/17 Famotidine [Pepcid 20 mg Tablet] 20 mg PO QHS tablet 03/12/17 Ipratropium/Albuterol Sulfate [Duoneb 3 ml Ampul] 3 ml NEB RTQ6 vial.neb Levofloxacin [Levaquin 750 mg Tablet] 750 mg GT NOON tablet 03/12/17 Metronidazole [Flagyl 500 mg Tablet] 500 mg PEG Q6 #0 tablet 03/12/17 Additional Information: Aspiration precautions per facility protocol. Antibiotics with Levaquin and Flagyl to continue for 7 days. History of Present Illness Patient complains of: Cough History of Present Illness: COMPA CHOI JR is a 81 year old male who has dementia and is a resident at a skilled nurse facility who presents with cough. Patient was seen in the emergency room 2 days ago with cough and sent home. The patient presents today with worsening cough as well as fever. Patient is found to have a left lower lobe pneumonia. Patient is demented and there is no family at the bedside to give history. I have taken care of this patient within the last 2 weeks and am aware of his history after talking to his during the last hospitalization. He has had problems with a stroke earlier in January and was sent to rehab after that. At rehab he failed to eat or drink anything and presented back with dehydration. He had a PEG tube placed and was discharged back to rehab. Patient has had problems with an ileus while he was hospitalized. On x-ray today he is found to have dilated loops of bowel consistent with an ileus. Patient however is unable to give any complaint. For details please refer to history and physical examination performed by the admitting physician. Hospital Course Hospital Course: The patient was admitted to telemetry. Plan mental was oxygen was given. Patient was placed on IV fluids. Intravenous antibiotic was started for aspiration pneumonia. Bronchodilators were likewise given. Patient was resumed on his tube feedings at 40 mL/h. Patient had an x-ray of the abdomen showing findings suggestive of institutional colon or colonic pseudoobstruction but no definite findings of ileus nor mechanical obstruction was noted. While in the [facility]ensen patient has no noted signs of aspiration. Aspiration precautions were maintained. Patient was likewise given laxatives for bowel movement, subsequently had some bout of diarrhea but Clostridium difficile toxin was negative. Patient was placed on lactobacillus and the diarrhea resolved. The patient improved, no respiratory distress was noted, patient has been off oxygen for a few days prior to discharge. Patient has tolerated continuous tube feedings at 40 mL/h without aspiration noted. Course also noted for tachycardia of which cardiology was consulted and the patient was placed on Cardizem on top of the beta-federico. Tachycardia reportedly junctional. Patient's tachycardia improved combination of beta-federico and calcium channel federico. The rest of the hospital stays unremarkable. His blood cultures remain negative. He was eventually transferred back to nursing home facility for long-term care. Physical Exam Vital Signs: Temp Pulse Resp BP Pulse Ox 97.5 F 94 18 132/69 H 94 03/12/17 08:18 03/12/17 08:38 03/12/17 08:38 03/12/17 08:18 03/12/17 08:38 Intake & Output 03/11/17 03/12/17 03/13/17 06:59 06:59 06:59 Intake Total 4837 2465 Output Total 200 3602 Balance 4637 -1137 Weight 71.6 kg 71.6 kg General appearance: PRESENT: no acute distress Head exam: PRESENT: normocephalic Mouth exam: PRESENT: moist, neck supple Neck exam: ABSENT: JVD Respiratory exam: PRESENT: clear to auscultation samreen - Bilateral but with poor effort. ABSENT: rhonchi, wheezes Cardiovascular exam: PRESENT: RRR. ABSENT: gallop GI/Abdominal exam: PRESENT: soft. ABSENT: distended, tenderness Extremities exam: ABSENT: pedal edema Neurological exam: PRESENT: alert, awake Skin exam: PRESENT: dry, warm. ABSENT: cyanosis Results Laboratory Results: 03/10/17 04:33 03/10/17 04:33 Impressions: Chest X-Ray 03/05/17 10:34 IMPRESSION: 1 Cannot exclude left lower lobe pneumonia. 2. Gaseous distension of bowel. Abdomen/Pelvis CT 03/05/17 12:29 IMPRESSION: 1. 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 Qualifiers PATEINT BEING DISCHARGED WITH ANY OF THE FOLLOWING DIAGNOSIS?: No Plan Discharge Plan: Follow-up with primary care physician in 1 week. She will be followed by the physician at the facility as well. Time Spent: Less than 30 Minutes
[2017-03-12] MEDS: LEVOFLOXACIN 750 MG TABLET GT SCH (12:40)
[2017-03-12 15:03] VITALS: BP 123/87
== END 2017-03-12 14:45 | DRG 194 ==
LOC: ER 09:43 → EH 13:50 → UNDOADMIN 13:50 → EH 14:25 → 4N 15:53
PROVIDERS: ADMIT Internal Medicine; ATTEND Internal Medicine
DX: J18.1 Lobar pneumonia, unspecified organism (principal); N17.9 Acute kidney failure, unspecified; I12.9 Hypertensive chronic kidney disease with stage 1 through stage 4 chronic kidney disease, or unspecified chronic kidney disease; E11.22 Type 2 diabetes mellitus with diabetic chronic kidney disease; N18.3 Chronic kidney disease, stage 3 (moderate); I47.9 Paroxysmal tachycardia, unspecified; K21.9 Gastro-esophageal reflux disease without esophagitis; F03.90 Unspecified dementia, unspecified severity, without behavioral disturbance, psychotic disturbance, mood disturbance, and anxiety; K59.8 Other specified functional intestinal disorders; E78.5 Hyperlipidemia, unspecified; Z79.02 Long term (current) use of antithrombotics/antiplatelets; Z79.899 Other long term (current) drug therapy; Z79.84 Long term (current) use of oral hypoglycemic drugs; Z93.1 Gastrostomy status; Z86.73 Personal history of transient ischemic attack (TIA), and cerebral infarction without residual deficits
CPT/HCPCS: 36415; 51702; 71010; 74177; 80048; 80053; 82803; 82962; 83605; 83735; 84100; 85025; 85610; 87040; 87493; 93005; 93010; 94640; 96361; 96365; 99285; J0456; J0696; J1650; J1815; J3490; J7030; J7060; J7620; S0028

== ENCOUNTER 2017-07-21 19:20 | Emergency (ER) | payer OTHER, MEDICARE ==
--- NOTE | 2017-07-21 19:54 | ER Document Report ---
ED General - General Stated Complaint: FEVER Time Seen by Provider: 07/21/17 19:26 Mode of Arrival: Medic Information source: Transfer Record, Outside Facility Records Cannot obtain history due to: Other - The patient has history of strokes and is a poor historian. Notes: This is an 81-year-old man with a history of CVA (aphasic), COPD, dysphagia ( with G-tube), BPH and CKD who is brought into the emergency room by EMS because of fever. Nursing staff reports cough. The patient's nephew does state that he has had urine infections in the past. They do state that he has had a difficult time getting a Lee in the past as well. Residents: [facility] Physician: At [facility]. Family contact: Vielka Dao (daughter): [phone] Prerna (nephew): [phone] TRAVEL OUTSIDE OF THE [place] IN LAST 30 DAYS: No - HPI Onset: Just prior to arrival Onset/Duration: Sudden Quality of pain: No pain Severity: None Pain Level: Denies Associated symptoms: Nonproductive cough, Fever. denies: Chest pain, Shortness of breath Exacerbated by: Denies Relieved by: Denies Similar symptoms previously: Yes Recently seen / treated by doctor: Yes - Related Data Allergies/Adverse Reactions: No Known Allergies Allergy (Verified 02/01/17 19:12) Past Medical History - General Information source: Patient - Social History Smoking Status: Former Smoker Cigarette use (# per day): No Chew tobacco use (# tins/day): No Smoking Education Provided: No Frequency of alcohol use: None Drug Abuse: None [facility] with: [facility] Family History: Hypertension Patient has suicidal ideation: No Patient has homicidal ideation: No - Past Medical History Cardiac Medical History: Reports: Hx Hypercholesterolemia, Hx Hypertension Denies: Hx Atrial Fibrillation, Hx Congestive Heart Failure, Hx Heart Attack Pulmonary Medical History: Denies: Hx Asthma, Hx COPD Neurological Medical History: Reports: Hx Cerebrovascular Accident. Denies: Hx Seizures Endocrine Medical History: Reports: Hx Diabetes Mellitus Type 2. Denies: Hx Diabetes Mellitus Type 1 Renal/ Medical History: Denies: Hx Peritoneal Dialysis GI Medical History: Reports: Hx Gastroesophageal Reflux Disease. Denies: Hx Cirrhosis, Hx Hepatitis Musculoskeltal Medical History: Denies Hx Arthritis Psychiatric Medical History: Reports: Hx Dementia Infectious Medical History: Denies: Hx Hepatitis Past Surgical History: Reports: Other - PEG tube placement earlier this month. - Immunizations Hx Diphtheria, Pertussis, Tetanus Vaccination: Yes Review of Systems - Review of Systems Constitutional: Chills, Fever EENT: No symptoms reported Cardiovascular: No symptoms reported Respiratory: Cough Gastrointestinal: No symptoms reported Genitourinary: No symptoms reported Male Genitourinary: No symptoms reported Musculoskeletal: No symptoms reported Skin: No symptoms reported Hematologic/Lymphatic: No symptoms reported Neurological/Psychological: See HPI - Patient is reported to be not as interactive as he normally has. Physical Exam - Vital signs Vitals: Temp Resp Pulse Ox 100.1 F 16 96 07/21/17 19:21 07/21/17 19:21 07/21/17 19:21 Notes: Physical exam: GENERAL: 81-year-old man, alert, nonverbal, no acute pain. His eyes are open and he does not appear to be bothered by the light. HEAD: Atraumatic, normocephalic. EYES: Pupils equal round and reactive to light, extraocular movements intact, sclera anicteric, conjunctiva are normal. ENT: TMs normal, nares patent, oropharynx clear without exudates. Moist mucous membranes. NECK: Normal range of motion, supple without obvious mass or JVD. LUNGS: Breath sounds clear to auscultation bilaterally and equal. No wheezes rales or rhonchi. HEART: Regular rate and rhythm without murmurs, rubs or gallops. ABDOMEN: Soft, normoactive bowel sounds. No tenderness to palpation. No guarding, no rebound. No masses appreciated. G-tube site is clear and there is no evidence of infection. Penis and perineum show no erythema or evidence of infection. Back: Other than an old shingles scar on the left flank, skin otherwise looks good and without infection. There is no breakdown. EXTREMITIES: Normal range of motion, no pitting or edema. No clubbing or cyanosis. NEUROLOGICAL: Patient has dementia at baseline and is non-mobile. SKIN: Warm, Dry, normal turgor, no rashes or lesions noted. Course - Re-evaluation Re-evalutation: 07/21/17 23:55 This is an 81-year-old long-term patient with a history of strokes and is nonverbal presenting with fever of 102.5. The patient does have a history of BPH and chronic kidney disease. His physical exam reveals a hemodynamically stable man in no acute distress. His lungs are relatively clear and there is no obvious infiltrate on his x-ray. His abdomen is soft and nontender. His suprapubic area is mildly distended. His back is clear and does not show any breakdown. His perineum is clear. His lactic acid is 1.1. The patient unfortunately is not able to make urine in the emergency room. Given his BPH and fever, the concern is for urosepsis. We did try multiple times to put in a Lee of varying sizes without success. He do not have urology services at this hospital. I had spoken to Dr. Pineda (urology) at [facility] and he is willing to see the patient in consult. I spoke to the hospitalist at [facility] (Dr. Moctezuma) and he is willing to accept patient in transport. 07/22/17 00:53 07/22/17 01:01 Note: Blood cultures have been sent. Ceftriaxone is been given. The family have been notified regarding transfer ([place]: [phone]) IV fluids held to reduce bladder distention. - Vital Signs Vital signs: Temp Pulse Resp BP Pulse Ox 99.4 F 16 131/87 H 98 07/22/17 00:52 07/22/17 00:01 07/22/17 00:01 07/22/17 00:01 - Laboratory Result Diagrams: 07/21/17 19:45 07/21/17 19:45 Laboratory results interpreted by me: 07/21/17 07/21/17 07/21/17 19:45 19:45 19:45 Hgb 12.4 L MCV 73 L MCH 23.5 L RDW 14.4 H Monocytes % 15.7 H VBG pH 7.50 H VBG pCO2 32.1 L BUN 29 H Creatinine 1.44 H Est GFR ( Amer) 57 L Est GFR (Non-Af Amer) 47 L Glucose 179 H Creatine Kinase 399 H - Diagnostic Test Radiology reviewed: Image reviewed, Reports reviewed - X-ray shows no obvious infiltrates - EKG Interpretation by Me Rate: Normal Rhythm: NSR - EKG shows normal sinus rhythm with a ventricular rate of 86, no acute ST-T wave changes Discharge - Discharge Clinical Impression: Acute febrile illness, Obstructive uropathy Condition: Stable Disposition: [facility] Referrals: NAVIN MOSELEY MD [Primary Care Provider] - Follow up as needed
[2017-07-21 20:00] LABS: ABSOLUTE LYMPHOCYTES (AUTO) 1.2 10^3/uL (0.5-4.7); ABSOLUTE MONOCYTES (AUTO) 1.3 10^3/uL (0.1-1.4); ABSOLUTE NEUT (AUTO) 5.5 10^3/uL (1.7-8.2); BASOPHILS % (AUTO) 0.5 % (0-2); HEMATOCRIT 38.6 % (37.9-51.0); HEMOGLOBIN 12.4 g/dL (13.5-17.0); LYMPHOCYTES % (AUTO) 14.5 % (13-45); MEAN CORPUSCULAR HEMOGLOBIN 23.5 pg (27.0-33.4); MEAN CORPUSCULAR HGB CONC 32.1 g/dL (32.0-36.0); MEAN CORPUSCULAR VOLUME 73 fl (80-97); MONOCYTES % (AUTO) 15.7 % (3-13); PLATELET COUNT 206 10^3/uL (150-450); RED BLOOD COUNT 5.29 10^6/uL (4.35-5.55); RED CELL DISTRIBUTION WIDTH 14.4 % (11.5-14.0); SEGMENTED NEUTROPHILS % (AUTO) 69.3 % (42-78); TOTAL CELLS COUNTED % (AUTO) 100 %
[2017-07-21 20:01] LABS: VENOUS BLOOD BASE EXCESS 1.7 mmol/L; VENOUS BLOOD HCO3 24.3 mmol/L (20-32); VENOUS BLOOD PCO2 32.1 mmHg (35-63); VENOUS BLOOD PH 7.5 (7.30-7.42)
[2017-07-21] MEDS ORDERED: LIDOCAINE 2% URO-JET 5 ML KIT MM ONE (20:12)
[2017-07-21 20:17] LABS: ALANINE AMINOTRANSFERASE 38 U/L (21-72); ALBUMIN 3.8 g/dL (3.5-5.0); ALKALINE PHOSPHATASE 82 U/L (38-126); ANION GAP 7 (5-19); ASPARTATE AMINO TRANSFERASE 43 U/L (17-59); BILIRUBIN,DIRECT 0.4 mg/dL (0.0-0.4); BILIRUBIN,TOTAL 0.7 mg/dL (0.2-1.3); BLOOD UREA NITROGEN 29 mg/dL (7-20); CALCIUM 9.4 mg/dL (8.4-10.2); CARBON DIOXIDE 27 mmol/L (22-30); CHLORIDE 106 mmol/L (98-107); CREATINE KINASE 399 U/L (55-170); GLUCOSE 179 mg/dL (75-110); POTASSIUM 3.9 mmol/L (3.6-5.0); TOTAL PROTEIN 7.1 g/dL (6.3-8.2)
[2017-07-21 20:29] LABS: TROPONIN I 0.025 ng/mL
[2017-07-21 20:32] LABS: CREATINE KINASE MB < 0.22 ng/mL (<4.55)
--- NOTE | 2017-07-21 20:42 | RADIOLOGY REPORT (SQ) ---
EXAM DESCRIPTION: CHEST SINGLE VIEW COMPLETED DATE/TIME: 07/21/2017 8:20 pm REASON FOR STUDY: fever COMPARISON: [address] NUMBER OF VIEWS: One view. TECHNIQUE: Single frontal radiographic view of the chest acquired. LIMITATIONS: None. FINDINGS: LUNGS AND PLEURA: Coarse markings in the left lung base look chronic. Low lung volumes ot herwise. No other evidence of infiltrate. MEDIASTINUM AND HILAR STRUCTURES: No masses. Contour normal. HEART AND VASCULAR STRUCTURES: Heart normal in size. Normal vasculature. BONES: No acute findings. HARDWARE: None in the chest. OTHER: No other significant finding. IMPRESSION: Chronic left lung changes, similar appearance to last year's imaging. TECHNICAL DOCUMENTATION: JOB ID: [id number] [employer]- All Rights Reserved
[2017-07-21 21:18] LABS: A TYPE INFLUENZA AG NEGATIVE (NEGATIVE); B INFLUENZA AG NEGATIVE (NEGATIVE)
[2017-07-22] MEDS ORDERED: CEFTRIAXONE 1 GM/D5W RTU 1 GM/50 ML RTUPB IV ONE ×2 (00:35→00:46)
[2017-07-22] MEDS ORDERED: CEFTRIAXONE INJ 1000 MG VIAL IV ONE (00:53)
[2017-07-22] MEDS ORDERED: CEFTRIAXONE INJ 1000 MG VIAL ONE (00:57)
[2017-07-22 01:11] VITALS: BP 126/84
[2017-07-22 01:26] LABS: AMORPHOUS SEDIMENT,URINE TRACE /HPF; APPEARANCE,URINE SLIGHTLY-CLOUDY; BILIRUBIN,URINE NEGATIVE (NEGATIVE); COLOR,URINE YELLOW; GLUCOSE, URINE NEGATIVE (NEGATIVE); KETONES,URINE NEGATIVE (NEGATIVE); LEUKOCYTE ESTERASE,URINE NEGATIVE (NEGATIVE); NITRITE,URINE NEGATIVE (NEGATIVE); PROTEIN,URINE 100 mg/dL (NEGATIVE); URINE SPECIFIC GRAVITY 1.027
--- NOTE | 2017-07-22 08:08 | EKG REPORT ---
SEVERITY:- ABNORMAL ECG - SINUS RHYTHM LEFT AXIS DEVIATION BORDERLINE T WAVE ABNORMALITIES : Confirmed by: Joey Jaramillo MD 22-Jul-2017 08:07:27
== END 2017-07-22 01:28 | disposition short-term general hospital (02) ==
LOC: ER 19:20
DX: R50.9 Fever, unspecified (principal); N13.9 Obstructive and reflux uropathy, unspecified; R05 Cough; J44.9 Chronic obstructive pulmonary disease, unspecified; E78.00 Pure hypercholesterolemia, unspecified; E11.9 Type 2 diabetes mellitus without complications; I10 Essential (primary) hypertension; I69.920 Aphasia following unspecified cerebrovascular disease; Z93.1 Gastrostomy status
CPT/HCPCS: 93005; 99285; 96365; 36415; 87040; 87086; 82553; 82550; 85025; 80053; 81001; 84484; 82803; 83605; 87804; 71045; 93010; J0696; J3490

== ENCOUNTER 2017-08-16 10:00 | Emergency (ER) | payer MEDICARE, OTHER ==
[2017-08-16] MEDS ORDERED: LIDOCAINE 1% INJ-PF (10 MG/ML) 30 ML SDV INJ ONE (11:30)
[2017-08-16] MEDS ORDERED: LIDOCAINE 1% INJ (10 MG/ML) 10 ML MDV INJ ONE (11:30)
--- NOTE | 2017-08-16 12:00 | ER Document Report ---
ED General - General Chief Complaint: Displaced G-tube Stated Complaint: GI TUBE REPLACEMENT Notes: Presents today for G-tube replacement because he has pulled it out in the long-term. No excessive bleeding. TRAVEL OUTSIDE OF THE [place] IN LAST 30 DAYS: No - Related Data Allergies/Adverse Reactions: No Known Allergies Allergy (Verified 08/16/17 10:57) Past Medical History - Social History Smoking Status: Unknown if Ever Smoked Chew tobacco use (# tins/day): No Smoking Education Provided: No Frequency of alcohol use: Living in long-term Family History: Hypertension Patient has suicidal ideation: No Patient has homicidal ideation: No - Past Medical History Cardiac Medical History: Reports: Hx Hypercholesterolemia, Hx Hypertension Denies: Hx Atrial Fibrillation, Hx Congestive Heart Failure, Hx Heart Attack Pulmonary Medical History: Denies: Hx Asthma, Hx COPD Neurological Medical History: Reports: Hx Cerebrovascular Accident. Denies: Hx Seizures Endocrine Medical History: Reports: Hx Diabetes Mellitus Type 2. Denies: Hx Diabetes Mellitus Type 1 Renal/ Medical History: Denies: Hx Peritoneal Dialysis GI Medical History: Reports: Hx Gastroesophageal Reflux Disease. Denies: Hx Cirrhosis, Hx Hepatitis Musculoskeltal Medical History: Denies Hx Arthritis Psychiatric Medical History: Reports: Hx Dementia Infectious Medical History: Denies: Hx Hepatitis Past Surgical History: Reports: Other - PEG tube placement earlier this month. - Immunizations Hx Diphtheria, Pertussis, Tetanus Vaccination: Yes Review of Systems - Review of Systems Constitutional: denies: No symptoms reported, See HPI, Chills, Diaphoresis, Fever, Malaise, Weakness, Other, Weight gain, Weight loss, Recent illness EENT: denies: No symptoms reported, See HPI, Eye pain, Eye discharge, Blurred vision, Tearing, Double vision, Ear pain, Ear discharge, Nose pain, Nose congestion, Nose discharge, Sinus pressure, Sinus discharge, Throat pain, Difficulty swallowing, Throat swelling, Mouth pain, Mouth swelling, Dental problem, Vertigo, Other Cardiovascular: denies: No symptoms reported, See HPI, Chest pain, Palpitations , Heart racing, Orthopnea, Dyspnea, Syncope, Dizziness, Lightheaded, Edema, Other, Paroxysmal Nocturnal Dysp Respiratory: No symptoms reported. denies: See HPI, Cough, Hurts to breathe, Hemoptysis, Short of breath, Sputum, Stridor, Wheezing, Other Gastrointestinal: denies: No symptoms reported, See HPI, Abdomen distended, Abdominal pain, Diarrhea, Nausea, Vomiting, Constipation, Blood streaked bowels , Poor appetite, Poor fluid intake, Blood in vomit, Black stools, Rectal bleeding, Last bowel movement, Fecal incontinence, Other Physical Exam - Notes Notes: Elderly male not in any acute distress Examination of the abdomen soft nontender feeding tube is out of place. Discharge - Discharge Clinical Impression: Feeding tube obstruction Qualifiers: Encounter type: initial encounter Qualified Code(s): T85.598A - Other mechanical complication of other gastrointestinal prosthetic devices, implants and grafts, initial encounter Condition: Fair Disposition: HOME, SELF-CARE Instructions: Transdermal Gastric Tube Placement ([facility]) Referrals: NAVIN MOSELEY MD [Primary Care Provider] - Follow up as needed
[2017-08-16 12:38] VITALS: BP 134/79
== END 2017-08-16 12:38 | disposition home or self-care (01) ==
LOC: ER 10:00
DX: T85.598A Other mechanical complication of other gastrointestinal prosthetic devices, implants and grafts, initial encounter (principal)
CPT/HCPCS: 99283; 43760; J3490

== ENCOUNTER 2017-10-14 11:04 | Inpatient (IN) | payer OTHER, MEDICARE ==
[2017-10-14] MEDS ORDERED: LORAZEPAM INJ 2 MG/1 ML VIAL IM ONE (11:26)
--- NOTE | 2017-10-14 11:36 | RADIOLOGY REPORT (SQ) ---
EXAM DESCRIPTION: CT HEAD WITHOUT COMPLETED DATE/TIME: 10/14/2017 11:19 am REASON FOR STUDY: facial droop seizur COMPARISON: CT brain exams 08/05/2014, 08/08/2014, 02/01/2017, 02/03/2017 Carotid Doppler 01/23/2017, 08/07/2014 TECHNIQUE: Axial images acquired through the brain without intravenous contrast. Images reviewed wi th bone, brain and subdural windows. Additional sagittal and coronal reconstructions were generated. Images stored on PACS. All CT scanners at this facility use dose modulation, iterative reconstruction, and/or weight based d osing when appropriate to reduce radiation dose to as low as reasonably achievable (ALARA). [facility]: Dose Right [facility]: CareDose [facility]: Dose Right [facility]: Teradose 4D [facility]: Akampus RADIATION DOSE: 53.2 mGy. LIMITATIONS: None. FINDINGS: VENTRICLES: Mildly prominent diffusely, stable CEREBRUM: There is low attenuation in the right frontal lobe predominant involving the subcortical wh ite matter in the perisylvian region. Although this could be an infarct, an underlying mass with vas ogenic edema could not be excluded. MRI brain without and with contrast is recommended for further e valuation. This finding was discussed with Dr. Cooley. Elsewhere, there is mild bifrontal and biparietal deep periventricular white matter low attenuation from small vessel ischemic change, stabl e. CEREBELLUM: Old left posterior cerebellar hemisphere infarct axial image [address] evidenc e of acute posterior fossa hemorrhage, mass effect midline shift. EXTRAAXIAL SPACES: No fluid collections. No masses. ORBITS AND GLOBE: No intra- or extraconal masses. Normal contour of globe without masses. CALVARIUM: No fracture. PARANASAL SINUSES: No fluid or mucosal thickening. SOFT TISSUES: No mass or hematoma. OTHER: No other significant finding. IMPRESSION: Low attenuation in the right frontal subcortical and deep white matter with minimal over lying cortical atrophy. Although this could represent an infarct, underlying mass with vasogenic jose a ma could not be excluded. Follow-up MRI brain without and with contrast recommended. Mild diffuse prominence of the cerebral ventricles, question communicating hydrocephalus. EVIDENCE OF ACUTE STROKE: NO. COMMENT: Pertinent findings on the imaging study reported as a CRITICAL RESULT to DIVYA VELASQUEZ DO at11:15 on 10/14/2017. Category of Critical Result: CT code stroke Quality ID # [id number]: Final reports with documentation of one or more dose reduction techniques (e.g., Au tomated exposure control, adjustment of the mA and/or kV according to patient size, use of iterative reconstruction technique) TECHNICAL DOCUMENTATION: JOB ID: [id number] [employer]- All Rights Reserved Reading location - IP/workstation name: [facility]
--- NOTE | 2017-10-14 11:43 | ER Document Report ---
ED General - General Stated Complaint: POSSIBLE SEIZURE Time Seen by Provider: 10/14/17 11:10 Mode of Arrival: Medic Information source: Patient Notes: 82-year-old male history of previous CVAs presents from care facility where he was having a grand mal seizure noted by staff, patient noted to have a facial droop Patient is on Plavix TRAVEL OUTSIDE OF THE [place] IN LAST 30 DAYS: No - HPI Onset: Just prior to arrival Onset/Duration: Sudden Quality of pain: No pain Severity: Moderate Pain Level: Denies Associated symptoms: Other Exacerbated by: Denies Relieved by: Denies Similar symptoms previously: No Recently seen / treated by doctor: No - Related Data Allergies/Adverse Reactions: No Known Allergies Allergy (Verified 10/14/17 17:54) Past Medical History - Social History Smoking Status: Never Smoker Cigarette use (# per day): No Chew tobacco use (# tins/day): No Smoking Education Provided: No Family History: Hypertension - Past Medical History Cardiac Medical History: Reports: Hx Hypercholesterolemia, Hx Hypertension Denies: Hx Atrial Fibrillation, Hx Congestive Heart Failure, Hx Heart Attack Pulmonary Medical History: Denies: Hx Asthma, Hx COPD Neurological Medical History: Reports: Hx Cerebrovascular Accident. Denies: Hx Seizures Endocrine Medical History: Reports: Hx Diabetes Mellitus Type 2. Denies: Hx Diabetes Mellitus Type 1 Renal/ Medical History: Denies: Hx Peritoneal Dialysis GI Medical History: Reports: Hx Gastroesophageal Reflux Disease. Denies: Hx Cirrhosis, Hx Hepatitis Musculoskeltal Medical History: Denies Hx Arthritis Psychiatric Medical History: Reports: Hx Dementia Infectious Medical History: Denies: Hx Hepatitis Past Surgical History: Reports: Other - PEG tube placement earlier this month. - Immunizations Hx Diphtheria, Pertussis, Tetanus Vaccination: Yes Review of Systems - Review of Systems Notes: REVIEW OF SYSTEMS: CONSTITUTIONAL : Denies fever, chills, or sweats. Denies recent illness. EENT: Denies eye, ear, throat, or mouth pain or symptoms. Denies nasal or sinus congestion or discharge. Denies throat, tongue, or mouth swelling or difficulty swallowing. CARDIOVASCULAR: Denies chest pain. Denies palpitations or racing or irregular heart beat. Denies ankle edema. RESPIRATORY: Denies cough, cold, or chest congestion. Denies shortness of breath, difficulty breathing, or wheezing. GASTROINTESTINAL: Denies abdominal pain or distention. Denies nausea, vomiting , or diarrhea. Denies blood in vomitus, stools, or per rectum. Denies black, tarry stools. Denies constipation. GENITOURINARY: Denies difficulty urinating, painful urination, burning, frequency, blood in urine, or discharge. FEMALE GENITOURINARY: Denies vaginal bleeding, heavy or abnormal periods, irregular periods. Denies vaginal discharge or odor. MUSCULOSKELETAL: Denies back or neck pain or stiffness. Denies joint pain or swelling. SKIN: Denies rash, lesions or sores. HEMATOLOGIC : Denies easy bruising or bleeding. LYMPHATIC: Denies swollen, enlarged glands. NEUROLOGICAL: Patient noted to have grand mal seizure by staff PSYCHIATRIC: Denies anxiety or stress. Denies depression, suicidal ideation, or homicidal ideation. ALL OTHER SYSTEMS REVIEWED AND NEGATIVE. PHYSICAL EXAMINATION: GENERAL: Elderly male HEAD: Atraumatic, normocephalic. EYES: Pupils equal round and reactive to light, extraocular movements intact, conjunctiva are normal. ENT: Nares patent, oropharynx clear without exudates. Moist mucous membranes. NECK: Normal range of motion, supple without lymphadenopathy LUNGS: Breath sounds clear to auscultation bilaterally and equal. No wheezes rales or rhonchi. HEART: Regular rate and rhythm without murmurs ABDOMEN: Soft, nontender, nondistended abdomen. No guarding, no rebound. No masses appreciated. Female : deferred Musculoskeletal: Patient does move extremities NEUROLOGICAL: Patient has mild facial droop noted PSYCH: Unable to assess SKIN: Warm, Dry, normal turgor, no rashes or lesions noted. Dictation was performed using [employer] voice recognition software Physical Exam - Vital signs Vitals: Pulse Ox 96 10/14/17 11:12 Course - Re-evaluation Re-evalutation: 10/14/17 11:55 Patient was emergently sent for CT to rule out a CVA, it is questionable for CVA , I spoke with the radiologist to request MRI 10/14/17 15:59 subacute cva noted , will speak with pt pcp for admission 10/14/17 16:01 Patient does not meet criteria for thrombolytics given that the CVA subacute - Vital Signs Vital signs: Temp Pulse Resp BP Pulse Ox 98.1 F 76 16 114/70 99 10/14/17 18:00 10/14/17 18:00 10/14/17 18:00 10/14/17 18:00 10/14/17 18:00 - Laboratory Result Diagrams: 10/14/17 11:30 10/14/17 11:30 Laboratory results interpreted by me: 10/14/17 10/14/17 11:30 11:30 RBC 5.77 H MCV 73 L MCH 23.5 L RDW 15.7 H Carbon Dioxide 18 L Anion Gap 24 H BUN 26 H Creatinine 1.31 H Est GFR (Non-Af Amer) 52 L Glucose 171 H - Diagnostic Test Radiology reviewed: Image reviewed - MRI notes subacute CVA, Reports reviewed Discharge - Discharge Clinical Impression: Seizure CVA (cerebral vascular accident) Qualifiers: CVA mechanism: unspecified Qualified Code(s): I63.9 - Cerebral infarction, unspecified Condition: Stable Disposition: ADMITTED INPATIENT Admitting Provider: [facility] Unit Admitted: [facility]
[2017-10-14 11:44] LABS: ABSOLUTE EOSINOPHILS # (AUTO) 0.5 10^3/uL (0.0-0.6); ABSOLUTE LYMPHOCYTES (AUTO) 2.9 10^3/uL (0.5-4.7); ABSOLUTE MONOCYTES (AUTO) 1.1 10^3/uL (0.1-1.4); ABSOLUTE NEUT (AUTO) 4.2 10^3/uL (1.7-8.2); BASOPHILS % (AUTO) 0.4 % (0-2); EOSINOPHILS % (AUTO) 5.7 % (0-6); HEMATOCRIT 42.3 % (37.9-51.0); HEMOGLOBIN 13.6 g/dL (13.5-17.0); LYMPHOCYTES % (AUTO) 33.2 % (13-45); MEAN CORPUSCULAR HEMOGLOBIN 23.5 pg (27.0-33.4); MEAN CORPUSCULAR VOLUME 73 fl (80-97); MONOCYTES % (AUTO) 12.9 % (3-13); PLATELET COUNT 216 10^3/uL (150-450); RED BLOOD COUNT 5.77 10^6/uL (4.35-5.55); RED CELL DISTRIBUTION WIDTH 15.7 % (11.5-14.0); SEGMENTED NEUTROPHILS % (AUTO) 47.8 % (42-78); TOTAL CELLS COUNTED % (AUTO) 100 %; WHITE BLOOD COUNT 8.8 10^3/uL (4.0-10.5)
[2017-10-14 11:45] LABS: INTERNATIONAL RATION (INR) 0.94; PROTHROMBIN TIME 13.1 SEC (11.4-15.4)
[2017-10-14 11:46] LABS: PARTIAL THROMBOPLASTIN TIME 27.1 SEC (23.5-35.8)
--- NOTE | 2017-10-14 11:54 | RADIOLOGY REPORT (SQ) ---
EXAM DESCRIPTION: CHEST SINGLE VIEW COMPLETED DATE/TIME: 10/14/2017 11:45 am REASON FOR STUDY: facial droop seizur COMPARISON: Chest films 08/05/2014, 03/05/2017, 07/21/2017 EXAM PARAMETERS: NUMBER OF VIEWS: One view. TECHNIQUE: Single frontal radiographic view of the chest acquired. RADIATION DOSE: NA LIMITATIONS: Lordotic portable film FINDINGS: LUNGS AND PLEURA: No opacities, masses or pneumothorax. No pleural effusion. MEDIASTINUM AND HILAR STRUCTURES: No masses. Contour normal. HEART AND VASCULAR STRUCTURES: Heart normal in size. Normal vasculature. BONES: No acute findings. HARDWARE: None in the chest. OTHER: No other significant finding. IMPRESSION: NO ACUTE RADIOGRAPHIC FINDING IN THE CHEST. TECHNICAL DOCUMENTATION: JOB ID: [id number] [employer] All Rights Reserved Reading location - IP/workstation name: [email or web address]
[2017-10-14 11:55] LABS: ALANINE AMINOTRANSFERASE 25 U/L (21-72); ALBUMIN 4.3 g/dL (3.5-5.0); ALKALINE PHOSPHATASE 110 U/L (38-126); ASPARTATE AMINO TRANSFERASE 31 U/L (17-59); BILIRUBIN,DIRECT 0.3 mg/dL (0.0-0.4); BILIRUBIN,TOTAL 0.4 mg/dL (0.2-1.3); BLOOD UREA NITROGEN 26 mg/dL (7-20); CALCIUM 10.1 mg/dL (8.4-10.2); CHLORIDE 103 mmol/L (98-107); CREATINE KINASE 105 U/L (55-170); GLUCOSE 171 mg/dL (75-110); POTASSIUM 4.1 mmol/L (3.6-5.0); TOTAL PROTEIN 7.2 g/dL (6.3-8.2)
[2017-10-14 12:00] LABS: CARBON DIOXIDE 18 mmol/L (22-30); SODIUM 144.5 mmol/L (137-145)
[2017-10-14 12:01] LABS: ANION GAP 24 (5-19)
[2017-10-14 12:08] LABS: CREATINE KINASE MB 1.22 ng/mL (<4.55)
[2017-10-14 12:11] LABS: TROPONIN I < 0.012 ng/mL
--- NOTE | 2017-10-14 12:55 | EKG REPORT ---
SEVERITY:- ABNORMAL ECG - SINUS TACHYCARDIA MULTIPLE VENTRICULAR PREMATURE COMPLEXES LEFT AXIS DEVIATION NONSPECIFIC T ABNORMALITIES, LATERAL LEADS : Confirmed by: Joey Jaramillo MD 14-Oct-2017 12:54:07
--- NOTE | 2017-10-14 14:58 | RADIOLOGY REPORT (SQ) ---
EXAM DESCRIPTION: MRI HEAD COMBO COMPLETED DATE/TIME: 10/14/2017 2:42 pm REASON FOR STUDY: seizure activity , hx cva COMPARISON: CT brain 10/14/2017, 02/03/2017 TECHNIQUE: Multiplanar imaging includes noncontrasted T1, T2, FLAIR, diffusion with ADC map and post gadolinium contrast T1 sequences. Images stored on PACS. CONTRAST TYPE AND DOSE: 15 mL Multihance. RENAL FUNCTION: GFR > 60. LIMITATIONS: None. FINDINGS: ANATOMY: No developmental anomalies. Normal vascular flow voids. Pituitary fossa normal. CSF SPACES: Mild diffuse ventricular prominence, question communicating hydrocephalus. CEREBRUM: Old infarct in the right frontal perisylvian cortex and subcortical white matter. Encephal omalacia is present, with minimal hemosiderin staining in this area on the gradient echo T2 images. No areas of acute ischemic change identified on diffusion-weighted images. Extensive small vessel ischemic change in the hemispheric white matter. POSTERIOR FOSSA: A subacute to old left cerebellar infarct is present, similar compared to CT exam , new compared to CT brain 02/03/2017. No altered diffusion signal. Gradient echo T2 images s how minimal hemorrhagic staining. On the post contrasted images, there is some enhancement along the periphery of the infarct, indicating that this is subacute (weeks to months old). DIFFUSION IMAGING: Negative for acute or subacute infarction. ORBITS: No masses. Globes normal. PARANASAL SINUSES: No fluid levels. Mucosa normal. OTHER: No other significant finding. 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 TECHNICAL DOCUMENTATION: JOB ID: [id number] [employer]- All Rights Reserved Reading location - IP/workstation name: [email or web address]
[2017-10-14] MEDS: ASPIRIN 325 MG TABLET PO SCH (16:24)
[2017-10-14] MEDS ORDERED: LEVETIRACETAM 500 MG TABLET PO ONE (19:00)
[2017-10-14] MEDS: NORMAL SALINE 1000 ML 1,000 ML IV PRN (20:29)
[2017-10-14 22:14] LABS: ARTERIAL BLOOD BASE EXCESS 1.6 mmol/L; ARTERIAL BLOOD FIO2 ROOM AIR; ARTERIAL BLOOD H2CO3 1.23 mmol/L (1.05-1.35); ARTERIAL BLOOD HCO3 26.1 mmol/L (20-26); ARTERIAL BLOOD PCO2 40.8 mmHg (35-45); ARTERIAL BLOOD PH 7.42 (7.35-7.45); ARTERIAL BLOOD PO2 89.2 mmHg (80-100); ARTERIAL BLOOD TOTAL CO2 27.4 mmol/L (23-27)
[2017-10-14] MEDS ORDERED: HEPARIN SOD (PORCINE) 5,000 UNIT/ML 1 ML SYRINGE SUBCUT ONE (23:45)
[2017-10-15] MEDS ORDERED: ACETAMINOPHEN SOLN 325 MG/10.15 ML UDCUP GT PRN (00:23)
[2017-10-15] MEDS ORDERED: FAMOTIDINE 20 MG TABLET GT ONE (00:30)
[2017-10-15] MEDS ORDERED: SIMVASTATIN 40 MG TABLET GT ONE (01:00)
[2017-10-15] MEDS: DILTIAZEM HCL 30 MG TABLET GT SCH ×5 (01:00→22:01)
[2017-10-15 01:10] LABS: CREATINE KINASE MB 2.12 ng/mL (<4.55); TROPONIN I 0.026 ng/mL
[2017-10-15] MEDS: LEVETIRACETAM 500 MG TABLET PO SCH ×2 (06:37→18:24)
[2017-10-15 07:27] LABS: CHOLESTEROL 125.61 mg/dL (0-200); CREATINE KINASE 193 U/L (55-170); TRIGLYCERIDES 91 mg/dL (<150)
[2017-10-15 07:37] LABS: DIRECT LDL 69 mg/dL (<100)
[2017-10-15 07:38] LABS: CREATINE KINASE MB 2.2 ng/mL (<4.55); TROPONIN I 0.02 ng/mL
[2017-10-15] MEDS: ASPIRIN 325 MG TABLET PO SCH (10:00)
[2017-10-15] MEDS: CLOPIDOGREL BISULFATE 75 MG TABLET GT SCH (11:26)
[2017-10-15] MEDS: HEPARIN SOD (PORCINE) 5,000 UNIT/ML 1 ML SYRINGE SUBCUT SCH ×2 (11:27→22:44)
[2017-10-15 12:11] LABS: CREATINE KINASE MB 2.25 ng/mL (<4.55); TROPONIN I 0.015 ng/mL
[2017-10-15 14:07] LABS: ANION GAP 11 (5-19); BLOOD UREA NITROGEN 21 mg/dL (7-20); CALCIUM 9.7 mg/dL (8.4-10.2); CARBON DIOXIDE 25 mmol/L (22-30); CHLORIDE 105 mmol/L (98-107); GLUCOSE 125 mg/dL (75-110); POTASSIUM 3.9 mmol/L (3.6-5.0); SODIUM 141.1 mmol/L (137-145)
--- NOTE | 2017-10-15 14:43 | RADIOLOGY REPORT (SQ) ---
EXAM DESCRIPTION: CAROTID DOPPLER COMPLETED DATE/TIME: 10/15/2017 2:35 pm REASON FOR STUDY: cva COMPARISON: 08/07/2014. TECHNIQUE: Grayscale ultrasound, Doppler velocity and spectra, and color Doppler images acquired of the extra-cranial carotid and vertebral arteries. Images stored on PACS. LIMITATIONS: None. FINDINGS: RIGHT CAROTID CCA Velocities: Within normal limits. ICA Velocities Peak systolic 0.51 m/s. End diastolic 0.14 m/s. Proximal ICA/CCA peak systolic ratio 0.7. Spectra normal. No significant plaque. LEFT CAROTID CCA Velocities: Within normal limits. ICA Velocities Peak systolic 0.48 m/s. End diastolic 0.17 m/s. Proximal ICA/CCA peak systolic ratio 0.7. Spectra normal. No significant plaque. VERTEBRAL ARTERIES: Antegrade flow. Normal waveforms. SUBCLAVIAN ARTERIES: No finding. OTHER: No other significant finding. IMPRESSION: NO HEMODYNAMICALLY SIGNIFICANT STENOSIS. COMMENT: Quality ID #[id number]: Velocity criteria are extrapolated from the diameter data as defined by t he Society of Radiologists in Ultrasound Consensus Conference. Radiology 2003: 229; 340-346. TECHNICAL DOCUMENTATION: JOB ID: [id number] [employer]- All Rights Reserved Reading location - IP/workstation name: [facility]
[2017-10-15] MEDS: NORMAL SALINE 1000 ML 1,000 ML IV PRN (17:33)
--- NOTE | 2017-10-15 18:39 | XCELERA REPORT ---
[address] [address] Transthoracic Echocardiogram Report Name: COMPA CHOI JR Age: 82 yrs Gender: Male : 1935 Patient Status: Inpatient Patient Location: [address] [place] [address] Study Date: 10/15/2017 01:38 PM Height: 67 in Weight: 163 lb BSA: 1.9 m2 Procedure: A complete two-dimensional transthoracic echocardiogram was performed (2D, M-mode, spectral and color flow Doppler). The study was technically difficult with many images being suboptimal in quality. Reason For Study: cva Ordering Physician: NAVIN MOSELEY Performed By: Leonel Antonio Interpretation Summary The left ventricular ejection fraction is normal. There is mild concentric left ventricular hypertrophy. The left ventricle is grossly normal size. Doppler measurements suggest pseudonormalized left ventricular relaxation, which is associated with grade II/IV or mild to moderate diastolic dysfunction Wall motion cannot be accurately commented on, but no definite regional wall motion abnormalities noted. The right ventricle is grossly normal size. The right ventricular systolic function is normal. The left atrial size is normal. The right atrium is normal in size There is no mitral regurgitation noted. There is no mitral valve stenosis. There is no aortic valve stenosis No aortic regurgitation is present. There is a trace or physiologic amount of tricuspid regurgitation Tricuspid regurgitation jet envelope not well defined to measure RV systolic pressure accurately. The aortic root is not well visualized but is probably normal size. The inferior vena cava was not visualized There is no pericardial effusion. MMode/2D Measurements & Calculations RVDd: 3.4 cm LVIDd: 4.1 cm FS: 29.4 % Ao root diam: 3.6 cm IVSd: 1.2 cm LVIDs: 2.9 cm EDV(Teich): 73.2 ml LVPWd: 1.3 cm ESV(Teich): 31.6 ml Ao root area: 10.2 cm2 EF(Teich): 56.8 % LA dimension: 2.9 cm Doppler Measurements & Calculations MV E max martin: MV P1/2t max martin: Ao V2 max: LV V1 max P.1 cm/sec 64.1 cm/sec 68.9 cm/sec 1.7 mmHg MV A max martin: MV P1/2t: 47.2 msec Ao max PG: LV V1 max: 93.6 cm/sec 1.9 mmHg 64.4 cm/sec MV E/A: 0.68 MVA(P1/2t): 4.7 cm2 MV dec slope: 398.1 cm/sec2 PA V2 max: TR max martin: 39.5 cm/sec 192.5 cm/sec PA max PG: TR max P.8 mmHg 0.62 mmHg Left Ventricle The left ventricle is grossly normal size. There is mild concentric left ventricular hypertrophy. The left ventricular ejection fraction is normal. Doppler measurements suggest pseudonormalized left ventricular relaxation, which is associated with grade II/IV or mild to moderate diastolic dysfunction. Wall motion cannot be accurately commented on, but no definite regional wall motion abnormalities noted. Right Ventricle The right ventricle is grossly normal size. There is normal right ventricular wall thickness. The right ventricular systolic function is normal. Atria The right atrium is normal in size. The left atrial size is normal. Interarterial septum not well visualized and not well dopplered. Cannot comment on ASD/PFO presence. Mitral Valve The mitral valve is grossly normal. There is no mitral valve stenosis. There is no mitral regurgitation noted. Aortic Valve The aortic valve is grossly normal. There is no aortic valve stenosis. No aortic regurgitation is present. Tricuspid Valve The tricuspid valve is not well visualized secondary to technical limitations. There is no tricuspid stenosis. There is a trace or physiologic amount of tricuspid regurgitation. Tricuspid regurgitation jet envelope not well defined to measure RV systolic pressure accurately. Pulmonic Valve The pulmonic valve is not well visualized. Great Vessels The aortic root is not well visualized but is probably normal size. The inferior vena cava was not visualized. Effusions There is no pericardial effusion. Incidental Findings No definite cardiac source of CVA/TIA noted on this particular trans- thoracic study. Consider KENNETH if clinically indicated. May consider mobile cardiac telemetry monitoring (MCT) for ruling out transient AFIB. : NAVIN MOSELEY > Alfonso Werner
--- NOTE | 2017-10-15 18:53 | EKG REPORT ---
SEVERITY:- ABNORMAL ECG - SINUS OR ECTOPIC ATRIAL RHYTHM FIRST DEGREE AV BLOCK LEFT AXIS DEVIATION : Confirmed by: Joey Jaramillo MD 15-Oct-2017 18:53:05
--- NOTE | 2017-10-15 21:03 | PDOC H&P ---
History of Present Illness Admission Date/PCP: 10/14/17 16:07 NAVIN MOSELEY MD History of Present Illness: COMPA CHOI JR is a 82 year old male, Resident of the correction at [facility], he was transferred from the correction to the emergency room for evaluation of new onset seizure. He has a history of CVA with residual aphasia, he is nonverbal he does not communicate history taking is virtually impossible in the emergency room he was evaluated MRI of the brain was done there was no acute infarct but showed subacute left cerebellar infarction with old cerebral infarction. The emergency room physician want patient admitted into the hospital to be managed for stroke.Patient apparently is not my regular patient from the correction, he is followed by Dr. Richey in the correction there was a mistake regarding patient's physician but because he is already admitted to my service,I elected to take care of him for this admission Past Medical History Cardiac Medical History: Reports: Hyperlipidema, Hypertension Neurological Medical History: Reports: Ischemic CVA Endocrine Medical History: Reports: Diabetes Mellitus Type 2 GI Medical History: Reports: Gastroesophageal Reflux Disease Musculoskeltal Medical History: Reports: Arthritis Psychiatric Medical History: Reports: Dementia Past Surgical History Past Surgical History: Reports: Orthopedic Surgery - finger, Other - PEG tube placement earlier this month. Social History Smoking Status: Former Smoker Frequency of Alcohol Use: None Hx Recreational Drug Use: No Drugs: None Hx Prescription Drug Abuse: No - Advance Directive Resuscitation Status: Full Code Family History Family History: Hypertension Parental Family History Reviewed: Yes Children Family History Reviewed: Yes Sibling(s) Family History Reviewed.: Yes Medication/Allergy Home Medications: Clopidogrel Bisulfate [Plavix 75 mg Tablet] 75 mg GT DAILY 03/05/17 Simvastatin [Zocor 40 mg Tablet] 20 mg GT QHS 03/05/17 Diltiazem HCl [Cardizem 30 mg Tablet] 30 mg GT Q6 tablet 03/12/17 Acetaminophen [Tylenol 325 mg Tablet] 650 mg GT Q6HP PRN 10/14/17 Famotidine [Pepcid 20 mg Tablet] 20 mg GT QHS 10/14/17 Allergies/Adverse Reactions: No Known Allergies Allergy (Verified 10/14/17 17:54) Review of Systems ROS unobtainable: Due to mental status Physical Exam Vital Signs: Temp Pulse Resp BP Pulse Ox 97.4 F 64 20 121/75 100 10/15/17 19:29 10/15/17 19:29 10/15/17 19:29 10/15/17 19:29 10/15/17 19:29 Intake & Output 10/14/17 10/15/17 10/16/17 06:59 06:59 06:59 Intake Total 855 600 Balance 855 600 Weight 62.9 kg General appearance: PRESENT: no acute distress Eye exam: PRESENT: PERRLA Respiratory exam: PRESENT: clear to auscultation samreen Cardiovascular exam: PRESENT: +S1, +S2 Neurological exam: PRESENT: alert, CN II-XII grossly intact Results Laboratory Results: 10/15/17 11:30 10/14/17 10/15/17 10/15/17 21:55 06:52 11:30 Carbonic Acid 1.23 HCO3/H2CO3 Ratio 21:1 ABG pH 7.42 ABG pCO2 40.8 ABG pO2 89.2 ABG HCO3 26.1 H ABG O2 Saturation 97.0 ABG Base Excess 1.6 FiO2 ROOM AIR Sodium 141.1 Potassium 3.9 Chloride 105 Carbon Dioxide 25 Anion Gap 11 BUN 21 H Creatinine 1.09 Est GFR ( Amer) > 60 Est GFR (Non-Af Amer) > 60 Glucose 125 H Calcium 9.7 Magnesium 2.1 Triglycerides 91 Cholesterol 125.61 LDL Cholesterol Direct 69 VLDL Cholesterol 18.0 HDL Cholesterol 32 L 10/15/17 10/15/17 10/15/17 00:18 00:18 06:52 Creatine Kinase 142 193 H CK-MB (CK-2) 2.12 Troponin I 0.026 10/15/17 10/15/17 10/15/17 06:52 11:30 11:30 Creatine Kinase 173 H CK-MB (CK-2) 2.20 2.25 Troponin I 0.020 0.015 Impressions: Chest X-Ray 10/14/17 11:12 IMPRESSION: NO ACUTE RADIOGRAPHIC FINDING IN THE CHEST. Head CT 10/14/17 11:12 IMPRESSION: Low attenuation in the right frontal subcortical and deep white matter with minimal overlying cortical atrophy. Although this could represent an infarct, underlying mass with vasogenic edema could not be excluded. Follow- up MRI brain without and with contrast recommended. Mild diffuse prominence of the cerebral ventricles, question communicating hydrocephalus. EVIDENCE OF ACUTE STROKE: NO. 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 Carotid Doppler Study 10/15/17 00:00 IMPRESSION: NO HEMODYNAMICALLY SIGNIFICANT STENOSIS. Assessment & Plan - Diagnosis (1) Cerebellar infarction Is this a current diagnosis for this admission?: Yes Plan: Patient is admitted to be managed according to the stroke protocol
--- NOTE | 2017-10-15 21:06 | PDOC PROGRESS REPORT ---
Subjective Progress Note for:: 10/15/17 Subjective:: Patient admitted yesterday, there is no new complaint Reason For Visit: CEREBROVASCULAR ACCIDENT (CVA),SEIZURE Physical Exam Vital Signs: Temp Pulse Resp BP Pulse Ox 97.4 F 64 20 121/75 100 10/15/17 19:29 10/15/17 19:29 10/15/17 19:29 10/15/17 19:29 10/15/17 19:29 Intake & Output 10/14/17 10/15/17 10/16/17 06:59 06:59 06:59 Intake Total 855 600 Balance 855 600 Weight 62.9 kg General appearance: PRESENT: no acute distress Head exam: PRESENT: atraumatic, normocephalic Eye exam: PRESENT: PERRLA Mouth exam: PRESENT: moist, tongue midline Neck exam: PRESENT: full ROM Cardiovascular exam: PRESENT: RRR, +S1, +S2 Pulses: PRESENT: normal dorsalis pedis pul, +2 pedal pulses bilateral Vascular exam: PRESENT: normal capillary refill GI/Abdominal exam: PRESENT: normal bowel sounds, soft Rectal exam: PRESENT: deferred Neurological exam: PRESENT: alert Psychiatric exam: PRESENT: appropriate affect, normal mood Skin exam: PRESENT: dry, intact, warm Results Laboratory Results: 10/15/17 11:30 10/14/17 10/15/17 10/15/17 21:55 06:52 11:30 Carbonic Acid 1.23 HCO3/H2CO3 Ratio 21:1 ABG pH 7.42 ABG pCO2 40.8 ABG pO2 89.2 ABG HCO3 26.1 H ABG O2 Saturation 97.0 ABG Base Excess 1.6 FiO2 ROOM AIR Sodium 141.1 Potassium 3.9 Chloride 105 Carbon Dioxide 25 Anion Gap 11 BUN 21 H Creatinine 1.09 Est GFR ( Amer) > 60 Est GFR (Non-Af Amer) > 60 Glucose 125 H Calcium 9.7 Magnesium 2.1 Triglycerides 91 Cholesterol 125.61 LDL Cholesterol Direct 69 VLDL Cholesterol 18.0 HDL Cholesterol 32 L 10/15/17 10/15/17 10/15/17 00:18 00:18 06:52 Creatine Kinase 142 193 H CK-MB (CK-2) 2.12 Troponin I 0.026 10/15/17 10/15/17 10/15/17 06:52 11:30 11:30 Creatine Kinase 173 H CK-MB (CK-2) 2.20 2.25 Troponin I 0.020 0.015 Impressions: Chest X-Ray 10/14/17 11:12 IMPRESSION: NO ACUTE RADIOGRAPHIC FINDING IN THE CHEST. Head CT 10/14/17 11:12 IMPRESSION: Low attenuation in the right frontal subcortical and deep white matter with minimal overlying cortical atrophy. Although this could represent an infarct, underlying mass with vasogenic edema could not be excluded. Follow- up MRI brain without and with contrast recommended. Mild diffuse prominence of the cerebral ventricles, question communicating hydrocephalus. EVIDENCE OF ACUTE STROKE: NO. 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 Carotid Doppler Study 10/15/17 00:00 IMPRESSION: NO HEMODYNAMICALLY SIGNIFICANT STENOSIS. Assessment & Plan - Diagnosis (1) Cerebellar infarction Is this a current diagnosis for this admission?: Yes (2) Dementia Qualifiers: Is this a current diagnosis for this admission?: Yes (3) Diabetes mellitus type 2 in nonobese Is this a current diagnosis for this admission?: Yes (4) HTN (hypertension) Qualifiers: Hypertension type: essential hypertension Qualified Code(s): I10 - Essential (primary) hypertension Is this a current diagnosis for this admission?: Yes
--- NOTE | 2017-10-15 21:14 | PDOC TRANSFER SUMMARY ---
General - Admit/Disc Date/PCP Admission Date/Primary Care Provider: 10/14/17 16:07 NAVIN MOSELEY MD Discharge Date: 10/15/17 - Discharge Diagnosis (1) Cerebellar infarction Is this a current diagnosis for this admission?: Yes (2) Dementia Is this a current diagnosis for this admission?: Yes (3) Diabetes mellitus type 2 in nonobese Is this a current diagnosis for this admission?: Yes (4) HTN (hypertension) Is this a current diagnosis for this admission?: Yes (5) Aphasia as late effect of cerebrovascular accident Is this a current diagnosis for this admission?: Yes - Additional Information Resuscitation Status: Full Code Home Medications: Clopidogrel Bisulfate [Plavix 75 mg Tablet] 75 mg GT DAILY 03/05/17 Simvastatin [Zocor 40 mg Tablet] 20 mg GT QHS 03/05/17 Diltiazem HCl [Cardizem 30 mg Tablet] 30 mg GT Q6 tablet 03/12/17 Acetaminophen [Tylenol 325 mg Tablet] 650 mg GT Q6HP PRN 10/14/17 Famotidine [Pepcid 20 mg Tablet] 20 mg GT QHS 10/14/17 History of Present Illness Admission Date/PCP: 10/14/17 16:07 NAVIN MOSELEY MD History of Present Illness: COMPA CHOI JR is a 82 year old male, Resident of the [facility] at [facility], he was transferred from the [facility] to the emergency room for evaluation of new onset seizure. He has a history of CVA with residual aphasia, he is nonverbal he does not communicate history taking is virtually impossible in the emergency room he was evaluated MRI of the brain was done there was no acute infarct but showed subacute left cerebellar infarction with old cerebral infarction. The emergency room physician want patient admitted into the hospital to be managed for stroke.Patient apparently is not my regular patient from the [facility], he is followed by Dr. Richey in the [facility] there was a mistake regarding patient's physician but because he is already admitted to my service,I elected to take care of him for this admission Hospital Course Hospital Course: Patient was admitted for the management of left cerebellar stroke, subacute, he is nonverbal a residual effect from previous stroke, he has a feeding tube in his abdomen, the carotid Doppler was negative for any significant stenosis or occlusion, a 2D echo was done it showed diastolic dysfunction of left ventricle.Patient will be transferred back to [facility] for continuity of care Physical Exam Vital Signs: Temp Pulse Resp BP Pulse Ox 97.4 F 64 20 121/75 100 10/15/17 19:29 10/15/17 19:29 10/15/17 19:29 10/15/17 19:29 10/15/17 19:29 Intake & Output 10/14/17 10/15/17 10/16/17 06:59 06:59 06:59 Intake Total 855 600 Balance 855 600 Weight 62.9 kg General appearance: PRESENT: no acute distress Head exam: PRESENT: atraumatic, normocephalic Eye exam: PRESENT: PERRLA Ear exam: PRESENT: normal external ear exam Respiratory exam: PRESENT: clear to auscultation samreen Cardiovascular exam: PRESENT: RRR, +S1, +S2 Pulses: PRESENT: normal dorsalis pedis pul Vascular exam: PRESENT: normal capillary refill GI/Abdominal exam: PRESENT: normal bowel sounds, soft Rectal exam: PRESENT: deferred Extremities exam: PRESENT: full ROM Neurological exam: PRESENT: alert, aphasic Skin exam: PRESENT: dry, intact, warm Results Laboratory Results: 10/15/17 11:30 10/14/17 10/15/17 10/15/17 21:55 06:52 11:30 Carbonic Acid 1.23 HCO3/H2CO3 Ratio 21:1 ABG pH 7.42 ABG pCO2 40.8 ABG pO2 89.2 ABG HCO3 26.1 H ABG O2 Saturation 97.0 ABG Base Excess 1.6 FiO2 ROOM AIR Sodium 141.1 Potassium 3.9 Chloride 105 Carbon Dioxide 25 Anion Gap 11 BUN 21 H Creatinine 1.09 Est GFR ( Amer) > 60 Est GFR (Non-Af Amer) > 60 Glucose 125 H Calcium 9.7 Magnesium 2.1 Triglycerides 91 Cholesterol 125.61 LDL Cholesterol Direct 69 VLDL Cholesterol 18.0 HDL Cholesterol 32 L 10/15/17 10/15/17 10/15/17 00:18 00:18 06:52 Creatine Kinase 142 193 H CK-MB (CK-2) 2.12 Troponin I 0.026 10/15/17 10/15/17 10/15/17 06:52 11:30 11:30 Creatine Kinase 173 H CK-MB (CK-2) 2.20 2.25 Troponin I 0.020 0.015 Impressions: Chest X-Ray 10/14/17 11:12 IMPRESSION: NO ACUTE RADIOGRAPHIC FINDING IN THE CHEST. Head CT 10/14/17 11:12 IMPRESSION: Low attenuation in the right frontal subcortical and deep white matter with minimal overlying cortical atrophy. Although this could represent an infarct, underlying mass with vasogenic edema could not be excluded. Follow- up MRI brain without and with contrast recommended. Mild diffuse prominence of the cerebral ventricles, question communicating hydrocephalus. EVIDENCE OF ACUTE STROKE: NO. 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 Carotid Doppler Study 10/15/17 00:00 IMPRESSION: NO HEMODYNAMICALLY SIGNIFICANT STENOSIS. Qualifiers - * PATIENT BEING DISCHARGED WITH ANY OF THE FOLLOWING DIAGNOSIS: No, Stroke VTE patient discharged on overlapping Therapy?: Yes Stroke Pt being discharged on Anti-thrombolytic therapy?: Yes Stroke Pt being discharged on Anti-coagulation therapy?: No Reason(s) for not prescribing Anti-coagulation therapy:: Not indicated Stroke Pt being discharged on Statins?: Yes
[2017-10-15] MEDS ORDERED: FAMOTIDINE 20 MG TABLET GT SCH (22:00)
[2017-10-15] MEDS ORDERED: SIMVASTATIN 40 MG TABLET GT SCH (22:00)
[2017-10-16] MEDS: LEVETIRACETAM 500 MG TABLET PO SCH (05:46)
[2017-10-16] MEDS: DILTIAZEM HCL 30 MG TABLET GT SCH ×2 (05:46→11:51)
[2017-10-16] MEDS: CLOPIDOGREL BISULFATE 75 MG TABLET GT SCH (09:39)
[2017-10-16] MEDS: HEPARIN SOD (PORCINE) 5,000 UNIT/ML 1 ML SYRINGE SUBCUT SCH (09:40)
[2017-10-16 11:45] VITALS: BP 113/59
--- NOTE | 2017-10-22 09:01 | EEG PRO FEE REPORT ---
EEG INTERPRETATION PATIENT NAME: COMPA CHOI ROOM#: [id number] ORDER#: [id number] DATE OF STUDY: 10/15/2017 : 1935 REFERRING MD: NAVIN MOSELEY M.D. DIAGNOSIS: New onset seizures REPORT The background activity consists of 5-6 Hz theta throughout there is a lot of fine superimposed motion artifact over the tracing. No clear focal slowing, amplitude asymmetry, or epileptiform discharges are seen. IMPRESSION Probably within normal limits for stated age of 87. INTERPRETING PHYSICIAN: TRUDY RIZO M.D. /: MTEFFERCHO TT: [id number] ID: [id number] /: [id number] TD: [id number] JOB: [id number] cc:Juan SZYMANSKI M.D. >
== END 2017-10-16 12:45 | DRG 66 ==
LOC: ER 11:04 → EH 16:07 → 3N 18:29
PROVIDERS: ADMIT Internal Medicine; ATTEND Internal Medicine
DX: I63.8 Other cerebral infarction (principal); R29.810 Facial weakness; E78.00 Pure hypercholesterolemia, unspecified; I10 Essential (primary) hypertension; K21.9 Gastro-esophageal reflux disease without esophagitis; F03.90 Unspecified dementia, unspecified severity, without behavioral disturbance, psychotic disturbance, mood disturbance, and anxiety; I69.920 Aphasia following unspecified cerebrovascular disease; Z93.1 Gastrostomy status; Z87.891 Personal history of nicotine dependence
CPT/HCPCS: 36415; 36600; 70450; 70553; 71045; 80048; 80053; 80061; 82550; 82553; 82803; 82962; 83735; 84484; 85025; 85610; 85730; 93005; 93010; 93306; 93880; 95819; 99285; A9577; J1644; J7030

== ENCOUNTER 2017-12-27 11:39 | Emergency (ER) | payer OTHER, MEDICARE ==
--- NOTE | 2017-12-27 12:03 | ER Document Report ---
ED General - General Chief Complaint: Probable Seizure Stated Complaint: POSSIBLE SEIZURE Time Seen by Provider: 12/27/17 11:52 Mode of Arrival: Medic Information source: Emergency Med Personnel Cannot obtain history due to: Other - non-verbal Notes: 82-year-old male sent from a care home facility for possible seizure. Patient was getting a bath when the nurse noticed diffuse shaking. Patient was sent to the emergency department for further evaluation. Patient does have a history of dementia and is nonverbal secondary to prior CVA. Patient was seen in the emergency department at the end of August for new onset seizure. He was diagnosed with a cerebellar infarction. Patient was discharged from the hospital to care home facility. He was not started on anti-epileptics. TRAVEL OUTSIDE OF THE [place] IN LAST 30 DAYS: No - HPI Onset: This morning Onset/Duration: Sudden Quality of pain: No pain Associated symptoms: None Exacerbated by: Denies Relieved by: Denies Similar symptoms previously: Yes Recently seen / treated by doctor: No - Related Data Allergies/Adverse Reactions: No Known Allergies Allergy (Verified 10/14/17 17:54) Past Medical History - General Cannot obtain history due to: Dementia - Social History Smoking Status: Unknown if Ever Smoked Family History: Hypertension Patient has suicidal ideation: No Patient has homicidal ideation: No - Past Medical History Cardiac Medical History: Reports: Hx Hypercholesterolemia, Hx Hypertension Denies: Hx Atrial Fibrillation, Hx Congestive Heart Failure, Hx Heart Attack Pulmonary Medical History: Denies: Hx Asthma, Hx COPD Neurological Medical History: Reports: Hx Cerebrovascular Accident. Denies: Hx Seizures Endocrine Medical History: Reports: Hx Diabetes Mellitus Type 2. Denies: Hx Diabetes Mellitus Type 1 Renal/ Medical History: Denies: Hx Peritoneal Dialysis GI Medical History: Reports: Hx Gastroesophageal Reflux Disease. Denies: Hx Cirrhosis, Hx Hepatitis Musculoskeltal Medical History: Reports Hx Arthritis Psychiatric Medical History: Reports: Hx Dementia Denies: Hx Depression Infectious Medical History: Denies: Hx Hepatitis Past Surgical History: Reports: Hx Orthopedic Surgery - finger, Other - PEG tube placement earlier this month. - Immunizations Hx Diphtheria, Pertussis, Tetanus Vaccination: Yes Review of Systems - Review of Systems -: Yes ROS unobtainable due to patient's medical condition Physical Exam - Vital signs Vitals: Temp 97.4 F 12/27/17 11:53 Interpretation: Normal - Notes Notes: PHYSICAL EXAMINATION: GENERAL: Patient non-verbal. At baseline mental status per nursing facility HEAD: Atraumatic. EYES: Pupils equal round and reactive to light, extraocular movements intact, sclera anicteric, conjunctiva are normal. ENT: Nares patent, oropharynx clear without exudates. Moist mucous membranes. NECK: Normal range of motion, supple without lymphadenopathy LUNGS: Breath sounds clear to auscultation bilaterally and equal. No wheezes rales or rhonchi. HEART: Regular rate and rhythm without murmurs ABDOMEN: Soft, nontender, nondistended abdomen. No guarding, no rebound. No masses appreciated. Musculoskeletal: Normal range of motion, no pitting or edema. No cyanosis. NEUROLOGICAL: Cranial nerves grossly intact. Motor exam within normal limits. PSYCH: deferred SKIN: Warm, Dry, normal turgor, no rashes or lesions noted. Course - Vital Signs Vital signs: Temp Pulse Resp BP Pulse Ox 97.4 F 17 118/66 93 12/27/17 11:53 12/27/17 12:01 12/27/17 12:01 12/27/17 12:01 - Laboratory Result Diagrams: 12/27/17 14:45 12/27/17 14:45 Laboratory results interpreted by me: 12/27/17 12/27/17 14:45 14:45 RBC 6.01 H MCV 72 L MCH 23.5 L RDW 15.1 H Seg Neutrophils % 82.0 H Lymphocytes % 9.6 L Sodium 145.4 H BUN 28 H Creatinine 1.28 H Est GFR (Non-Af Amer) 54 L Glucose 130 H - EKG Interpretation by Me Additional EKG results interpreted by me: 12/27/17 12:31 EKG: Ventricular rate 91, RI interval 196, QRS duration 74, QTc 443, sinus rhythm, left anterior fascicular block Discharge - Discharge Referrals: NAVIN MOSELEY MD [Primary Care Provider] - Follow up as needed
--- NOTE | 2017-12-27 12:33 | RADIOLOGY REPORT (SQ) ---
EXAM DESCRIPTION: CHEST SINGLE VIEW COMPLETED DATE/TIME: 12/27/2017 12:19 pm REASON FOR STUDY: seizure COMPARISON: 10/14/2017 EXAM PARAMETERS: NUMBER OF VIEWS: One view. TECHNIQUE: Single frontal radiographic view of the chest acquired. RADIATION DOSE: NA LIMITATIONS: None. FINDINGS: LUNGS AND PLEURA: No opacities, masses or pneumothorax. No pleural effusion. Bilateral lo w lung volumes. MEDIASTINUM AND HILAR STRUCTURES: No masses. Contour normal. HEART AND VASCULAR STRUCTURES: Heart normal in size. Normal vasculature. BONES: No acute findings. HARDWARE: None in the chest. OTHER: No other significant finding. IMPRESSION: NO ACUTE RADIOGRAPHIC FINDING IN THE CHEST. TECHNICAL DOCUMENTATION: JOB ID: [id number] [employer]- All Rights Reserved Reading location - IP/workstation name: [email or web address]
--- NOTE | 2017-12-27 13:09 | RADIOLOGY REPORT (SQ) ---
EXAM DESCRIPTION: CT HEAD WITHOUT COMPLETED DATE/TIME: 12/27/2017 12:46 pm REASON FOR STUDY: seizure COMPARISON: 10/14/2017 TECHNIQUE: Axial images acquired through the brain without intravenous contrast. Images reviewed wi th bone, brain and subdural windows. Additional sagittal and coronal reconstructions were generated. Images stored on PACS. All CT scanners at this facility use dose modulation, iterative reconstruction, and/or weight based d osing when appropriate to reduce radiation dose to as low as reasonably achievable (ALARA). [facility]: Dose Right [facility]: CareDose [facility]: Dose Right [facility]: Teradose 4D [facility]: [employer] RADIATION DOSE: CT Rad equipment meets quality standard of care and radiation dose reduction techniq ues were employed. CTDIvol: 23.1 mGy. DLP: 522 mGy-cm.mGy. LIMITATIONS: None. FINDINGS: VENTRICLES: Prominent. CEREBRUM: No masses. No hemorrhage. No midline shift. Areas of low density in the white matter mos t likely due to chronic micro-vascular ischemic change. Stable appearance of a large right frontal i nfarction, unchanged from 10/14/2017. CEREBELLUM: No masses. No hemorrhage. No alteration of density. No evidence for acute infarction. EXTRAAXIAL SPACES: Age-related involutional change. No fluid collections. No masses. ORBITS AND GLOBE: No intra- or extraconal masses. Normal contour of globe without masses. CALVARIUM: No fracture. PARANASAL SINUSES: No fluid or mucosal thickening. SOFT TISSUES: No mass or hematoma. OTHER: No other significant finding. 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 NO ACUTE PROCESS. EVIDENCE OF ACUTE STROKE: NO. TECHNICAL DOCUMENTATION: JOB ID: [id number] Quality ID # [id number]: Final reports with documentation of one or more dose reduction techniques (e.g., Au tomated exposure control, adjustment of the mA and/or kV according to patient size, use of iterative reconstruction technique) 2010 [employer]- All Rights Reserved Reading location - IP/workstation name: [email or web address]
[2017-12-27] MEDS ORDERED: LIDOCAINE 2% URO-JET 5 ML KIT MM ONE (13:48)
[2017-12-27 15:03] LABS: ABSOLUTE LYMPHOCYTES (AUTO) 0.7 10^3/uL (0.5-4.7); ABSOLUTE MONOCYTES (AUTO) 0.5 10^3/uL (0.1-1.4); ABSOLUTE NEUT (AUTO) 5.7 10^3/uL (1.7-8.2); BASOPHILS % (AUTO) 0.3 % (0-2); EOSINOPHILS % (AUTO) 0.6 % (0-6); HEMATOCRIT 43.5 % (37.9-51.0); HEMOGLOBIN 14.2 g/dL (13.5-17.0); LYMPHOCYTES % (AUTO) 9.6 % (13-45); MEAN CORPUSCULAR HEMOGLOBIN 23.5 pg (27.0-33.4); MEAN CORPUSCULAR HGB CONC 32.5 g/dL (32.0-36.0); MEAN CORPUSCULAR VOLUME 72 fl (80-97); MONOCYTES % (AUTO) 7.5 % (3-13); PLATELET COUNT 177 10^3/uL (150-450); RED BLOOD COUNT 6.01 10^6/uL (4.35-5.55); RED CELL DISTRIBUTION WIDTH 15.1 % (11.5-14.0); TOTAL CELLS COUNTED % (AUTO) 100 %; WHITE BLOOD COUNT 6.9 10^3/uL (4.0-10.5)
[2017-12-27 15:13] LABS: ALANINE AMINOTRANSFERASE 29 U/L (21-72); ALBUMIN 4.4 g/dL (3.5-5.0); ALKALINE PHOSPHATASE 101 U/L (38-126); ANION GAP 13 (5-19); ASPARTATE AMINO TRANSFERASE 26 U/L (17-59); BILIRUBIN,DIRECT 0.3 mg/dL (0.0-0.4); BILIRUBIN,TOTAL 0.6 mg/dL (0.2-1.3); BLOOD UREA NITROGEN 28 mg/dL (7-20); CALCIUM 10.1 mg/dL (8.4-10.2); CARBON DIOXIDE 28 mmol/L (22-30); CHLORIDE 104 mmol/L (98-107); CREATINE KINASE 94 U/L (55-170); GLUCOSE 130 mg/dL (75-110); POTASSIUM 4.2 mmol/L (3.6-5.0); SODIUM 145.4 mmol/L (137-145); TOTAL PROTEIN 7.6 g/dL (6.3-8.2)
--- NOTE | 2017-12-27 15:27 | EKG REPORT ---
SEVERITY:- ABNORMAL ECG - SINUS RHYTHM LEFT ANTERIOR FASCICULAR BLOCK BORDERLINE T ABNORMALITIES, ANT-LAT LEADS : Confirmed by: Joey Jaramillo MD 27-Dec-2017 15:26:22
[2017-12-27] MEDS ORDERED: NORMAL SALINE 1000 ML 1,000 ML IV ONE (15:55)
[2017-12-27 18:39] VITALS: BP 132/83
== END 2017-12-27 18:47 ==
LOC: ER 11:39
DX: R56.9 Unspecified convulsions (principal); E78.00 Pure hypercholesterolemia, unspecified; I10 Essential (primary) hypertension; E11.9 Type 2 diabetes mellitus without complications; Z86.73 Personal history of transient ischemic attack (TIA), and cerebral infarction without residual deficits; Z93.1 Gastrostomy status
CPT/HCPCS: 93005; 99285; 51701; 36415; 82550; 85025; 80053; 84484; 71045; 70450; 93010; J7030; J3490

== ENCOUNTER 2018-10-03 17:59 | Emergency (ER) | payer OTHER, MEDICARE, MEDICAID ==
--- NOTE | 2018-10-03 18:29 | ER Document Report ---
ED Seizure - General Chief Complaint: Seizure Stated Complaint: POSSIBLE SEIZURE Time Seen by Provider: 10/03/18 18:11 Primary Care Provider: IDALIA CUETO MD [Primary Care Provider] - Follow up as needed Mode of Arrival: Medic Information source: Emergency Med Personnel Cannot obtain history due to: Altered mental status - HPI Patient complains to provider of: History of seizures Notes: Very limited history based on patient's chronic altered mental status. The patient has had prior CVAs and is unable to give any information or follow any command. This is his baseline. Information is obtained from EMS who obtained information from the senior care where the patient stays. Apparently when the patient was being moved to his bed, he had some "seizure-like activity "that lasted a few seconds. They were unable to give any specifics on to exactly what the activity was. Patient is currently in his baseline at this time. No fevers. No vomiting. Unable to obtain any further information as the patient does not communicate. In reviewing his records, the patient apparently has a history of seizures, his last seizure was over 20 years ago. He is not on antiepileptic medications at this time. - Related Data Allergies/Adverse Reactions: No Known Allergies Allergy (Verified 10/14/17 17:54) Past Medical History - Social History Smoking Status: Former Smoker Family History: Hypertension Patient has suicidal ideation: No Patient has homicidal ideation: No - Past Medical History Cardiac Medical History: Reports: Hx Hypercholesterolemia, Hx Hypertension Denies: Hx Atrial Fibrillation, Hx Congestive Heart Failure, Hx Heart Attack Pulmonary Medical History: Denies: Hx Asthma, Hx COPD Neurological Medical History: Reports: Hx Cerebrovascular Accident. Denies: Hx Seizures Endocrine Medical History: Reports: Hx Diabetes Mellitus Type 2. Denies: Hx Diabetes Mellitus Type 1 Renal/ Medical History: Denies: Hx Peritoneal Dialysis GI Medical History: Reports: Hx Gastroesophageal Reflux Disease. Denies: Hx Cirrhosis, Hx Hepatitis Musculoskeletal Medical History: Reports Hx Arthritis Psychiatric Medical History: Reports: Hx Dementia Denies: Hx Depression Infectious Medical History: Denies: Hx Hepatitis Past Surgical History: Reports: Hx Orthopedic Surgery - finger, Other - PEG tube placement earlier this month. - Immunizations Hx Diphtheria, Pertussis, Tetanus Vaccination: Yes Review of Systems - Review of Systems -: Yes ROS unobtainable due to patient's medical condition Physical Exam - Vital signs Vitals: Pulse Resp BP Pulse Ox 87 16 117/74 94 10/03/18 18:08 04/14/19 18:08 10/03/18 18:08 10/03/18 18:08 - Notes Notes: GENERAL: Patient does not follow commands, altered mental status, this is his baseline, nontoxic, no distress. HEAD: normocephalic, atraumatic EYES: conjunctiva pink without discharge, no external redness or swelling. Pupils equal round react to light. EARS: no external swelling, no external redness NOSE: atraumatic, no external swelling MOUTH/THROAT: mucous membranes moist and pink, posterior pharynx without erythema, swelling, exudate. No trismus or drooling. Widespread dental decay. Superficial abrasion/laceration to the lip. No active bleeding. NECK: soft, supple, full range of motion, no meningismus. CHEST: no distress, lungs clear and equal throughout. No wheezing, rales, rhonchi. CARDIAC: regular rate and rhythm, no murmur, normal capillary refill, normal pulses. No peripheral edema noted. ABDOMEN: Soft, nontender. Feeding tube noted in place. No surrounding redness. No drainage. BACK: full range of motion, no CVA tenderness. EXTREMITIES: No redness, no swelling. NEURO: Patient does not follow commands, he is not awake or alert. This is his baseline. Unable to perform further neurological exam as the patient does not follow commands. No seizure-like activity at this time. PYSCH: Unable to obtain. SKIN: pink, warm, dry, no rash. Course - Re-evaluation Re-evalutation: 10/03/18 19:45 Patient is resting comfortably at this time. No obvious seizure activity at this time. and son are at the bedside. They state that the patient is at his baseline at this time. We will continue to monitor. 10/03/18 19:55 Patient remains at baseline at this time. Lab work is unremarkable for any acute findings. He has an elevated creatinine which is chronic for him. Mild anemia which is also chronic. Chest x-ray shows no acute abnormalities. Head CT shows no acute abnormalities. Unclear if the patient actually had any type of seizure activity. He said no seizure type activity here in the emergency department. This point the patient can be discharged back to his nursing facility with neurology referral. We would be important for him to follow-up with a neurologist at the next available appointment. Certainly follow-up sooner if he has any worsening seizure type activities or any further concerns. The patient's emergency department workup and current diagnosis were explained to the patient and or family. Follow-up instructions were provided. Medications if prescribed were discussed. Instructions for when to return to the emergency department including specific worrisome symptoms were discussed with the patient and/or family. - Vital Signs Vital signs: Temp Pulse Resp BP Pulse Ox 98.8 F 87 15 123/95 H 93 10/03/18 18:45 10/03/18 18:08 10/03/18 19:02 10/03/18 19:02 10/03/18 19:02 - Laboratory Result Diagrams: 10/03/18 18:10 10/03/18 18:10 Laboratory results interpreted by me: 10/03/18 10/03/18 18:10 18:10 RBC 6.55 H MCV 77 L MCH 24.1 L MCHC 31.5 L RDW 15.4 H Seg Neutrophils % 33.0 L Lymphocytes % 45.3 H Monocytes % 14.9 H Eosinophils % 6.3 H Potassium 5.1 H Carbon Dioxide 13 L Anion Gap 23 H BUN 25 H Creatinine 1.41 H Est GFR ( Amer) 58 L Est GFR (Non-Af Amer) 48 L Glucose 136 H Calcium 10.5 H Direct Bilirubin 0.6 H AST 62 H ALT 15 L Total Protein 8.3 H - Diagnostic Test Radiology reviewed: Image reviewed, Reports reviewed - CT of head and chest x- ray with no acute findings. - EKG Interpretation by Me EKG shows normal: Sinus rhythm When compared to previous EKG there are: Other - Heart rate is 75. First-degree AV block. Left axis deviation. No STEMI. No change from previous EKGs. Discharge - Discharge Clinical Impression: Altered mental status, unspecified Qualifiers: Altered mental status type: unspecified Qualified Code(s): R41.82 - Altered m ental status, unspecified Condition: Stable Disposition: HOME-SNF (ED ONLY) Instructions: New Seizure ([facility]) Additional Instructions: He should be seen and evaluated by a neurologist at the next available appointment. Follow-up sooner for any worsening potential seizure activity, fever, acting abnormal, or for any further concerns. Referrals: IDALIA CUETO MD [Primary Care Provider] - Follow up as needed TRUDY RIZO MD [EMERITUS] - Follow up as needed
[2018-10-03 18:46] LABS: ABSOLUTE EOSINOPHILS # (AUTO) 0.5 10^3/uL (0.0-0.6); ABSOLUTE LYMPHOCYTES (AUTO) 3.8 10^3/uL (0.5-4.7); ABSOLUTE MONOCYTES (AUTO) 1.3 10^3/uL (0.1-1.4); ABSOLUTE NEUT (AUTO) 2.8 10^3/uL (1.7-8.2); BASOPHILS % (AUTO) 0.5 % (0-2); EOSINOPHILS % (AUTO) 6.3 % (0-6); HEMATOCRIT 50.1 % (37.9-51.0); HEMOGLOBIN 15.8 g/dL (13.5-17.0); LYMPHOCYTES % (AUTO) 45.3 % (13-45); MEAN CORPUSCULAR HEMOGLOBIN 24.1 pg (27.0-33.4); MEAN CORPUSCULAR HGB CONC 31.5 g/dL (32.0-36.0); MEAN CORPUSCULAR VOLUME 77 fl (80-97); MONOCYTES % (AUTO) 14.9 % (3-13); PLATELET COUNT 180 10^3/uL (150-450); RED BLOOD COUNT 6.55 10^6/uL (4.35-5.55); RED CELL DISTRIBUTION WIDTH 15.4 % (11.5-14.0); TOTAL CELLS COUNTED % (AUTO) 100 %; WHITE BLOOD COUNT 8.5 10^3/uL (4.0-10.5)
[2018-10-03 19:01] LABS: ALANINE AMINOTRANSFERASE 15 U/L (21-72); ALBUMIN 4.8 g/dL (3.5-5.0); ALKALINE PHOSPHATASE 101 U/L (38-126); ASPARTATE AMINO TRANSFERASE 62 U/L (17-59); BILIRUBIN,DIRECT 0.6 mg/dL (0.0-0.4); BILIRUBIN,TOTAL 1.1 mg/dL (0.2-1.3); BLOOD UREA NITROGEN 25 mg/dL (7-20); CALCIUM 10.5 mg/dL (8.4-10.2); CARBON DIOXIDE 13 mmol/L (22-30); CHLORIDE 104 mmol/L (98-107); GLUCOSE 136 mg/dL (75-110); POTASSIUM 5.1 mmol/L (3.6-5.0); TOTAL PROTEIN 8.3 g/dL (6.3-8.2)
[2018-10-03 19:02] LABS: ANION GAP 23 (5-19)
[2018-10-03] MEDS ORDERED: NORMAL SALINE 1000 ML 500 ML IV ONE (19:31)
--- NOTE | 2018-10-03 19:46 | RADIOLOGY REPORT (SQ) ---
EXAM DESCRIPTION: CT HEAD WITHOUT COMPLETED DATE/TIME: 10/03/2018 7:29 pm REASON FOR STUDY: possible seizure COMPARISON: 2018 TECHNIQUE: Axial images acquired through the brain without intravenous contrast. Images reviewed wi th bone, brain and subdural windows. Additional sagittal and coronal reconstructions were generated. Images stored on PACS. All CT scanners at this facility use dose modulation, iterative reconstruction, and/or weight based d osing when appropriate to reduce radiation dose to as low as reasonably achievable (ALARA). [facility]: Dose Right [facility]: CareDose [facility]: Dose Right [facility]: Teradose 4D [facility]: [employer] RADIATION DOSE: CT Rad equipment meets quality standard of care and radiation dose reduction techniq ues were employed. CTDIvol: 55.2 mGy. DLP: 1194 mGy-cm.mGy. LIMITATIONS: None. FINDINGS: VENTRICLES: Prominent. CEREBRUM: No masses. No hemorrhage. No midline shift. Areas of low density in the white matter mos t likely due to chronic micro-vascular ischemic change. No evidence for acute infarction. Old right frontal infarct. CEREBELLUM: No masses. No hemorrhage. No alteration of density. No evidence for acute infarction. EXTRAAXIAL SPACES: Age-related involutional change. No fluid collections. No masses. ORBITS AND GLOBE: No intra- or extraconal masses. Normal contour of globe without masses. CALVARIUM: No fracture. PARANASAL SINUSES: No fluid or mucosal thickening. SOFT TISSUES: No mass or hematoma. OTHER: No other significant finding. IMPRESSION: CHRONIC CHANGES OF ATROPHY AND MICROVASCULAR ISCHEMIA. Old right frontal infarct. NO A CUTE PROCESS. EVIDENCE OF ACUTE STROKE: NO. TECHNICAL DOCUMENTATION: JOB ID: [id number] Quality ID # 436: Final reports with documentation of one or more dose reduction techniques (e.g., Au tomated exposure control, adjustment of the mA and/or kV according to patient size, use of iterative reconstruction technique) 2010 [employer]- All Rights Reserved Reading location - IP/workstation name: [email or web address]
--- NOTE | 2018-10-03 19:48 | RADIOLOGY REPORT (SQ) ---
EXAM DESCRIPTION: CHEST SINGLE VIEW COMPLETED DATE/TIME: 10/03/2018 7:34 pm REASON FOR STUDY: possible seizure COMPARISON: 08/05/2014 EXAM PARAMETERS: NUMBER OF VIEWS: One view. TECHNIQUE: Single frontal radiographic view of the chest acquired. RADIATION DOSE: NA LIMITATIONS: None. FINDINGS: LUNGS AND PLEURA: No opacities, masses or pneumothorax. No pleural effusion. MEDIASTINUM AND HILAR STRUCTURES: No masses. Contour normal. HEART AND VASCULAR STRUCTURES: Heart normal in size. Normal vasculature. BONES: No acute findings. HARDWARE: None in the chest. OTHER: No other significant finding. IMPRESSION: NO ACUTE RADIOGRAPHIC FINDING IN THE CHEST. TECHNICAL DOCUMENTATION: JOB ID: [id number] [employer]- All Rights Reserved Reading location - IP/workstation name: [email or web address]
[2018-10-03 22:04] VITALS: BP 130/95
--- NOTE | 2018-10-03 23:40 | EKG REPORT ---
SEVERITY:- ABNORMAL ECG - SINUS RHYTHM FIRST DEGREE AV BLOCK LEFT AXIS DEVIATION LEFT VENTRICULAR HYPERTROPHY : Confirmed by: Alfonso Werner 03-Oct-2018 23:39:07
== END 2018-10-03 22:04 ==
LOC: ER 17:59
DX: R41.82 Altered mental status, unspecified (principal); R56.9 Unspecified convulsions; Z87.891 Personal history of nicotine dependence; I10 Essential (primary) hypertension; E11.9 Type 2 diabetes mellitus without complications
CPT/HCPCS: 93005; 99285; 96360; 36415; 85025; 80053; 71045; 70450; 93010; C1758 ×2; J7030

== ENCOUNTER 2018-12-16 12:50 | Emergency (ER) | payer OTHER, MEDICARE, MEDICAID ==
--- NOTE | 2018-12-16 16:29 | RADIOLOGY REPORT (SQ) ---
EXAM DESCRIPTION: KUB/ABDOMEN (SINGLE VIEW) COMPLETED DATE/TIME: 12/16/2018 4:14 pm REASON FOR STUDY: with gastroview through PEg for PEg placement COMPARISON: CT abdomen pelvis 03/05/2017 KUB 02/24/2017 KUB 02/22/2017 NUMBER OF VIEWS: One view. TECHNIQUE: 4 KUB images LIMITATIONS: None. FINDINGS: 50 mL of Gastrografin was injected through the patient's percutaneous gastrostomy tube. S upine, and RPO images were obtained. There is no gross extravasation of contrast from the stomach. Emptying into the proximal duodenum is seen on these films. IMPRESSION: Gastrografin injected into the stomach through gastrostomy tube. No gross extravasation on today's KUB images TECHNICAL DOCUMENTATION: JOB ID: [id number] [employer]- All Rights Reserved Reading location - IP/workstation name: [email or web address]
--- NOTE | 2018-12-16 16:58 | ER Document Report ---
ED GI/ - General Chief Complaint: Displaced G-tube Stated Complaint: GASTRIC TUBE ISSUES Time Seen by Provider: 12/16/18 15:16 Primary Care Provider: REY CHICAS MD [Primary Care Provider] - Follow up as needed Information source: Relative, Transfer Record Cannot obtain history due to: Dementia TRAVEL OUTSIDE OF THE [place] IN LAST 30 DAYS: No - HPI Notes: 12/16/18 15:41 83-year-old male has a G-tube. [facility] Family reports that the nursing staff has actually pulled out the G-tube 5-6 times since he has had a in the last 2 years. Today the staff reports the tube came out and they were unable to place it back in. Patient is nonverbal he has no complaints family has no other complaints. - Related Data Allergies/Adverse Reactions: No Known Allergies Allergy (Verified 10/14/17 17:54) Past Medical History - Social History Smoking Status: Unknown if Ever Smoked Family History: Hypertension Patient has suicidal ideation: No Patient has homicidal ideation: No - Past Medical History Cardiac Medical History: Reports: Hx Hypercholesterolemia, Hx Hypertension Denies: Hx Atrial Fibrillation, Hx Congestive Heart Failure, Hx Heart Attack Pulmonary Medical History: Denies: Hx Asthma, Hx COPD Neurological Medical History: Reports: Hx Cerebrovascular Accident. Denies: Hx Seizures Endocrine Medical History: Reports: Hx Diabetes Mellitus Type 2. Denies: Hx Diabetes Mellitus Type 1 Renal/ Medical History: Denies: Hx Peritoneal Dialysis GI Medical History: Reports: Hx Gastroesophageal Reflux Disease. Denies: Hx Cirrhosis, Hx Hepatitis Musculoskeletal Medical History: Reports Hx Arthritis Psychiatric Medical History: Reports: Hx Dementia Denies: Hx Depression Infectious Medical History: Denies: Hx Hepatitis Past Surgical History: Reports: Hx Orthopedic Surgery - finger, Other - PEG tube placement earlier this month. - Immunizations Hx Diphtheria, Pertussis, Tetanus Vaccination: Yes Physical Exam - Vital signs Vitals: Temp Pulse Resp BP Pulse Ox 97.9 F 86 17 123/89 H 97 12/16/18 13:07 12/16/18 13:07 12/16/18 13:07 12/16/18 13:07 12/16/18 13:07 Course - Vital Signs Vital signs: Temp Pulse Resp BP Pulse Ox 97.9 F 88 16 106/57 L 95 12/16/18 17:37 12/16/18 17:37 12/16/18 17:37 12/16/18 17:37 12/16/18 17:37 Discharge - Discharge Clinical Impression: Complaint associated with gastric tube Condition: Stable Disposition: SNF-Other Referrals: REY CHICAS MD [Primary Care Provider] - Follow up as needed
[2018-12-16 17:40] VITALS: BP 106/57
== END 2018-12-16 17:40 ==
LOC: ER 12:50
DX: Z43.1 Encounter for attention to gastrostomy (principal); I10 Essential (primary) hypertension; E11.9 Type 2 diabetes mellitus without complications
CPT/HCPCS: 74018; 99284

== ENCOUNTER 2019-02-07 12:51 | Emergency (ER) | payer OTHER, MEDICARE, MEDICAID ==
[2019-02-07] MEDS ORDERED: NORMAL SALINE 1000 ML 1,000 ML IV ONE (12:59)
[2019-02-07 13:29] LABS: ABSOLUTE EOSINOPHILS # (AUTO) 0.3 10^3/uL (0.0-0.6); ABSOLUTE LYMPHOCYTES (AUTO) 1.4 10^3/uL (0.5-4.7); ABSOLUTE MONOCYTES (AUTO) 0.5 10^3/uL (0.1-1.4); ABSOLUTE NEUT (AUTO) 2.2 10^3/uL (1.7-8.2); BASOPHILS % (AUTO) 0.6 % (0-2); EOSINOPHILS % (AUTO) 6.8 % (0-6); HEMATOCRIT 35.5 % (37.9-51.0); HEMOGLOBIN 11.2 g/dL (13.5-17.0); MEAN CORPUSCULAR HEMOGLOBIN 23.6 pg (27.0-33.4); MEAN CORPUSCULAR HGB CONC 31.7 g/dL (32.0-36.0); MEAN CORPUSCULAR VOLUME 74 fl (80-97); MONOCYTES % (AUTO) 11.9 % (3-13); PLATELET COUNT 140 10^3/uL (150-450); RED BLOOD COUNT 4.77 10^6/uL (4.35-5.55); RED CELL DISTRIBUTION WIDTH 15.9 % (11.5-14.0); SEGMENTED NEUTROPHILS % (AUTO) 49.7 % (42-78); TOTAL CELLS COUNTED % (AUTO) 100 %; WHITE BLOOD COUNT 4.4 10^3/uL (4.0-10.5)
[2019-02-07 13:50] LABS: ALBUMIN 2.6 g/dL (3.5-5.0); ALKALINE PHOSPHATASE 59 U/L (38-126); ANION GAP 6 (5-19); ASPARTATE AMINO TRANSFERASE 27 U/L (17-59); BILIRUBIN,DIRECT 0.3 mg/dL (0.0-0.4); BILIRUBIN,TOTAL 0.5 mg/dL (0.2-1.3); BLOOD UREA NITROGEN 23 mg/dL (7-20); CARBON DIOXIDE 24 mmol/L (22-30); CHLORIDE 108 mmol/L (98-107); GLUCOSE 138 mg/dL (75-110); TOTAL PROTEIN 5.3 g/dL (6.3-8.2)
[2019-02-07 13:51] LABS: ALCOHOL < 10 mg/dL (NONE DETECTED)
--- NOTE | 2019-02-07 14:20 | RADIOLOGY REPORT (SQ) ---
EXAM DESCRIPTION: CT HEAD WITHOUT COMPLETED DATE/TIME: 02/07/2019 2:11 pm REASON FOR STUDY: unresponsive COMPARISON: 10/03/2018 TECHNIQUE: Axial images acquired through the brain without intravenous contrast. Images reviewed wi th bone, brain and subdural windows. Additional sagittal and coronal reconstructions were generated. Images stored on PACS. All CT scanners at this facility use dose modulation, iterative reconstruction, and/or weight based d osing when appropriate to reduce radiation dose to as low as reasonably achievable (ALARA). [facility]: Dose Right [facility]: CareDose [facility]: Dose Right [facility]: Teradose 4D [facility]: [employer] RADIATION DOSE: CT Rad equipment meets quality standard of care and radiation dose reduction techniq ues were employed. CTDIvol: 48.4 mGy. DLP: 853 mGy-cm. mGy. LIMITATIONS: None. FINDINGS: VENTRICLES: Normal size and contour. CEREBRUM: No masses. No hemorrhage. No midline shift. No evidence for acute infarction. Extensive areas of low density in the white matter most likely chronic small vessel ischemic changes. Right fr ontal encephalomalacia. CEREBELLUM: No masses. No hemorrhage. No alteration of density. No evidence for acute infarction. Encephalomalacia of the left cerebellar hemisphere. EXTRAAXIAL SPACES: No fluid collections. No masses. ORBITS AND GLOBE: No intra- or extraconal masses. Normal contour of globe without masses. CALVARIUM: No fracture. PARANASAL SINUSES: No fluid or mucosal thickening. SOFT TISSUES: No mass or hematoma. OTHER: No other significant finding. IMPRESSION: No acute intracranial pathology. Advanced small vessel white matter disease. Right fro ntal and left cerebellar encephalomalacia, in keeping with prior infarctions. EVIDENCE OF ACUTE STROKE: NO. COMMENT: Quality ID # 436: Final reports with documentation of one or more dose reduction techniques (e.g., Automated exposure control, adjustment of the mA and/or kV according to patient size, use of iterative reconstruction technique) TECHNICAL DOCUMENTATION: JOB ID: [id number] [employer]- All Rights Reserved Reading location - IP/workstation name: [email or web address]
--- NOTE | 2019-02-07 15:48 | ER Document Report ---
ED General - General Chief Complaint: Unresponsive Stated Complaint: UNRESPONSIVE Time Seen by Provider: 02/07/19 12:58 Primary Care Provider: REY CHICAS MD [Primary Care Provider] - Follow up as needed TRAVEL OUTSIDE OF THE [place] IN LAST 30 DAYS: No - HPI Notes: Patient is an 83-year-old male, brought in for evaluation from an cloth bolt bander office here in [facility]. I was unable to obtain any significant history until patient's and son arrived here. Evidently the patient is currently staying at [facility]. He had an ophthalmology appointment this morning. He received eyedrops, was being reevaluated. At one point the was in the room, noticed his eyes rolled back in his head, he was staring off into space. She brought the physician and he was unable to arouse him. At that point 911 was called. Evidently there is some question as to whether or not the patient is suffering from seizures. He has had a "sleep study" according to family, but has not yet seen neurology. He is not on any seizure medications. He does have a history of 2 CVAs. He also has advanced dementia. He is primarily nonverbal. - Related Data Allergies/Adverse Reactions: No Known Allergies Allergy (Verified 10/14/17 17:54) Past Medical History - General Information source: Relative, Transfer Record, [facility] Records Cannot obtain history due to: Dementia - Social History Smoking Status: Unknown if Ever Smoked Chew tobacco use (# tins/day): No Frequency of alcohol use: None Drug Abuse: None Family History: Hypertension Patient has suicidal ideation: No Patient has homicidal ideation: No - Past Medical History Cardiac Medical History: Reports: Hx Hypercholesterolemia, Hx Hypertension Denies: Hx Atrial Fibrillation, Hx Congestive Heart Failure, Hx Heart Attack Pulmonary Medical History: Denies: Hx Asthma, Hx COPD Neurological Medical History: Reports: Hx Cerebrovascular Accident. Denies: Hx Seizures Endocrine Medical History: Reports: Hx Diabetes Mellitus Type 2. Denies: Hx Diabetes Mellitus Type 1 Renal/ Medical History: Denies: Hx Peritoneal Dialysis GI Medical History: Reports: Hx Gastroesophageal Reflux Disease. Denies: Hx Cirrhosis, Hx Hepatitis Musculoskeletal Medical History: Reports Hx Arthritis Psychiatric Medical History: Reports: Hx Dementia Denies: Hx Depression Infectious Medical History: Denies: Hx Hepatitis Past Surgical History: Reports: Hx Orthopedic Surgery - finger, Other - PEG tube placement earlier this month. - Immunizations Hx Diphtheria, Pertussis, Tetanus Vaccination: Yes Review of Systems - Review of Systems -: Yes ROS unobtainable due to patient's medical condition Physical Exam - Vital signs Vitals: Resp Pulse Ox 11 L 100 02/07/19 13:00 02/07/19 13:00 - Notes Notes: This is an 83-year-old male who appears his stated age, no acute distress. Head is normocephalic and appears atraumatic. Pupils are pinpoint bilaterally, milky eyedrops noted at the medial canthus bilaterally. Nares are patent. Oral mucosa is moist. Uvula is midline. Heart is regular rate and rhythm, lungs are clear to station bilaterally. Abdomen is mildly scaphoid with G-tube in place. No surrounding erythema, induration, drainage. Extremities without cyanosis, clubbing, edema. Skin is warm and dry. Patient is awake and alert. He will open his eyes to verbal stimuli, but only reluctantly so. Response with withdrawal from painful stimuli. Moves all 4 extremities spontaneously. No gross facial asymmetry. Course - Re-evaluation Re-evalutation: 02/07/19 15:55 Patient presents to the emergency department for evaluation of an unresponsive episode. My strong thought is that this patient is actually suffering from seizures. He has had some evaluation for that, but not formal neurology evaluation. I believe that this is necessary, and strongly encouraged family to seek it out. They voiced understanding. Otherwise, patient's and son are present in the room. They state that currently he is at his baseline. They feel comfortable with the patient being discharged back to the custodial. He is not tachycardic, not febrile. He is at baseline per family. I will go ahead and discontinue his urinalysis, have him follow-up with primary care as well as neurology. He is to return to the ED with worsening. - Vital Signs Vital signs: Temp Pulse Resp BP Pulse Ox 10 L 102/62 100 02/07/19 14:14 02/07/19 14:14 02/07/19 13:19 - Laboratory Result Diagrams: 02/07/19 13:15 02/07/19 13:15 Laboratory results interpreted by me: 02/07/19 02/07/19 13:15 13:15 Hgb 11.2 L Hct 35.5 L MCV 74 L MCH 23.6 L MCHC 31.7 L RDW 15.9 H Plt Count 140 L Eosinophils % 6.8 H Chloride 108 H BUN 23 H Glucose 138 H Calcium 8.0 L Total Protein 5.3 L Albumin 2.6 L - Diagnostic Test Radiology reviewed: Reports reviewed Radiology results interpreted by me: 02/07/19 15:[address] 02/07/19 13:38 IMPRESSION: No acute intracranial pathology. Advanced small vessel white matter disease. Right frontal and left cerebellar encephalomalacia, in keeping with prior infarctions. EVIDENCE OF ACUTE STROKE: NO. - EKG Interpretation by Me Additional EKG results interpreted by me: 02/07/19 15:49 Sinus bradycardia with a rate of 54 bpm. Left axis deviation. First-degree AV block. Nonspecific ST changes, but no acute changes concerning for infarction. No significant change compared to prior study. Discharge - Discharge Clinical Impression: Unresponsive episode Condition: Stable Disposition: HOME-SNF (ED ONLY) Instructions: New Seizure ([facility]) Additional Instructions: It is unclear at this time as to whether or not you suffered through a seizure. We strongly recommend neurological follow-up at this time. You should also follow-up with primary care this week. Return to the emergency department with worsening or new concerning symptoms of any sort. Referrals: REY CHICAS MD [Primary Care Provider] - Follow up as needed
--- NOTE | 2019-02-07 15:51 | EKG REPORT ---
SEVERITY:- ABNORMAL ECG - SINUS OR ECTOPIC ATRIAL RHYTHM FIRST DEGREE AV BLOCK LEFT AXIS DEVIATION LEFT VENTRICULAR HYPERTROPHY BORDERLINE T ABNORMALITIES, INFERIOR LEADS : Confirmed by: Samantha Soares MD 07-Feb-2019 15:50:15
[2019-02-07 19:56] VITALS: BP 134/74
== END 2019-02-07 19:56 ==
LOC: ER 12:51
DX: R40.4 Transient alteration of awareness (principal); E78.00 Pure hypercholesterolemia, unspecified; I10 Essential (primary) hypertension; E11.9 Type 2 diabetes mellitus without complications; F03.90 Unspecified dementia, unspecified severity, without behavioral disturbance, psychotic disturbance, mood disturbance, and anxiety; Z93.1 Gastrostomy status; Z86.73 Personal history of transient ischemic attack (TIA), and cerebral infarction without residual deficits
CPT/HCPCS: 93005; 99285; 96360; 36415; 87040; 80307; 83735; 85025; 80053; 70450; 93010; C1758; J7030

== ENCOUNTER 2019-05-07 09:30 | Emergency (ER) | payer OTHER, MEDICARE, MEDICAID ==
[2019-05-07 10:17] LABS: ABSOLUTE EOSINOPHILS # (AUTO) 0.4 10^3/uL (0.0-0.6); ABSOLUTE MONOCYTES (AUTO) 0.7 10^3/uL (0.1-1.4); ABSOLUTE NEUT (AUTO) 3.4 10^3/uL (1.7-8.2); BASOPHILS % (AUTO) 0.5 % (0-2); EOSINOPHILS % (AUTO) 6.7 % (0-6); HEMATOCRIT 46.1 % (37.9-51.0); HEMOGLOBIN 14.6 g/dL (13.5-17.0); MEAN CORPUSCULAR HEMOGLOBIN 23.8 pg (27.0-33.4); MEAN CORPUSCULAR HGB CONC 31.7 g/dL (32.0-36.0); MEAN CORPUSCULAR VOLUME 75 fl (80-97); MONOCYTES % (AUTO) 10.2 % (3-13); PLATELET COUNT 170 10^3/uL (150-450); RED BLOOD COUNT 6.14 10^6/uL (4.35-5.55); RED CELL DISTRIBUTION WIDTH 15.9 % (11.5-14.0); SEGMENTED NEUTROPHILS % (AUTO) 51.6 % (42-78); TOTAL CELLS COUNTED % (AUTO) 100 %; WHITE BLOOD COUNT 6.6 10^3/uL (4.0-10.5)
[2019-05-07 10:32] LABS: ALBUMIN 4.6 g/dL (3.5-5.0); ALKALINE PHOSPHATASE 99 U/L (38-126); ASPARTATE AMINO TRANSFERASE 27 U/L (17-59); BILIRUBIN,DIRECT 0.2 mg/dL (0.0-0.4); BILIRUBIN,TOTAL 0.5 mg/dL (0.2-1.3); BLOOD UREA NITROGEN 26 mg/dL (7-20); CALCIUM 10.4 mg/dL (8.4-10.2); GLUCOSE 149 mg/dL (75-110); POTASSIUM 4.3 mmol/L (3.6-5.0); TOTAL PROTEIN 7.7 g/dL (6.3-8.2)
[2019-05-07 10:37] LABS: CARBON DIOXIDE 18 mmol/L (22-30); CHLORIDE 104 mmol/L (98-107)
[2019-05-07 10:41] LABS: ANION GAP 21 (5-19)
--- NOTE | 2019-05-07 11:47 | ER Document Report ---
Entered by SALUD KOTHARI SCRIBE 05/07/19 1035 Acting as scribe for:TEJ HUDSON MD ED Seizure - General Chief Complaint: Seizure Stated Complaint: SEIZURE Time Seen by Provider: 05/07/19 10:30 Primary Care Provider: [facility] [Primary Care Provider] - Follow up as needed Mode of Arrival: Ambulatory Information source: Patient Cannot obtain history due to: Dementia, Altered mental status Notes: 83-year-old male from [facility] that presents today for complaints of a witnessed seizure that lasted approximately 2 minutes. EMS reports that nursing staff told them that the patient had full body jerking, shaking, and his eyes rolled in the back of his head. Patient has a remote history of seizures, had a negative EEG, not on any medications. History is limited secondary to the patient's baseline mental status. Pertinent PMHx/PSHx: Remote history of Seizures, negative EEG, no meds. PCP: [facility] - Related Data Allergies/Adverse Reactions: No Known Allergies Allergy (Verified 10/14/17 17:54) Home Medications: see mar from [facility] facility on paper chart, Past Medical History - General Information source: Patient Cannot obtain history due to: Dementia, Unstable vital signs, Altered mental status - Social History Smoking Status: Former Smoker Cigarette use (# per day): Yes Frequency of alcohol use: None Drug Abuse: None Lives with: Family Family History: Hypertension Patient has suicidal ideation: No Patient has homicidal ideation: No - Past Medical History Cardiac Medical History: Reports: Hx Hypercholesterolemia, Hx Hypertension Pulmonary Medical History: Reports: Hx Pneumonia Neurological Medical History: Reports: Hx Cerebrovascular Accident, Hx Seizures Endocrine Medical History: Reports: Hx Diabetes Mellitus Type 2 GI Medical History: Reports: Hx Gastroesophageal Reflux Disease - gastritis Musculoskeletal Medical History: Reports Hx Arthritis Psychiatric Medical History: Reports: Hx Dementia Past Surgical History: Reports: Hx Abdominal Surgery - Gtube, Hx Orthopedic Surgery - finger, Other - PEG tube placement earlier this month. - Immunizations Hx Diphtheria, Pertussis, Tetanus Vaccination: Yes Review of Systems - Review of Systems -: Yes ROS unobtainable due to patient's medical condition Physical Exam - Vital signs Vitals: Resp BP Pulse Ox 17 156/114 H 99 05/07/19 09:40 05/07/19 09:40 05/07/19 09:40 - Notes Notes: Physical Exam: General: Postictal. HEENT: Normocephalic. Atraumatic. PERRL. Extraocular movements intact. Oropharynx clear. Neck: Supple. Non-tender. Respiratory: No respiratory distress. Clear and equal breath sounds bilaterally. Cardiovascular: Regular rate and rhythm. Abdominal: Feeding tube. Non-tender. No distension. Normal Bowel Sounds. Back: No gross abnormalities. Extremities Upper extremities: Holds right upper extremity flexed, holds left upper extremity semi-flexed. Both arms can be straightened although the patient does fight this and flexes his arms after tension is released. Lower extremities: Bilateral hips and knees are held in flexion. Osteoarthritic changes of the knees bilaterally. Neurological: at baseline Skin: Warm. Dry. Normal color. Course - Vital Signs Vital signs: Temp Pulse Resp BP Pulse Ox 10 L 147/79 H 96 05/07/19 12:01 05/07/19 12:01 05/07/19 12:01 - Laboratory Result Diagrams: 05/07/19 09:47 05/07/19 09:47 Laboratory results interpreted by me: 05/07/19 05/07/19 09:47 09:47 RBC 6.14 H MCV 75 L MCH 23.8 L MCHC 31.7 L RDW 15.9 H Eos % (Auto) 6.7 H Carbon Dioxide 18 L Anion Gap 21 H BUN 26 H Creatinine 1.48 H Est GFR ( Amer) 55 L Est GFR (MDRD) Non-Af 45 L Glucose 149 H Calcium 10.4 H - Diagnostic Test Radiology reviewed: Image reviewed, Reports reviewed - Chest x-ray is unremarkable Discharge - Discharge Clinical Impression: Seizure Dementia Qualifiers: Dementia type: unspecified type Dementia behavioral disturbance: without behavioral disturbance Qualified Code(s): F03.90 - Unspecified dementia without behavioral disturbance Condition: Stable Disposition: HOME-SNF (ED ONLY) Additional Instructions: Seizure, Known Epileptic You have had a seizure. Seizures may "break through" in an epileptic due to stress of infection or injury, a change in blood chemistry, or drug and alc ohol use. Another common cause is failure to take medication as prescribed. Your doctor has evaluated your situation for the likely cause of this seizure. It is important that you follow his advice concerning any medication changes and follow-up care. Further testing of anti-seizure medication levels in your blood may be necessary. 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 This seizure must be reported to the [facility]'s license bureau. Call the doctor or return if seizures recur, or if new or unusual symptoms arise -- such as severe headache, confusion, excessive sleepiness, local weakness or numbness, neck stiffness, or fever. Take the medication as prescribed for your seizures. Follow-up with your primary care provider this week to decide if they want to keep you on the seizure medication. RETURN TO THE EMERGENCY ROOM IF ANY NEW OR WORSENING SYMPTOMS. Prescriptions: Keppra Susp 500mg/5ml 500 mg PEG BID #60 Referrals: [facility] [Primary Care Provider] - Follow up as needed Scribe Attestation: 05/07/19 13:18 I personally performed the services described in the documentation, reviewed and edited the documentation which was dictated to the scribe in my presence, and it accurately records my words and actions. I personally performed the services described in the documentation, reviewed and edited the documentation which was dictated to the scribe in my presence, and it accurately records my words and actions.
--- NOTE | 2019-05-07 12:12 | RADIOLOGY REPORT (SQ) ---
EXAM DESCRIPTION: CHEST SINGLE VIEW COMPLETED DATE/TIME: 05/07/2019 11:16 am REASON FOR STUDY: seizure with Gtube, possible aspiration COMPARISON: Chest x-ray 10/03/2018 EXAM PARAMETERS: NUMBER OF VIEWS: One view. TECHNIQUE: Single frontal radiographic view of the chest acquired. RADIATION DOSE: NA LIMITATIONS: None. FINDINGS: LUNGS AND PLEURA: No consolidation, pneumothorax or pleural effusion. MEDIASTINUM AND HILAR STRUCTURES: No masses. Contour normal. HEART AND VASCULAR STRUCTURES: Heart normal in size. Normal vasculature. BONES: No acute findings. HARDWARE: None in the chest. IMPRESSION: NO ACUTE RADIOGRAPHIC FINDING IN THE CHEST. TECHNICAL DOCUMENTATION: JOB ID: [id number] [employer]- All Rights Reserved Reading location - IP/workstation name: [email or web address]
[2019-05-07] MEDS ORDERED: LEVETIRACETAM ORAL SOLN 500 MG/5 ML UDCUP PEG ONE (13:14)
[2019-05-07 16:23] VITALS: BP 116/63
== END 2019-05-07 16:08 ==
LOC: ER 09:30
DX: R56.9 Unspecified convulsions (principal); F03.90 Unspecified dementia, unspecified severity, without behavioral disturbance, psychotic disturbance, mood disturbance, and anxiety; Z87.891 Personal history of nicotine dependence; I10 Essential (primary) hypertension; E11.9 Type 2 diabetes mellitus without complications
CPT/HCPCS: 99284; 51701; 36415; 85025; 80053; 71045; C1758; J3490

== ENCOUNTER 2019-08-23 08:33 | Emergency (ER) | payer OTHER, MEDICARE, MEDICAID ==
[2019-08-23 10:09] VITALS: BP 149/80
[2019-08-23] MEDS ORDERED: LIDOCAINE 2% URO-JET 5 ML KIT MM ONE (10:26)
--- NOTE | 2019-08-23 11:56 | ER Document Report ---
Entered by SALUD KOTHARI SCRIBE 08/23/19 1023 Acting as scribe for:TEJ HUDSON MD ED GI/ - General Chief Complaint: Problem with Feeding Tube Stated Complaint: FEEDING TUBE PROBLEMS Time Seen by Provider: 08/23/19 10:15 Primary Care Provider: JORGE,DONNELL [Primary Care Provider] - Follow up as needed Mode of Arrival: Ambulatory Information source: Patient Notes: This is an 83 year old male sent from the halfway to the emergency department today secondary to pulling out his PEG tube. It is unknown how many hours ago the tube was pulled out. They did not send the tube with the patient so that we would know what size. Reviewing old records I was able to determine that at some point he had a 20 Irish tube placed. TRAVEL OUTSIDE OF THE [place] IN LAST 30 DAYS: No - Related Data Allergies/Adverse Reactions: No Known Allergies Allergy (Verified 10/14/17 17:54) Past Medical History - General Information source: [facility] Records Cannot obtain history due to: Dementia - Social History Smoking Status: Unknown if Ever Smoked Cigarette use (# per day): No Chew tobacco use (# tins/day): No Frequency of alcohol use: None Drug Abuse: None Lives with: Family Family History: Reviewed & Not Pertinent, Hypertension Patient has suicidal ideation: No Patient has homicidal ideation: No - Past Medical History Cardiac Medical History: Reports: Hx Hypercholesterolemia, Hx Hypertension Pulmonary Medical History: Reports: Hx Pneumonia Neurological Medical History: Reports: Hx Cerebrovascular Accident, Hx Seizures Endocrine Medical History: Reports: Hx Diabetes Mellitus Type 2 GI Medical History: Reports: Hx Gastroesophageal Reflux Disease - gastritis Musculoskeletal Medical History: Reports Hx Arthritis Psychiatric Medical History: Reports: Hx Dementia Past Surgical History: Reports: Hx Abdominal Surgery - PEG tube, Hx Orthopedic Surgery - finger - Immunizations Hx Diphtheria, Pertussis, Tetanus Vaccination: Yes Review of Systems - Review of Systems -: Yes ROS unobtainable due to patient's medical condition Physical Exam - Vital signs Vitals: Temp Pulse Resp BP Pulse Ox 98.5 F 79 18 150/87 H 98 08/23/19 08:44 08/23/19 08:44 08/23/19 08:44 08/23/19 08:44 08/23/19 08:44 - Notes Notes: Physical Exam: General: Alert, appears at baseline. HEENT: Normocephalic. Atraumatic. PERRL. Extraocular movements intact. Oropharynx clear. Neck: Supple. Non-tender. Respiratory: No respiratory distress. Clear and equal breath sounds bilaterally. Cardiovascular: Regular rate and rhythm. Abdominal: Gastrostomy stoma is crusted over and very narrowed. Non-tender. No distension. Normal Bowel Sounds. Back: No gross abnormalities. Extremities: Upper extremities: Right upper extremity contracted at baseline Lower extremities: Normal inspection. No edema. Normal ROM. Neurological: Demented, does not converse which appears to be baseline according to [facility] records. Psychological: Demented Skin: Warm. Dry. Normal color. Course - Re-evaluation Re-evalutation: 08/23/19 11:19 The patient's G-tube stoma is crusted over. This area was cleaned up, the Urojet lidocaine was used to anesthetize and lubricate the tract. I was unable to pass the 18 Irish gastrostomy tube due to the whole having closed up too much. 08/23/19 11:45 Dr. Fontana was consulted and came over and enlarged the tract with a Lula clamp. He was able to get the tube inserted, and aspirated gastric contents. - Vital Signs Vital signs: Temp Pulse Resp BP Pulse Ox 98.5 F 79 10 L 149/80 H 99 08/23/19 08:44 08/23/19 08:44 08/23/19 10:01 08/23/19 10:01 08/23/19 10:01 - Consults Dr. Fontana Consulted provider: will come to ER Discharge - Discharge Clinical Impression: Replace gastrostomy tube Condition: Stable Disposition: HOME-SNF (ED ONLY) Additional Instructions: Follow-up with your doctor if needed. Referrals: [facility] [Primary Care Provider] - Follow up as needed I personally performed the services described in the documentation, reviewed and edited the documentation which was dictated to the scribe in my presence, and it accurately records my words and actions.
== END 2019-08-24 02:40 ==
LOC: ER 08:33
DX: Z43.1 Encounter for attention to gastrostomy (principal); F03.90 Unspecified dementia, unspecified severity, without behavioral disturbance, psychotic disturbance, mood disturbance, and anxiety; I10 Essential (primary) hypertension; E11.9 Type 2 diabetes mellitus without complications
CPT/HCPCS: 43762; 99284; J3490

== ENCOUNTER 2020-02-17 11:36 | Inpatient (IN) | payer OTHER, MEDICARE, MEDICAID ==
[2020-02-17] MEDS ORDERED: NORMAL SALINE 1000 ML 1,000 ML IV ONE (12:54)
--- NOTE | 2020-02-17 13:03 | ER Document Report ---
ED General - General Chief Complaint: Wound Infection Stated Complaint: ABDOMINAL PAIN Time Seen by Provider: 02/17/20 12:31 Primary Care Provider: REY CHICAS MD [Primary Care Provider] - Follow up as needed TRAVEL OUTSIDE OF THE [place] IN LAST 30 DAYS: No - HPI Notes: Chief complaint: Inflammation at G-tube site History of present illness: 84-year-old nonverbal male from [facility] with old CVA and long-term G-tube sent from the facility today because of redness swelling and purulent drainage at the G-tube site. No fever reported. Patient is nonverbal. Extensive records from facility reviewed. Attending physician: Dr. Richey - Related Data Allergies/Adverse Reactions: No Known Allergies Allergy (Verified 10/14/17 17:54) Home Medications: insulin, keppra, Lumigan, plavix, pepcid, sennosides syrup, tylenol, Past Medical History - General Information source: Patient, [facility] Records, Outside Facility Records - Social History Smoking Status: Unknown if Ever Smoked Frequency of alcohol use: None Drug Abuse: None Family History: Reviewed & Not Pertinent, Hypertension - Past Medical History Cardiac Medical History: Reports: Hx Hypercholesterolemia, Hx Hypertension Denies: Hx Atrial Fibrillation, Hx Congestive Heart Failure, Hx Heart Attack Pulmonary Medical History: Reports: Hx Pneumonia Denies: Hx Asthma, Hx COPD Neurological Medical History: Reports: Hx Cerebrovascular Accident, Hx Seizures Endocrine Medical History: Reports: Hx Diabetes Mellitus Type 2. Denies: Hx Diabetes Mellitus Type 1 Renal/ Medical History: Denies: Hx Peritoneal Dialysis GI Medical History: Reports: Hx Gastroesophageal Reflux Disease - gastritis. Denies: Hx Cirrhosis, Hx Hepatitis Musculoskeletal Medical History: Reports Hx Arthritis Psychiatric Medical History: Reports: Hx Dementia Denies: Hx Depression Infectious Medical History: Denies: Hx Hepatitis Past Surgical History: Reports: Hx Abdominal Surgery - PEG tube, Hx Orthopedic Surgery - finger, Other - PEG tube placement earlier this month. 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 SKIN: Redness and swelling at G-tube site. HEAD: Normocephalic atraumatic. EYES: PERRLA. EOMI. Conjunctivae and sclerae clear. EARS: CANALS AND TMS CLEAR. NOSE: CLEAR. MOUTH: Moist mucosa. Good dentition. No stridor or edema. No drooling. NECK: Supple. No masses or thyromegaly. No adenopathy. Carotids 2+ without bruits. No JVD. BACK: Symmetrical without tenderness. CHEST: Respirations unlabored. Few scattered rhonchi on auscultation. HEART: Regular rhythm. No murmur gallop or rub. ABDOMEN: PEG tube present epigastrium with 5.0 cm area of fluctuance warmth and tenderness. There is copious yellow drainage around the tube site. Patient grimaces slightly with palpation of this area. Soft without organomegaly or rebound. Bowel sounds normally active. No bruits. GENITALIA: Deferred. EXTREMITIES: No edema. No calf tenderness. Cap refill less than 1.5 seconds. Dorsalis pedis and posterior tibial pulses 3+ and symmetrical. NEUROLOGICAL: Nonverbal as per baseline with a left hemiparesis. Course - Re-evaluation Re-evalutation: 02/17/20 14:42 I was initially concerned about an abscess at the site of the tube insertion. CT scan suggested no abscess but he has extensive cellulitis with balloon outside of the stomach and extravasation of tube feeding material into the tissue planes. He does not have a fever. His blood pressure is normal. His white count is not elevated. I have cultured drainage around the wound site. I have ordered IV vancomycin and Zosyn. I have consulted Dr. Fajardo the surgical list asset protection representative who will see the patient at this time in the emergency department. 02/17/20 15:12 Dr. Fajardo has recommended admission to medicine. He will remove the G-tube. We will continue IV antibiotics. He will plan to place a new PEG tube within the next 3 to 4 days depending on patient's clinical progress. Patient has been accepted for admission by Caridad Padilla/Dr. Francisco. - Vital Signs Vital signs: Temp Pulse Resp BP Pulse Ox 99.3 F 95 16 134/90 H 98 02/17/20 14:36 02/17/20 14:36 02/17/20 14:36 02/17/20 14:36 02/17/20 14:36 - Laboratory Result Diagrams: 02/17/20 13:20 02/17/20 13:20 Laboratory results interpreted by me: 02/17/20 02/17/20 13:20 13:20 RBC 5.82 H MCV 73 L MCH 24.1 L RDW 14.8 H Banner % (Auto) 14.7 H Sodium 136.6 L BUN 28 H Est GFR (MDRD) Non-Af 57 L Glucose 239 H - Diagnostic Test Radiology reviewed: Reports reviewed - Noncontrast CT abdomen pelvis per radiologist: Balloon is outside of the stomach with extravasation of feeding into tissue planes of abdominal wall. No abscess identified. Discharge - Discharge Clinical Impression: Complication of gastrostomy tube, Cellulitis abdominal wall Condition: Good Disposition: ADMITTED INPATIENT Admitting Provider: Dread (Hospitalist) Unit Admitted: Medical Floor Referrals: REY CHICAS MD [Primary Care Provider] - Follow up as needed
[2020-02-17 13:37] LABS: ABSOLUTE EOSINOPHILS # (AUTO) 0.3 10^3/uL (0.0-0.6); ABSOLUTE LYMPHOCYTES (AUTO) 1.3 10^3/uL (0.5-4.7); ABSOLUTE MONOCYTES (AUTO) 1.3 10^3/uL (0.1-1.4); ABSOLUTE NEUT (AUTO) 5.7 10^3/uL (1.7-8.2); BASOPHILS % (AUTO) 0.5 % (0-2); HEMATOCRIT 42.7 % (37.9-51.0); LYMPHOCYTES % (AUTO) 14.9 % (13-45); MEAN CORPUSCULAR HEMOGLOBIN 24.1 pg (27.0-33.4); MEAN CORPUSCULAR HGB CONC 32.8 g/dL (32.0-36.0); MEAN CORPUSCULAR VOLUME 73 fl (80-97); MONOCYTES % (AUTO) 14.7 % (3-13); PLATELET COUNT 287 10^3/uL (150-450); RED BLOOD COUNT 5.82 10^6/uL (4.35-5.55); RED CELL DISTRIBUTION WIDTH 14.8 % (11.5-14.0); SEGMENTED NEUTROPHILS % (AUTO) 65.9 % (42-78); TOTAL CELLS COUNTED % (AUTO) 100 %; WHITE BLOOD COUNT 8.6 10^3/uL (4.0-10.5)
[2020-02-17 14:08] LABS: ALBUMIN 4.1 g/dL (3.5-5.0); ALKALINE PHOSPHATASE 107 U/L (38-126); ANION GAP 11 (5-19); ASPARTATE AMINO TRANSFERASE 32 U/L (17-59); BILIRUBIN,DIRECT 0.4 mg/dL (0.0-0.4); BILIRUBIN,TOTAL 0.8 mg/dL (0.2-1.3); BLOOD UREA NITROGEN 28 mg/dL (7-20); CALCIUM 9.7 mg/dL (8.4-10.2); CARBON DIOXIDE 27 mmol/L (22-30); CHLORIDE 99 mmol/L (98-107); GLUCOSE 239 mg/dL (75-110); POTASSIUM 4.5 mmol/L (3.6-5.0); TOTAL PROTEIN 7.8 g/dL (6.3-8.2)
--- NOTE | 2020-02-17 14:15 | RADIOLOGY REPORT (SQ) ---
EXAM DESCRIPTION: CT ABDOMEN NO ORAL OR IV IMAGES COMPLETED DATE/TIME: 02/17/2020 1:49 pm REASON FOR STUDY: abscess abd. wall COMPARISON: CT of the abdomen and pelvis from 02/01/2017. TECHNIQUE: CT scan of the abdomen performed without intravenous contrast and without oral contrast. Images reviewed with lung, soft tissue, and bone windows. Reconstructed coronal and sagittal MPR im ages reviewed. All images stored on PACS. All CT scanners at this facility use dose modulation, iterative reconstruction, and/or weight based d osing when appropriate to reduce radiation dose to as low as reasonably achievable (ALARA). [facility]: Dose Right [facility]: CareDose [facility]: Dose Right [facility]: Teradose 4D [facility]: [employer] RADIATION DOSE: CT Rad equipment meets quality standard of care and radiation dose reduction techniq ues were employed. CTDIvol: 15.0 mGy. DLP: 557 mGy-cm. LIMITATIONS: None. FINDINGS: LOWER CHEST: Cardiomegaly and bibasilar atelectasis. NONCONTRASTED LIVER, SPLEEN, ADRENALS: Evaluation is limited due to the absence of intravenous contra st. There is no evidence hepatic steatosis. The spleen is normal in size. There is no adrenal mass . PANCREAS: No acute gross abnormality of the pancreas. GALLBLADDER: No abnormality that is apparent on CT. RIGHT KIDNEY AND URETER: Evaluation is limited due to the absence of intravenous contrast. There is no hydronephrosis, nephrolithiasis, hydroureter or ureterolithiasis. LEFT KIDNEY AND URETER: Evaluation is limited due to the absence of intravenous contrast. There is n o hydronephrosis, nephrolithiasis, hydroureter or ureterolithiasis. AORTA AND RETROPERITONEUM: No aneurysm of the abdominal aorta. No retroperitoneal adenopathy, hemorr david or mass. BOWEL AND PERITONEAL CAVITY: The retention balloon of the gastrostomy tube is outside the lumen of th e stomach and within the subcutaneous space of the ventral abdominal wall. There is associated cutan eous thickening and stranding of surrounding subcutaneous fat ; there is no discrete drainable absces s in the area. There is no evidence of obstruction, bowel wall thickening or pericolonic/ perienteri c inflammation. There is no mesenteric adenopathy, free intraperitoneal fluid or mesenteric/ omental inflammation. APPENDIX: Portions of the right lower quadrant occluded from the field of view of this CT. ABDOMINAL WALL: As above. BONES: Degenerative spondylosis of the lumbar spine. OTHER: No other finding. IMPRESSION: The retention balloon of the gastrostomy tube is outside the lumen of the stomach and wi thin the subcutaneous space of the ventral abdominal wall. There is associated cutaneous thickening and stranding of the surrounding subcutaneous fat ; there is no discrete drainable abscess in the are a. TECHNICAL DOCUMENTATION: JOB ID: [id number] Quality ID # [id number]: Final reports with documentation of one or more dose reduction techniques (e.g., Au tomated exposure control, adjustment of the mA and/or kV according to patient size, use of iterative reconstruction technique) 2010 [employer]- All Rights Reserved Reading location - IP/workstation name: [email or web address]
[2020-02-17] MEDS ORDERED: VANCOMYCIN HCL INJ 1000 MG VIAL IV ONE (14:40)
[2020-02-17] MEDS ORDERED: PIPERACILLIN/TAZOBACTAM 3.375 GM VIAL IV ONE (14:41)
[2020-02-17] MEDS ORDERED: LIDOCAINE 1%/EPINEPHRINE INJ 20 ML VIAL INJ ONE (15:19)
--- NOTE | 2020-02-17 15:31 | PDOC CONSULTATION ---
Consultation Consult Date: 02/17/20 Provider Consulted: SARAHY DICK Consult reason:: G-tube site with purulent drainage and swelling; misplaced G- tube History of Present Illness Admission Date/PCP: REY CHICAS MD History of Present Illness: COMPA CHOI JR is a 84 year old male, detention resident, nonverbal, with dementia, Parkinson, brought to the emergency room with a complaint of G-tube malfunction together with drainage of purulent material from the G-tube site as well as the swelling. A CT scan of the abdomen pelvis was done revealing misplacement of the G-tube with the balloon under the skin. A true abscess is not identified by CAT scan; however, there is drainage of pus from the G-tube site. Past Medical History Cardiac Medical History: Reports: Hyperlipidema, Hypertension Denies: Atrial Fibrillation, Congestive Heart Failure, Myocardial Infarction Pulmonary Medical History: Reports: Pneumonia Denies: Asthma, Chronic Obstructive Pulmonary Disease (COPD) Neurological Medical History: Reports: Seizures Endocrine Medical History: Reports: Diabetes Mellitus Type 2 Denies: Diabetes Mellitus Type 1 GI Medical History: Reports: Gastroesophageal Reflux Disease - gastritis Denies: Cirrhosis, Hepatitis Musculoskeltal Medical History: Reports: Arthritis Psychiatric Medical History: Reports: Dementia Denies: Depression Past Surgical History Past Surgical History: Reports: Orthopedic Surgery - finger, Other - PEG tube placement earlier this month. Social History Smoking Status: Unknown if Ever Smoked Frequency of Alcohol Use: None Hx Recreational Drug Use: No Drugs: None Hx Prescription Drug Abuse: No Family History Family History: Reviewed & Not Pertinent, Hypertension Parental Family History Reviewed: No Children Family History Reviewed: Unknown Sibling(s) Family History Reviewed.: Unknown Medication/Allergy Home Medications: Clopidogrel Bisulfate [Plavix 75 mg Tablet] 75 mg GT DAILY 03/05/17 Simvastatin [Zocor 40 mg Tablet] 20 mg GT QHS 03/05/17 Diltiazem HCl [Cardizem 30 mg Tablet] 30 mg GT Q6 tablet 03/12/17 Acetaminophen [Tylenol 325 mg Tablet] 650 mg GT Q6HP PRN 10/14/17 Famotidine [Pepcid 20 mg Tablet] 20 mg GT QHS 10/14/17 Keppra Susp 500mg/5ml 500 mg PEG BID #60 05/07/19 Allergies/Adverse Reactions: No Known Allergies Allergy (Verified 10/14/17 17:54) Physical Exam Vital Signs: Temp Pulse Resp BP Pulse Ox 99.3 F 95 16 134/90 H 98 02/17/20 14:36 02/17/20 14:36 02/17/20 14:36 02/17/20 14:36 02/17/20 14:36 General appearance: PRESENT: no acute distress, other - Demented and noncooperative Head exam: PRESENT: atraumatic Eye exam: PRESENT: EOMI Mouth exam: PRESENT: neck supple Teeth exam: PRESENT: poor dentation Neck exam: PRESENT: other - Neck = rigid due to spasticity Respiratory exam: PRESENT: clear to auscultation samreen Cardiovascular exam: PRESENT: RRR GI/Abdominal exam: PRESENT: soft, other - Gastrostomy tube site = gastrostomy tube present, purulent drainage from the insertion site, hardening of the subcutaneous tissue surrounding the insertion site with roundish, purulent drainage on squeeze, no odor Musculoskeletal exam: PRESENT: other - All 4 extremities present with rigidity with cogwheel phenomenon Neurological exam: PRESENT: altered, aphasic Skin exam: PRESENT: warm Results Laboratory Results: 02/17/20 13:20 02/17/20 13:20 02/17/20 02/17/20 13:20 13:20 WBC 8.6 RBC 5.82 H Hgb 14.0 Hct 42.7 MCV 73 L MCH 24.1 L MCHC 32.8 RDW 14.8 H Plt Count 287 Seg Neutrophils % 65.9 Sodium 136.6 L Potassium 4.5 Chloride 99 Carbon Dioxide 27 Anion Gap 11 BUN 28 H Creatinine 1.22 Est GFR ( Amer) > 60 Glucose 239 H Calcium 9.7 Total Bilirubin 0.8 AST 32 Alkaline Phosphatase 107 Total Protein 7.8 Albumin 4.1 Impressions: Abdomen CT 02/17/20 12:55 IMPRESSION: The retention balloon of the gastrostomy tube is outside the lumen of the stomach and within the subcutaneous space of the ventral abdominal wall. There is associated cutaneous thickening and stranding of the surrounding subcutaneous fat ; there is no discrete drainable abscess in the area. Assessment & Plan - Diagnosis (1) Abscess of postoperative wound of abdominal wall Is this a current diagnosis for this admission?: Yes (2) Complication of gastrostomy tube Is this a current diagnosis for this admission?: Yes (3) Altered mental status Qualifiers: Altered mental status type: unspecified Qualified Code(s): R41.82 - Altered mental status, unspecified Is this a current diagnosis for this admission?: Yes - Plan Summary Plan Summary: Assessment: 84-year-old male, detention resident, demented, aphasic, with 4 extremity rigidity G-tube displaced as per CT scan which identifies the balloon of the tube under the skin Purulent drainage from the insertion site is for subcutaneous abscess. However, there is no identified on CAT scan CBC within normal limits Patient full code No family available for this patient Plan: Patient to be admitted by the hospitalist service Remove G-tube in the emergency room Incision and drainage of G-tube insertion site in the emergency room G-tube insertion site dressing changes twice a day with normal saline wet-to-dry IV antibiotics as per hospitalist Once the G-tube site infection has cleared, placement of a new G-tube will be considered
--- NOTE | 2020-02-17 16:21 | Operative Report ---
Operative Report DATE OF SURGERY: 02/17/20 PREOPERATIVE DIAGNOSIS: Gastrostomy tube site infection, possible abscess; darlyn rostomy tube malposition POSTOPERATIVE DIAGNOSIS: Gastrostomy tube site abscess; gastrostomy tube malposition OPERATION: Removal of G-tube; incision and drainage of G-tube site abscess SURGEON: SARAHY DICK ANESTHESIA: Local - 10 mL's of 1% lidocaine with epinephrine TISSUE REMOVED OR ALTERED: None COMPLICATIONS: None INTRAOPERATIVE FINDINGS: Induration, swelling, drainage from G-tube site; gastrostomy tube balloon about 2 cm below the skin field with 2 mL of fluid PROCEDURE: The procedure was done at bedside in the emergency room, the patient was placed in a supine position, the area of the gastrostomy tube insertion point and abscess was prepped and draped in the usual fashion. The gastrostomy tube was removed by aspirating about 2 mL of clear fluid from the balloon port, the balloon was easily removed. Inspection the balloon and catheter tip revealed that both were intact. The insertion site of the gastrostomy tube was infiltrated with lidocaine and a #11 blade was used to make a skin incision over a hemostat inserted for approximately 3 cm through the gastrostomy tube subcutaneous tunnel. A moderate amount of serous fluid was obtained. Aerobic and anaerobic culture and Gram stain were previously obtained from the abscess site. The incision was slightly extended for about 2 cm in total length. After this, the hemostat was advanced into the subcutaneous cavity and the tips were spread to enlarge it. The abscess cavity was debrided with a dry sponge, packed with the corner of a Betadine soaked 4 x 4 and covered with dry 4 x 4's secured with tape. The patient tolerated procedure well, and later transferred to the floor room in satisfactory conditions.
[2020-02-17] MEDS ORDERED: PROMETHAZINE HCL INJ 25 MG/1 ML VIAL IV PRN (16:47)
[2020-02-17] MEDS ORDERED: DEXTROSE 40% GEL 15 GM TUBE PO PRN ×4 (16:47→16:54)
[2020-02-17] MEDS ORDERED: ONDANSETRON HCL INJ/PF 4 MG/2 ML SDV IV PRN (16:47)
[2020-02-17] MEDS ORDERED: ALBUTEROL SULFATE 0.083% NEB 2.5 MG/3 ML AMPUL NEB PRN (16:47)
[2020-02-17] MEDS ORDERED: ACETAMINOPHEN 650 MG SUPP.RECT PR PRN (16:47)
[2020-02-17] MEDS ORDERED: DEXTROSE 50%-WATER 25 GM/50 ML DISP.SYRIN IV PRN ×4 (16:47→16:54)
[2020-02-17] MEDS ORDERED: GLUCAGON,HUMAN RECOMB 1 MG INJ SUBCUT PRN (16:47)
[2020-02-17] MEDS ORDERED: GLUCAGON,HUMAN RECOMB 1 MG INJ IM PRN (16:54)
[2020-02-17] MEDS ORDERED: VANCOMYCIN HCL 0 MG in DEXTROSE 5%-WATER 250 ML IV NR (17:00)
--- NOTE | 2020-02-17 17:04 | PDOC H&P ---
History of Present Illness Admission Date/PCP: 02/17/20 15:32 REY CHICAS MD Patient complains of: G-tube malfunction History of Present Illness: COMPA CHOI JR is a 84 year old male with a past medical history of CVA, CKD 3, DM 2, dimension, conversion disorder with convulsions, dysphasia, GERD, hypertension, and bedbound status with total aphasia who presented to the emergency department from [facility] with a complaint of G-tube malfunction. Evaluation in the emergency department revealed stable vital signs, unremarkable CBC and chemistry. Abdominal CT revealed that the retention balloon of the gastrostomy tube was displaced to the subcutaneous space of the ventral abdominal wall with associated thickening and stranding without discrete drainable abscess. Surgical services was consulted; Dr. Fajardo has already done a bedside removal of the G-tube and I&D of abscess. Patient is referred to the hospitalist service for further evaluation management of the above-stated complaints findings. Past Medical History Cardiac Medical History: Reports: Hyperlipidema, Hypertension Denies: Atrial Fibrillation, Congestive Heart Failure, Myocardial Infarction Pulmonary Medical History: Reports: Pneumonia Denies: Asthma, Chronic Obstructive Pulmonary Disease (COPD) EENT Medical History: Reports: None Neurological Medical History: Reports: Seizures Endocrine Medical History: Reports: Diabetes Mellitus Type 2, Obesity Denies: Diabetes Mellitus Type 1 Renal/ Medical History: Reports: Chronic Kidney Disease GI Medical History: Reports: Gastroesophageal Reflux Disease Denies: Cirrhosis, Hepatitis Musculoskeltal Medical History: Reports: Arthritis Psychiatric Medical History: Reports: Dementia Denies: Depression Traumatic Medical History: Reports: None Hematology: Reports: None Infectious Medical History: Reports: None Past Surgical History Past Surgical History: Reports: Orthopedic Surgery - finger, Other - PEG Social History Information Source: [facility] Records, Outside Facility Records Lives with: Custodial Smoking Status: Unknown if Ever Smoked Frequency of Alcohol Use: None Hx Recreational Drug Use: No Drugs: None Hx Prescription Drug Abuse: No - Advance Directive Resuscitation Status: Full Code Family History Family History: Reviewed & Not Pertinent, Hypertension Parental Family History Reviewed: No - Unable to obtain Children Family History Reviewed: Unknown Sibling(s) Family History Reviewed.: Unknown Medication/Allergy Home Medications: Clopidogrel Bisulfate [Plavix 75 mg Tablet] 75 mg GT DAILY 03/05/17 Simvastatin [Zocor 40 mg Tablet] 20 mg GT QHS 03/05/17 Diltiazem HCl [Cardizem 30 mg Tablet] 30 mg GT Q6 tablet 03/12/17 Acetaminophen [Tylenol 325 mg Tablet] 650 mg GT Q6HP PRN 10/14/17 Famotidine [Pepcid 20 mg Tablet] 20 mg GT QHS 10/14/17 Keppra Susp 500mg/5ml 500 mg PEG BID #60 05/07/19 Allergies/Adverse Reactions: No Known Allergies Allergy (Verified 10/14/17 17:54) Review of Systems ROS unobtainable: Due to mental status Physical Exam Vital Signs: Temp Pulse Resp BP Pulse Ox 99.3 F 95 16 134/90 H 98 02/17/20 14:36 02/17/20 14:36 02/17/20 14:36 02/17/20 14:36 02/17/20 14:36 General appearance: PRESENT: no acute distress, well-developed, well-nourished Head exam: PRESENT: atraumatic, normocephalic Eye exam: PRESENT: conjunctiva pink, EOMI, PERRLA. ABSENT: scleral icterus Mouth exam: PRESENT: moist, tongue midline Respiratory exam: PRESENT: clear to auscultation samreen, symmetrical, unlabored. ABSENT: rales, rhonchi, wheezes Cardiovascular exam: PRESENT: RRR, +S1, +S2. ABSENT: diastolic murmur, rubs, systolic murmur Pulses: PRESENT: normal dorsalis pedis pul Vascular exam: PRESENT: normal capillary refill GI/Abdominal exam: PRESENT: normal bowel sounds, soft, other - Surgical dressing to abdomen. ABSENT: distended, guarding, mass, organolmegaly, rebound, tenderness Rectal exam: PRESENT: deferred Neurological exam: PRESENT: aphasic, other - Sleeping soundly Skin exam: PRESENT: dry, warm. ABSENT: cyanosis, rash Results Laboratory Results: 02/17/20 13:20 02/17/20 13:20 02/17/20 02/17/20 13:20 13:20 WBC 8.6 RBC 5.82 H Hgb 14.0 Hct 42.7 MCV 73 L MCH 24.1 L MCHC 32.8 RDW 14.8 H Plt Count 287 Seg Neutrophils % 65.9 Sodium 136.6 L Potassium 4.5 Chloride 99 Carbon Dioxide 27 Anion Gap 11 BUN 28 H Creatinine 1.22 Est GFR ( Amer) > 60 Glucose 239 H Calcium 9.7 Total Bilirubin 0.8 AST 32 Alkaline Phosphatase 107 Total Protein 7.8 Albumin 4.1 Impressions: Abdomen CT 02/17/20 12:55 IMPRESSION: The retention balloon of the gastrostomy tube is outside the lumen of the stomach and within the subcutaneous space of the ventral abdominal wall. There is associated cutaneous thickening and stranding of the surrounding subcutaneous fat ; there is no discrete drainable abscess in the area. Assessment and Plan - Diagnosis (1) Abscess of postoperative wound of abdominal wall Is this a current diagnosis for this admission?: Yes Plan: Blood cultures pending. Patient is admitted to the medical floor. He is empirically placed on IV vancomycin and cefepime. He does not have history of MRSA; will de-escalate once blood cultures resulted negative. Now status post I&D by surgical service. (2) Complication of gastrostomy tube Is this a current diagnosis for this admission?: Yes Plan: Primary management per surgical service. (3) Aphasia as late effect of cerebrovascular accident Is this a current diagnosis for this admission?: Yes (4) Diabetes Qualifiers: Diabetes mellitus type: type 2 Diabetes mellitus terminal clerk insulin use: unspecified care home insulin use status Diabetes mellitus complication status: with unspecified complications Is this a current diagnosis for this admission?: Yes Plan: Currently n.p.o. Accu-Cheks every 6 hours with Humalog for sliding scale coverage. Hypoglycemia protocol in place. (5) GERD (gastroesophageal reflux disease) Qualifiers: Is this a current diagnosis for this admission?: Yes Plan: IV Pepcid twice daily (6) CVA (cerebral vascular accident) Qualifiers: CVA mechanism: unspecified Qualified Code(s): I63.9 - Cerebral infarction, unspecified Is this a current diagnosis for this admission?: Yes Plan: History; bedbound at baseline. Aphasic. Supportive care. - Time Time Spent with patient: 35 or more minutes Medications reviewed and adjusted accordingly: Yes Anticipated Discharge Disposition: Jail Facility Anticipated Discharge Timeframe: >72 hrs - Inpatient Certification Based on my medical assessment, after consideration of the patient's comorbidities, presenting symptoms, or acuity I expect that the services needed warrant INPATIENT care.: Yes I certify that my determination is in accordance with my understanding of Medicare's requirements for reasonable and necessary INPATIENT services [42 CFR 412.3e].: Yes Medical Necessity: Need For IV Fluids, Need for IV Antibiotics, Need for Surgery
[2020-02-17] MEDS: INSULIN LISPRO 100 UNIT/ML 3 ML VIAL SUBCUT SCH ×2 (17:32→23:56)
[2020-02-17] MEDS: RINGERS SOLUTION,LACTATED 1,000 ML IV PRN (17:33)
[2020-02-17] MEDS ORDERED: VANCOMYCIN HCL 1,000 MG in DEXTROSE 5%-WATER 250 ML IV ONE (19:00)
[2020-02-17] MEDS: LEVETIRACETAM 500 MG/NACL-ISO 500 MG/100 ML RTUPB IV SCH (21:55)
[2020-02-17] MEDS: CEFEPIME 1 GM/D5W RTU 1 GM/50 ML RTUPB IV SCH (21:56)
[2020-02-17] MEDS: HEPARIN SOD (PORCINE) 5,000 UNIT/ML 1 ML VIAL SUBCUT SCH (21:56)
[2020-02-17] MEDS: FAMOTIDINE INJ/PF 20 MG/2 ML SDV IV SCH (21:56)
[2020-02-17] MEDS ORDERED: CEFEPIME 1 GM/D5W RTU 1 GM/50 ML RTUPB IV SCH (22:00)
[2020-02-18] MEDS: RINGERS SOLUTION,LACTATED 1,000 ML IV PRN ×2 (04:46→13:43)
[2020-02-18] MEDS: HEPARIN SOD (PORCINE) 5,000 UNIT/ML 1 ML VIAL SUBCUT SCH ×3 (05:25→21:26)
[2020-02-18] MEDS: INSULIN LISPRO 100 UNIT/ML 3 ML VIAL SUBCUT SCH ×3 (06:07→17:37)
[2020-02-18 06:44] LABS: HEMATOCRIT 38.3 % (37.9-51.0); HEMOGLOBIN 12.3 g/dL (13.5-17.0); MEAN CORPUSCULAR HEMOGLOBIN 23.7 pg (27.0-33.4); MEAN CORPUSCULAR HGB CONC 32.2 g/dL (32.0-36.0); MEAN CORPUSCULAR VOLUME 74 fl (80-97); PLATELET COUNT 241 10^3/uL (150-450); RED BLOOD COUNT 5.21 10^6/uL (4.35-5.55); RED CELL DISTRIBUTION WIDTH 14.5 % (11.5-14.0); WHITE BLOOD COUNT 6.1 10^3/uL (4.0-10.5)
[2020-02-18 07:00] LABS: ANION GAP 9 (5-19); BLOOD UREA NITROGEN 23 mg/dL (7-20); CARBON DIOXIDE 23 mmol/L (22-30); CHLORIDE 105 mmol/L (98-107); GLUCOSE 168 mg/dL (75-110); PHOSPHORUS 3.4 mg/dL (2.5-4.5); POTASSIUM 4.3 mmol/L (3.6-5.0)
--- NOTE | 2020-02-18 10:08 | PDOC PROGRESS REPORT ---
Subjective Progress Note for:: 02/18/20 Reason For Visit: G-TUBE MALFUNCTION,ABDOMINAL WALL CELLULITIS Patient nonresponsive to verbal command, contracted upper extremities Physical Exam Vital Signs: Temp Pulse Resp BP Pulse Ox 98.0 F 72 23 H 161/69 H 99 02/18/20 07:33 02/18/20 07:33 02/18/20 07:33 02/18/20 07:33 02/18/20 07:33 Intake & Output 02/17/20 02/18/20 02/19/20 06:59 06:59 06:59 Intake Total 2400 Balance 2400 Weight 73.3 kg General appearance: PRESENT: other - Contracted GI/Abdominal exam: PRESENT: other - Abdominal dressing removed. Packing removed. Cavity site clean; some inflammatory tissue but no pus, foul smell. Results Laboratory Results: 02/18/20 06:26 02/18/20 06:26 02/17/20 02/17/20 02/18/20 13:20 13:20 06:26 WBC 8.6 6.1 RBC 5.82 H 5.21 Hgb 14.0 12.3 L Hct 42.7 38.3 MCV 73 L 74 L MCH 24.1 L 23.7 L MCHC 32.8 32.2 RDW 14.8 H 14.5 H Plt Count 287 241 Seg Neutrophils % 65.9 Sodium 136.6 L Potassium 4.5 Chloride 99 Carbon Dioxide 27 Anion Gap 11 BUN 28 H Creatinine 1.22 Est GFR ( Amer) > 60 Glucose 239 H Calcium 9.7 Phosphorus Magnesium Total Bilirubin 0.8 AST 32 Alkaline Phosphatase 107 Total Protein 7.8 Albumin 4.1 02/18/20 06:26 WBC RBC Hgb Hct MCV MCH MCHC RDW Plt Count Seg Neutrophils % Sodium 136.7 L Potassium 4.3 Chloride 105 Carbon Dioxide 23 Anion Gap 9 BUN 23 H Creatinine 1.18 Est GFR ( Amer) > 60 Glucose 168 H Calcium 9.0 Phosphorus 3.4 Magnesium 2.2 Total Bilirubin AST Alkaline Phosphatase Total Protein Albumin Impressions: Abdomen CT 02/17/20 12:55 IMPRESSION: The retention balloon of the gastrostomy tube is outside the lumen of the stomach and within the subcutaneous space of the ventral abdominal wall. There is associated cutaneous thickening and stranding of the surrounding subcutaneous fat ; there is no discrete drainable abscess in the area. Assessment & Plan - Diagnosis (1) Abscess of postoperative wound of abdominal wall Is this a current diagnosis for this admission?: Yes Plan: Impression: Improved abdominal wall wound after removal of displaced feeding tube, debridement of site Plan: 1. No indication for further intervention; packing discontinued; apply Allevyn dressing. 2. We will discuss management regarding future feeding tube with primary care team. - Time Time Spent: 30 to 50 Minutes Critical Time spent with patient: Less than 15 minutes Smoking Cessation Education: 3 to 10 minutes Medications reviewed and adjusted accordingly: Yes Anticipated Discharge Disposition: [facility]iary Facility Anticipated Discharge Timeframe: when bed available
[2020-02-18] MEDS: CEFEPIME 1 GM/D5W RTU 1 GM/50 ML RTUPB IV SCH ×2 (10:39→21:26)
[2020-02-18] MEDS: FAMOTIDINE INJ/PF 20 MG/2 ML SDV IV SCH ×2 (10:39→21:27)
[2020-02-18] MEDS: LEVETIRACETAM 500 MG/NACL-ISO 500 MG/100 ML RTUPB IV SCH ×2 (12:59→21:26)
--- NOTE | 2020-02-18 14:34 | PDOC PROGRESS REPORT ---
Subjective Progress Note for:: 02/18/20 Subjective:: COMPA CHOI JR is a 84 year old male with a past medical history of CVA, CKD 3, DM 2, dimension, conversion disorder with convulsions, dysphasia, GERD, hypertension, and bedbound status with total aphasia who presented to the emergency department from [facility] with a complaint of G-tube malfunction. Patient was seen on morning rounds. He is found resting in bed, comfortably, on room air. He was sleeping but open his eyes briefly when I said his name very loudly and gently shook his shoulder. He closed his eyes and quickly fell back to sleep. He did not respond to me further, answer questions, or follow directions. ROS is therefore limited. He does appear to be comfortable and is not noted to be in any acute distress. No concerns per nursing. Reason For Visit: G-TUBE MALFUNCTION,ABDOMINAL WALL CELLULITIS Physical Exam Vital Signs: Temp Pulse Resp BP Pulse Ox 97.8 F 75 15 157/93 H 100 02/18/20 12:01 02/18/20 12:01 02/18/20 12:01 02/18/20 12:01 02/18/20 12:01 Intake & Output 02/17/20 02/18/20 02/19/20 06:59 06:59 06:59 Intake Total 2400 1050 Balance 2400 1050 Weight 73.3 kg General appearance: PRESENT: no acute distress, well-developed, well-nourished Head exam: PRESENT: atraumatic, normocephalic Eye exam: PRESENT: conjunctiva pink, EOMI, PERRLA. ABSENT: scleral icterus Mouth exam: PRESENT: moist, tongue midline Respiratory exam: PRESENT: clear to auscultation samreen, symmetrical, unlabored. ABSENT: rales, rhonchi, wheezes Cardiovascular exam: PRESENT: RRR, +S1, +S2. ABSENT: diastolic murmur, rubs, systolic murmur Pulses: PRESENT: normal dorsalis pedis pul Vascular exam: PRESENT: normal capillary refill GI/Abdominal exam: PRESENT: normal bowel sounds, other - Surgical dressing and abdominal binder in place Extremities exam: ABSENT: calf tenderness, clubbing, pedal edema Neurological exam: PRESENT: aphasic, other - Briefly arousable; quickly falls back to sleep. At baseline Skin exam: PRESENT: dry, warm. ABSENT: cyanosis, rash Results Laboratory Results: 02/18/20 06:26 02/18/20 06:26 02/18/20 02/18/20 06:26 06:26 WBC 6.1 RBC 5.21 Hgb 12.3 L Hct 38.3 MCV 74 L MCH 23.7 L MCHC 32.2 RDW 14.5 H Plt Count 241 Sodium 136.7 L Potassium 4.3 Chloride 105 Carbon Dioxide 23 Anion Gap 9 BUN 23 H Creatinine 1.18 Est GFR ( Amer) > 60 Glucose 168 H Calcium 9.0 Phosphorus 3.4 Magnesium 2.2 Impressions: Abdomen CT 02/17/20 12:55 IMPRESSION: The retention balloon of the gastrostomy tube is outside the lumen of the stomach and within the subcutaneous space of the ventral abdominal wall. There is associated cutaneous thickening and stranding of the surrounding subcutaneous fat ; there is no discrete drainable abscess in the area. Assessment and Plan - Diagnosis (1) Abscess of postoperative wound of abdominal wall Is this a current diagnosis for this admission?: Yes Plan: Blood cultures pending. Wound culture shows gram-negative rods Patient is admitted to the medical floor. He is empirically placed on IV vancomycin and cefepime. He does not have history of MRSA; will de-escalate once blood cultures resulted negative. Now status post I&D by surgical service. (2) Complication of gastrostomy tube Is this a current diagnosis for this admission?: Yes Plan: Primary management per surgical service. Continue IV fluids. IV medications while in n.p.o. status. (3) Aphasia as late effect of cerebrovascular accident Is this a current diagnosis for this admission?: Yes Plan: We will asked discharge planning to assist in identifying the patient's POA. Need to discuss the appropriateness of additional PEG placement versus transition to PRODUCTION GENERALIST. (4) Diabetes Qualifiers: Diabetes mellitus type: type 2 Diabetes mellitus watermelon inspector insulin use: unspecified alf insulin use status Diabetes mellitus complication status: with unspecified complications Is this a current diagnosis for this admission?: Yes Plan: Currently n.p.o. Accu-Cheks every 6 hours with Humalog for sliding scale coverage. Hypoglycemia protocol in place. (5) GERD (gastroesophageal reflux disease) Qualifiers: Is this a current diagnosis for this admission?: Yes Plan: IV Pepcid twice daily (6) CVA (cerebral vascular accident) Qualifiers: CVA mechanism: unspecified Qualified Code(s): I63.9 - Cerebral infarction, unspecified Is this a current diagnosis for this admission?: Yes Plan: History; bedbound at baseline. Aphasic. Supportive care. - Time Time Spent with patient: 15-24 minutes Medications reviewed and adjusted accordingly: Yes Anticipated Discharge Disposition: Long Term Facility Anticipated Discharge Timeframe: > 72 hrs
[2020-02-18] MEDS: VANCOMYCIN HCL 1,250 MG in DEXTROSE 5%-WATER 250 ML IV SCH (17:59)
[2020-02-18] MEDS: HYDRALAZINE HCL INJ/PF 20 MG/1 ML SDV IV PRN (20:21)
[2020-02-19] MEDS: INSULIN LISPRO 100 UNIT/ML 3 ML VIAL SUBCUT SCH ×4 (00:04→18:20)
[2020-02-19] MEDS: RINGERS SOLUTION,LACTATED 1,000 ML IV PRN ×2 (00:06→08:58)
[2020-02-19] MEDS: HEPARIN SOD (PORCINE) 5,000 UNIT/ML 1 ML VIAL SUBCUT SCH ×3 (05:06→23:27)
[2020-02-19 06:04] LABS: HEMATOCRIT 42.8 % (37.9-51.0); HEMOGLOBIN 13.8 g/dL (13.5-17.0); MEAN CORPUSCULAR HEMOGLOBIN 23.8 pg (27.0-33.4); MEAN CORPUSCULAR HGB CONC 32.2 g/dL (32.0-36.0); MEAN CORPUSCULAR VOLUME 74 fl (80-97); PLATELET COUNT 268 10^3/uL (150-450); RED BLOOD COUNT 5.79 10^6/uL (4.35-5.55); RED CELL DISTRIBUTION WIDTH 14.7 % (11.5-14.0); WHITE BLOOD COUNT 5.9 10^3/uL (4.0-10.5)
[2020-02-19 06:33] LABS: ANION GAP 10 (5-19); BLOOD UREA NITROGEN 16 mg/dL (7-20); CALCIUM 9.5 mg/dL (8.4-10.2); CARBON DIOXIDE 23 mmol/L (22-30); CHLORIDE 106 mmol/L (98-107); GLUCOSE 157 mg/dL (75-110); POTASSIUM 4.1 mmol/L (3.6-5.0)
[2020-02-19] MEDS: HYDRALAZINE HCL INJ/PF 20 MG/1 ML SDV IV PRN ×2 (08:04→23:27)
[2020-02-19] MEDS: CEFEPIME 1 GM/D5W RTU 1 GM/50 ML RTUPB IV SCH ×2 (09:02→21:00)
--- NOTE | 2020-02-19 11:34 | PDOC PROGRESS REPORT ---
Subjective Progress Note for:: 02/19/20 Reason For Visit: G-TUBE MALFUNCTION,ABDOMINAL WALL CELLULITIS Patient remains unresponsive; apparently next of kin contacted, and expressed interest in reinserting feeding tube. Physical Exam Vital Signs: Temp Pulse Resp BP Pulse Ox 98.1 F 82 22 H 168/102 H 98 02/19/20 08:14 02/19/20 07:43 02/19/20 07:43 02/19/20 07:43 02/19/20 07:43 Intake & Output 02/18/20 02/19/20 02/20/20 06:59 06:59 06:59 Intake Total 2400 2550 1000 Balance 2400 2550 1000 Weight 73.3 kg 73.3 kg General appearance: PRESENT: other - Essentially comatose, eyes closed. GI/Abdominal exam: PRESENT: other - Abdomen examined. No foul smell or pus. Mo derate induration and minimal erythema of the PEG tube exit site. Results Laboratory Results: 02/19/20 05:40 02/19/20 05:40 02/19/20 02/19/20 05:40 05:40 WBC 5.9 RBC 5.79 H Hgb 13.8 Hct 42.8 MCV 74 L MCH 23.8 L MCHC 32.2 RDW 14.7 H Plt Count 268 Sodium 138.5 Potassium 4.1 Chloride 106 Carbon Dioxide 23 Anion Gap 10 BUN 16 Creatinine 1.04 Est GFR ( Amer) > 60 Glucose 157 H Calcium 9.5 Impressions: Abdomen CT 02/17/20 12:55 IMPRESSION: The retention balloon of the gastrostomy tube is outside the lumen of the stomach and within the subcutaneous space of the ventral abdominal wall. There is associated cutaneous thickening and stranding of the surrounding subcutaneous fat ; there is no discrete drainable abscess in the area. Assessment & Plan - Diagnosis (1) Abscess of postoperative wound of abdominal wall Is this a current diagnosis for this admission?: Yes Plan: Impression: Infection due to displaced feeding tube, settling down, but not resolved. No indication for surgical debridement at this time Recommendations: 1. Continue IV antibiotics, and local wound care. Nothing to debride today. 2. Anterior abdominal wall in the epigastric area remains hostile, not ready for replacement feeding tube at this time. 3. We will continue to follow with you. - Time Time Spent: 30 to 50 Minutes Critical Time spent with patient: Less than 15 minutes Medications reviewed and adjusted accordingly: Yes Anticipated Discharge Disposition: Shelter Facility Anticipated Discharge Timeframe: To be determined
--- NOTE | 2020-02-19 13:21 | PDOC PROGRESS REPORT ---
Subjective Progress Note for:: 02/19/20 Subjective:: COMPA CHOI JR is a 84 year old male with a past medical history of CVA, CKD 3, DM 2, dimension, conversion disorder with convulsions, dysphasia, GERD, hypertension, and bedbound status with total aphasia who presented to the emergency department from SNF with a complaint of G-tube malfunction. Discharge planning reached out to [facility] and confirmed interest in PEG reinsertion. Patient was seen on morning rounds. He is found resting in bed, comfortably, on room air. He is not responsive to me today; per nursing, patient does withdraw from pain (during IV start). ROS is therefore limited. He does appear to be comfortable and is not noted to be in any acute distress. No concerns per nursing. Reason For Visit: G-TUBE MALFUNCTION,ABDOMINAL WALL CELLULITIS Physical Exam Vital Signs: Temp Pulse Resp BP Pulse Ox 98.1 F 90 18 160/77 H 99 02/19/20 11:54 02/19/20 11:54 02/19/20 11:54 02/19/20 11:54 02/19/20 11:54 Intake & Output 02/18/20 02/19/20 02/20/20 06:59 06:59 06:59 Intake Total 2400 2550 1000 Balance 2400 2550 1000 Weight 73.3 kg 73.3 kg General appearance: PRESENT: no acute distress, well-developed, well-nourished Head exam: PRESENT: atraumatic, normocephalic Eye exam: PRESENT: conjunctiva pink, EOMI, PERRLA. ABSENT: scleral icterus Mouth exam: PRESENT: moist, tongue midline Respiratory exam: PRESENT: clear to auscultation samreen, symmetrical, unlabored. ABSENT: rales, rhonchi, wheezes Cardiovascular exam: PRESENT: RRR. ABSENT: diastolic murmur, rubs, systolic murmur Vascular exam: PRESENT: normal capillary refill GI/Abdominal exam: PRESENT: normal bowel sounds, other - Surgical dressing and abdominal binder in place Rectal exam: PRESENT: deferred Extremities exam: ABSENT: calf tenderness, clubbing, pedal edema Neurological exam: PRESENT: CN II-XII grossly intact, aphasic, other - Withdraws to pain; at baseline. ABSENT: motor sensory deficit Skin exam: PRESENT: dry, warm. ABSENT: cyanosis, rash Results Laboratory Results: 02/19/20 05:40 02/19/20 05:40 02/19/20 02/19/20 05:40 05:40 WBC 5.9 RBC 5.79 H Hgb 13.8 Hct 42.8 MCV 74 L MCH 23.8 L MCHC 32.2 RDW 14.7 H Plt Count 268 Sodium 138.5 Potassium 4.1 Chloride 106 Carbon Dioxide 23 Anion Gap 10 BUN 16 Creatinine 1.04 Est GFR ( Amer) > 60 Glucose 157 H Calcium 9.5 Impressions: Abdomen CT 02/17/20 12:55 IMPRESSION: The retention balloon of the gastrostomy tube is outside the lumen of the stomach and within the subcutaneous space of the ventral abdominal wall. There is associated cutaneous thickening and stranding of the surrounding subcutaneous fat ; there is no discrete drainable abscess in the area. Assessment and Plan - Diagnosis (1) Abdominal wall cellulitis Is this a current diagnosis for this admission?: Yes Plan: Blood cultures have NGTD Wound culture shows gram-negative rods Patient is admitted to the medical floor. He is empirically placed on IV vancomycin and cefepime; Day # 2. He does not have history of MRSA; will plan to discontinue Vanc tomorrow if cultures remain negative for gram positive cocci Now status post I&D by surgical service. (2) Complication of gastrostomy tube Is this a current diagnosis for this admission?: Yes Plan: Primary management per surgical service. Continue IV fluids. IV medications while in n.p.o. status. (3) Diabetes Qualifiers: Diabetes mellitus type: type 2 Diabetes mellitus nursing home insulin use: unspecified nursing home insulin use status Diabetes mellitus complication status: with unspecified complications Is this a current diagnosis for this admission?: Yes Plan: Currently n.p.o. Accu-Cheks every 6 hours with Humalog for sliding scale coverage. Hypoglycemia protocol in place. (4) GERD (gastroesophageal reflux disease) Qualifiers: Is this a current diagnosis for this admission?: Yes Plan: IV Pepcid twice daily (5) Aphasia as late effect of cerebrovascular accident Is this a current diagnosis for this admission?: Yes (6) CVA (cerebral vascular accident) Qualifiers: CVA mechanism: unspecified Qualified Code(s): I63.9 - Cerebral infarction, unspecified Is this a current diagnosis for this admission?: Yes Plan: History; bedbound at baseline. Aphasic. Supportive care. (7) Abscess of postoperative wound of abdominal wall Is this a current diagnosis for this admission?: Yes - Time Time Spent with patient: 15-24 minutes Medications reviewed and adjusted accordingly: Yes Anticipated Discharge Disposition: Shelter Facility Anticipated Discharge Timeframe: within 72 hours
[2020-02-19] MEDS: LEVETIRACETAM 500 MG/NACL-ISO 500 MG/100 ML RTUPB IV SCH ×2 (14:41→23:27)
[2020-02-19] MEDS: FAMOTIDINE INJ/PF 20 MG/2 ML SDV IV SCH ×2 (14:43→23:27)
[2020-02-19] MEDS: VANCOMYCIN HCL 1,250 MG in DEXTROSE 5%-WATER 250 ML IV SCH (17:49)
[2020-02-20] MEDS: INSULIN LISPRO 100 UNIT/ML 3 ML VIAL SUBCUT SCH ×5 (00:13→23:54)
[2020-02-20] MEDS: RINGERS SOLUTION,LACTATED 1,000 ML IV PRN ×3 (02:34→16:59)
[2020-02-20] MEDS: HEPARIN SOD (PORCINE) 5,000 UNIT/ML 1 ML VIAL SUBCUT SCH ×3 (06:05→22:53)
[2020-02-20] MEDS: FAMOTIDINE INJ/PF 20 MG/2 ML SDV IV SCH ×2 (09:12→22:52)
[2020-02-20] MEDS: CEFEPIME 1 GM/D5W RTU 1 GM/50 ML RTUPB IV SCH ×2 (09:12→22:52)
[2020-02-20] MEDS: LEVETIRACETAM 500 MG/NACL-ISO 500 MG/100 ML RTUPB IV SCH ×2 (09:55→23:47)
--- NOTE | 2020-02-20 12:00 | PDOC PROGRESS REPORT ---
Subjective Progress Note for:: 02/20/20 Subjective:: COMPA CHOI JR is a 84 year old male with a past medical history of CVA, CKD 3, DM 2, dimension, conversion disorder with convulsions, dysphasia, GERD, hypertension, and bedbound status with total aphasia who presented to the emergency department from [facility] with a complaint of G-tube malfunction. Discharge planning reached out to [facility] and confirmed interest in PEG reinsertion. Patient was seen on morning rounds. He is found resting in bed, comfortably, on room air. He is sleeping soundly does not wake when I said his name. He is aphasic and minimally responsive at baseline. He does to be appear comfortable and is not noted to be in any acute distress. ROS is limited. No concerns per nursing. Reason For Visit: G-TUBE MALFUNCTION,ABDOMINAL WALL CELLULITIS Physical Exam Vital Signs: Temp Pulse Resp BP Pulse Ox 98.2 F 117 H 18 151/89 H 99 02/20/20 10:00 02/20/20 00:56 02/20/20 00:56 02/20/20 00:56 02/20/20 00:56 Intake & Output 02/19/20 02/20/20 02/21/20 06:59 06:59 06:59 Intake Total 2550 2480 1092 Balance 2550 2480 1092 Weight 73.3 kg 64.1 kg General appearance: PRESENT: no acute distress, well-developed, well-nourished Head exam: PRESENT: atraumatic, normocephalic Eye exam: PRESENT: conjunctiva pink, EOMI, PERRLA. ABSENT: scleral icterus Mouth exam: PRESENT: moist, tongue midline Respiratory exam: PRESENT: clear to auscultation samreen, symmetrical, unlabored. ABSENT: rales, rhonchi, wheezes Cardiovascular exam: PRESENT: RRR. ABSENT: diastolic murmur, rubs, systolic murmur Vascular exam: PRESENT: normal capillary refill GI/Abdominal exam: PRESENT: normal bowel sounds, soft, other - Surgical dressing and abdominal binder in place. ABSENT: distended, guarding, mass, organolmegaly, rebound, tenderness Rectal exam: PRESENT: deferred Extremities exam: ABSENT: calf tenderness, clubbing, pedal edema Neurological exam: PRESENT: CN II-XII grossly intact, other - Withdraws to pain; at baseline. ABSENT: motor sensory deficit Skin exam: PRESENT: dry, warm. ABSENT: cyanosis, rash Results Laboratory Results: 02/19/20 05:40 02/19/20 05:40 02/17/20 13:00 G Tube (Peg Tube) Gram Stain - Final 02/17/20 13:00 G Tube (Peg Tube) Wound Culture - Final Escherichia Coli Enterococcus Faecium (Group D) Yeast, Not [place] Albicans Impressions: Abdomen CT 02/17/20 12:55 IMPRESSION: The retention balloon of the gastrostomy tube is outside the lumen of the stomach and within the subcutaneous space of the ventral abdominal wall. There is associated cutaneous thickening and stranding of the surrounding subcutaneous fat ; there is no discrete drainable abscess in the area. Assessment and Plan - Diagnosis (1) Abdominal wall cellulitis Is this a current diagnosis for this admission?: Yes Plan: Blood cultures have NGTD Wound culture shows pansensitive E. coli and penicillin resistant enterococcus Patient is admitted to the medical floor. He is empirically placed on IV vancomycin and cefepime; Day # 3 Now status post I&D by surgical service. (2) Complication of gastrostomy tube Is this a current diagnosis for this admission?: Yes Plan: Primary management per surgical service. Continue IV fluids. IV medications while in n.p.o. status. 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 Accu-Cheks every 6 hours with Humalog for sliding scale coverage. Hypoglycemia protocol in place. (4) GERD (gastroesophageal reflux disease) Qualifiers: Is this a current diagnosis for this admission?: Yes Plan: IV Pepcid twice daily (5) Aphasia as late effect of cerebrovascular accident Is this a current diagnosis for this admission?: Yes Plan: We will asked discharge planning to assist in identifying the patient's POA. Need to discuss the appropriateness of additional PEG placement versus transition to [facility]EL[facility]. (6) CVA (cerebral vascular accident) Qualifiers: CVA mechanism: unspecified Qualified Code(s): I63.9 - Cerebral infarction, unspecified Is this a current diagnosis for this admission?: Yes Plan: History; bedbound at baseline. Aphasic. Supportive care. (7) Abscess of postoperative wound of abdominal wall Is this a current diagnosis for this admission?: Yes - Time Time Spent with patient: 15-24 minutes Medications reviewed and adjusted accordingly: Yes Anticipated Discharge Disposition: Custodial Facility Anticipated Discharge Timeframe: within 72 hours
--- NOTE | 2020-02-20 15:22 | PDOC PROGRESS REPORT ---
Subjective Progress Note for:: 02/20/20 Subjective:: Patient is nonverbal. Just keeps his eyes closed and does not follow commands. Reason For Visit: G-TUBE MALFUNCTION,ABDOMINAL WALL CELLULITIS Physical Exam Vital Signs: Temp Pulse Resp BP Pulse Ox 98.3 F 90 20 175/97 H 99 02/20/20 12:10 02/20/20 12:10 02/20/20 12:10 02/20/20 12:10 02/20/20 12:10 Intake & Output 02/19/20 02/20/20 02/21/20 06:59 06:59 06:59 Intake Total 2550 2480 1092 Balance 2550 2480 1092 Weight 73.3 kg 64.1 kg Exam: Abdomen is soft to firm but no definite tenderness. The PEG tube site still quite inflamed but no drainage. Results Laboratory Results: 02/19/20 05:40 02/19/20 05:40 02/17/20 13:00 G Tube (Peg Tube) Gram Stain - Final 02/17/20 13:00 G Tube (Peg Tube) Wound Culture - Final Escherichia Coli Enterococcus Faecium (Group D) Yeast, Not [place] Albicans Impressions: Abdomen CT 02/17/20 12:55 IMPRESSION: The retention balloon of the gastrostomy tube is outside the lumen of the stomach and within the subcutaneous space of the ventral abdominal wall. There is associated cutaneous thickening and stranding of the surrounding subcutaneous fat ; there is no discrete drainable abscess in the area. Assessment & Plan - Time Critical Time spent with patient: 15-24 minutes Anticipated Discharge Disposition: [facility] Facility Anticipated Discharge Timeframe: within 72 hours - Inpatient Certification Medical Necessity: Need for IV Antibiotics - Plan Summary Plan Summary: 84-year-old male who is PEG tube was infected. It was then removed at bedside in the ED on 02/17/2020 The abdominal wall around the PEG tube site is still appears to be somewhat inflamed and it is not ideal to place another PEG tube at this time. This is the third day post removal of the PEG tube. He will need about total of 7 days of IV antibiotics prior to placement of new PEG tube. Meantime, would suggest tube feedings with a Dobbhoff catheter or TPN Patient's request another PEG tube placement
[2020-02-20] MEDS: HYDRALAZINE HCL INJ/PF 20 MG/1 ML SDV IV PRN ×2 (16:49→23:51)
[2020-02-20] MEDS: VANCOMYCIN HCL 1,250 MG in DEXTROSE 5%-WATER 250 ML IV SCH (16:59)
[2020-02-20] MEDS ORDERED: HYDRALAZINE HCL INJ/PF 20 MG/1 ML SDV IV ONE (18:45)
[2020-02-21] MEDS: RINGERS SOLUTION,LACTATED 1,000 ML IV PRN ×2 (04:35→18:04)
[2020-02-21 06:06] LABS: HEMOGLOBIN 12.7 g/dL (13.5-17.0); MEAN CORPUSCULAR HEMOGLOBIN 23.9 pg (27.0-33.4); MEAN CORPUSCULAR HGB CONC 32.4 g/dL (32.0-36.0); MEAN CORPUSCULAR VOLUME 74 fl (80-97); PLATELET COUNT 272 10^3/uL (150-450); RED BLOOD COUNT 5.31 10^6/uL (4.35-5.55); WHITE BLOOD COUNT 5.4 10^3/uL (4.0-10.5)
[2020-02-21 06:33] LABS: ANION GAP 10 (5-19); BLOOD UREA NITROGEN 12 mg/dL (7-20); CALCIUM 9.1 mg/dL (8.4-10.2); CARBON DIOXIDE 22 mmol/L (22-30); CHLORIDE 107 mmol/L (98-107); GLUCOSE 146 mg/dL (75-110); POTASSIUM 3.9 mmol/L (3.6-5.0)
[2020-02-21] MEDS: HEPARIN SOD (PORCINE) 5,000 UNIT/ML 1 ML VIAL SUBCUT SCH ×3 (06:34→21:13)
[2020-02-21] MEDS: INSULIN LISPRO 100 UNIT/ML 3 ML VIAL SUBCUT SCH ×3 (06:35→17:57)
[2020-02-21] MEDS: CEFEPIME 1 GM/D5W RTU 1 GM/50 ML RTUPB IV SCH ×2 (09:49→21:11)
[2020-02-21] MEDS: FAMOTIDINE INJ/PF 20 MG/2 ML SDV IV SCH ×2 (09:49→21:13)
[2020-02-21] MEDS: LEVETIRACETAM 500 MG/NACL-ISO 500 MG/100 ML RTUPB IV SCH ×2 (10:29→21:52)
--- NOTE | 2020-02-21 10:57 | PDOC PROGRESS REPORT ---
Subjective Progress Note for:: 02/21/20 Subjective:: Still nonverbal Reason For Visit: G-TUBE MALFUNCTION,ABDOMINAL WALL CELLULITIS Physical Exam Vital Signs: Temp Pulse Resp BP Pulse Ox 98.3 F 99 20 142/75 H 100 02/21/20 10:00 02/21/20 08:27 02/21/20 08:27 02/21/20 08:27 02/21/20 08:27 Intake & Output 02/20/20 02/21/20 02/22/20 06:59 06:59 06:59 Intake Total 2480 3352 50 Balance 2480 3352 50 Weight 64.1 kg 64.5 kg Exam: The abdomen is soft and appears nontender. The inflammation along the PEG tube site appears to be improving. Results Laboratory Results: 02/21/20 05:09 02/21/20 05:09 02/21/20 02/21/20 05:09 05:09 WBC 5.4 RBC 5.31 Hgb 12.7 L Hct 39.0 MCV 74 L MCH 23.9 L MCHC 32.4 RDW 15.0 H Plt Count 272 Sodium 138.6 Potassium 3.9 Chloride 107 Carbon Dioxide 22 Anion Gap 10 BUN 12 Creatinine 1.13 Est GFR ( Amer) > 60 Glucose 146 H Calcium 9.1 02/17/20 13:00 G Tube (Peg Tube) Gram Stain - Final 02/17/20 13:00 G Tube (Peg Tube) Wound Culture - Final Escherichia Coli Enterococcus Faecium (Group D) Yeast, Not [place] Albicans Impressions: Abdomen CT 02/17/20 12:55 IMPRESSION: The retention balloon of the gastrostomy tube is outside the lumen of the stomach and within the subcutaneous space of the ventral abdominal wall. There is associated cutaneous thickening and stranding of the surrounding subcutaneous fat ; there is no discrete drainable abscess in the area. Assessment & Plan - Diagnosis (1) Abscess of postoperative wound of abdominal wall Is this a current diagnosis for this admission?: Yes (2) Complication of gastrostomy tube Is this a current diagnosis for this admission?: Yes (3) Altered mental status Qualifiers: Altered mental status type: unspecified Qualified Code(s): R41.82 - Altered mental status, unspecified Is this a current diagnosis for this admission?: Yes (4) Aphasia as late effect of cerebrovascular accident Is this a current diagnosis for this admission?: Yes - Time Critical Time spent with patient: 15-24 minutes Anticipated Discharge Disposition: Assisted Facility Anticipated Discharge Timeframe: 1 week - Inpatient Certification Medical Necessity: Need for IV Antibiotics, Need for Surgery - Plan Summary Plan Summary: The inflammation along the PEG tube site appears to be getting better. However it may not be proper time to put another PEG tube at this time. We will continue to follow-up patient with you then decide for appropriate time for new PEG tube placement
[2020-02-21] MEDS: HYDRALAZINE HCL INJ/PF 20 MG/1 ML SDV IV PRN (12:15)
[2020-02-21] MEDS ORDERED: PHARMACY COMMUNICATION ORDER MC NR (16:30)
[2020-02-21 17:39] LABS: VANCOMYCIN,TROUGH < 5.0 ug/mL (5.0-20.0)
[2020-02-21] MEDS: VANCOMYCIN HCL 1,250 MG in DEXTROSE 5%-WATER 250 ML IV SCH (18:01)
--- NOTE | 2020-02-21 20:14 | PDOC PROGRESS REPORT ---
Subjective Progress Note for:: 02/21/20 Subjective:: Ashish Bowman is a 84-year-old male [facility] nonverbal at baseline, history of CVA CKD 3 DM type II conversion disorder with convulsions bedbound with chronic G tube, who was admitted in the ED from SNF due to G-tube malfunction. He was seen and examined at baseline he is nonverbal, does not appear to be in acute distress. Reason For Visit: G-TUBE MALFUNCTION,ABDOMINAL WALL CELLULITIS Physical Exam Vital Signs: Temp Pulse Resp BP Pulse Ox 98.3 F 125 H 19 170/94 H 100 02/21/20 17:30 02/21/20 17:30 02/21/20 17:30 02/21/20 17:30 02/21/20 17:30 Intake & Output 02/20/20 02/21/20 02/22/20 06:59 06:59 06:59 Intake Total 2480 3352 1328 Balance 2480 3352 1328 Weight 64.1 kg 64.5 kg General appearance: PRESENT: no acute distress, other - Nonverbal at baseline bedbound Head exam: PRESENT: atraumatic, normocephalic Eye exam: PRESENT: EOMI, PERRLA Ear exam: PRESENT: normal external ear exam, TM's normal bilaterally Neck exam: ABSENT: JVD Respiratory exam: PRESENT: clear to auscultation samreen, symmetrical. ABSENT: crackles, rales, tachypnea Cardiovascular exam: PRESENT: RRR, +S1, +S2 GI/Abdominal exam: PRESENT: normal bowel sounds, soft, other - G-tube site covered in dressing, dry. ABSENT: guarding Rectal exam: PRESENT: deferred Extremities exam: PRESENT: other - Joints are chronically contracted Musculoskeletal exam: PRESENT: other - Upper extremities attracted Neurological exam: PRESENT: aphasic, other - He is nonverbal at baseline Results Laboratory Results: 02/21/20 05:09 02/21/20 17:04 02/21/20 02/21/20 02/21/20 05:09 05:09 17:04 WBC 5.4 RBC 5.31 Hgb 12.7 L Hct 39.0 MCV 74 L MCH 23.9 L MCHC 32.4 RDW 15.0 H Plt Count 272 Sodium 138.6 Potassium 3.9 Chloride 107 Carbon Dioxide 22 Anion Gap 10 BUN 12 Creatinine 1.13 0.78 Est GFR ( Amer) > 60 > 60 Glucose 146 H Calcium 9.1 Impressions: Abdomen CT 02/17/20 12:55 IMPRESSION: The retention balloon of the gastrostomy tube is outside the lumen of the stomach and within the subcutaneous space of the ventral abdominal wall. There is associated cutaneous thickening and stranding of the surrounding subcutaneous fat ; there is no discrete drainable abscess in the area. Assessment and Plan - Diagnosis (1) Abdominal wall cellulitis Is this a current diagnosis for this admission?: Yes Plan: Blood cultures have NGTD Wound culture shows pansensitive E. coli and penicillin resistant enterococcus -On Vanco and cefepime Day 4 -Status post I&D -Surgery following. Recommend reinsertion of PEG once cellulitis has resolved. (2) Complication of gastrostomy tube Is this a current diagnosis for this admission?: Yes Plan: Primary management per surgical service. -Continue IV fluids. 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 plan to start tube feeding tomorrow Accu-Cheks every 6 hours with Humalog for sliding scale coverage. Hypoglycemia protocol in place. (4) Aphasia as late effect of cerebrovascular accident Is this a current diagnosis for this admission?: Yes Plan: -Patient is currently bedbound. Spoke to his who agreed for NG tube placement We will asked discharge planning to assist in identifying the patient's POA. Need to discuss the appropriateness of additional PEG placement versus transition to [facility]. (5) CVA (cerebral vascular accident) Qualifiers: CVA mechanism: unspecified Qualified Code(s): I63.9 - Cerebral infarction, unspecified Is this a current diagnosis for this admission?: Yes Plan: History; bedbound at baseline. Aphasic. Supportive care. - Time Time Spent with patient: 15-24 minutes Medications reviewed and adjusted accordingly: Yes Anticipated Discharge Disposition: Halfway Facility Anticipated Discharge Timeframe: to Be determined
[2020-02-22] MEDS: RINGERS SOLUTION,LACTATED 1,000 ML IV PRN ×2 (04:20→14:42)
[2020-02-22] MEDS: HEPARIN SOD (PORCINE) 5,000 UNIT/ML 1 ML VIAL SUBCUT SCH ×3 (05:03→21:47)
[2020-02-22] MEDS: VANCOMYCIN HCL 1,000 MG in DEXTROSE 5%-WATER 250 ML IV SCH ×2 (05:03→17:18)
[2020-02-22] MEDS: INSULIN LISPRO 100 UNIT/ML 3 ML VIAL SUBCUT SCH ×4 (05:40→19:58)
[2020-02-22] MEDS: FAMOTIDINE INJ/PF 20 MG/2 ML SDV IV SCH ×2 (10:15→21:47)
[2020-02-22] MEDS: CEFEPIME 1 GM/D5W RTU 1 GM/50 ML RTUPB IV SCH ×2 (10:15→21:48)
[2020-02-22] MEDS: LEVETIRACETAM 500 MG/NACL-ISO 500 MG/100 ML RTUPB IV SCH ×2 (11:36→23:05)
--- NOTE | 2020-02-22 15:34 | RADIOLOGY REPORT (SQ) ---
EXAM DESCRIPTION: INTRO/GI TUBE W/FLUORO; INTRO LONG GI TUBE (MILLAB) IMAGES COMPLETED DATE/TIME: 02/22/2020 3:19 pm REASON FOR STUDY: enteral feeding; Check Placement of NG Tube COMPARISON: None. TECHNIQUE: Live fluoroscopic guidance. RADIATION DOSE: FT: 2.9 minutes. 1 images saved to PACS. LIMITATIONS: None. FINDINGS: The patient was brought to the fluoroscopy room and placed supine on the fluoroscopy table . An 8 German Dobhoff tube was advanced through the right nostril and into the stomach. Was unable t o advance the catheter into the duodenum. Approximately 20 mL of non ionic contrast was injected thr ough the catheter to confirm placement. The catheter was affixed to the patient's nose at 80 cm. A fluoroscopic spot film was saved to PACs demonstrating catheter tip within the stomach. IMPRESSION: Successful fluoroscopic guided placement of an 8 German Dobhoff tube into the stomach. Dobhoff tube is ready for use. COMMENT: Quality ID 145: Final reports for procedures using fluoroscopy that document radiation exp osure indices, or exposure time and number of fluorographic images (if radiation exposure indices are not available) TECHNICAL DOCUMENTATION: JOBD ID: [id number] 2010 [employer]- All Rights Reserved Reading location - IP/workstation name: [email or web address] [id number]
--- NOTE | 2020-02-22 15:34 | RADIOLOGY REPORT (SQ) ---
EXAM DESCRIPTION: INTRO/GI TUBE W/FLUORO; INTRO LONG GI TUBE (MILLAB) IMAGES COMPLETED DATE/TIME: 02/22/2020 3:19 pm REASON FOR STUDY: enteral feeding; Check Placement of NG Tube COMPARISON: None. TECHNIQUE: Live fluoroscopic guidance. RADIATION DOSE: FT: 2.9 minutes. 1 images saved to PACS. LIMITATIONS: None. FINDINGS: The patient was brought to the fluoroscopy room and placed supine on the fluoroscopy table . An 8 Spanish Dobhoff tube was advanced through the right nostril and into the stomach. Was unable t o advance the catheter into the duodenum. Approximately 20 mL of non ionic contrast was injected thr ough the catheter to confirm placement. The catheter was affixed to the patient's nose at 80 cm. A fluoroscopic spot film was saved to PACs demonstrating catheter tip within the stomach. IMPRESSION: Successful fluoroscopic guided placement of an 8 Spanish Dobhoff tube into the stomach. Dobhoff tube is ready for use. COMMENT: Quality ID 145: Final reports for procedures using fluoroscopy that document radiation exp osure indices, or exposure time and number of fluorographic images (if radiation exposure indices are not available) TECHNICAL DOCUMENTATION: JOBD ID: [id number] 2010 [employer]- All Rights Reserved Reading location - IP/workstation name: [email or web address] [id number]
--- NOTE | 2020-02-22 21:06 | PDOC PROGRESS REPORT ---
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 02/22/20 - Got fluoroscopic dobhoff tube placement. Started on enteral feeding. Antibiotics continued. Patient is non vernal. Reason For Visit: G-TUBE MALFUNCTION,ABDOMINAL WALL CELLULITIS Physical Exam Vital Signs: Temp Pulse Resp BP Pulse Ox 97.8 F 96 16 194/90 H 99 02/22/20 19:15 02/22/20 19:15 02/22/20 19:15 02/22/20 19:15 02/22/20 19:15 Intake & Output 02/21/20 02/22/20 02/23/20 06:59 06:59 06:59 Intake Total 3352 2595 1650 Balance 3352 2595 1650 Weight 64.5 kg 64.7 kg 64.1 kg General appearance: PRESENT: no acute distress, other - Aphasic nonverbal at baseline Head exam: PRESENT: atraumatic, normocephalic Eye exam: PRESENT: EOMI, PERRLA Mouth exam: PRESENT: moist Neck exam: ABSENT: JVD, meningismus Respiratory exam: PRESENT: clear to auscultation samreen, symmetrical, unlabored. ABSENT: rales, wheezes Cardiovascular exam: PRESENT: RRR, +S1, +S2. ABSENT: diastolic murmur, systolic murmur, tachycardia Pulses: PRESENT: +2 pedal pulses bilateral GI/Abdominal exam: PRESENT: normal bowel sounds, soft. ABSENT: guarding - Dressing over prior PEG tube insertion site, dry, tenderness Extremities exam: PRESENT: other - Patient has contracted muscles on upper extremities Musculoskeletal exam: PRESENT: other - He is bedbound and nonambulatory. ABSENT: deformity Neurological exam: PRESENT: aphasic Psychiatric exam: PRESENT: flat affect Results Laboratory Results: 02/21/20 05:09 02/21/20 17:04 02/17/20 16:48 Blood Blood Culture - Final NO GROWTH IN 5 DAYS 02/17/20 15:30 Blood Blood Culture - Final NO GROWTH IN 5 DAYS Impressions: Abdomen CT 02/17/20 12:55 IMPRESSION: The retention balloon of the gastrostomy tube is outside the lumen of the stomach and within the subcutaneous space of the ventral abdominal wall. There is associated cutaneous thickening and stranding of the surrounding sub cutaneous fat ; there is no discrete drainable abscess in the area. Guidance Fluoroscopy 02/22/20 00:00 IMPRESSION: Successful fluoroscopic guided placement of an 8 Bhutanese Dobhoff tube into the stomach. Dobhoff tube is ready for use. Gastrostomy Tube Placement 02/22/20 08:00 IMPRESSION: Successful fluoroscopic guided placement of an 8 Bhutanese Dobhoff tube into the stomach. Dobhoff tube is ready for use. Assessment and Plan - Diagnosis (1) Abdominal wall cellulitis Is this a current diagnosis for this admission?: Yes Plan: Blood cultures have NGTD Wound culture shows pansensitive E. coli and penicillin resistant enterococcus -On Vanco and cefepime Day 5. to complete 7 days of treatment -Status post I&D -Surgery following. Recommend reinsertion of PEG once cellulitis has resolved. (2) Complication of gastrostomy tube Is this a current diagnosis for this admission?: Yes Plan: Primary management per surgical service. -Continue IV fluids. 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 Hypoglycemia protocol in place. (4) Aphasia as late effect of cerebrovascular accident Is this a current diagnosis for this admission?: Yes Plan: -Patient is currently bedbound. Spoke to his who agreed for NG tube placement We will asked discharge planning to assist in identifying the patient's POA. Need to discuss the appropriateness of additional PEG placement versus transition to RIVET TOSSER. (5) CVA (cerebral vascular accident) Qualifiers: CVA mechanism: unspecified Qualified Code(s): I63.9 - Cerebral infarction, unspecified Is this a current diagnosis for this admission?: Yes Plan: History; bedbound at baseline. Aphasic. Supportive care. - Time Time Spent with patient: 25-34 minutes Anticipated Discharge Disposition: Intermediate Facility Anticipated Discharge Timeframe: to be determined
[2020-02-23] MEDS: HYDRALAZINE HCL INJ/PF 20 MG/1 ML SDV IV PRN ×2 (00:11→08:11)
[2020-02-23] MEDS: INSULIN LISPRO 100 UNIT/ML 3 ML VIAL SUBCUT SCH ×4 (01:28→17:51)
[2020-02-23] MEDS: HEPARIN SOD (PORCINE) 5,000 UNIT/ML 1 ML VIAL SUBCUT SCH ×3 (05:59→21:12)
[2020-02-23] MEDS: VANCOMYCIN HCL 1,000 MG in DEXTROSE 5%-WATER 250 ML IV SCH ×2 (05:59→17:42)
[2020-02-23 06:08] LABS: VANCOMYCIN,TROUGH 15.4 ug/mL (5.0-20.0)
[2020-02-23] MEDS: CEFEPIME 1 GM/D5W RTU 1 GM/50 ML RTUPB IV SCH ×2 (08:10→21:12)
[2020-02-23] MEDS: LEVETIRACETAM 500 MG/NACL-ISO 500 MG/100 ML RTUPB IV SCH ×2 (09:04→21:12)
[2020-02-23 09:37] LABS: ABSOLUTE EOSINOPHILS # (AUTO) 0.3 10^3/uL (0.0-0.6); ABSOLUTE LYMPHOCYTES (AUTO) 0.8 10^3/uL (0.5-4.7); ABSOLUTE MONOCYTES (AUTO) 0.9 10^3/uL (0.1-1.4); ABSOLUTE NEUT (AUTO) 4.9 10^3/uL (1.7-8.2); BASOPHILS % (AUTO) 0.6 % (0-2); EOSINOPHILS % (AUTO) 4.3 % (0-6); HEMATOCRIT 39.2 % (37.9-51.0); HEMOGLOBIN 12.7 g/dL (13.5-17.0); LYMPHOCYTES % (AUTO) 11.8 % (13-45); MEAN CORPUSCULAR HEMOGLOBIN 23.9 pg (27.0-33.4); MEAN CORPUSCULAR HGB CONC 32.5 g/dL (32.0-36.0); MEAN CORPUSCULAR VOLUME 74 fl (80-97); MONOCYTES % (AUTO) 12.9 % (3-13); PLATELET COUNT 243 10^3/uL (150-450); RED BLOOD COUNT 5.32 10^6/uL (4.35-5.55); RED CELL DISTRIBUTION WIDTH 15.1 % (11.5-14.0); SEGMENTED NEUTROPHILS % (AUTO) 70.4 % (42-78); TOTAL CELLS COUNTED % (AUTO) 100 %
[2020-02-23 10:03] LABS: ALBUMIN 3.3 g/dL (3.5-5.0); ALKALINE PHOSPHATASE 88 U/L (38-126); ANION GAP 8 (5-19); ASPARTATE AMINO TRANSFERASE 33 U/L (17-59); BILIRUBIN,DIRECT 0.9 mg/dL (0.0-0.4); BILIRUBIN,TOTAL 1.5 mg/dL (0.2-1.3); BLOOD UREA NITROGEN 10 mg/dL (7-20); CALCIUM 9.1 mg/dL (8.4-10.2); CARBON DIOXIDE 22 mmol/L (22-30); CHLORIDE 106 mmol/L (98-107); GLUCOSE 173 mg/dL (75-110); POTASSIUM 3.6 mmol/L (3.6-5.0); TOTAL PROTEIN 6.4 g/dL (6.3-8.2)
[2020-02-23] MEDS: AMLODIPINE BESYLATE 10 MG TABLET PO SCH (11:30)
[2020-02-23] MEDS: FAMOTIDINE INJ/PF 20 MG/2 ML SDV IV SCH ×2 (11:30→21:12)
[2020-02-23] MEDS: RINGERS SOLUTION,LACTATED 1,000 ML IV PRN ×2 (13:01→21:51)
--- NOTE | 2020-02-23 16:12 | PDOC PROGRESS REPORT ---
Subjective Progress Note for:: 02/23/20 Subjective:: Nonverbal and nonresponsive Reason For Visit: G-TUBE MALFUNCTION,ABDOMINAL WALL CELLULITIS Physical Exam Vital Signs: Temp Pulse Resp BP Pulse Ox 97.8 F 110 H 20 168/90 H 99 02/23/20 11:58 02/23/20 11:58 02/23/20 11:58 02/23/20 11:58 02/23/20 11:58 Intake & Output 02/22/20 02/23/20 02/24/20 06:59 06:59 06:59 Intake Total 2595 3050 470 Balance 2595 3050 470 Weight 64.7 kg 64.7 kg 64.7 kg Exam: Abdomen is soft and appears nontender. Infected PEG tube site appears to be getting better. Results Laboratory Results: 02/23/20 05:25 02/23/20 05:28 02/23/20 02/23/20 02/23/20 05:25 05:25 05:28 WBC 7.0 RBC 5.32 Hgb 12.7 L Hct 39.2 MCV 74 L MCH 23.9 L MCHC 32.5 RDW 15.1 H Plt Count 243 Seg Neutrophils % 70.4 Sodium 136.3 L Potassium 3.6 Chloride 106 Carbon Dioxide 22 Anion Gap 8 BUN 10 Creatinine 1.02 0.98 Est GFR ( Amer) > 60 > 60 Glucose 173 H Calcium 9.1 Total Bilirubin 1.5 H AST 33 Alkaline Phosphatase 88 Total Protein 6.4 Albumin 3.3 L 02/17/20 16:48 Blood Blood Culture - Final NO GROWTH IN 5 DAYS 02/17/20 15:30 Blood Blood Culture - Final NO GROWTH IN 5 DAYS Impressions: Abdomen CT 02/17/20 12:55 IMPRESSION: The retention balloon of the gastrostomy tube is outside the lumen of the stomach and within the subcutaneous space of the ventral abdominal wall. There is associated cutaneous thickening and stranding of the surrounding subcutaneous fat ; there is no discrete drainable abscess in the area. Guidance Fluoroscopy 02/22/20 00:00 IMPRESSION: Successful fluoroscopic guided placement of an 8 Venezuelan Dobhoff tube into the stomach. Dobhoff tube is ready for use. Gastrostomy Tube Placement 02/22/20 08:00 IMPRESSION: Successful fluoroscopic guided placement of an 8 Venezuelan Dobhoff tube into the stomach. Dobhoff tube is ready for use. Assessment & Plan - Diagnosis (1) Abscess of postoperative wound of abdominal wall Is this a current diagnosis for this admission?: Yes (2) Complication of gastrostomy tube Is this a current diagnosis for this admission?: Yes (3) Aphasia as late effect of cerebrovascular accident Is this a current diagnosis for this admission?: Yes - Time Critical Time spent with patient: 15-24 minutes Anticipated [facility]charge [facility] Anticipated Discharge Timeframe: within 72 hours - Inpatient Certification Medical Necessity: Need for IV Antibiotics - Plan Summary Plan Summary: 84-year-old male with aphasia from cerebrovascular accident had an infected PEG tube site where the PEG tube was removed by Dr. Cano no 02/17/2020. This infected area appears to be improving. This is day 7 of IV antibiotics. Can continue with IV antibiotics. Reevaluate in the next 24 to 48 hours prior to possible placement of new PEG tube.
--- NOTE | 2020-02-23 19:03 | PDOC PROGRESS REPORT ---
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 02/22/20 - Got fluoroscopic dobhoff tube placement. Started on enteral feeding. Antibiotics continued. Patient is non verbal. 02/23/20 -Patient was seen and examined at bedside. Bedbound and non verbal. On enteral feeding. D6 of cefepime and vanc for cellulitis. Surgery following. Reason For Visit: G-TUBE MALFUNCTION,ABDOMINAL WALL CELLULITIS Physical Exam Vital Signs: Temp Pulse Resp BP Pulse Ox 98.5 F 94 20 170/93 H 99 02/23/20 16:43 02/23/20 16:43 02/23/20 16:43 02/23/20 16:43 02/23/20 16:43 Intake & Output 02/22/20 02/23/20 02/24/20 06:59 06:59 06:59 Intake Total 2595 3050 720 Balance 2595 3050 720 Weight 64.7 kg 64.7 kg 64.7 kg General appearance: PRESENT: no acute distress, other - bedbound and non verbal at baseline Head exam: PRESENT: atraumatic, normocephalic Eye exam: PRESENT: EOMI, PERRLA Mouth exam: PRESENT: moist, other - dobhoff tube in place Teeth exam: PRESENT: dental caries Neck exam: ABSENT: JVD, meningismus Respiratory exam: PRESENT: clear to auscultation samreen, symmetrical, unlabored. ABSENT: crackles, rales Cardiovascular exam: PRESENT: RRR, +S1, +S2 Pulses: PRESENT: +2 pedal pulses bilateral GI/Abdominal exam: PRESENT: normal bowel sounds, soft, other - dressing over PEG tube site, clean, dry. ABSENT: tenderness Extremities exam: PRESENT: other - upper extremities is contracted Neurological exam: PRESENT: other - bedbound and non verbal at baseline Results Laboratory Results: 02/23/20 05:25 02/23/20 05:28 09/03/20 09/03/20 09/03/20 05:25 05:25 05:28 WBC 7.0 RBC 5.32 Hgb 12.7 L Hct 39.2 MCV 74 L MCH 23.9 L MCHC 32.5 RDW 15.1 H Plt Count 243 Seg Neutrophils % 70.4 Sodium 136.3 L Potassium 3.6 Chloride 106 Carbon Dioxide 22 Anion Gap 8 BUN 10 Creatinine 1.02 0.98 Est GFR ( Amer) > 60 > 60 Glucose 173 H Calcium 9.1 Total Bilirubin 1.5 H AST 33 Alkaline Phosphatase 88 Total Protein 6.4 Albumin 3.3 L 02/17/20 16:48 Blood Blood Culture - Final NO GROWTH IN 5 DAYS 02/17/20 15:30 Blood Blood Culture - Final NO GROWTH IN 5 DAYS Impressions: Abdomen CT 02/17/20 12:55 IMPRESSION: The retention balloon of the gastrostomy tube is outside the lumen of the stomach and within the subcutaneous space of the ventral abdominal wall. There is associated cutaneous thickening and stranding of the surrounding subcutaneous fat ; there is no discrete drainable abscess in the area. Guidance Fluoroscopy 02/22/20 00:00 IMPRESSION: Successful fluoroscopic guided placement of an 8 Korean Dobhoff tube into the stomach. Dobhoff tube is ready for use. Gastrostomy Tube Placement 02/22/20 08:00 IMPRESSION: Successful fluoroscopic guided placement of an 8 Korean Dobhoff t ube into the stomach. Dobhoff tube is ready for use. Assessment and Plan - Diagnosis (1) Abdominal wall cellulitis Is this a current diagnosis for this admission?: Yes Plan: Blood cultures have NGTD Wound culture shows pansensitive E. coli and penicillin resistant enterococcus -On Vanco and cefepime Day 6. to complete 7 days of treatment -Status post I&D -Surgery following. Recommend reinsertion of PEG once cellulitis has resolved. (2) Complication of gastrostomy tube Is this a current diagnosis for this admission?: Yes Plan: Primary management per surgical service. 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 Hypoglycemia protocol in place. (4) Aphasia as late effect of cerebrovascular accident Is this a current diagnosis for this admission?: Yes Plan: -Patient is currently bedbound. Spoke to his who agreed for NG tube placement We will asked discharge planning to assist in identifying the patient's POA. Need to discuss the appropriateness of additional PEG placement versus transition to HOTBED LEVER OPERATOR. (5) CVA (cerebral vascular accident) Qualifiers: CVA mechanism: unspecified Qualified Code(s): I63.9 - Cerebral infarction, unspecified Is this a current diagnosis for this admission?: Yes Plan: History; bedbound at baseline. Aphasic. Supportive care. - Time Time Spent with patient: 25-34 minutes Anticipated Discharge Disposition: [facility] Anticipated Discharge Timeframe: to be determined
[2020-02-24] MEDS: INSULIN LISPRO 100 UNIT/ML 3 ML VIAL SUBCUT SCH ×4 (05:29→18:06)
[2020-02-24] MEDS: VANCOMYCIN HCL 1,000 MG in DEXTROSE 5%-WATER 250 ML IV SCH ×2 (05:31→18:08)
[2020-02-24] MEDS: HEPARIN SOD (PORCINE) 5,000 UNIT/ML 1 ML VIAL SUBCUT SCH ×3 (05:32→21:11)
[2020-02-24] MEDS: RINGERS SOLUTION,LACTATED 1,000 ML IV PRN (07:57)
[2020-02-24] MEDS: CEFEPIME 1 GM/D5W RTU 1 GM/50 ML RTUPB IV SCH ×2 (09:15→21:11)
[2020-02-24] MEDS: FAMOTIDINE INJ/PF 20 MG/2 ML SDV IV SCH ×2 (10:13→21:11)
[2020-02-24] MEDS: LEVETIRACETAM 500 MG/NACL-ISO 500 MG/100 ML RTUPB IV SCH ×2 (10:13→22:20)
[2020-02-24 10:21] LABS: ABSOLUTE EOSINOPHILS # (AUTO) 0.3 10^3/uL (0.0-0.6); ABSOLUTE LYMPHOCYTES (AUTO) 1.1 10^3/uL (0.5-4.7); ABSOLUTE MONOCYTES (AUTO) 0.8 10^3/uL (0.1-1.4); ABSOLUTE NEUT (AUTO) 3.6 10^3/uL (1.7-8.2); BASOPHILS % (AUTO) 0.4 % (0-2); EOSINOPHILS % (AUTO) 5.2 % (0-6); HEMOGLOBIN 12.4 g/dL (13.5-17.0); LYMPHOCYTES % (AUTO) 18.9 % (13-45); MEAN CORPUSCULAR HEMOGLOBIN 23.9 pg (27.0-33.4); MEAN CORPUSCULAR HGB CONC 32.7 g/dL (32.0-36.0); MEAN CORPUSCULAR VOLUME 73 fl (80-97); MONOCYTES % (AUTO) 14.4 % (3-13); PLATELET COUNT 272 10^3/uL (150-450); RED CELL DISTRIBUTION WIDTH 15.1 % (11.5-14.0); SEGMENTED NEUTROPHILS % (AUTO) 61.1 % (42-78); TOTAL CELLS COUNTED % (AUTO) 100 %; WHITE BLOOD COUNT 5.9 10^3/uL (4.0-10.5)
[2020-02-24 10:46] LABS: ALBUMIN 3.1 g/dL (3.5-5.0); ALKALINE PHOSPHATASE 108 U/L (38-126); ANION GAP 6 (5-19); ASPARTATE AMINO TRANSFERASE 36 U/L (17-59); BILIRUBIN,DIRECT 0.4 mg/dL (0.0-0.4); BILIRUBIN,TOTAL 0.6 mg/dL (0.2-1.3); BLOOD UREA NITROGEN 14 mg/dL (7-20); CARBON DIOXIDE 23 mmol/L (22-30); CHLORIDE 108 mmol/L (98-107); GLUCOSE 156 mg/dL (75-110); POTASSIUM 4.1 mmol/L (3.6-5.0)
[2020-02-24] MEDS: AMLODIPINE BESYLATE 10 MG TABLET PO SCH (10:54)
--- NOTE | 2020-02-24 18:31 | PDOC PROGRESS REPORT ---
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 02/22/20 - Got fluoroscopic dobhoff tube placement. Started on enteral feeding. Antibiotics continued. Patient is non verbal. 02/23/20 -Patient was seen and examined at bedside. Bedbound and non verbal. On enteral feeding. D6 of cefepime and vanc for cellulitis. Surgery following. 02/24/20 -patient was seen and examined at bedside. Nonverbal. Afebrile. On tube feeding tolerating well. Spoke to Dr. Pettit who said Dr. Fajardo will reinsert PEG tube tomorrow. Continue antibiotics until tomorrow. Reason For Visit: G-TUBE MALFUNCTION,ABDOMINAL WALL CELLULITIS Physical Exam Vital Signs: Temp Pulse Resp BP Pulse Ox 98.6 F 87 17 169/77 H 100 02/24/20 15:15 02/24/20 15:15 02/24/20 15:15 02/24/20 15:15 02/24/20 15:15 Intake & Output 02/23/20 02/24/20 02/25/20 06:59 06:59 06:59 Intake Total 3050 2860 2124 Balance 3050 2860 2124 Weight 64.7 kg 64.7 kg General appearance: PRESENT: no acute distress Head exam: PRESENT: atraumatic, normocephalic Eye exam: PRESENT: EOMI, PERRLA Mouth exam: PRESENT: moist Teeth exam: PRESENT: dental caries Neck exam: PRESENT: full ROM. ABSENT: meningismus Respiratory exam: PRESENT: clear to auscultation samreen, symmetrical, unlabored. ABSENT: rales Cardiovascular exam: PRESENT: RRR, +S1, +S2 Pulses: PRESENT: +2 pedal pulses bilateral GI/Abdominal exam: PRESENT: normal bowel sounds, soft. ABSENT: distended, tenderness Extremities exam: PRESENT: other - Contracted upper extremities. ABSENT: joint swelling Neurological exam: PRESENT: other - Patient is nonverbal at baseline Results Laboratory Results: 02/24/20 09:56 02/24/20 09:56 02/24/20 02/24/20 09:56 09:56 WBC 5.9 RBC 5.20 Hgb 12.4 L Hct 38.0 MCV 73 L MCH 23.9 L MCHC 32.7 RDW 15.1 H Plt Count 272 Seg Neutrophils % 61.1 Sodium 136.8 L Potassium 4.1 Chloride 108 H Carbon Dioxide 23 Anion Gap 6 BUN 14 Creatinine 1.09 Est GFR ( Amer) > 60 Glucose 156 H Calcium 9.0 Total Bilirubin 0.6 AST 36 Alkaline Phosphatase 108 Total Protein 6.0 L Albumin 3.1 L Impressions: Abdomen CT 02/17/20 12:55 IMPRESSION: The retention balloon of the gastrostomy tube is outside the lumen of the stomach and within the subcutaneous space of the ventral abdominal wall. There is associated cutaneous thickening and stranding of the surrounding subcutaneous fat ; there is no discrete drainable abscess in the area. Guidance Fluoroscopy 02/22/20 00:00 IMPRESSION: Successful fluoroscopic guided placement of an 8 Slovenian Dobhoff tube into the stomach. Dobhoff tube is ready for use. Gastrostomy Tube Placement 02/22/20 08:00 IMPRESSION: Successful fluoroscopic guided placement of an 8 Slovenian Dobhoff tube into the stomach. Dobhoff tube is ready for use. Assessment and Plan - Diagnosis (1) Abdominal wall cellulitis Is this a current diagnosis for this admission?: Yes Plan: Blood cultures have NGTD Wound culture shows pansensitive E. coli and penicillin resistant enterococcus -On Vanco and cefepime Day 7. Per Dr. Pettit For 1 more day -Status post I&D -Surgery following. Plan for PEG tube reinsertion tomorrow (2) Complication of gastrostomy tube Is this a current diagnosis for this admission?: Yes Plan: Primary management per surgical service. -IV fluids stopped since he is on tube feeding -Status post fluoroscopic guided Dobbhoff tube insertion -For PEG tube reinsertion tomorrow (3) Diabetes Qualifiers: Diabetes mellitus type: type 2 Diabetes mellitus fdc insulin use: unspecified fdc insulin use status Diabetes mellitus complication status: with other specified complication Qualified Code(s): E11.69 - Type 2 diabetes mellitus with other specified complication Is this a current diagnosis for this admission?: Yes Plan: -On enteral feeding today - Accu-Cheks every 6 hours with Humalog for sliding scale coverage. Hypoglycemia protocol in place. (4) Aphasia as late effect of cerebrovascular accident Is this a current diagnosis for this admission?: Yes Plan: -Patient is currently bedbound. Spoke to his who agreed for NG tube placement We will asked discharge planning to assist in identifying the patient's POA. Need to discuss the appropriateness of additional PEG placement versus transition to SHAFTING WORKER. (5) CVA (cerebral vascular accident) Qualifiers: CVA mechanism: unspecified Qualified Code(s): I63.9 - Cerebral infarction, unspecified Is this a current diagnosis for this admission?: Yes Plan: History; bedbound at baseline. Aphasic. Supportive care. - Time Time Spent with patient: 25-34 minutes Anticipated Discharge Disposition: Care Home Facility Anticipated Discharge Timeframe: To be determined
--- NOTE | 2020-02-24 18:43 | PDOC PROGRESS REPORT ---
Subjective Progress Note for:: 02/24/20 Subjective:: Nonverbal Reason For Visit: G-TUBE MALFUNCTION,ABDOMINAL WALL CELLULITIS Physical Exam Vital Signs: Temp Pulse Resp BP Pulse Ox 98.6 F 87 17 169/77 H 100 02/24/20 15:15 02/24/20 15:15 02/24/20 15:15 02/24/20 15:15 02/24/20 15:15 Intake & Output 02/23/20 02/24/20 02/25/20 06:59 06:59 06:59 Intake Total 3050 2860 2124 Balance 3050 2860 2124 Weight 64.7 kg 64.7 kg Exam: Peg tube site inflammation appears to be improving with IV antibiotics Results Laboratory Results: 02/24/20 09:56 02/24/20 09:56 02/24/20 02/24/20 09:56 09:56 WBC 5.9 RBC 5.20 Hgb 12.4 L Hct 38.0 MCV 73 L MCH 23.9 L MCHC 32.7 RDW 15.1 H Plt Count 272 Seg Neutrophils % 61.1 Sodium 136.8 L Potassium 4.1 Chloride 108 H Carbon Dioxide 23 Anion Gap 6 BUN 14 Creatinine 1.09 Est GFR ( Amer) > 60 Glucose 156 H Calcium 9.0 Total Bilirubin 0.6 AST 36 Alkaline Phosphatase 108 Total Protein 6.0 L Albumin 3.1 L Impressions: Abdomen CT 02/17/20 12:55 IMPRESSION: The retention balloon of the gastrostomy tube is outside the lumen of the stomach and within the subcutaneous space of the ventral abdominal wall. There is associated cutaneous thickening and stranding of the surrounding subcutaneous fat ; there is no discrete drainable abscess in the area. Guidance Fluoroscopy 02/22/20 00:00 IMPRESSION: Successful fluoroscopic guided placement of an 8 Romansh Dobhoff tube into the stomach. Dobhoff tube is ready for use. Gastrostomy Tube Placement 02/22/20 08:00 IMPRESSION: Successful fluoroscopic guided placement of an 8 Romansh Dobhoff tube into the stomach. Dobhoff tube is ready for use. Assessment & Plan - Diagnosis (1) Abscess of postoperative wound of abdominal wall Is this a current diagnosis for this admission?: Yes (2) Complication of gastrostomy tube Is this a current diagnosis for this admission?: Yes (3) Aphasia as late effect of cerebrovascular accident Is this a current diagnosis for this admission?: Yes - Time Critical Time spent with patient: 15-24 minutes Anticipated [facility]charge Disposition: [facility] Anticipated Discharge Timeframe: within 72 hours - Inpatient Certification Medical Necessity: Need for IV Antibiotics, Need for Surgery - Plan Summary Plan Summary: David Hinojosa Junior had an infected PEG tube site that was managed by Dr. Fajardo about 7 days ago. The PEG tube was removed since it was infected. The wound gradually is improving and there is still need for placement of a new PEG tube. Patient has been on IV antibiotics for about 7 days today. Will schedule PEG tube placement tomorrow by Dr. Fajardo.
[2020-02-25] MEDS: INSULIN LISPRO 100 UNIT/ML 3 ML VIAL SUBCUT SCH ×5 (00:07→23:36)
[2020-02-25] MEDS: NORMAL SALINE 1000 ML 1,000 ML IV PRN ×2 (01:05→09:23)
[2020-02-25] MEDS: HEPARIN SOD (PORCINE) 5,000 UNIT/ML 1 ML VIAL SUBCUT SCH ×3 (05:45→21:49)
[2020-02-25 07:43] LABS: ABSOLUTE BASOPHILS # (AUTO) 0.1 10^3/uL (0.0-0.2); ABSOLUTE EOSINOPHILS # (AUTO) 0.4 10^3/uL (0.0-0.6); ABSOLUTE LYMPHOCYTES (AUTO) 1.1 10^3/uL (0.5-4.7); ABSOLUTE MONOCYTES (AUTO) 0.8 10^3/uL (0.1-1.4); ABSOLUTE NEUT (AUTO) 2.8 10^3/uL (1.7-8.2); BASOPHILS % (AUTO) 1.6 % (0-2); EOSINOPHILS % (AUTO) 7.8 % (0-6); HEMATOCRIT 40.1 % (37.9-51.0); LYMPHOCYTES % (AUTO) 21.3 % (13-45); MEAN CORPUSCULAR HEMOGLOBIN 23.8 pg (27.0-33.4); MEAN CORPUSCULAR HGB CONC 32.4 g/dL (32.0-36.0); MEAN CORPUSCULAR VOLUME 74 fl (80-97); RED BLOOD COUNT 5.46 10^6/uL (4.35-5.55); SEGMENTED NEUTROPHILS % (AUTO) 53.3 % (42-78); TOTAL CELLS COUNTED % (AUTO) 100 %; WHITE BLOOD COUNT 5.2 10^3/uL (4.0-10.5)
[2020-02-25] MEDS ORDERED: FENTANYL CITRATE INJ/PF 100 MCG/2 ML AMPUL ONE (07:52)
[2020-02-25] MEDS ORDERED: MIDAZOLAM 2 MG/2 ML INJ ONE (07:52)
[2020-02-25] MEDS ORDERED: PROPOFOL INJ 200 MG/20 ML VIAL IV ONE (07:53)
[2020-02-25 08:03] LABS: ALBUMIN 3.5 g/dL (3.5-5.0); ALKALINE PHOSPHATASE 86 U/L (38-126); ANION GAP 7 (5-19); ASPARTATE AMINO TRANSFERASE 38 U/L (17-59); BILIRUBIN,DIRECT 0.5 mg/dL (0.0-0.4); BLOOD UREA NITROGEN 11 mg/dL (7-20); CARBON DIOXIDE 25 mmol/L (22-30); CHLORIDE 107 mmol/L (98-107); GLUCOSE 147 mg/dL (75-110); TOTAL PROTEIN 6.7 g/dL (6.3-8.2)
[2020-02-25] MEDS: CEFEPIME 1 GM/D5W RTU 1 GM/50 ML RTUPB IV SCH (08:03)
[2020-02-25 08:05] LABS: PLATELET COUNT 275 10^3/uL (150-450)
--- NOTE | 2020-02-25 08:17 | Progress Note ---
Provider Note Provider Note: Assessment: Infected G-tube site S/p G-tube removal with healing of the infected site Severe dementia Severe Parkinson disease and rigidity Plan: I had a long conversation with the patient's son Johana in regards to his father's condition and the procedure scheduled for today. I explained to him that I will make the best attempt to insert an endoscopic gastrostomy tube; however, if I encounter any difficulty I will abort the procedure and I will not proceed with an open G-tube placement because of the risks of general anesthesia and laparotomy in a patient with severe dementia, severe muscle rigidity, and advanced age. An open laparotomy with general anesthesia may cause unwanted effects such as severe stroke, heart attack, and . All the above have been discussed with his son at length, his questions have been answered, and he desires to proceed as I have recommended.
[2020-02-25] MEDS: LEVETIRACETAM 500 MG/NACL-ISO 500 MG/100 ML RTUPB IV SCH ×2 (09:18→21:49)
[2020-02-25] MEDS: FAMOTIDINE INJ/PF 20 MG/2 ML SDV IV SCH ×2 (09:18→21:49)
[2020-02-25] MEDS ORDERED: GLUCAGON,HUMAN RECOMB 1 MG INJ ONE (12:27)
[2020-02-25] MEDS ORDERED: EPINEPHRINE INJ 1 MG/10 ML DISP.SYRIN ONE (12:27)
[2020-02-25] MEDS ORDERED: FLUMAZENIL INJ 0.5 MG/5 ML VIAL ONE (12:27)
--- NOTE | 2020-02-25 13:22 | PDOC PROGRESS REPORT ---
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 02/22/20 - Got fluoroscopic dobhoff tube placement. Started on enteral feeding. Antibiotics continued. Patient is non verbal. 02/23/20 -Patient was seen and examined at bedside. Bedbound and non verbal. On enteral feeding. D6 of cefepime and vanc for cellulitis. Surgery following. 02/24/20 -patient was seen and examined at bedside. Nonverbal. Afebrile. On tube feeding tolerating well. Spoke to Dr. Pettit who said Dr. Fajardo will reinsert PEG tube tomorrow. Continue antibiotics until tomorrow. 02/25/20- patient was seen and examined at bedside. He is scheduled for PEG tube re insertion today by Dr. Fajardo. Currently on his last day of antibiotics. Afebrile, VS stable. Reason For Visit: G-TUBE MALFUNCTION,ABDOMINAL WALL CELLULITIS Physical Exam Vital Signs: Temp Pulse Resp BP Pulse Ox 97.6 F 77 12 141/70 H 100 02/25/20 11:07 02/25/20 11:07 02/25/20 11:07 02/25/20 11:07 02/25/20 11:07 Intake & Output 02/24/20 02/25/20 02/26/20 06:59 06:59 06:59 Intake Total 2860 2524 1000 Balance 2860 2524 1000 Weight 64.7 kg 42.3 kg General appearance: PRESENT: no acute distress, other - non verbal and bedbound. Eye exam: PRESENT: EOMI, PERRLA Mouth exam: PRESENT: moist Neck exam: PRESENT: full ROM. ABSENT: lymphadenopathy Respiratory exam: PRESENT: clear to auscultation samreen, symmetrical, unlabored Cardiovascular exam: PRESENT: RRR, +S1, +S2 Pulses: PRESENT: +2 pedal pulses bilateral GI/Abdominal exam: PRESENT: normal bowel sounds, soft. ABSENT: tenderness Extremities exam: PRESENT: other - contracted upper extremities Musculoskeletal exam: PRESENT: full ROM Results Laboratory Results: 02/25/20 07:13 02/25/20 07:13 02/25/20 02/25/20 07:13 07:13 WBC 5.2 RBC 5.46 Hgb 13.0 L Hct 40.1 MCV 74 L MCH 23.8 L MCHC 32.4 RDW 15.0 H Plt Count 275 Seg Neutrophils % 53.3 Sodium 138.8 Potassium 4.0 Chloride 107 Carbon Dioxide 25 Anion Gap 7 BUN 11 Creatinine 0.94 Est GFR ( Amer) > 60 Glucose 147 H Calcium 9.0 Total Bilirubin 1.0 AST 38 Alkaline Phosphatase 86 Total Protein 6.7 Albumin 3.5 Impressions: Abdomen CT 02/17/20 12:55 IMPRESSION: The retention balloon of the gastrostomy tube is outside the lumen of the stomach and within the subcutaneous space of the ventral abdominal wall. There is associated cutaneous thickening and stranding of the surrounding subcutaneous fat ; there is no discrete drainable abscess in the area. Guidance Fluoroscopy 02/22/20 00:00 IMPRESSION: Successful fluoroscopic guided placement of an 8 Serbian Dobhoff tube into the stomach. Dobhoff tube is ready for use. Gastrostomy Tube Placement 02/22/20 08:00 IMPRESSION: Successful fluoroscopic guided placement of an 8 Serbian Dobhoff tube into the stomach. Dobhoff tube is ready for use. Assessment and Plan - Diagnosis (1) Abdominal wall cellulitis Is this a current diagnosis for this admission?: Yes Plan: Blood cultures have NGTD Wound culture shows pansensitive E. coli and penicillin resistant enterococcus -On Vanco and cefepime Day 8. will stop abx today. -Status post I&D -Surgery following. Plan for PEG tube reinsertion today (2) Complication of gastrostomy tube Is this a current diagnosis for this admission?: Yes Plan: Primary management per surgical service. -IV fluids stopped since he is on tube feeding -Status post fluoroscopic guided Dobbhoff tube insertion. Pulled out yesterday -For PEG tube reinsertion today. 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 Hypoglycemia protocol in place. (4) Aphasia as late effect of cerebrovascular accident Is this a current diagnosis for this admission?: Yes Plan: -Patient is currently bedbound. Spoke to his who agreed for NG tube placement We will asked discharge planning to assist in identifying the patient's POA. Need to discuss the appropriateness of additional PEG placement versus transition to FINISHER [employer]. (5) CVA (cerebral vascular accident) Qualifiers: CVA mechanism: unspecified Qualified Code(s): I63.9 - Cerebral infarction, unspecified Is this a current diagnosis for this admission?: Yes Plan: History; bedbound at baseline. Aphasic. Supportive care. - Time Time Spent with patient: 15-24 minutes Medications reviewed and adjusted accordingly: Yes Anticipated Discharge Disposition: [facility] Facility Anticipated Discharge Timeframe: to be determined
--- NOTE | 2020-02-25 13:50 | Operative Report ---
Operative Report DATE OF SURGERY: 02/25/20 PREOPERATIVE DIAGNOSIS: Dementia, dysphagia POSTOPERATIVE DIAGNOSIS: Same OPERATION: PEG placement SURGEON: SARAHY DICK ANESTHESIA: Moderate Sedation - +5 mL's 1% lidocaine without epinephrine TISSUE REMOVED OR ALTERED: None COMPLICATIONS: None ESTIMATED BLOOD LOSS: None INTRAOPERATIVE FINDINGS: Mild gastritis, no ulcers identified PROCEDURE: The procedure was done in the operating room, the patient was placed in a semi- mitchell position, MAC anesthesia induced by the anesthesiologist, a mouth device was placed, the abdomen and epigastrium were prepped and draped sterilely. The endoscope was easily inserted to the mouth, the esophagus and the stomach, finger pressure was applied in the left upper quadrant and indentation of the stomach body wall was identified, the area was infiltrated with 1% lidocaine, a #11 blade used to make a wound incision. A number 16-gauge needle with sheath threaded through the skin into the stomach, the needle was removed and the sheath was left, a looped wire was placed through the sheath into the stomach and grasped with a looped wire inserted through the scope, the scope and looped wire were then pulled outside the mouth together with the loop wire inserted through the skin. The looped wire was then tied to the gastrostomy tube and was then pulled from the skin; the gastrostomy tube was gently advanced through the mouth, esophagus, and stomach until resistance was met. The endoscope was reinserted into the mouth and stomach. The mushroom of the gastrostomy tube was found to be flush against the gastric wall. The gastroscope was removed, the gastrostomy tube was cut to length, flange, clip, and cath were placed. The flange was secured to the skin with nylon sutures. Sterile dressings were applied. The patient tolerated procedure well and transferred to recovery room in satisfactory conditions.
[2020-02-25] MEDS: HYDRALAZINE HCL INJ/PF 20 MG/1 ML SDV IV PRN ×2 (14:10→23:30)
[2020-02-25] MEDS: AMLODIPINE BESYLATE 10 MG TABLET PO SCH (15:19)
[2020-02-25] MEDS: ACETAMINOPHEN 1,000 MG/100 ML RTUPB IV PRN (23:31)
[2020-02-26] MEDS: INSULIN LISPRO 100 UNIT/ML 3 ML VIAL SUBCUT SCH ×3 (06:05→18:42)
[2020-02-26] MEDS: HEPARIN SOD (PORCINE) 5,000 UNIT/ML 1 ML VIAL SUBCUT SCH ×3 (06:07→21:45)
[2020-02-26] MEDS: ACETAMINOPHEN 1,000 MG/100 ML RTUPB IV PRN (07:38)
[2020-02-26] MEDS: DEXTROSE 5%-LACTATED RINGERS 1,000 ML IV PRN ×2 (07:39→19:55)
[2020-02-26] MEDS: HYDRALAZINE HCL INJ/PF 20 MG/1 ML SDV IV PRN (11:53)
[2020-02-26] MEDS: AMLODIPINE BESYLATE 10 MG TABLET PO SCH ×3 (12:02→19:55)
[2020-02-26] MEDS: FAMOTIDINE INJ/PF 20 MG/2 ML SDV IV SCH ×2 (12:02→21:45)
[2020-02-26] MEDS: LEVETIRACETAM 500 MG/NACL-ISO 500 MG/100 ML RTUPB IV SCH ×2 (12:03→21:45)
--- NOTE | 2020-02-26 15:19 | PDOC PROGRESS REPORT ---
Subjective Progress Note for:: 02/26/20 Subjective:: patient not verbal Reason For Visit: G-TUBE MALFUNCTION,ABDOMINAL WALL CELLULITIS Physical Exam Vital Signs: Temp Pulse Resp BP Pulse Ox 98.5 F 88 20 188/104 H 98 02/26/20 11:44 02/26/20 11:44 02/26/20 11:44 02/26/20 11:44 02/26/20 11:44 Intake & Output 02/25/20 02/26/20 02/27/20 06:59 06:59 06:59 Intake Total 2524 1650 200 Output Total 2.5 Balance 2524 1647.5 200 Weight 42.3 kg 60 kg General appearance: PRESENT: other - patient not verbal GI/Abdominal exam: PRESENT: other - abdomen soft, PEG site covered with dressing c/d/i Results Laboratory Results: 02/25/20 07:13 02/25/20 07:13 Impressions: Abdomen CT 02/17/20 12:55 IMPRESSION: The retention balloon of the gastrostomy tube is outside the lumen of the stomach and within the subcutaneous space of the ventral abdominal wall. There is associated cutaneous thickening and stranding of the surrounding subcutaneous fat ; there is no discrete drainable abscess in the area. Guidance Fluoroscopy 02/22/20 00:00 IMPRESSION: Successful fluoroscopic guided placement of an 8 Uzbek Dobhoff tube into the stomach. Dobhoff tube is ready for use. Gastrostomy Tube Placement 02/22/20 08:00 IMPRESSION: Successful fluoroscopic guided placement of an 8 Uzbek Dobhoff tube into the stomach. Dobhoff tube is ready for use. Assessment & Plan - Diagnosis (1) Abscess of postoperative wound of abdominal wall Is this a current diagnosis for this admission?: Yes (2) Complication of gastrostomy tube Is this a current diagnosis for this admission?: Yes (3) Altered mental status Qualifiers: Altered mental status type: unspecified Qualified Code(s): R41.82 - Altered mental status, unspecified Is this a current diagnosis for this admission?: Yes - Time Anticipated Discharge Disposition: [facility] Anticipated Discharge Timeframe: not decided yet - Plan Summary Plan Summary: A/ POD#1 after PEG placement NS via PEG well tolerated P/ advance NS via PEG tomorrow at 6 am, start tube feeding via PEG at low rate until goal rate is reached
--- NOTE | 2020-02-26 16:51 | PDOC PROGRESS REPORT ---
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 02/22/20 - Got fluoroscopic dobhoff tube placement. Started on enteral feeding. Antibiotics continued. Patient is non verbal. 02/23/20 -Patient was seen and examined at bedside. Bedbound and non verbal. On enteral feeding. D6 of cefepime and vanc for cellulitis. Surgery following. 02/24/20 -patient was seen and examined at bedside. Nonverbal. Afebrile. On tube feeding tolerating well. Spoke to Dr. Pettit who said Dr. Fajardo will reinsert PEG tube tomorrow. Continue antibiotics until tomorrow. 02/25/20- patient was seen and examined at bedside. He is scheduled for PEG tube re insertion today by Dr. Fajardo. Currently on his last day of antibiotics. Afebrile, VS stable. 02/26/20- Patient was seen and examined at bedside. He was seen by Dr. Fajardo today who recommended to continue normal saline via PEG tube. He may start tube feeding via PEG at low rate starting tomorrow at 6 AM. He is bedbound and nonverbal at baseline, afebrile since admission. Completed 8 days of antibiotics. Reason For Visit: G-TUBE MALFUNCTION,ABDOMINAL WALL CELLULITIS Physical Exam Vital Signs: Temp Pulse Resp BP Pulse Ox 98.5 F 88 20 188/104 H 98 02/26/20 11:44 02/26/20 11:44 02/26/20 11:44 02/26/20 11:44 02/26/20 11:44 Intake & Output 02/25/20 02/26/20 02/27/20 06:59 06:59 06:59 Intake Total 2524 1650 200 Output Total 2.5 Balance 2524 1647.5 200 Weight 42.3 kg 60 kg General appearance: PRESENT: no acute distress, other - Nonverbal at baseline Head exam: PRESENT: atraumatic, normocephalic Eye exam: PRESENT: EOMI, PERRLA Mouth exam: PRESENT: moist Neck exam: PRESENT: full ROM Respiratory exam: PRESENT: clear to auscultation samreen, symmetrical, unlabored. ABSENT: crackles Cardiovascular exam: PRESENT: RRR, +S1, +S2 Pulses: PRESENT: +2 pedal pulses bilateral GI/Abdominal exam: PRESENT: normal bowel sounds, soft, other - Newly inserted PEG tube noted anterior abdomen, clean dressing, no discharge Extremities exam: PRESENT: other - Contracted upper extremities Neurological exam: PRESENT: other - Nonverbal and bedbound at baseline Skin exam: PRESENT: normal color Results Laboratory Results: 02/25/20 07:13 02/25/20 07:13 Impressions: Abdomen CT 02/17/20 12:55 IMPRESSION: The retention balloon of the gastrostomy tube is outside the lumen of the stomach and within the subcutaneous space of the ventral abdominal wall. There is associated cutaneous thickening and stranding of the surrounding subcutaneous fat ; there is no discrete drainable abscess in the area. Guidance Fluoroscopy 02/22/20 00:00 IMPRESSION: Successful fluoroscopic guided placement of an 8 Bengali Dobhoff tube into the stomach. Dobhoff tube is ready for use. Gastrostomy Tube Placement 02/22/20 08:00 IMPRESSION: Successful fluoroscopic guided placement of an 8 Bengali Dobhoff tube into the stomach. Dobhoff tube is ready for use. Assessment and Plan - Diagnosis (1) Abdominal wall cellulitis Is this a current diagnosis for this admission?: Yes Plan: Blood cultures have NGTD Wound culture shows pansensitive E. coli and penicillin resistant enterococcus -On Vanco and cefepime Day 8. will stop abx today. -Status post I&D -Status post PEG tube reinsertion yesterday. Currently on normal saline via PEG tube with plans to start enteral feeding tomorrow at [address] Fajardo's notes. (2) Complication of gastrostomy tube Is this a current diagnosis for this admission?: Yes Plan: Primary management per surgical service. -Status post PEG tube reinsertion yesterday currently on normal saline via PEG tube tolerating well. Per Dr. Fajardo notes he may start enteral feeding at 6 AM tomorrow (3) Diabetes Qualifiers: Diabetes mellitus type: type 2 Diabetes mellitus snf insulin use: u nspecified exterminator insulin use status Diabetes mellitus complication status: with other specified complication Qualified Code(s): E11.69 - Type 2 diabetes mellitus with other specified complication Is this a current diagnosis for this admission?: Yes Plan: -not on tube feeding for PEG re insertion today - Accu-Cheks every 6 hours with Humalog for sliding scale coverage. Hypoglycemia protocol in place. (4) Aphasia as late effect of cerebrovascular accident Is this a current diagnosis for this admission?: Yes Plan: -Patient is currently bedbound. Spoke to his who agreed for NG tube placement We will asked discharge planning to assist in identifying the patient's POA. Need to discuss the appropriateness of additional PEG placement versus transition to MANAGER PROPOSAL. (5) CVA (cerebral vascular accident) Qualifiers: CVA mechanism: unspecified Qualified Code(s): I63.9 - Cerebral infarction, unspecified Is this a current diagnosis for this admission?: Yes Plan: History; bedbound at baseline. Aphasic. Supportive care. - Time Time Spent with patient: 25-34 minutes Anticipated Discharge Disposition: Snf Facility Anticipated Discharge Timeframe: within 48 hours
[2020-02-27] MEDS: INSULIN LISPRO 100 UNIT/ML 3 ML VIAL SUBCUT SCH ×5 (00:27→23:36)
[2020-02-27] MEDS: HEPARIN SOD (PORCINE) 5,000 UNIT/ML 1 ML VIAL SUBCUT SCH ×3 (05:26→22:24)
[2020-02-27] MEDS: HYDRALAZINE HCL INJ/PF 20 MG/1 ML SDV IV PRN (05:30)
[2020-02-27 08:57] LABS: ABSOLUTE EOSINOPHILS # (AUTO) 0.3 10^3/uL (0.0-0.6); ABSOLUTE MONOCYTES (AUTO) 0.7 10^3/uL (0.1-1.4); ABSOLUTE NEUT (AUTO) 3.1 10^3/uL (1.7-8.2); BASOPHILS % (AUTO) 0.6 % (0-2); EOSINOPHILS % (AUTO) 5.6 % (0-6); HEMATOCRIT 38.4 % (37.9-51.0); HEMOGLOBIN 12.6 g/dL (13.5-17.0); MEAN CORPUSCULAR HEMOGLOBIN 24.1 pg (27.0-33.4); MEAN CORPUSCULAR HGB CONC 32.9 g/dL (32.0-36.0); MEAN CORPUSCULAR VOLUME 73 fl (80-97); MONOCYTES % (AUTO) 14.4 % (3-13); PLATELET COUNT 285 10^3/uL (150-450); RED BLOOD COUNT 5.24 10^6/uL (4.35-5.55); RED CELL DISTRIBUTION WIDTH 15.2 % (11.5-14.0); SEGMENTED NEUTROPHILS % (AUTO) 59.4 % (42-78); TOTAL CELLS COUNTED % (AUTO) 100 %; WHITE BLOOD COUNT 5.2 10^3/uL (4.0-10.5)
[2020-02-27] MEDS: LEVETIRACETAM 500 MG/NACL-ISO 500 MG/100 ML RTUPB IV SCH ×2 (09:08→22:21)
[2020-02-27 09:14] LABS: ALBUMIN 3.5 g/dL (3.5-5.0); ALKALINE PHOSPHATASE 77 U/L (38-126); ANION GAP 7 (5-19); ASPARTATE AMINO TRANSFERASE 28 U/L (17-59); BILIRUBIN,DIRECT 0.5 mg/dL (0.0-0.4); BLOOD UREA NITROGEN 8 mg/dL (7-20); CALCIUM 9.6 mg/dL (8.4-10.2); CARBON DIOXIDE 25 mmol/L (22-30); CHLORIDE 107 mmol/L (98-107); GLUCOSE 155 mg/dL (75-110); POTASSIUM 3.8 mmol/L (3.6-5.0); TOTAL PROTEIN 6.5 g/dL (6.3-8.2)
[2020-02-27] MEDS: LOSARTAN POTASSIUM 25 MG TABLET PO SCH (11:13)
[2020-02-27] MEDS: AMLODIPINE BESYLATE 10 MG TABLET PO SCH (11:14)
[2020-02-27] MEDS: FAMOTIDINE INJ/PF 20 MG/2 ML SDV IV SCH ×2 (11:14→22:21)
--- NOTE | 2020-02-27 12:01 | PDOC PROGRESS REPORT ---
Subjective Progress Note for:: 02/27/20 Subjective:: Patient is nonverbal. No meaningful review of systems is obtainable. History is obtained from the medical record and the nursing staff. Reason For Visit: G-TUBE MALFUNCTION,ABDOMINAL WALL CELLULITIS Physical Exam Vital Signs: Temp Pulse Resp BP Pulse Ox 97.9 F 100 17 151/89 H 99 02/27/20 08:00 02/27/20 08:00 02/27/20 08:00 02/27/20 08:00 02/27/20 08:00 Intake & Output 02/26/20 02/27/20 02/28/20 06:59 06:59 06:59 Intake Total 1650 1460 1100 Output Total 2.5 Balance 1647.5 1460 1100 Weight 60 kg 62.8 kg General appearance: PRESENT: no acute distress Head exam: PRESENT: atraumatic Respiratory exam: PRESENT: unlabored. ABSENT: tachypnea, wheezes Cardiovascular exam: PRESENT: tachycardia GI/Abdominal exam: PRESENT: soft, other - PEG tube in place. No leakage.. ABSENT: tenderness Rectal exam: PRESENT: deferred Neurological exam: PRESENT: awake Psychiatric exam: ABSENT: agitated Focused psych exam: PRESENT: other - Nonverbal Skin exam: ABSENT: cyanosis, erythema, jaundice Results Laboratory Results: 02/27/20 08:46 02/27/20 08:46 02/27/20 02/27/20 08:46 08:46 WBC 5.2 RBC 5.24 Hgb 12.6 L Hct 38.4 MCV 73 L MCH 24.1 L MCHC 32.9 RDW 15.2 H Plt Count 285 Seg Neutrophils % 59.4 Sodium 139.3 Potassium 3.8 Chloride 107 Carbon Dioxide 25 Anion Gap 7 BUN 8 Creatinine 1.02 Est GFR ( Amer) > 60 Glucose 155 H Calcium 9.6 Total Bilirubin 1.0 AST 28 Alkaline Phosphatase 77 Total Protein 6.5 Albumin 3.5 Impressions: Abdomen CT 02/17/20 12:55 IMPRESSION: The retention balloon of the gastrostomy tube is outside the lumen of the stomach and within the subcutaneous space of the ventral abdominal wall. There is associated cutaneous thickening and stranding of the surrounding subcutaneous fat ; there is no discrete drainable abscess in the area. Guidance Fluoroscopy 02/22/20 00:00 IMPRESSION: Successful fluoroscopic guided placement of an 8 Slovenian Dobhoff tube into the stomach. Dobhoff tube is ready for use. Gastrostomy Tube Placement 02/22/20 08:00 IMPRESSION: Successful fluoroscopic guided placement of an 8 Slovenian Dobhoff tube into the stomach. Dobhoff tube is ready for use. 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 His G-tube was replaced yesterday. He appears to be tolerating tube feedings well. Surgery will sign off at this time. Please renotify with any questions or concerns.
--- NOTE | 2020-02-27 17:26 | PDOC PROGRESS REPORT ---
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 02/22/20 - Got fluoroscopic dobhoff tube placement. Started on enteral feeding. Antibiotics continued. Patient is non verbal. 02/23/20 -Patient was seen and examined at bedside. Bedbound and non verbal. On enteral feeding. D6 of cefepime and vanc for cellulitis. Surgery following. 02/24/20 -patient was seen and examined at bedside. Nonverbal. Afebrile. On tube feeding tolerating well. Spoke to Dr. Pettit who said Dr. Fajardo will reinsert PEG tube tomorrow. Continue antibiotics until tomorrow. 02/25/20- patient was seen and examined at bedside. He is scheduled for PEG tube re insertion today by Dr. Fajardo. Currently on his last day of antibiotics. Afebrile, VS stable. 02/26/20- Patient was seen and examined at bedside. He was seen by Dr. Fajardo today who recommended to continue normal saline via PEG tube. He may start tube feeding via PEG at low rate starting tomorrow at 6 AM. He is bedbound and nonverbal at baseline, afebrile since admission. Completed 8 days of antibiotics. 02/27/20. Patient was seen and examined at bedside. He is day 2 s/p PEG re insertion. Currently receiving Glucerna 10 ml/hr goal rate 45 ml/hr with 45 ml/hr free water flushes amounting to 1.9L of tube feeding w/ free water flushes. He has completed abx treatment for his cellulitis. Once he is at goal rate by tomorrow morning may be discharged back to [facility]. Reason For Visit: G-TUBE MALFUNCTION,ABDOMINAL WALL CELLULITIS Physical Exam Vital Signs: Temp Pulse Resp BP Pulse Ox 98.1 F 97 16 154/97 H 100 02/27/20 16:00 02/27/20 16:00 02/27/20 16:00 02/27/20 16:00 02/27/20 16:00 Intake & Output 02/26/20 02/27/20 02/28/20 06:59 06:59 06:59 Intake Total 1650 1460 1100 Output Total 2.5 Balance 1647.5 1460 1100 Weight 60 kg 62.8 kg 62.8 kg General appearance: PRESENT: no acute distress, other - Bedbound and nonverbal at baseline Head exam: PRESENT: atraumatic Eye exam: PRESENT: EOMI, PERRLA Mouth exam: PRESENT: moist Neck exam: ABSENT: meningismus Cardiovascular exam: PRESENT: RRR, +S1, +S2 Pulses: PRESENT: +2 pedal pulses bilateral GI/Abdominal exam: PRESENT: normal bowel sounds, soft, other - PEG tube site covered with dressing clean dry Rectal exam: PRESENT: deferred Extremities exam: PRESENT: other - Upper extremity with muscle atrophy and contraction Neurological exam: PRESENT: other - Bound and nonverbal at baseline Results Laboratory Results: 02/27/20 08:46 02/27/20 08:46 02/27/20 02/27/20 08:46 08:46 WBC 5.2 RBC 5.24 Hgb 12.6 L Hct 38.4 MCV 73 L MCH 24.1 L MCHC 32.9 RDW 15.2 H Plt Count 285 Seg Neutrophils % 59.4 Sodium 139.3 Potassium 3.8 Chloride 107 Carbon Dioxide 25 Anion Gap 7 BUN 8 Creatinine 1.02 Est GFR ( Amer) > 60 Glucose 155 H Calcium 9.6 Total Bilirubin 1.0 AST 28 Alkaline Phosphatase 77 Total Protein 6.5 Albumin 3.5 Impressions: Abdomen CT 02/17/20 12:55 IMPRESSION: The retention balloon of the gastrostomy tube is outside the lumen of the stomach and within the subcutaneous space of the ventral abdominal wall. There is associated cutaneous thickening and stranding of the surrounding subcutaneous fat ; there is no discrete drainable abscess in the area. Guidance Fluoroscopy 02/22/20 00:00 IMPRESSION: Successful fluoroscopic guided placement of an 8 Indonesian Dobhoff tube into the stomach. Dobhoff tube is ready for use. Gastrostomy Tube Placement 02/22/20 08:00 IMPRESSION: Successful fluoroscopic guided placement of an 8 Indonesian Dobhoff tube into the stomach. Dobhoff tube is ready for use. Assessment and Plan - Diagnosis (1) Abdominal wall cellulitis Is this a current diagnosis for this admission?: Yes Plan: Blood cultures have NGTD Wound culture shows pansensitive E. coli and penicillin resistant enterococcus -Completed antibiotics -Status post I&D -Status post PEG tube reinsertion - currently on Glucerna 10 ml/hr, advance until goal of 45 ml/hr reached with 45 ml free water flushes for a total of 1.9L of feeding and free water flushes. He should reach his goal rate by tomorrow. (2) Complication of gastrostomy tube Is this a current diagnosis for this admission?: Yes Plan: Primary management per surgical service. -Status post PEG tube reinsertion enteral feeding restarted (3) Diabetes Qualifiers: Diabetes mellitus type: type 2 Diabetes mellitus intermediate teacher insulin use: unspecified senior care insulin use status Diabetes mellitus complication status: with other specified complication Qualified Code(s): E11.69 - Type 2 diabetes mellitus with other specified complication Is this a current diagnosis for this admission?: Yes Plan: - Accu-Cheks every 6 hours with Humalog for sliding scale coverage. Hypoglycemia protocol in place. (4) Aphasia as late effect of cerebrovascular accident Is this a current diagnosis for this admission?: Yes Plan: -Patient is currently bedbound. Spoke to his who agreed for NG tube placement We will asked discharge planning to assist in identifying the patient's POA. Need to discuss the appropriateness of additional PEG placement versus transition to DISTRIBUTION SUPERVISOR. (5) CVA (cerebral vascular accident) Qualifiers: CVA mechanism: unspecified Qualified Code(s): I63.9 - Cerebral infarction, unspecified Is this a current diagnosis for this admission?: Yes Plan: History; bedbound at baseline. Aphasic. Supportive care. - Plan Summary Summary: Patient is a nonverbal bedbound intermediate patient who was sent here due to PEG tube cellulitis. He had a new PEG tube reinserted 2 days ago and so far has been tolerating resumption of his enteral feeding. He has completed 8 days of antibiotics for his cellulitis. He may be discharged back to his intermediate once he is at goal rate by tomorrow - Time Time Spent with patient: 15-24 minutes Anticipated Discharge Disposition: Shelter Facility Anticipated Discharge Timeframe: within 48 hours
[2020-02-28] MEDS: INSULIN LISPRO 100 UNIT/ML 3 ML VIAL SUBCUT SCH ×2 (06:19→12:36)
[2020-02-28] MEDS: HEPARIN SOD (PORCINE) 5,000 UNIT/ML 1 ML VIAL SUBCUT SCH (06:20)
[2020-02-28] MEDS: LEVETIRACETAM 500 MG/NACL-ISO 500 MG/100 ML RTUPB IV SCH (10:34)
[2020-02-28] MEDS: AMLODIPINE BESYLATE 10 MG TABLET PO SCH (11:26)
[2020-02-28] MEDS: LOSARTAN POTASSIUM 25 MG TABLET PO SCH (11:26)
[2020-02-28] MEDS: FAMOTIDINE INJ/PF 20 MG/2 ML SDV IV SCH (11:26)
--- NOTE | 2020-02-28 14:01 | PDOC TRANSFER SUMMARY ---
Impression - Admit/DC Date/PCP Admission Date/Primary Care Provider: 02/17/20 15:32 REY CHICAS MD Discharge Date: 02/28/20 - Discharge Diagnosis (1) Abdominal wall cellulitis Is this a current diagnosis for this admission?: Yes (2) Complication of gastrostomy tube Is this a current diagnosis for this admission?: Yes (3) Diabetes Is this a current diagnosis for this admission?: Yes (4) GERD (gastroesophageal reflux disease) Is this a current diagnosis for this admission?: Yes (5) Aphasia as late effect of cerebrovascular accident Is this a current diagnosis for this admission?: Yes (6) CVA (cerebral vascular accident) Is this a current diagnosis for this admission?: Yes (7) Abscess of postoperative wound of abdominal wall Is this a current diagnosis for this admission?: Yes - Additional Information Resuscitation Status: Full Code Discharge Diet: Tube Feeding (Comments) - 45mls/hr continuous Discharge Activity: Supervised Activity Referrals: [facility] [Outside] REY CHICAS MD [Primary Care Provider] - Follow up as needed Prescriptions: Losartan Potassium [Cozaar 25 mg Tablet] 25 mg PO DAILY #30 tablet Amlodipine Besylate [Norvasc 10 mg Tablet] 10 mg PO DAILY #30 tablet Home Medications: Clopidogrel Bisulfate [Plavix 75 mg Tablet] 75 mg GT DAILY 03/05/17 Simvastatin [Zocor 40 mg Tablet] 20 mg GT QHS 03/05/17 Acetaminophen [Tylenol 325 mg Tablet] 650 mg GT Q6HP PRN 10/14/17 Famotidine [Pepcid 20 mg Tablet] 20 mg GT QHS 10/14/17 Bimatoprost [Lumigan 0.01% Oph Soln 2.5 ml/Bottle] 1 drop OU QHS 02/17/20 Brinzolamide/Brimonidine Tart [Simbrinza 1%-0.2% Eye Drops] 1 drop OP TID 02/17/20 Keppra Susp 500mg/5ml 1,000 mg PEG BID 02/17/20 Polyvinyl Alcohol/Povidone/Pf [Refresh Classic Eye Drops] 2 each OU DAILY 02/17/20 Sennosides [Senna] 10 ml PO QHS 02/17/20 Verapamil HCl [Calan 80 mg Tablet] 80 mg PO BID 02/17/20 Acetaminophen [Tylenol 650 mg Supp] 650 mg DC Q4HP PRN supp.rect 02/28/20 Amlodipine Besylate [Norvasc 10 mg Tablet] 10 mg PO DAILY #30 tablet 02/28/20 Losartan Potassium [Cozaar 25 mg Tablet] 25 mg PO DAILY #30 tablet 02/28/20 History of Present Illiness History of Present Illness: COMPA CHOI JR is a 84 year old male with a past medical history of CVA, CKD 3, DM 2, dimension, conversion disorder with convulsions, dysphasia, GERD, hypertension, and bedbound status with total aphasia who presented to the emergency department from [facility] with a complaint of G-tube malfunction. Evaluation in the emergency department revealed stable vital signs, unremarkable CBC and chemistry. Abdominal CT revealed that the retention balloon of the gastrostomy tube was displaced to the subcutaneous space of the ventral abdominal wall with associated thickening and stranding without discrete drainable abscess. Surgical services was consulted; Dr. Fajardo has already done a bedside removal of the G-tube and I&D of abscess. Patient is referred to the hospitalist service for further evaluation management of the above-stated complaints findings. Hospital Course Hospital Course: (1) Abdominal wall cellulitis Blood cultures have NGTD Wound culture shows pansensitive E. coli and penicillin resistant enterococcus -Completed antibiotics -Status post I&D -Status post PEG tube reinsertion -Currently on Glucerna 10 ml/hr, have advanced to goal of 45 ml/hr with 45 ml free water flushes for a total of 1.9L of feeding and free water flushes. (2) Complication of gastrostomy tube Primary management per surgical service. -Status post PEG tube reinsertion enteral feeding restarted Has reached goal TF rate. Tolerating well w/ minimal residuals. (3) Diabetes Diet controlled - Accu-Cheks every 6 hours with Humalog for sliding scale coverage while admitted. (4) Aphasia as late effect of cerebrovascular accident -Patient is currently bedbound. Spoke to his who agreed for NG tube placement Stable for discharge/return to [facility] today. (5) CVA (cerebral vascular accident) History; bedbound at baseline. Aphasic. Supportive care. Physical Exam Vital Signs: Temp Pulse Resp BP Pulse Ox 98.1 F 80 18 111/66 100 02/27/20 23:49 02/27/20 23:49 02/27/20 23:49 02/27/20 23:49 02/27/20 23:49 Intake & Output 02/27/20 02/28/20 02/29/20 06:59 06:59 06:59 Intake Total 1460 1200 100 Balance 1460 1200 100 Weight 62.8 kg 62.8 kg General appearance: PRESENT: no acute distress, well-nourished, other - bedbound and nonverbal at baseline Head exam: PRESENT: atraumatic, normocephalic Eye exam: PRESENT: conjunctiva pink, EOMI, PERRLA. ABSENT: scleral icterus Mouth exam: PRESENT: moist, tongue midline Teeth exam: PRESENT: poor dentation Respiratory exam: PRESENT: clear to auscultation samreen, symmetrical, unlabored, other - room air. ABSENT: rales, rhonchi, wheezes Cardiovascular exam: PRESENT: RRR. ABSENT: diastolic murmur, rubs, systolic murmur Pulses: PRESENT: normal dorsalis pedis pul Vascular exam: PRESENT: normal capillary refill GI/Abdominal exam: PRESENT: normal bowel sounds, soft, other - peg tube. ABSENT: distended, guarding, mass, organolmegaly, rebound, tenderness Rectal exam: PRESENT: deferred Extremities exam: ABSENT: calf tenderness, clubbing, pedal edema Neurological exam: PRESENT: alert, awake, CN II-XII grossly intact, aphasic, other - at baseline. ABSENT: motor sensory deficit Skin exam: PRESENT: dry, intact, warm. ABSENT: cyanosis, rash Results Laboratory Results: WBC 5.2 10^3/uL (4.0-10.5) 02/27/20 08:46 RBC 5.24 10^6/uL (4.35-5.55) 02/27/20 08:46 Hgb 12.6 g/dL (13.5-17.0) L 02/27/20 08:46 Hct 38.4 % (37.9-51.0) 02/27/20 08:46 MCV 73 fl (80-97) L 02/27/20 08:46 MCH 24.1 pg (27.0-33.4) L 02/27/20 08:46 MCHC 32.9 g/dL (32.0-36.0) 02/27/20 08:46 RDW 15.2 % (11.5-14.0) H 02/27/20 08:46 Plt Count 285 10^3/uL (150-450) 02/27/20 08:46 Lymph % (Auto) 20.0 % (13-45) 02/27/20 08:46 Wilcox % (Auto) 14.4 % (3-13) H 02/27/20 08:46 Eos % (Auto) 5.6 % (0-6) 02/27/20 08:46 Baso % (Auto) 0.6 % (0-2) 02/27/20 08:46 Absolute Neuts (auto) 3.1 10^3/uL (1.7-8.2) 02/27/20 08:46 Absolute Lymphs (auto) 1.0 10^3/uL (0.5-4.7) 02/27/20 08:46 Absolute Monos (auto) 0.7 10^3/uL (0.1-1.4) 02/27/20 08:46 Absolute Eos (auto) 0.3 10^3/uL (0.0-0.6) 02/27/20 08:46 Absolute Basos (auto) 0.0 10^3/uL (0.0-0.2) 02/27/20 08:46 Seg Neutrophils % 59.4 % (42-78) 02/27/20 08:46 Sodium 139.3 mmol/L (137-145) 02/27/20 08:46 Potassium 3.8 mmol/L (3.6-5.0) 02/27/20 08:46 Chloride 107 mmol/L (98-107) 02/27/20 08:46 Carbon Dioxide 25 mmol/L (22-30) 02/27/20 08:46 Anion Gap 7 (5-19) 02/27/20 08:46 BUN 8 mg/dL (7-20) 02/27/20 08:46 Creatinine 1.02 mg/dL (0.52-1.25) 02/27/20 08:46 Est GFR ( Amer) > 60 (>60) 02/27/20 08:46 Est GFR (MDRD) Non-Af > 60 (>60) 02/27/20 08:46 Glucose 155 mg/dL (75-110) H 02/27/20 08:46 POC Glucose 134 mg/dL (70-110) H 02/28/20 11:28 Calcium 9.6 mg/dL (8.4-10.2) 02/27/20 08:46 Phosphorus 3.4 mg/dL (2.5-4.5) 02/18/20 06:26 Magnesium 2.2 mg/dL (1.6-2.3) 02/18/20 06:26 Total Bilirubin 1.0 mg/dL (0.2-1.3) 02/27/20 08:46 Direct Bilirubin 0.5 mg/dL (0.0-0.4) H 02/27/20 08:46 Neonat Total Bilirubin Not Reportable 02/27/20 08:46 Neonat Direct Bilirubin Not Reportable 02/27/20 08:46 Neonat Indirect Bili Not Reportable 02/27/20 08:46 AST 28 U/L (17-59) 02/27/20 08:46 ALT 27 U/L (<50) 02/27/20 08:46 Alkaline Phosphatase 77 U/L (38-126) 02/27/20 08:46 Total Protein 6.5 g/dL (6.3-8.2) 02/27/20 08:46 Albumin 3.5 g/dL (3.5-5.0) 02/27/20 08:46 Time Trough Drawn 0528 02/23/20 05:28 Vancomycin Trough 15.4 ug/mL (5.0-20.0) 02/23/20 05:28 COVID-19 Source NASOPHARYNGEAL 02/17/20 16:30 COVID-19 (TEETEE) NOT DETECTED 02/17/20 16:30 Impressions: Abdomen CT 02/17/20 12:55 IMPRESSION: The retention balloon of the gastrostomy tube is outside the lumen of the stomach and within the subcutaneous space of the ventral abdominal wall. There is associated cutaneous thickening and stranding of the surrounding subcutaneous fat ; there is no discrete drainable abscess in the area. Guidance Fluoroscopy 02/22/20 00:00 IMPRESSION: Successful fluoroscopic guided placement of an 8 [place] Dobhoff tube into the stomach. Dobhoff tube is ready for use. Gastrostomy Tube Placement 02/22/20 08:00 IMPRESSION: Successful fluoroscopic guided placement of an 8 [place] Dobhoff tube into the stomach. Dobhoff tube is ready for use. Plan Plan of Treatment: Patient is discharged to [facility], where he is an established resident. Follow up with PCP within 1 week. Continue tube feeds at goal of 45 mls/hr. Take medications as prescribed. Return to the emergency department as needed for concerning symptoms. Time Spent: Greater than 30 Minutes Stroke Is this a Stroke Patient?: No Acute Heart Failure - Is this a Heart Failure Patient?: No
[2020-02-28 20:00] VITALS: BP 131/67
== END 2020-02-28 17:00 | DRG 988 ==
LOC: ER 11:36 → EH 15:32 → 4N 17:18
PROVIDERS: ADMIT Internal Medicine; ATTEND Registered Nurse
PROC: 0J980ZZ Drainage of Abdomen Subcutaneous Tissue and Fascia, Open Approach (ICD-10-PCS; 2020-02-17)
PROC: 0DP6XUZ Removal of Feeding Device from Stomach, External Approach (ICD-10-PCS; 2020-02-17)
PROC: 0DH63UZ Insertion of Feeding Device into Stomach, Percutaneous Approach (ICD-10-PCS; principal; 2020-02-25 12:00)
DX: K94.23 Gastrostomy malfunction (principal); L03.311 Cellulitis of abdominal wall; Z16.11 Resistance to penicillins; K94.22 Gastrostomy infection; Y83.8 Other surgical procedures as the cause of abnormal reaction of the patient, or of later complication, without mention of misadventure at the time of the procedure; K21.9 Gastro-esophageal reflux disease without esophagitis; M19.90 Unspecified osteoarthritis, unspecified site; I69.320 Aphasia following cerebral infarction; I12.9 Hypertensive chronic kidney disease with stage 1 through stage 4 chronic kidney disease, or unspecified chronic kidney disease; N18.3 Chronic kidney disease, stage 3 (moderate); E11.22 Type 2 diabetes mellitus with diabetic chronic kidney disease; E66.9 Obesity, unspecified; K29.70 Gastritis, unspecified, without bleeding; Z74.01 Bed confinement status; B96.20 Unspecified Escherichia coli [E. coli] as the cause of diseases classified elsewhere; G20 Parkinson's disease; F02.80 Dementia in other diseases classified elsewhere, unspecified severity, without behavioral disturbance, psychotic disturbance, mood disturbance, and anxiety; Z20.828 Contact with and (suspected) exposure to other viral communicable diseases; F44.5 Conversion disorder with seizures or convulsions
CPT/HCPCS: 36415; 43246; 44500; 731; 74150; 74340; 80048; 80053; 80202; 82565; 82962; 83735; 84100; 85025; 85027; 87040; 87070; 87077; 87186; 87205; 87635; 96360; 96361; 99285; C9803; J0131; J0171; J0360; J0692; J1610; J1644; J1815; J1953; J2250; J2543; J2704; J3010; J3370; J3490; J7030; J7060; J7120; J7121; S0028

== ENCOUNTER 2020-03-26 09:55 | Inpatient (IN) | payer OTHER, MEDICARE, MEDICAID ==
[2020-03-26] MEDS ORDERED: NORMAL SALINE 1000 ML 1,000 ML IV ONE ×2 (10:04→11:07)
[2020-03-26 10:23] LABS: ABSOLUTE BASOPHILS # (AUTO) 0.1 10^3/uL (0.0-0.2); ABSOLUTE MONOCYTES (AUTO) 1.4 10^3/uL (0.1-1.4); BASOPHILS % (AUTO) 0.4 % (0-2); HEMATOCRIT 41.2 % (37.9-51.0); HEMOGLOBIN 12.9 g/dL (13.5-17.0); LYMPHOCYTES % (AUTO) 5.5 % (13-45); MEAN CORPUSCULAR HEMOGLOBIN 23.7 pg (27.0-33.4); MEAN CORPUSCULAR HGB CONC 31.3 g/dL (32.0-36.0); MEAN CORPUSCULAR VOLUME 76 fl (80-97); MONOCYTES % (AUTO) 7.9 % (3-13); PLATELET COUNT 235 10^3/uL (150-450); RED BLOOD COUNT 5.43 10^6/uL (4.35-5.55); RED CELL DISTRIBUTION WIDTH 15.6 % (11.5-14.0); SEGMENTED NEUTROPHILS % (AUTO) 86.2 % (42-78); TOTAL CELLS COUNTED % (AUTO) 100 %; WHITE BLOOD COUNT 17.4 10^3/uL (4.0-10.5)
[2020-03-26 10:30] LABS: INTERNATIONAL RATION (INR) 1.19; PROTHROMBIN TIME 15.3 SEC (11.4-15.4)
[2020-03-26 10:42] LABS: ALBUMIN 2.6 g/dL (3.5-5.0); ALKALINE PHOSPHATASE 188 U/L (38-126); ANION GAP 13 (5-19); ASPARTATE AMINO TRANSFERASE 24 U/L (17-59); BILIRUBIN,DIRECT 0.4 mg/dL (0.0-0.4); BILIRUBIN,TOTAL 0.6 mg/dL (0.2-1.3); BLOOD UREA NITROGEN 71 mg/dL (7-20); CALCIUM 8.7 mg/dL (8.4-10.2); CARBON DIOXIDE 30 mmol/L (22-30); CHLORIDE 107 mmol/L (98-107); POTASSIUM 3.9 mmol/L (3.6-5.0); TOTAL PROTEIN 5.2 g/dL (6.3-8.2)
[2020-03-26 10:59] LABS: GLUCOSE 741 mg/dL (75-110)
[2020-03-26] MEDS ORDERED: NORMAL SALINE 100 ML with INSULIN REGULAR, HUMAN 100 UNIT IV PRN ×2 (11:09)
[2020-03-26] MEDS ORDERED: CEFEPIME 2 GM/D5W RTU 2 GM/50 ML RTUPB IV ONE (11:18)
[2020-03-26 11:30] LABS: VENOUS BLOOD BASE EXCESS 5.4 mmol/L; VENOUS BLOOD HCO3 30.9 mmol/L (20-32); VENOUS BLOOD PH 7.43 (7.30-7.42)
--- NOTE | 2020-03-26 12:10 | RADIOLOGY REPORT (SQ) ---
EXAM DESCRIPTION: CHEST SINGLE VIEW IMAGES COMPLETED DATE/TIME: 03/26/2020 11:37 am REASON FOR STUDY: cough COMPARISON: 05/07/2019 EXAM PARAMETERS: NUMBER OF VIEWS: One view. TECHNIQUE: Single frontal radiographic view of the chest acquired. RADIATION DOSE: NA LIMITATIONS: None. FINDINGS: LUNGS AND PLEURA: Low lung volumes with patchy left basilar airspace disease. Likely mild left effusion. No pneumothorax. Unremarkable right hemithorax. MEDIASTINUM AND HILAR STRUCTURES: No masses. Contour normal. HEART AND VASCULAR STRUCTURES: Heart normal in size. Normal vasculature. BONES: No acute findings. HARDWARE: None in the chest. OTHER: No other significant finding. IMPRESSION: Low lung volumes with patchy left basilar airspace disease compatible with pneumonia. TECHNICAL DOCUMENTATION: JOB ID: [id number] 2010 [employer]- All Rights Reserved Reading location - IP/workstation name: [email or web address]
--- NOTE | 2020-03-26 12:14 | RADIOLOGY REPORT (SQ) ---
EXAM DESCRIPTION: CT HEAD WITHOUT IMAGES COMPLETED DATE/TIME: 03/26/2020 11:43 am REASON FOR STUDY: ams COMPARISON: 02/07/2019 TECHNIQUE: Axial images acquired through the brain without intravenous contrast. Images reviewed wi th bone, brain and subdural windows. Additional sagittal and coronal reconstructions were generated. Images stored on PACS. All CT scanners at this facility use dose modulation, iterative reconstruction, and/or weight based d osing when appropriate to reduce radiation dose to as low as reasonably achievable (ALARA). [facility]: Dose Right [facility]: CareDose [facility]: Dose Right [facility]: Teradose 4D [facility]: [employer] RADIATION DOSE: CT Rad equipment meets quality standard of care and radiation dose reduction techniq ues were employed. CTDIvol: 53.2 mGy. DLP: 1017 mGy-cm. mGy. LIMITATIONS: None. FINDINGS: VENTRICLES: Prominent ventricles secondary to involutional atrophy. CEREBRUM: Cortical atrophy. No masses. No hemorrhage. No midline shift. Encephalomalacia in the r ight frontal region and in the left cerebellar hemisphere. No evidence for acute infarction. Extensi ve areas of low density in the white matter most likely chronic small vessel ischemic changes. CEREBELLUM: No masses. No hemorrhage. No alteration of density. No evidence for acute infarction. EXTRAAXIAL SPACES: No fluid collections. No masses. ORBITS AND GLOBE: No intra- or extraconal masses. Normal contour of globe without masses. CALVARIUM: No fracture. PARANASAL SINUSES: There is considerable fluid in both maxillary sinuses. SOFT TISSUES: No mass or hematoma. OTHER: No other significant finding. IMPRESSION: MICROVASCULAR ISCHEMIA AND GENERALIZED ATROPHY. NO ACUTE IMAGING FINDINGS IN THE BRAIN. MAXILLARY SINUS DISEASE. EVIDENCE OF ACUTE STROKE: NO. COMMENT: Quality ID # [id number]: Final reports with documentation of one or more dose reduction techniques (e.g., Automated exposure control, adjustment of the mA and/or kV according to patient size, use of iterative reconstruction technique) TECHNICAL DOCUMENTATION: JOB ID: [id number] 2010 [employer]- All Rights Reserved Reading location - IP/workstation name: [email or web address]
--- NOTE | 2020-03-26 12:45 | ER Document Report ---
ED Blood Sugar Problem - General Chief Complaint: High Blood Sugar Stated Complaint: BLOOD SUGAR PROBLEMS Time Seen by Provider: 03/26/20 10:58 Primary Care Provider: REY CHICAS MD [Primary Care Provider] - Follow up as needed Mode of Arrival: Medic Information source: Emergency Med Personnel Cannot obtain history due to: Altered mental status TRAVEL OUTSIDE OF THE [place] IN LAST 30 DAYS: No - HPI Notes: Patient has chronic expressive and receptive aphasia. No history was able to be obtained from patient. History was obtained from old records and EMS. Apparently patient is currently residing at [facility]. They noticed that patient's blood sugar today was elevated and sent the patient to the emergency department. There have been no known recent fevers. Patient has apparently had a mild cough and they were going to test the patient for COVID but this has not yet been done for staff at [facility]. Patient has had no known vomiting diarrhea or trauma. Patient symptoms have included apparent increased rate of breathing, and elevated blood sugars. The symptoms have been constant and severe. Nothing currently known to make them better or worse. No known medications were given for the elevated blood sugar before transport. - Related Data Allergies/Adverse Reactions: No Known Allergies Allergy (Verified 03/26/20 10:37) Past Medical History - General Information source: Emergency Med Personnel - Social History Smoking Status: Former Smoker Frequency of alcohol use: None Drug Abuse: None Family History: Reviewed & Not Pertinent, Hypertension - Past Medical History Cardiac Medical History: Reports: Hx Hypercholesterolemia, Hx Hypertension Denies: Hx Atrial Fibrillation, Hx Congestive Heart Failure, Hx Heart Attack Pulmonary Medical History: Reports: Hx Pneumonia Denies: Hx Asthma, Hx COPD Neurological Medical History: Reports: Hx Cerebrovascular Accident, Hx Seizures Endocrine Medical History: Reports: Hx Diabetes Mellitus Type 2. Denies: Hx Diabetes Mellitus Type 1 Renal/ Medical History: Reports: Hx End Stage Renal Disease. Denies: Hx Peritoneal Dialysis GI Medical History: Reports: Hx Gastroesophageal Reflux Disease. Denies: Hx Cirrhosis, Hx Hepatitis Musculoskeletal Medical History: Reports Hx Arthritis Psychiatric Medical History: Reports: Hx Dementia, Hx Depression Infectious Medical History: Denies: Hx Hepatitis Past Surgical History: Reports: Hx Abdominal Surgery, Hx Orthopedic Surgery - finger, Other - PEG - Immunizations Hx Diphtheria, Pertussis, Tetanus Vaccination: Yes Review of Systems - Review of Systems -: Yes ROS unobtainable due to patient's medical condition - Cannot obtain due to altered mental status Physical Exam - Vital signs Vitals: Resp BP Pulse Ox 40 H 152/86 H 95 03/26/20 10:11 03/26/20 10:11 03/26/20 10:11 Interpretation: Hypertensive, Tachypneic - General General appearance: Unresponsive In distress: Mild - HEENT Head: Normocephalic, Atraumatic Conjunctiva: Injected - Respiratory Respiratory status: Respiratory distress - Mild, Tachypnea Breath sounds: Decreased air movement, Rhonchi Chest palpation: Normal - Cardiovascular Rhythm: Regular Heart sounds: Normal auscultation Murmur: No - Abdominal Inspection: Other - G-tube in place in the left upper quadrant. There is some mild serosanguineous drainage around the tubing. The skin surrounding the tubing does not appear infected indurated nor is there any marco pus able to be elicited. No current signs of infection. Distension: No distension Bowel sounds: Hypoactive Organomegaly: No organomegaly - Back Back: Normal, Nontender - Extremities General upper extremity: Normal inspection, Normal color, Normal temperature General lower extremity: Normal inspection, Normal color, Normal temperature - Neurological Cognition: Inattentive Orientation: Disoriented to person, Disoriented to place, Disoriented to time, Disoriented to events [place] Coma Scale Eye Opening: None [place] Coma Scale Verbal: None [place] Coma Scale Motor: None [place] Coma Scale Total: 3 Additional motor exam normals: Other - Patient is apparently at his neurological baseline which includes being unresponsive and not responding to commands. I do not appreciate any new focal deficits. Sensory: Normal - Psychological Associated symptoms: Confused, Uncooperative - Skin Skin Temperature: Warm Skin Moisture: Dry Skin Color: Normal Course - Re-evaluation Re-evalutation: 03/26/20 12:46 Patient sent from longterm. He has a baseline of complete a aphasia making history difficult. There does not appear to be any new neurological abnormalities. Patient does appear to have a new pneumonia with an elevation of his blood glucose. However patient does not appear to be acidotic. Patient is being treated with fluids antibiotics and insulin. - Vital Signs Vital signs: Temp Pulse Resp BP Pulse Ox 99.2 F 40 H 152/86 H 95 03/26/20 10:14 03/26/20 10:11 03/26/20 10:11 03/26/20 10:11 - Laboratory Result Diagrams: 03/26/20 10:05 03/26/20 10:05 Laboratory results interpreted by me: 03/26/20 03/26/20 03/26/20 10:05 10:05 10:05 WBC 17.4 H Hgb 12.9 L MCV 76 L MCH 23.7 L MCHC 31.3 L RDW 15.6 H Lymph % (Auto) 5.5 L Absolute Neuts (auto) 15.0 H Seg Neutrophils % 86.2 H VBG pH Sodium 149.5 H BUN 71 H Creatinine 1.69 H Est GFR ( Amer) 47 L Est GFR (MDRD) Non-Af 39 L Glucose 741 H* POC Glucose Lactic Acid 3.2 H Alkaline Phosphatase 188 H Total Protein 5.2 L Albumin 2.6 L 03/26/20 03/26/20 10:23 11:06 WBC Hgb MCV MCH MCHC RDW Lymph % (Auto) Absolute Neuts (auto) Seg Neutrophils % VBG pH 7.43 H Sodium BUN Creatinine Est GFR ( Amer) Est GFR (MDRD) Non-Af Glucose POC Glucose > 550 H* Lactic Acid Alkaline Phosphatase Total Protein Albumin - Diagnostic Test Radiology reviewed: Image reviewed, Reports reviewed - EKG Interpretation by Me EKG shows normal: Sinus rhythm Rate: Tachycardia - 109 Rhythm: NSR [place]/QRS: Left axis deviation Critical Care Note - Critical Care Note Total time excluding time spent on procedures (mins): 60 Comments: Approximate 60 minutes of critical care were spent on this patient. This time was spent doing multiple reassessments. I spent reviewing imaging and laboratory values. It was spent talking with multiple consultants. It was spent reviewing old records. Discharge - Discharge Clinical Impression: Hyperosmolar (nonketotic) coma Pneumonia Qualifiers: Pneumonia type: due to unspecified organism Laterality: left Lung location: lower lobe of lung Qualified Code(s): J18.9 - Pneumonia, unspecified organism Condition: Critical Disposition: ADMITTED INPATIENT Admitting Provider: Kenji (Hospitalist) Unit Admitted: IMCU Referrals: REY CHICAS MD [Primary Care Provider] - Follow up as needed
--- NOTE | 2020-03-26 12:46 | EKG REPORT ---
SEVERITY:- ABNORMAL ECG - SINUS TACHYCARDIA LEFT AXIS DEVIATION LVH WITH SECONDARY REPOLARIZATION ABNORMALITY : Confirmed by: Samantha Soares MD 26-Mar-2020 12:45:07
[2020-03-26] MEDS ORDERED: INSULIN REG, HUMAN 100 UNIT/ML 3 ML VIAL (PYX) ONE (13:12)
[2020-03-26] MEDS ORDERED: ACETAMINOPHEN 325 MG TABLET PEG PRN (13:36)
[2020-03-26] MEDS ORDERED: ONDANSETRON HCL INJ/PF 4 MG/2 ML SDV IV PRN (13:36)
[2020-03-26] MEDS ORDERED: NORMAL SALINE 1000 ML 1,000 ML IV PRN (13:36)
[2020-03-26] MEDS ORDERED: [UNRECOGNIZED DRUG - OTHER] PEG PRN (13:41)
[2020-03-26] MEDS ORDERED: FIBER PEG PRN (13:41)
[2020-03-26] MEDS ORDERED: NUT TX GLUC INTOL LF SOY PEG PRN (13:41)
[2020-03-26] MEDS: HEPARIN SOD (PORCINE) 5,000 UNIT/ML 1 ML VIAL SUBCUT SCH ×2 (14:24→21:09)
[2020-03-26] MEDS: DEXAMETHASONE SOD PHOSPHATE INJ 4 MG/1 ML VIAL IV SCH (14:26)
--- NOTE | 2020-03-26 14:32 | PDOC H&P ---
History of Present Illness Admission Date/PCP: 03/26/20 13:22 REY CHICAS MD History of Present Illness: COMPA CHOI JR is an unfortunate 84-year-old male who is a resident at [facility], apparently is bedbound, aphasic, and has a PEG tube through which he takes medications and feedings. He is unable to provide me with any kind of a history, but understands that he may have been symptomatic for couple days at the residential; however, the details on this are sketchy. All I know for certain is that EMS was called to see him at [facility], and they found he had a high blood sugar and brought him over here. I believe at that time he was tachypneic as well. He was not hypoxic on room air at that time. By the time I came to see him he was on 2 L with his saturations in the upper 90s but he was breathing about 38 times a minute. He has not been febrile here, his temperature was 99.2 Fahrenheit. He did have a very congested-sounding breath sounds and they were having a hard time getting a Lee catheter into him. Initially I was told they had swabbed him for coronavirus at the residential, but the patient's nurse told me that he called verify this and it turns out he was not swabbed at [facility]. I was told that a coronavirus swab was sent from the ER. His blood glucose in the ER was 724. He has been given a couple of bags of fluid and the plan was to start an insulin drip. He had left lower lobe opacity on chest x-ray. Past Medical History Cardiac Medical History: Reports: Hyperlipidema, Hypertension Denies: Atrial Fibrillation, Congestive Heart Failure, Myocardial Infarction Pulmonary Medical History: Reports: Pneumonia Denies: Asthma, Chronic Obstructive Pulmonary Disease (COPD) Neurological Medical History: Reports: Seizures Endocrine Medical History: Reports: Diabetes Mellitus Type 2 Denies: Diabetes Mellitus Type 1 Renal/ Medical History: Reports: End Stage Renal Disease GI Medical History: Reports: Gastroesophageal Reflux Disease Denies: Cirrhosis, Hepatitis Musculoskeltal Medical History: Reports: Arthritis Psychiatric Medical History: Reports: Dementia, Depression Past Surgical History Past Surgical History: Reports: Orthopedic Surgery - finger, Other - PEG Social History Smoking Status: Former Smoker Frequency of Alcohol Use: None Hx Recreational Drug Use: No Drugs: None Hx Prescription Drug Abuse: No Family History Family History: Reviewed & Not Pertinent, Hypertension Parental Family History Reviewed: No - Unable to obtain Children Family History Reviewed: Unknown - Unable to obtain Sibling(s) Family History Reviewed.: Unknown - Unable to obtain Medication/Allergy Home Medications: Clopidogrel Bisulfate [Plavix 75 mg Tablet] 75 mg PEG DAILY 03/05/17 Simvastatin [Zocor 40 mg Tablet] 20 mg PEG QHS 03/05/17 Acetaminophen [Tylenol 325 mg Tablet] 650 mg GT Q6HP PRN 10/14/17 Famotidine [Pepcid 20 mg Tablet] 20 mg PEG QHS 10/14/17 Bimatoprost [Lumigan 0.01% Oph Soln 2.5 ml/Bottle] 1 drop OU QHS 02/17/20 Brinzolamide/Brimonidine Tart [Simbrinza 1%-0.2% Eye Drops] 1 drop OU TID 02/17/20 Polyvinyl Alcohol/Povidone/Pf [Refresh Classic Eye Drops] 2 drop OU DAILY 02/17/20 Sennosides [Senna] 10 ml PEG QHS 02/17/20 Verapamil HCl [Calan 80 mg Tablet] 80 mg PEG Q12 02/17/20 Acetaminophen [Tylenol 650 mg Supp] 650 mg AZ Q4HP PRN supp.rect 02/28/20 Amlodipine Besylate [Norvasc 10 mg Tablet] 10 mg PO DAILY #30 tablet 02/28/20 Azithromycin [Zithromax 250 mg Tablet] 250 mg PEG QPM PRN 03/26/20 Ceftriaxone Sodium [Rocephin Inj 1 Gm Vial] 1 gm IM ONCE PRN 03/26/20 Furosemide [Lasix Oral Soln 40 Mg/5 Ml Udcup] 20 mg PO ONCE PRN 03/26/20 Ipratropium/Albuterol Sulfate [Duoneb 3 ml Ampul] 3 ml NEB RTQ4HP PRN 03/26/20 Levetiracetam 1,000 mg PEG Q12 03/26/20 Losartan Potassium [Cozaar 25 mg Tablet] 25 mg PEG DAILY 03/26/20 Nut.tx.gluc Intol,Lf,Soy/Fiber [Diabetisource AC 1.2 Luis Liq] 60 ml PUMP CONTINUOUS PRN 03/26/20 Allergies/Adverse Reactions: No Known Allergies Allergy (Verified 03/26/20 10:37) Review of Systems ROS unobtainable: Due to mental status Physical Exam Vital Signs: Temp Pulse Resp BP Pulse Ox 99.2 F 36 H 134/77 H 96 03/26/20 10:14 03/26/20 13:01 03/26/20 13:01 03/26/20 13:01 Intake & Output 03/25/20 03/26/20 03/27/20 06:59 06:59 06:59 Intake Total 1050 Balance 1050 Weight 72 kg General appearance: PRESENT: disheveled, other - Moderate distress Head exam: PRESENT: atraumatic, normocephalic Eye exam: ABSENT: conjunctival injection, nystagmus, scleral icterus Ear exam: PRESENT: normal external ear exam Neck exam: PRESENT: full ROM. ABSENT: carotid bruit, JVD, lymphadenopathy, meningismus, tenderness, thyromegaly Respiratory exam: PRESENT: rhonchi - Left base, tachypnea, unlabored. ABSENT: accessory muscle use, chest wall tenderness, crackles, prolonged expiratory phas, wheezes Cardiovascular exam: PRESENT: RRR, +S1, +S2 Pulses: PRESENT: normal carotid pulses Vascular exam: PRESENT: normal capillary refill GI/Abdominal exam: PRESENT: normal bowel sounds, soft, other - PEG tube left side. ABSENT: distended, guarding, rebound, tenderness Extremities exam: ABSENT: clubbing, pedal edema Musculoskeletal exam: PRESENT: normal inspection. ABSENT: deformity Neurological exam: PRESENT: aphasic Skin exam: PRESENT: dry, warm, other - Face looks a little sweaty Results Laboratory Results: 03/26/20 10:05 03/26/20 10:05 03/26/20 03/26/20 03/26/20 10:05 10:05 10:05 WBC 17.4 H RBC 5.43 Hgb 12.9 L Hct 41.2 MCV 76 L MCH 23.7 L MCHC 31.3 L RDW 15.6 H Plt Count 235 Seg Neutrophils % 86.2 H VBG pH VBG pCO2 VBG HCO3 VBG Base Excess Sodium 149.5 H Potassium 3.9 Chloride 107 Carbon Dioxide 30 Anion Gap 13 BUN 71 H Creatinine 1.69 H Est GFR ( Amer) 47 L Glucose 741 H* Lactic Acid 3.2 H Calcium 8.7 Total Bilirubin 0.6 AST 24 Alkaline Phosphatase 188 H Total Protein 5.2 L Albumin 2.6 L 03/26/20 11:06 WBC RBC Hgb Hct MCV MCH MCHC RDW Plt Count Seg Neutrophils % VBG pH 7.43 H VBG pCO2 48.0 VBG HCO3 30.9 VBG Base Excess 5.4 Sodium Potassium Chloride Carbon Dioxide Anion Gap BUN Creatinine Est GFR ( Amer) Glucose Lactic Acid Calcium Total Bilirubin AST Alkaline Phosphatase Total Protein Albumin 03/26/20 10:05 Troponin I 0.040 Impressions: Chest X-Ray 03/26/20 11:11 IMPRESSION: Low lung volumes with patchy left basilar airspace disease compatible with pneumonia. Head CT 03/26/20 11:12 IMPRESSION: MICROVASCULAR ISCHEMIA AND GENERALIZED ATROPHY. NO ACUTE IMAGING FINDINGS IN THE BRAIN. MAXILLARY SINUS DISEASE. EVIDENCE OF ACUTE STROKE: NO. Assessment and Plan - Diagnosis (1) Acute respiratory failure with hypoxia Is this a current diagnosis for this admission?: Yes (2) Person under investigation for COVID-19 Is this a current diagnosis for this admission?: Yes (3) Hyperglycemia due to type 2 diabetes mellitus Qualifiers: Diabetes mellitus jail insulin use: with jail use Qualified Code(s): E11.65 - Type 2 diabetes mellitus with hyperglycemia; Z79.4 - [facility] (current) use of insulin Is this a current diagnosis for this admission?: Yes (4) ARF (acute renal failure) Qualifiers: Acute renal failure type: unspecified Is this a current diagnosis for this admission?: Yes (5) Aphasia as late effect of cerebrovascular accident Is this a current diagnosis for this admission?: Yes (6) LLL pneumonia Qualifiers: Pneumonia type: aspiration pneumonia Aspiration pneumonia type: due to regurgitated food Qualified Code(s): J69.0 - Pneumonitis due to inhalation of food and vomit Is this a current diagnosis for this admission?: Yes (7) Sepsis Qualifiers: Sepsis type: sepsis due to unspecified organism Sepsis acute organ dysfunction status: with acute organ dysfunction Severe sepsis acute organ dysfunction type: acute respiratory failure Acute respiratory failure type: with hypoxia Severe sepsis shock status: without septic shock Qualified Code(s): A41.9 - Sepsis, unspecified organism; R65.20 - Severe sepsis without septic shock; J96.01 - Acute respiratory failure with hypoxia Is this a current diagnosis for this admission?: Yes (8) Dementia Qualifiers: Dementia type: unspecified type Dementia behavioral disturbance: without behavioral disturbance Qualified Code(s): F03.90 - Unspecified dementia without behavioral disturbance Is this a current diagnosis for this admission?: Yes (9) Diabetes mellitus type 2 in nonobese Is this a current diagnosis for this admission?: Yes - Plan Summary Summary: Empirically on Zosyn for suspected aspiration pneumonia. He is under investigation for coronavirus. I have started him empirically on some Decadron. Pharmacy says our policy is that we have to have a positive test before we can prescribe remdesivir. We will keep our eye out for those test results to see whether or not we need to prescribe him this medication. We will try to keep the head of his bed tilted up and continue him on his tube feeds. He also had an acute kidney injury, so in addition to the other treatments were also again to give him some IV fluids and monitor his volume status and urine output. We will keep an eye on his electrolytes. We will continue some of his home medications as appropriate, but a lot of them will get a put on hold for now. - Time Time Spent with patient: 35 or more minutes Anticipated Discharge Disposition: Half-Way Facility Anticipated Discharge Timeframe: Pending clinical course - Inpatient Certification Based on my medical assessment, after consideration of the patient's comorbidities, presenting symptoms, or acuity I expect that the services needed warrant INPATIENT care.: Yes I certify that my determination is in accordance with my understanding of Medicare's requirements for reasonable and necessary INPATIENT services [42 CFR 412.3e].: Yes Medical Necessity: Significant Comorbidiites Make Outpatient Treatment Too Risky, Need Close Monitoring Due to Risk of Patient Decompensation, Need For IV Fluids, Need For Continuous Telemetry Monitoring, Need for IV Antibiotics, Risk of Complication if Not Cared For in Hospital
[2020-03-26] MEDS: PIPERACILLIN SODIUM/TAZOBACTAM 3.375 GM in NORMAL SALINE 100 ML IV SCH ×2 (15:46→21:10)
[2020-03-26] MEDS: LEVETIRACETAM ORAL SOLN 500 MG/5 ML UDCUP PEG SCH (21:09)
[2020-03-26] MEDS: VERAPAMIL HCL 80 MG TABLET PEG SCH (21:10)
[2020-03-26] MEDS ORDERED: DEXTROSE 40% GEL 15 GM TUBE X 2 PO PRN (22:00)
[2020-03-26] MEDS ORDERED: DEXTROSE 50%-WATER SYRINGE 25 GM/50 ML DOSE IV PRN (22:00)
[2020-03-26] MEDS ORDERED: DEXTROSE 50%-WATER SYRINGE 12.5 GM/25 ML DOSE IV PRN (22:00)
[2020-03-26] MEDS ORDERED: SENNOSIDES PEG SCH (22:00)
[2020-03-26] MEDS ORDERED: GLUCAGON,HUMAN RECOMB 1 MG INJ IM PRN (22:00)
[2020-03-26] MEDS ORDERED: DEXTROSE 40% GEL 15 GM TUBE PO PRN (22:00)
[2020-03-26] MEDS ORDERED: INSULIN, REGULAR 100 UNIT/100 ML NORMAL SALINE IV PRN ×2 (22:00)
[2020-03-27] MEDS: PIPERACILLIN SODIUM/TAZOBACTAM 3.375 GM in NORMAL SALINE 100 ML IV SCH ×4 (03:14→21:24)
[2020-03-27] MEDS: HEPARIN SOD (PORCINE) 5,000 UNIT/ML 1 ML VIAL SUBCUT SCH ×3 (05:44→21:23)
[2020-03-27 06:07] LABS: HEMATOCRIT 39.6 % (37.9-51.0); HEMOGLOBIN 12.7 g/dL (13.5-17.0); MEAN CORPUSCULAR HEMOGLOBIN 23.7 pg (27.0-33.4); MEAN CORPUSCULAR HGB CONC 32.1 g/dL (32.0-36.0); MEAN CORPUSCULAR VOLUME 74 fl (80-97); PLATELET COUNT 228 10^3/uL (150-450); RED BLOOD COUNT 5.37 10^6/uL (4.35-5.55); RED CELL DISTRIBUTION WIDTH 15.6 % (11.5-14.0); WHITE BLOOD COUNT 19.2 10^3/uL (4.0-10.5)
[2020-03-27 06:31] LABS: ALBUMIN 2.7 g/dL (3.5-5.0); ALKALINE PHOSPHATASE 109 U/L (38-126); ANION GAP 7 (5-19); ASPARTATE AMINO TRANSFERASE 23 U/L (17-59); BILIRUBIN,DIRECT 0.4 mg/dL (0.0-0.4); BLOOD UREA NITROGEN 55 mg/dL (7-20); CALCIUM 9.2 mg/dL (8.4-10.2); CARBON DIOXIDE 32 mmol/L (22-30); CHLORIDE 126 mmol/L (98-107); GLUCOSE 127 mg/dL (75-110); POTASSIUM 3.7 mmol/L (3.6-5.0); TOTAL PROTEIN 5.6 g/dL (6.3-8.2)
[2020-03-27] MEDS ORDERED: 1/2 NORMAL SALINE 1,000 ML IV PRN ×2 (07:57→23:15)
[2020-03-27] MEDS ORDERED: DEXTROSE 40% GEL 15 GM TUBE PO PRN ×2 (08:00)
[2020-03-27] MEDS ORDERED: GLUCAGON,HUMAN RECOMB 1 MG INJ IM PRN (08:00)
[2020-03-27] MEDS ORDERED: DEXTROSE 50%-WATER 25 GM/50 ML DISP.SYRIN IV PRN ×2 (08:00)
[2020-03-27] MEDS: VERAPAMIL HCL 80 MG TABLET PEG SCH ×2 (10:34→21:23)
[2020-03-27] MEDS: LEVETIRACETAM ORAL SOLN 500 MG/5 ML UDCUP PEG SCH ×2 (10:34→21:23)
[2020-03-27] MEDS: DEXAMETHASONE SOD PHOSPHATE INJ 4 MG/1 ML VIAL IV SCH (10:34)
[2020-03-27 11:17] LABS: ANION GAP 10 (5-19); BLOOD UREA NITROGEN 58 mg/dL (7-20); CARBON DIOXIDE 29 mmol/L (22-30); CHLORIDE 126 mmol/L (98-107); GLUCOSE 285 mg/dL (75-110)
[2020-03-27] MEDS: INSULIN LISPRO 100 UNIT/ML 3 ML VIAL SUBCUT SCH ×2 (11:45→19:02)
[2020-03-27 15:23] LABS: ANION GAP 10 (5-19); BLOOD UREA NITROGEN 60 mg/dL (7-20); CARBON DIOXIDE 30 mmol/L (22-30); CHLORIDE 124 mmol/L (98-107); GLUCOSE 308 mg/dL (75-110); POTASSIUM 4.3 mmol/L (3.6-5.0)
--- NOTE | 2020-03-27 16:49 | PDOC PROGRESS REPORT ---
Subjective Progress Note for:: 03/27/20 Subjective:: No adverse events overnight. His blood sugars are now under control and we can see the extent of his dehydration because his sodium was elevated. His vital signs have remained stable. Reason For Visit: ACUTE HYPOXIC RESPIRATORY FAILURE,LLL PNA Physical Exam Vital Signs: Temp Pulse Resp BP Pulse Ox 98.3 F 94 17 154/75 H 98 03/27/20 11:38 03/27/20 14:00 03/27/20 11:38 03/27/20 11:38 03/27/20 11:38 Intake & Output 03/26/20 03/27/20 03/28/20 06:59 06:59 06:59 Intake Total 2149 Output Total 900 Balance 1249 Weight 72 kg General appearance: PRESENT: disheveled Respiratory exam: PRESENT: rhonchi - Left base, unlabored. ABSENT: accessory muscle use, chest wall tenderness, crackles, prolonged expiratory phase, wheezes, tachypnea Cardiovascular exam: PRESENT: RRR, +S1, +S2 Pulses: PRESENT: normal carotid pulses Vascular exam: PRESENT: normal capillary refill GI/Abdominal exam: PRESENT: normal bowel sounds, soft, other - PEG tube left side. ABSENT: distended, guarding, rebound, tenderness Extremities exam: ABSENT: clubbing, pedal edema Musculoskeletal exam: PRESENT: normal inspection. ABSENT: deformity Neurological exam: PRESENT: aphasic Skin exam: PRESENT: dry, warm Results Laboratory Results: 03/27/20 05:42 03/27/20 14:25 03/26/20 03/26/20 03/26/20 16:52 18:36 22:15 WBC RBC Hgb Hct MCV MCH MCHC RDW Plt Count Sodium Potassium Chloride Carbon Dioxide Anion Gap BUN Creatinine Est GFR ( Amer) Glucose 481 H* Lactic Acid 2.9 H 2.7 H Calcium Total Bilirubin AST Alkaline Phosphatase Total Protein Albumin 03/26/20 03/27/20 03/27/20 22:15 05:42 05:42 WBC 19.2 H RBC 5.37 Hgb 12.7 L Hct 39.6 MCV 74 L MCH 23.7 L MCHC 32.1 RDW 15.6 H Plt Count 228 Sodium 165.2 H Potassium 3.7 Chloride 126 H Carbon Dioxide 32 H Anion Gap 7 BUN 55 H Creatinine 1.49 H Est GFR ( Amer) 54 L Glucose 381 H 127 H Lactic Acid Calcium 9.2 Total Bilirubin 1.0 AST 23 Alkaline Phosphatase 109 Total Protein 5.6 L Albumin 2.7 L 03/27/20 03/27/20 10:30 14:25 WBC RBC Hgb Hct MCV MCH MCHC RDW Plt Count Sodium 165.0 H 163.9 H Potassium 4.0 4.3 Chloride 126 H 124 H Carbon Dioxide 29 30 Anion Gap 10 10 BUN 58 H 60 H Creatinine 1.45 H 1.42 H Est GFR ( Amer) 56 L 57 L Glucose 285 H 308 H Lactic Acid Calcium 9.0 9.0 Total Bilirubin AST Alkaline Phosphatase Total Protein Albumin 03/26/20 10:05 Troponin I 0.040 Impressions: Chest X-Ray 03/26/20 11:11 IMPRESSION: Low lung volumes with patchy left basilar airspace disease compatible with pneumonia. Head CT 03/26/20 11:12 IMPRESSION: MICROVASCULAR ISCHEMIA AND GENERALIZED ATROPHY. NO ACUTE IMAGING FINDINGS IN THE BRAIN. MAXILLARY SINUS DISEASE. EVIDENCE OF ACUTE STROKE: NO. 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 Is this a current diagnosis for this admission?: Yes (4) ARF (acute renal failure) Qualifiers: Acute renal failure type: unspecified Qualified Code(s): N17.9 - Acute k idney failure, unspecified Is this a current diagnosis for this admission?: Yes (5) Aphasia as late effect of cerebrovascular accident Is this a current diagnosis for this admission?: Yes (6) LLL pneumonia Qualifiers: Pneumonia type: aspiration pneumonia Aspiration pneumonia type: due to regurgitated food Qualified Code(s): J69.0 - Pneumonitis due to inhalation of food and vomit Is this a current diagnosis for this admission?: Yes (7) Sepsis Qualifiers: Sepsis type: sepsis due to unspecified organism Sepsis acute organ dysfunction status: with acute organ dysfunction Severe sepsis acute organ dysfunction type: acute respiratory failure Acute respiratory failure type: with hypoxia Severe sepsis shock status: without septic shock Qualified Code(s): A41.9 - Sepsis, unspecified organism; R65.20 - Severe sepsis without septic shock; J96.01 - Acute respiratory failure with hypoxia Is this a current diagnosis for this admission?: Yes (8) Dementia Qualifiers: Dementia type: unspecified type Dementia behavioral disturbance: without behavioral disturbance Qualified Code(s): F03.90 - Unspecified dementia without behavioral disturbance Is this a current diagnosis for this admission?: Yes (9) Diabetes mellitus type 2 in nonobese Is this a current diagnosis for this admission?: Yes (10) Hypernatremia Is this a current diagnosis for this admission?: Yes (11) Dehydration Is this a current diagnosis for this admission?: Yes - Plan Summary Summary: Continue Zosyn. Coronavirus testing pending. His blood sugars have resolved and so now the extent of his hypernatremia is known. Change in fluids to half- normal saline. Every 4 hour BMP. Tube feeds to be resumed today. Insulin drip discontinued, sliding scale started. - Time Time Spent with patient: 25-34 minutes Anticipated Discharge Disposition: Senior Living Facility Anticipated Discharge Timeframe: pending clinical course
[2020-03-27 18:51] LABS: ANION GAP 10 (5-19); BLOOD UREA NITROGEN 58 mg/dL (7-20); CARBON DIOXIDE 28 mmol/L (22-30); CHLORIDE 126 mmol/L (98-107); GLUCOSE 364 mg/dL (75-110); POTASSIUM 3.8 mmol/L (3.6-5.0)
[2020-03-27 22:57] LABS: ANION GAP 12 (5-19); BLOOD UREA NITROGEN 58 mg/dL (7-20); CALCIUM 9.1 mg/dL (8.4-10.2); CARBON DIOXIDE 28 mmol/L (22-30); CHLORIDE 125 mmol/L (98-107); GLUCOSE 340 mg/dL (75-110); POTASSIUM 3.2 mmol/L (3.6-5.0)
[2020-03-28] MEDS: INSULIN LISPRO 100 UNIT/ML 3 ML VIAL SUBCUT SCH ×4 (00:03→17:57)
[2020-03-28] MEDS: POTASSI CL 20 MEQ/50 ML RIDER 20 MEQ/50 ML RTUPB IV SCH ×2 (00:04→02:10)
[2020-03-28 02:27] LABS: ANION GAP 9 (5-19); BLOOD UREA NITROGEN 60 mg/dL (7-20); CALCIUM 9.6 mg/dL (8.4-10.2); CARBON DIOXIDE 30 mmol/L (22-30); CHLORIDE 128 mmol/L (98-107); GLUCOSE 262 mg/dL (75-110); POTASSIUM 3.6 mmol/L (3.6-5.0)
[2020-03-28] MEDS: PIPERACILLIN SODIUM/TAZOBACTAM 3.375 GM in NORMAL SALINE 100 ML IV SCH ×4 (03:00→22:38)
[2020-03-28] MEDS ORDERED: DEXTROSE 5%-WATER 1000 ML 1,000 ML IV PRN (03:16)
[2020-03-28] MEDS: HEPARIN SOD (PORCINE) 5,000 UNIT/ML 1 ML VIAL SUBCUT SCH ×3 (06:22→22:38)
[2020-03-28 06:41] LABS: HEMATOCRIT 37.3 % (37.9-51.0); HEMOGLOBIN 11.6 g/dL (13.5-17.0); MEAN CORPUSCULAR HEMOGLOBIN 23.3 pg (27.0-33.4); MEAN CORPUSCULAR HGB CONC 31.2 g/dL (32.0-36.0); MEAN CORPUSCULAR VOLUME 75 fl (80-97); PLATELET COUNT 223 10^3/uL (150-450); RED BLOOD COUNT 4.99 10^6/uL (4.35-5.55); RED CELL DISTRIBUTION WIDTH 15.7 % (11.5-14.0); WHITE BLOOD COUNT 21.3 10^3/uL (4.0-10.5)
[2020-03-28 07:03] LABS: ANION GAP 8 (5-19); BLOOD UREA NITROGEN 59 mg/dL (7-20); CALCIUM 9.3 mg/dL (8.4-10.2); CARBON DIOXIDE 31 mmol/L (22-30); CHLORIDE 130 mmol/L (98-107); GLUCOSE 260 mg/dL (75-110); POTASSIUM 4.3 mmol/L (3.6-5.0)
[2020-03-28] MEDS ORDERED: IPRATROPIUM/ALBUTEROL 0.5-2.5 MG/3 ML AMPUL NEB PRN (07:58)
[2020-03-28] MEDS: LEVETIRACETAM ORAL SOLN 500 MG/5 ML UDCUP PEG SCH ×2 (09:06→22:38)
[2020-03-28] MEDS: VERAPAMIL HCL 80 MG TABLET PEG SCH ×2 (09:06→22:38)
[2020-03-28] MEDS: DEXAMETHASONE SOD PHOSPHATE INJ 4 MG/1 ML VIAL IV SCH (09:06)
[2020-03-28] MEDS: LOSARTAN POTASSIUM 25 MG TABLET PEG SCH (09:06)
[2020-03-28] MEDS: CLOPIDOGREL BISULFATE 75 MG TABLET PEG SCH (09:06)
[2020-03-28] MEDS: DEXTROSE 5%-WATER 1000 ML 1,000 ML IV PRN ×2 (09:36→22:50)
[2020-03-28] MEDS ORDERED: VANCOMYCIN HCL 0 MG in DEXTROSE 5%-WATER 250 ML IV NR (10:45)
--- NOTE | 2020-03-28 11:05 | PDOC PROGRESS REPORT ---
Subjective Subjective:: 84-year-old male resident of [facility] who is bedbound with severe dementia noncommunicative, who has a PEG tube, was brought to ED from [facility] who was brought to ED after EMS was called and patient was noted to have high blood sugars, hypoxic, hypotensive and tachypneic. 03/28/2020. No acute events overnight, unfortunately patient does not communicate due to his profound dementia, he is awake and alert does not follow any command, does not seem to be in any acute distress, does move all extremities. Reason For Visit: ACUTE HYPOXIC RESPIRATORY FAILURE,LLL PNA Physical Exam Vital Signs: Temp Pulse Resp BP Pulse Ox 97.6 F 87 17 119/83 96 03/28/20 09:00 03/28/20 08:45 03/28/20 08:45 03/28/20 08:45 03/28/20 08:45 Intake & Output 03/27/20 03/28/20 03/29/20 06:59 06:59 06:59 Intake Total 2149 50 0 Output Total 900 650 Balance 1249 -600 2049 Weight 72 kg 72 kg General appearance: PRESENT: no acute distress, well-developed, well-nourished Head exam: PRESENT: atraumatic, normocephalic Respiratory exam: PRESENT: clear to auscultation samreen. ABSENT: rales, rhonchi, wheezes Cardiovascular exam: PRESENT: RRR. ABSENT: diastolic murmur, rubs, systolic murmur GI/Abdominal exam: PRESENT: normal bowel sounds, soft. ABSENT: distended, guarding, mass, organolmegaly, rebound, tenderness Neurological exam: PRESENT: alert, awake Results Laboratory Results: 03/28/20 05:54 03/28/20 05:54 03/27/20 03/27/20 03/27/20 10:30 14:25 18:20 WBC RBC Hgb Hct MCV MCH MCHC RDW Plt Count Sodium 165.0 H 163.9 H 163.7 H Potassium 4.0 4.3 3.8 Chloride 126 H 124 H 126 H Carbon Dioxide 29 30 28 Anion Gap 10 10 10 BUN 58 H 60 H 58 H Creatinine 1.45 H 1.42 H 1.53 H Est GFR ( Amer) 56 L 57 L 53 L Glucose 285 H 308 H 364 H Calcium 9.0 9.0 9.0 03/27/20 03/28/20 03/28/20 22:09 01:55 05:54 WBC 21.3 H RBC 4.99 Hgb 11.6 L Hct 37.3 L MCV 75 L MCH 23.3 L MCHC 31.2 L RDW 15.7 H Plt Count 223 Sodium 165.0 H 166.8 H Potassium 3.2 L 3.6 Chloride 125 H 128 H Carbon Dioxide 28 30 Anion Gap 12 9 BUN 58 H 60 H Creatinine 1.50 H 1.64 H Est GFR ( Amer) 54 L 49 L Glucose 340 H 262 H Calcium 9.1 9.6 03/28/20 05:54 WBC RBC Hgb Hct MCV MCH MCHC RDW Plt Count Sodium 169.0 H Potassium 4.3 Chloride 130 H Carbon Dioxide 31 H Anion Gap 8 BUN 59 H Creatinine 1.55 H Est GFR ( Amer) 52 L Glucose 260 H Calcium 9.3 03/26/20 10:05 Troponin I 0.040 Impressions: Chest X-Ray 03/26/20 11:11 IMPRESSION: Low lung volumes with patchy left basilar airspace disease compatible with pneumonia. Head CT 03/26/20 11:12 IMPRESSION: MICROVASCULAR ISCHEMIA AND GENERALIZED ATROPHY. NO ACUTE IMAGING FINDINGS IN THE BRAIN. MAXILLARY SINUS DISEASE. EVIDENCE OF ACUTE STROKE: NO. Assessment and Plan - Diagnosis (1) Acute respiratory failure with hypoxia Is this a current diagnosis for this admission?: Yes Plan: Likely due to healthcare associated pneumonia or aspiration pneumonia, COVID-19 pneumonia is also possibility. On admission CXR. Patchy left basilar airspace disease compatible, pneumonia. WBC 17.4. WBC trending up likely due to patient receiving steroids. Afebrile. SPO2 WNL on 2.5 L nasal cannula. Day 3 IV antibiotics. Day 3 IV Zosyn. Day 1 IV vancomycin. Day 3 p.o. dexamethasone. Continue empiric broad-spectrum IV antibiotics, duo nebs, incentive spirometry, flutter valve, steroids, LABA, LABA, ICS. Follow-up sputum and blood culture. (2) Acute kidney injury superimposed on CKD Is this a current diagnosis for this admission?: Yes Plan: Prerenal likely due to profound dehydration complicated by severe hyperglycemia. Creatinine improving, baseline 1.6. Continue volume decision guided blood cultures, monitor electrolytes and replace as needed. Avoid nephrotoxic meds. (3) Hypernatremia Is this a current diagnosis for this admission?: Yes Plan: Likely due to profound dehydration in the setting of uncontrolled diabetes, patient has a PEG tube and he has severe dementia and history of CVA and is bedbound. Serum sodium trending up. No seizure activities or changes in mental status has been observed. Switch quarter normal saline to D5W, continue free water boluses through PEG tube, every 6 BMP with a goal of sodium correction 8 to 10 mEq in the next 24 hours. (4) Person under investigation for COVID-19 Is this a current diagnosis for this admission?: Yes Plan: Pending COVID-19 serology. Meanwhile will continue empiric IV antibiotic, vitamin C, zinc and steroids. (5) Aphasia as late effect of cerebrovascular accident Is this a current diagnosis for this admission?: Yes Plan: Due to remote history of CVA. Continue supportive measures. (6) Dehydration Is this a current diagnosis for this admission?: Yes Plan: Mostly due to low p.o. intake complicated by severe hyperglycemia. Continue volume status resuscitation guided by serum sodium and volume status. (7) Diabetes Qualifiers: Diabetes mellitus type: type 2 Diabetes mellitus shelter insulin use: unspecified shelter insulin use status Diabetes mellitus complication status: with other specified complication Qualified Code(s): E11.69 - Type 2 diabetes mellitus with other specified complication Is this a current diagnosis for this admission?: Yes Plan: Uncontrolled, presented with severely elevated blood glucose levels. Initially was placed on insulin drip, blood glucose improving, patient still on steroids which may adversely increase blood glucose level. Continue Accu-Chek, diabetic diet, basal, prandial and correctional insulin, hypoglycemic protocol. (8) LLL pneumonia Qualifiers: Pneumonia type: aspiration pneumonia Aspiration pneumonia type: due to regurgitated food Qualified Code(s): J69.0 - Pneumonitis due to inhalation of food and vomit Is this a current diagnosis for this admission?: Yes Plan: As per #1. (9) Sepsis Qualifiers: Sepsis type: sepsis due to unspecified organism Sepsis acute organ dysfunction status: with acute organ dysfunction Severe sepsis acute organ dysfunction type: acute respiratory failure Acute respiratory failure type: with hypoxia Severe sepsis shock status: without septic shock Qualified Code(s): A41.9 - Sepsis, unspecified organism; R65.20 - Severe sepsis without septic shock; J96.01 - Acute respiratory failure with hypoxia Is this a current diagnosis for this admission?: Yes Plan: Resolved. WBC trending up likely due to steroid, SPO2 WNL on RA, vitals stable. Presented with elevated creatinine, leukocytosis, lymphopenia, hypoxia, hypotension. Plan as per #1. (10) Dementia Qualifiers: Dementia type: unspecified type Dementia behavioral disturbance: without behavioral disturbance Qualified Code(s): F03.90 - Unspecified dementia without behavioral disturbance Is this a current diagnosis for this admission?: Yes Plan: Severe dementia, patient is nonverbal and noncommunicative. Continue supportive measures. - Plan Summary Summary: Continue Zosyn. Coronavirus testing pending. His blood sugars have resolved and so now the extent of his hypernatremia is known. Change in fluids to half- normal saline. Every 4 hour BMP. Tube feeds to be resumed today. Insulin drip discontinued, sliding scale started. - Time Time Spent with patient: 35 or more minutes Medications reviewed and adjusted accordingly: Yes Anticipated Discharge Disposition: Residential Facility Anticipated Discharge Timeframe: within 72 hours
[2020-03-28 12:03] LABS: ANION GAP 8 (5-19); BLOOD UREA NITROGEN 57 mg/dL (7-20); CALCIUM 9.4 mg/dL (8.4-10.2); CARBON DIOXIDE 28 mmol/L (22-30); CHLORIDE 129 mmol/L (98-107); GLUCOSE 289 mg/dL (75-110); POTASSIUM 4.3 mmol/L (3.6-5.0)
[2020-03-28] MEDS ORDERED: VANCOMYCIN HCL 1,500 MG in DEXTROSE 5%-WATER 250 ML IV ONE (14:00)
[2020-03-28] MEDS: DEXAMETHASONE 4 MG TABLET PO SCH ×2 (15:20→22:59)
[2020-03-28 21:04] LABS: ANION GAP 8 (5-19); BLOOD UREA NITROGEN 51 mg/dL (7-20); CALCIUM 9.2 mg/dL (8.4-10.2); CARBON DIOXIDE 28 mmol/L (22-30); CHLORIDE 126 mmol/L (98-107); GLUCOSE 347 mg/dL (75-110); POTASSIUM 4.4 mmol/L (3.6-5.0)
[2020-03-29 01:18] LABS: ANION GAP 9 (5-19); BLOOD UREA NITROGEN 50 mg/dL (7-20); CALCIUM 9.1 mg/dL (8.4-10.2); CARBON DIOXIDE 26 mmol/L (22-30); CHLORIDE 125 mmol/L (98-107); POTASSIUM 4.6 mmol/L (3.6-5.0)
[2020-03-29 01:24] LABS: GLUCOSE 431 mg/dL (75-110)
[2020-03-29] MEDS ORDERED: INSULIN LISPRO 100 UNIT/ML 3 ML VIAL SUBCUT ONE (01:30)
[2020-03-29] MEDS: INSULIN LISPRO 100 UNIT/ML 3 ML VIAL SUBCUT SCH ×4 (01:40→18:03)
[2020-03-29] MEDS: PIPERACILLIN SODIUM/TAZOBACTAM 3.375 GM in NORMAL SALINE 100 ML IV SCH ×4 (03:02→22:00)
[2020-03-29 04:43] LABS: HEMATOCRIT 37.8 % (37.9-51.0); HEMOGLOBIN 11.9 g/dL (13.5-17.0); MEAN CORPUSCULAR HEMOGLOBIN 23.5 pg (27.0-33.4); MEAN CORPUSCULAR HGB CONC 31.5 g/dL (32.0-36.0); MEAN CORPUSCULAR VOLUME 75 fl (80-97); PLATELET COUNT 241 10^3/uL (150-450); RED BLOOD COUNT 5.05 10^6/uL (4.35-5.55); RED CELL DISTRIBUTION WIDTH 15.4 % (11.5-14.0); WHITE BLOOD COUNT 13.3 10^3/uL (4.0-10.5)
[2020-03-29] MEDS: HEPARIN SOD (PORCINE) 5,000 UNIT/ML 1 ML VIAL SUBCUT SCH ×3 (06:10→22:00)
[2020-03-29] MEDS: DEXAMETHASONE 4 MG TABLET PO SCH ×3 (06:29→14:48)
[2020-03-29] MEDS: CLOPIDOGREL BISULFATE 75 MG TABLET PEG SCH (09:41)
[2020-03-29] MEDS: LOSARTAN POTASSIUM 25 MG TABLET PEG SCH (09:42)
[2020-03-29] MEDS: LEVETIRACETAM ORAL SOLN 500 MG/5 ML UDCUP PEG SCH (09:43)
[2020-03-29] MEDS: VERAPAMIL HCL 80 MG TABLET PEG SCH ×2 (09:43→22:00)
[2020-03-29] MEDS ORDERED: INSULIN GLARGINE,HUM.REC.ANLOG 1,000 UNIT/10 ML VIAL SUBCUT SCH ×2 (10:00)
[2020-03-29] MEDS: VANCOMYCIN HCL 1,000 MG in DEXTROSE 5%-WATER 250 ML IV SCH (12:25)
--- NOTE | 2020-03-29 14:39 | PDOC PROGRESS REPORT ---
Subjective Progress Note for:: 03/29/20 Subjective:: 84-year-old male resident of [facility] who is bedbound with severe dementia noncommunicative, who has a PEG tube, was brought to ED from [facility] who was brought to ED after EMS was called and patient was noted to have high blood sugars, hypoxic, hypotensive and tachypneic. 03/28/2020. No acute events overnight, unfortunately patient does not communicate due to his profound dementia, he is awake and alert does not follow any command, does not seem to be in any acute distress, does move all extremities. 03/29/2020. No acute events overnight. Unfortunately patient still does not communicate much due to underlying multiple CVAs and profound dementia, patient is awake and does not appear to be in any apparent distress, moves all his extremities. Patient sodium is improving. Reason For Visit: ACUTE HYPOXIC RESPIRATORY FAILURE,LLL PNA Physical Exam Vital Signs: Temp Pulse Resp BP Pulse Ox 97.7 F 74 17 141/76 H 98 03/29/20 11:33 03/29/20 11:33 03/29/20 11:33 03/29/20 11:33 03/29/20 11:33 Intake & Output 03/28/20 03/29/20 03/30/20 06:59 06:59 06:59 Intake Total 50 3787 Output Total 359 518 7777 Balance -600 3037 -1425 Weight 72 kg 75.3 kg General appearance: PRESENT: no acute distress, well-developed, well-nourished Head exam: PRESENT: atraumatic, normocephalic Respiratory exam: PRESENT: clear to auscultation samreen. ABSENT: rales, rhonchi, wheezes Cardiovascular exam: PRESENT: RRR. ABSENT: diastolic murmur, rubs, systolic murmur GI/Abdominal exam: PRESENT: normal bowel sounds, soft. ABSENT: distended, guarding, mass, organolmegaly, rebound, tenderness Neurological exam: PRESENT: awake Results Laboratory Results: 03/29/20 04:04 03/29/20 00:20 03/28/20 03/28/20 03/29/20 19:04 20:22 00:20 WBC RBC Hgb Hct MCV MCH MCHC RDW Plt Count Sodium Cancelled 162.1 H 160.0 H Potassium Cancelled 4.4 4.6 Chloride Cancelled 126 H 125 H Carbon Dioxide Cancelled 28 26 Anion Gap Cancelled 8 9 BUN Cancelled 51 H 50 H Creatinine Cancelled 1.26 H 1.29 H Est GFR ( Amer) Cancelled > 60 > 60 Est GFR (Non-Af Amer) Cancelled Glucose Cancelled 347 H 431 H* Calcium Cancelled 9.2 9.1 03/29/20 04:04 WBC 13.3 H RBC 5.05 Hgb 11.9 L Hct 37.8 L MCV 75 L MCH 23.5 L MCHC 31.5 L RDW 15.4 H Plt Count 241 Sodium Potassium Chloride Carbon Dioxide Anion Gap BUN Creatinine Est GFR ( Amer) Est GFR (Non-Af Amer) Glucose Calcium 03/26/20 10:05 Troponin I 0.040 Impressions: Chest X-Ray 03/26/20 11:11 IMPRESSION: Low lung volumes with patchy left basilar airspace disease compatible with pneumonia. Head CT 03/26/20 11:12 IMPRESSION: MICROVASCULAR ISCHEMIA AND GENERALIZED ATROPHY. NO ACUTE IMAGING FINDINGS IN THE BRAIN. MAXILLARY SINUS DISEASE. EVIDENCE OF ACUTE STROKE: NO. Assessment and Plan - Diagnosis (1) Acute respiratory failure with hypoxia Is this a current diagnosis for this admission?: Yes Plan: Likely due to healthcare associated pneumonia or aspiration pneumonia, COVID-19 pneumonia is also possibility. On admission CXR. Patchy left basilar airspace disease compatible, pneumonia. WBC trending down. Afebrile. SPO2 WNL on 2.5 L nasal cannula. Day 4 IV antibiotics. Day 4 IV Zosyn. Day 2 IV vancomycin. Day 4 p.o. dexamethasone. Continue empiric broad-spectrum IV antibiotics, duo nebs, incentive spirometry, flutter valve, steroids, LABA, LABA, ICS. Follow-up sputum and blood culture. (2) Acute kidney injury superimposed on CKD Is this a current diagnosis for this admission?: Yes Plan: Prerenal likely due to profound dehydration complicated by severe hyperglycemia. Creatinine improving, baseline 1.6. Continue volume decision guided blood cultures, monitor electrolytes and replace as needed. Avoid nephrotoxic meds. (3) Hypernatremia Is this a current diagnosis for this admission?: Yes Plan: Improving. Sodium is 160 down from 169. Likely due to profound dehydration in the setting of uncontrolled diabetes, patient has a PEG tube and he has severe dementia and history of CVA and is bedbound. No seizure activities or changes in mental status has been observed. Continue D5W, continue free water boluses through PEG tube, every 6 BMP with a goal of sodium correction 8 to 10 mEq in the next 24 hours. (4) Person under investigation for COVID-19 Is this a current diagnosis for this admission?: Yes Plan: COVID-19 negative. (5) Aphasia as late effect of cerebrovascular accident Is this a current diagnosis for this admission?: Yes Plan: Due to remote history of CVA. Continue supportive measures. (6) Dehydration Is this a current diagnosis for this admission?: Yes Plan: Mostly due to low p.o. intake complicated by severe hyperglycemia. Continue volume status resuscitation guided by serum sodium and volume status. 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 Initially was placed on insulin drip, blood glucose improving, patient still on steroids which may adversely increase blood glucose level. Continue Accu-Chek, diabetic diet, basal, prandial and correctional insulin, hypoglycemic protocol. (8) LLL pneumonia Qualifiers: Pneumonia type: aspiration pneumonia Aspiration pneumonia type: due to regurgitated food Qualified Code(s): J69.0 - Pneumonitis due to inhalation of food and vomit Is this a current diagnosis for this admission?: Yes Plan: As per #1. (9) Sepsis Qualifiers: Sepsis type: sepsis due to unspecified organism Sepsis acute organ dysfunction status: with acute organ dysfunction Severe sepsis acute organ dysfunction type: acute respiratory failure Acute respiratory failure type: with hypoxia Severe sepsis shock status: without septic shock Qualified Code(s): A41.9 - Sepsis, unspecified organism; R65.20 - Severe sepsis without septic shock; J96.01 - Acute respiratory failure with hypoxia Is this a current diagnosis for this admission?: Yes Plan: Resolved. WBC trending up likely due to steroid, SPO2 WNL on RA, vitals stable. Presented with elevated creatinine, leukocytosis, lymphopenia, hypoxia, hypotension. Plan as per #1. (10) Dementia Qualifiers: Dementia type: unspecified type Dementia behavioral disturbance: without behavioral disturbance Qualified Code(s): F03.90 - Unspecified dementia without behavioral disturbance Is this a current diagnosis for this admission?: Yes Plan: Severe dementia, patient is nonverbal and noncommunicative. Continue supportive measures. - Plan Summary Summary: Continue Zosyn. Coronavirus testing pending. His blood sugars have resolved and so now the extent of his hypernatremia is known. Change in fluids to half- normal saline. Every 4 hour BMP. Tube feeds to be resumed today. Insulin drip discontinued, sliding scale started. - Time Time Spent with patient: 25-34 minutes Medications reviewed and adjusted accordingly: Yes Anticipated Discharge Disposition: [facility] Anticipated Discharge Timeframe: within 72 hours
[2020-03-29] MEDS ORDERED: ONDANSETRON HCL INJ/PF 4 MG/2 ML SDV IV PRN (15:00)
[2020-03-29] MEDS: DEXTROSE 5%-WATER 1000 ML 1,000 ML IV PRN (17:59)
[2020-03-29 18:07] LABS: ANION GAP 9 (5-19); BLOOD UREA NITROGEN 43 mg/dL (7-20); CALCIUM 8.7 mg/dL (8.4-10.2); CARBON DIOXIDE 26 mmol/L (22-30); CHLORIDE 120 mmol/L (98-107); GLUCOSE 333 mg/dL (75-110); POTASSIUM 4.5 mmol/L (3.6-5.0)
[2020-03-29 23:26] LABS: ANION GAP 7 (5-19); BLOOD UREA NITROGEN 39 mg/dL (7-20); CALCIUM 8.9 mg/dL (8.4-10.2); CARBON DIOXIDE 27 mmol/L (22-30); CHLORIDE 119 mmol/L (98-107); GLUCOSE 336 mg/dL (75-110)
[2020-03-30] MEDS ORDERED: 1/2 NORMAL SALINE 1,000 ML IV PRN (00:11)
[2020-03-30] MEDS: LEVETIRACETAM ORAL SOLN 500 MG/5 ML UDCUP PEG SCH ×3 (00:15→22:21)
[2020-03-30] MEDS: INSULIN LISPRO 100 UNIT/ML 3 ML VIAL SUBCUT SCH ×2 (00:20→07:09)
[2020-03-30] MEDS: PIPERACILLIN SODIUM/TAZOBACTAM 3.375 GM in NORMAL SALINE 100 ML IV SCH ×4 (02:03→22:23)
[2020-03-30] MEDS: HEPARIN SOD (PORCINE) 5,000 UNIT/ML 1 ML VIAL SUBCUT SCH ×3 (07:09→22:21)
[2020-03-30] MEDS ORDERED: INFLUENZA QUAD (6MOS+) 2020-21 VAC 0.5 ML SYR IM ONE (08:00)
[2020-03-30] MEDS ORDERED: DEXTROSE 5%-WATER 1000 ML 1,000 ML IV PRN ×3 (08:54→21:30)
[2020-03-30] MEDS ORDERED: DEXTROSE 40% GEL 15 GM TUBE PO PRN ×2 (08:54)
[2020-03-30] MEDS ORDERED: DEXTROSE 50%-WATER 25 GM/50 ML DISP.SYRIN IV PRN ×2 (08:54)
[2020-03-30] MEDS ORDERED: GLUCAGON,HUMAN RECOMB 1 MG INJ IM PRN (08:54)
[2020-03-30 09:04] LABS: ABSOLUTE EOSINOPHILS # (AUTO) 0.1 10^3/uL (0.0-0.6); ABSOLUTE MONOCYTES (AUTO) 0.5 10^3/uL (0.1-1.4); ABSOLUTE NEUT (AUTO) 10.2 10^3/uL (1.7-8.2); BASOPHILS % (AUTO) 0.1 % (0-2); EOSINOPHILS % (AUTO) 0.5 % (0-6); HEMATOCRIT 38.1 % (37.9-51.0); HEMOGLOBIN 12.1 g/dL (13.5-17.0); LYMPHOCYTES % (AUTO) 8.5 % (13-45); MEAN CORPUSCULAR HEMOGLOBIN 23.6 pg (27.0-33.4); MEAN CORPUSCULAR HGB CONC 31.6 g/dL (32.0-36.0); MEAN CORPUSCULAR VOLUME 75 fl (80-97); MONOCYTES % (AUTO) 3.9 % (3-13); PLATELET COUNT 225 10^3/uL (150-450); RED BLOOD COUNT 5.11 10^6/uL (4.35-5.55); RED CELL DISTRIBUTION WIDTH 15.5 % (11.5-14.0); TOTAL CELLS COUNTED % (AUTO) 100 %; WHITE BLOOD COUNT 11.7 10^3/uL (4.0-10.5)
[2020-03-30 09:30] LABS: ANION GAP 11 (5-19); BLOOD UREA NITROGEN 36 mg/dL (7-20); CALCIUM 8.5 mg/dL (8.4-10.2); CARBON DIOXIDE 24 mmol/L (22-30); CHLORIDE 118 mmol/L (98-107); GLUCOSE 239 mg/dL (75-110); POTASSIUM 4.5 mmol/L (3.6-5.0)
[2020-03-30] MEDS ORDERED: NORMAL SALINE 100 ML with INSULIN REGULAR, HUMAN 100 UNIT IV PRN ×2 (10:00)
[2020-03-30] MEDS: CLOPIDOGREL BISULFATE 75 MG TABLET PEG SCH (10:31)
[2020-03-30] MEDS: LOSARTAN POTASSIUM 25 MG TABLET PEG SCH (10:31)
[2020-03-30] MEDS: VERAPAMIL HCL 80 MG TABLET PEG SCH ×2 (10:32→22:21)
[2020-03-30] MEDS: VANCOMYCIN HCL 1,000 MG in DEXTROSE 5%-WATER 250 ML IV SCH (11:27)
--- NOTE | 2020-03-30 14:29 | PDOC PROGRESS REPORT ---
Subjective Progress Note for:: 03/30/20 Subjective:: 84-year-old male resident of [facility] who is bedbound with severe dementia noncommunicative, who has a PEG tube, was brought to ED from [facility] who was brought to ED after EMS was called and patient was noted to have high blood sugars, hypoxic, hypotensive and tachypneic. 03/28/2020. No acute events overnight, unfortunately patient does not communicate due to his profound dementia, he is awake and alert does not follow any command, does not seem to be in any acute distress, does move all extremities. 03/29/2020. No acute events overnight. Unfortunately patient still does not communicate much due to underlying multiple CVAs and profound dementia, patient is awake and does not appear to be in any apparent distress, moves all his extremities. Patient sodium is improving. 03/30/2020. No acute events overnight. Unfortunately patient still does not communicate much due to profound dementia multiple CVAs, patient still awake and moving all his extremities, does not appear to be in any distress, sodium is slowly trending up. Reason For Visit: ACUTE HYPOXIC RESPIRATORY FAILURE,LLL PNA Physical Exam Vital Signs: Temp Pulse Resp BP Pulse Ox 98.0 F 80 14 158/76 H 100 03/30/20 13:04 03/30/20 13:04 03/30/20 13:04 03/30/20 13:04 03/30/20 13:04 Intake & Output 03/29/20 03/30/20 03/31/20 06:59 06:59 06:59 Intake Total 4787 1995 Output Total 750 3075 Balance 4037 -1080 Weight 75.3 kg 78.7 kg 78.7 kg General appearance: PRESENT: no acute distress, well-developed, well-nourished Head exam: PRESENT: atraumatic, normocephalic Respiratory exam: PRESENT: clear to auscultation samreen. ABSENT: rales, rhonchi, wheezes Cardiovascular exam: PRESENT: RRR. ABSENT: diastolic murmur, rubs, systolic m urmur GI/Abdominal exam: PRESENT: normal bowel sounds, soft. ABSENT: distended, guarding, mass, organolmegaly, rebound, tenderness Neurological exam: PRESENT: awake Results Laboratory Results: 03/30/20 07:53 03/30/20 07:53 1003/29/20 03/30/20 16:39 22:56 07:53 WBC RBC Hgb Hct MCV MCH MCHC RDW Plt Count Seg Neutrophils % Sodium 155.3 H 152.7 H 152.7 H Potassium 4.5 4.0 4.5 Chloride 120 H 119 H 118 H Carbon Dioxide 26 27 24 Anion Gap 9 7 11 BUN 43 H 39 H 36 H Creatinine 1.27 H 1.32 H 1.17 Est GFR ( Amer) > 60 > 60 > 60 Glucose 333 H 336 H 239 H Calcium 8.7 8.9 8.5 03/30/20 07:53 WBC 11.7 H RBC 5.11 Hgb 12.1 L Hct 38.1 MCV 75 L MCH 23.6 L MCHC 31.6 L RDW 15.5 H Plt Count 225 Seg Neutrophils % 87.0 H Sodium Potassium Chloride Carbon Dioxide Anion Gap BUN Creatinine Est GFR ( Amer) Glucose Calcium 03/26/20 10:05 Troponin I 0.040 Impressions: Chest X-Ray 03/26/20 11:11 IMPRESSION: Low lung volumes with patchy left basilar airspace disease compatible with pneumonia. Head CT 03/26/20 11:12 IMPRESSION: MICROVASCULAR ISCHEMIA AND GENERALIZED ATROPHY. NO ACUTE IMAGING FINDINGS IN THE BRAIN. MAXILLARY SINUS DISEASE. EVIDENCE OF ACUTE STROKE: NO. Assessment and Plan - Diagnosis (1) Acute respiratory failure with hypoxia Is this a current diagnosis for this admission?: Yes Plan: Likely due to healthcare associated pneumonia or aspiration pneumonia, COVID-19 pneumonia is also possibility. On admission CXR. Patchy left basilar airspace disease compatible, pneumonia. WBC trending down. Afebrile. SPO2 WNL on 2.5 L nasal cannula. Day 5 IV antibiotics. Day 5 IV Zosyn. Day 3 IV vancomycin. Day 5 p.o. dexamethasone. Continue empiric broad-spectrum IV antibiotics, duo nebs, incentive spirometry, flutter valve, steroids, LABA, LABA, ICS. Follow-up sputum and blood culture. (2) Acute kidney injury superimposed on CKD Is this a current diagnosis for this admission?: Yes Plan: Prerenal likely due to profound dehydration complicated by severe hyperglycemia. Creatinine improving, baseline 1.6. Continue volume decision guided blood cultures, monitor electrolytes and replace as needed. Avoid nephrotoxic meds. (3) Hypernatremia Is this a current diagnosis for this admission?: Yes Plan: Improving. Sodium is 152 down from 160. Likely due to profound dehydration in the setting of uncontrolled diabetes, patient has a PEG tube and he has severe dementia and history of CVA and is bedbound. No seizure activities or changes in mental status has been observed. Continue D5W, continue free water boluses through PEG tube, every 6 BMP with a goal of sodium correction 8 to 10 mEq in the next 24 hours. (4) Person under investigation for COVID-19 Is this a current diagnosis for this admission?: Yes Plan: COVID-19 negative. (5) Aphasia as late effect of cerebrovascular accident Is this a current diagnosis for this admission?: Yes Plan: Due to remote history of CVA. Continue supportive measures. (6) Dehydration Is this a current diagnosis for this admission?: Yes Plan: Mostly due to low p.o. intake complicated by severe hyperglycemia. Continue volume status resuscitation guided by serum sodium and volume status. 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 Initially was placed on insulin drip, blood glucose improving, patient still on steroids which may adversely increase blood glucose level. Continue Accu-Chek, diabetic diet, basal, prandial and correctional insulin, hypoglycemic protocol. (8) LLL pneumonia Qualifiers: Pneumonia type: aspiration pneumonia Aspiration pneumonia type: due to regurgitated food Qualified Code(s): J69.0 - Pneumonitis due to inhalation of food and vomit Is this a current diagnosis for this admission?: Yes Plan: As per #1. (9) Sepsis Qualifiers: Sepsis type: sepsis due to unspecified organism Sepsis acute organ dysfunction status: with acute organ dysfunction Severe sepsis acute organ dysfunction type: acute respiratory failure Acute respiratory failure type: with hypoxia Severe sepsis shock status: without septic shock Qualified Code(s): A41.9 - Sepsis, unspecified organism; R65.20 - Severe sepsis without septic shock; J96.01 - Acute respiratory failure with hypoxia Is this a current diagnosis for this admission?: Yes Plan: Resolved. WBC trending up likely due to steroid, SPO2 WNL on RA, vitals stable. Presented with elevated creatinine, leukocytosis, lymphopenia, hypoxia, hypotension. Plan as per #1. (10) Dementia Qualifiers: Dementia type: unspecified type Dementia behavioral disturbance: without behavioral disturbance Qualified Code(s): F03.90 - Unspecified dementia without behavioral disturbance Is this a current diagnosis for this admission?: Yes Plan: Severe dementia, patient is nonverbal and noncommunicative. Continue supportive measures. - Plan Summary Summary: Continue Zosyn. Coronavirus testing pending. His blood sugars have resolved and so now the extent of his hypernatremia is known. Change in fluids to half- normal saline. Every 4 hour BMP. Tube feeds to be resumed today. Insulin drip discontinued, sliding scale started. - Time Time Spent with patient: 15-24 minutes Medications reviewed and adjusted accordingly: Yes Anticipated Discharge Disposition: [facility] Anticipated Discharge Timeframe: within 72 hours
[2020-03-30 15:27] LABS: ANION GAP 9 (5-19); BLOOD UREA NITROGEN 33 mg/dL (7-20); CALCIUM 8.5 mg/dL (8.4-10.2); CARBON DIOXIDE 25 mmol/L (22-30); CHLORIDE 116 mmol/L (98-107); GLUCOSE 300 mg/dL (75-110)
[2020-03-30] MEDS ORDERED: INSULIN GLARGINE,HUM.REC.ANLOG 1,000 UNIT/10 ML VIAL SUBCUT SCH (22:00)
[2020-03-30 22:17] LABS: ANION GAP 9 (5-19); BLOOD UREA NITROGEN 30 mg/dL (7-20); CALCIUM 8.5 mg/dL (8.4-10.2); CARBON DIOXIDE 24 mmol/L (22-30); CHLORIDE 116 mmol/L (98-107); GLUCOSE 311 mg/dL (75-110); POTASSIUM 4.2 mmol/L (3.6-5.0)
[2020-03-30] MEDS ORDERED: INSULIN GLARGINE,HUM.REC.ANLOG 1,000 UNIT/10 ML VIAL (PYX) SUBCUT ONE (22:18)
[2020-03-31] MEDS ORDERED: INSULIN REG, HUMAN 100 UNIT/ML 3 ML VIAL (PYX) SUBCUT SCH
[2020-03-31] MEDS: INSULIN LISPRO 100 UNIT/ML 3 ML VIAL SUBCUT SCH ×4 (00:43→18:34)
[2020-03-31] MEDS: PIPERACILLIN SODIUM/TAZOBACTAM 3.375 GM in NORMAL SALINE 100 ML IV SCH ×4 (02:34→21:26)
[2020-03-31] MEDS: HEPARIN SOD (PORCINE) 5,000 UNIT/ML 1 ML VIAL SUBCUT SCH ×3 (06:31→21:26)
[2020-03-31 07:03] LABS: ANION GAP 10 (5-19); BLOOD UREA NITROGEN 29 mg/dL (7-20); CALCIUM 8.2 mg/dL (8.4-10.2); CARBON DIOXIDE 21 mmol/L (22-30); CHLORIDE 116 mmol/L (98-107); GLUCOSE 285 mg/dL (75-110); POTASSIUM 4.1 mmol/L (3.6-5.0)
[2020-03-31] MEDS ORDERED: GLUCAGON,HUMAN RECOMB 1 MG INJ IM PRN (08:21)
[2020-03-31] MEDS ORDERED: DEXTROSE 40% GEL 15 GM TUBE PO PRN ×2 (08:21)
[2020-03-31] MEDS ORDERED: DEXTROSE 50%-WATER 25 GM/50 ML DISP.SYRIN IV PRN ×2 (08:21)
[2020-03-31] MEDS ORDERED: INSULIN LISPRO 100 UNIT/ML 3 ML VIAL SUBCUT SCH (11:00)
[2020-03-31] MEDS: LEVETIRACETAM ORAL SOLN 500 MG/5 ML UDCUP PEG SCH ×2 (11:38→21:27)
[2020-03-31] MEDS: LOSARTAN POTASSIUM 25 MG TABLET PEG SCH (11:39)
[2020-03-31] MEDS: CLOPIDOGREL BISULFATE 75 MG TABLET PEG SCH (11:39)
[2020-03-31] MEDS: VERAPAMIL HCL 80 MG TABLET PEG SCH ×2 (11:54→21:27)
[2020-03-31] MEDS: VANCOMYCIN HCL 1,000 MG in DEXTROSE 5%-WATER 250 ML IV SCH (12:34)
[2020-03-31 13:13] LABS: VANCOMYCIN,TROUGH 7.7 ug/mL (5.0-20.0)
--- NOTE | 2020-03-31 14:54 | PDOC PROGRESS REPORT ---
Subjective Progress Note for:: 03/31/20 Subjective:: 84-year-old male resident of [facility] who is bedbound with severe dementia noncommunicative, who has a PEG tube, was brought to ED from [facility] who was brought to ED after EMS was called and patient was noted to have high blood sugars, hypoxic, hypotensive and tachypneic. 03/28/2020. No acute events overnight, unfortunately patient does not communicate due to his profound dementia, he is awake and alert does not follow any command, does not seem to be in any acute distress, does move all extremities. 03/29/2020. No acute events overnight. Unfortunately patient still does not communicate much due to underlying multiple CVAs and profound dementia, patient is awake and does not appear to be in any apparent distress, moves all his extremities. Patient sodium is improving. 03/30/2020. No acute events overnight. Unfortunately patient still does not communicate much due to profound dementia multiple CVAs, patient still awake and moving all his extremities, does not appear to be in any distress, sodium is slowly trending up. 03/31/2020. No acute events overnight. Unfortunate patient does not communicate due to profound dementia and multiple CVA, awake and does not seem to be in apparent distress, sodium level is optimized patient's IV fluids have been DC'd. Possible transfer back to care home tomorrow. Reason For Visit: ACUTE HYPOXIC RESPIRATORY FAILURE,LLL PNA Physical Exam Vital Signs: Temp Pulse Resp BP Pulse Ox 98.5 F 79 22 H 144/64 H 97 03/31/20 11:15 03/31/20 11:15 03/31/20 11:15 03/31/20 11:15 03/31/20 11:15 Intake & Output 03/30/20 03/31/20 04/01/20 06:59 06:59 06:59 Intake Total 1994 2150 800 Output Total 5 Balance -1080 2149 800 Weight 78.7 kg 78.7 kg General appearance: PRESENT: no acute distress, well-developed, well-nourished Head exam: PRESENT: atraumatic, normocephalic Respiratory exam: PRESENT: clear to auscultation samreen. ABSENT: rales, rhonchi, wheezes Cardiovascular exam: PRESENT: RRR. ABSENT: diastolic murmur, rubs, systolic murmur GI/Abdominal exam: PRESENT: normal bowel sounds, soft. ABSENT: distended, guarding, mass, organolmegaly, rebound, tenderness Neurological exam: PRESENT: awake Results Laboratory Results: 03/30/20 07:53 03/31/20 12:00 03/30/20 03/30/20 03/31/20 14:52 21:51 05:17 Sodium 150.1 H 148.6 H 146.5 H Potassium 4.0 4.2 4.1 Chloride 116 H 116 H 116 H Carbon Dioxide 25 24 21 L Anion Gap 9 9 10 BUN 33 H 30 H 29 H Creatinine 1.10 1.10 1.15 Est GFR ( Amer) > 60 > 60 > 60 Glucose 300 H 311 H 285 H Calcium 8.5 8.5 8.2 L 03/31/20 12:00 Sodium Potassium Chloride Carbon Dioxide Anion Gap BUN Creatinine 1.15 Est GFR ( Amer) > 60 Glucose Calcium 03/26/20 10:55 Blood Blood Culture - Final NO GROWTH IN 5 DAYS 03/26/20 10:05 Blood Blood Culture - Final NO GROWTH IN 5 DAYS 03/26/20 10:05 Troponin I 0.040 Impressions: Chest X-Ray 03/26/20 11:11 IMPRESSION: Low lung volumes with patchy left basilar airspace disease compatible with pneumonia. Head CT 03/26/20 11:12 IMPRESSION: MICROVASCULAR ISCHEMIA AND GENERALIZED ATROPHY. NO ACUTE IMAGING FINDINGS IN THE BRAIN. MAXILLARY SINUS DISEASE. EVIDENCE OF ACUTE STROKE: NO. Assessment and Plan - Diagnosis (1) Acute respiratory failure with hypoxia Is this a current diagnosis for this admission?: Yes Plan: Likely due to healthcare associated pneumonia or aspiration pneumonia, COVID-19 pneumonia is also possibility. On admission CXR. Patchy left basilar airspace disease compatible, pneumonia. WBC trending down. Afebrile. SPO2 WNL on 2.5 L nasal cannula. Day 6 IV antibiotics. Day 6 IV Zosyn. Day 4 IV vancomycin. Day 6 p.o. dexamethasone. Continue empiric broad-spectrum IV antibiotics, duo nebs, incentive spirometry, flutter valve, steroids, LABA, LABA, ICS. Follow-up sputum and blood culture. (2) Acute kidney injury superimposed on CKD Is this a current diagnosis for this admission?: Yes Plan: Resolved. Prerenal likely due to profound dehydration complicated by severe hyperglycemia. Continue volume decision guided blood cultures, monitor electrolytes and replace as needed. Avoid nephrotoxic meds. (3) Hypernatremia Is this a current diagnosis for this admission?: Yes Plan: Resolved. Sodium 146. Likely due to profound dehydration in the setting of uncontrolled diabetes, patient has a PEG tube and he has severe dementia and history of CVA and is bedbound. No seizure activities or changes in mental status has been observed. Continue free water boluses through PEG tube. BMP tomorrow. (4) Person under investigation for COVID-19 Is this a current diagnosis for this admission?: Yes Plan: COVID-19 negative. (5) Aphasia as late effect of cerebrovascular accident Is this a current diagnosis for this admission?: Yes Plan: Due to remote history of CVA. Continue supportive measures. (6) Dehydration Is this a current diagnosis for this admission?: Yes Plan: Euvolemic. Normotensive. Mostly due to low p.o. intake complicated by severe hyperglycemia. Continue volume status resuscitation guided by serum sodium and volume status. (7) Diabetes Qualifiers: Diabetes mellitus type: type 2 Diabetes mellitus rn long term care insulin use: unspecified rn long term care insulin use status Diabetes mellitus complication status: with other specified complication Qualified Code(s): E11.69 - Type 2 diabetes mellitus with other specified complication Is this a current diagnosis for this admission?: Yes Plan: Uncontrolled, presented with severely elevated blood glucose levels. Initially was placed on insulin drip, blood glucose improving, patient still on steroids which may adversely increase blood glucose level. Continue Accu-Chek, diabetic diet, basal, prandial and correctional insulin, hypoglycemic protocol. (8) LLL pneumonia Qualifiers: Pneumonia type: aspiration pneumonia Aspiration pneumonia type: due to regurgitated food Qualified Code(s): J69.0 - Pneumonitis due to inhalation of food and vomit Is this a current diagnosis for this admission?: Yes Plan: As per #1. (9) Sepsis Qualifiers: Sepsis type: sepsis due to unspecified organism Sepsis acute organ dysfunction status: with acute organ dysfunction Severe sepsis acute organ dysfunction type: acute respiratory failure Acute respiratory failure type: with hypoxia Severe sepsis shock status: without septic shock Qualified Code(s): A41.9 - Sepsis, unspecified organism; R65.20 - Severe sepsis without septic shock; J96.01 - Acute respiratory failure with hypoxia Is this a current diagnosis for this admission?: Yes Plan: Resolved. WBC trending up likely due to steroid, SPO2 WNL on RA, vitals stable. Presented with elevated creatinine, leukocytosis, lymphopenia, hypoxia, hypoten cortes. Plan as per #1. (10) Dementia Qualifiers: Dementia type: unspecified type Dementia behavioral disturbance: without behavioral disturbance Qualified Code(s): F03.90 - Unspecified dementia without behavioral disturbance Is this a current diagnosis for this admission?: Yes Plan: Severe dementia, patient is nonverbal and noncommunicative. Continue supportive measures. - Plan Summary Summary: Continue Zosyn. Coronavirus testing pending. His blood sugars have resolved and so now the extent of his hypernatremia is known. Change in fluids to half- normal saline. Every 4 hour BMP. Tube feeds to be resumed today. Insulin drip discontinued, sliding scale started. - Time Time Spent with patient: 25-34 minutes Medications reviewed and adjusted accordingly: Yes Anticipated Discharge Disposition: [facility] Anticipated Discharge Timeframe: when bed available
[2020-03-31] MEDS: VANCOMYCIN HCL 750 MG in DEXTROSE 5%-WATER 250 ML IV SCH (21:27)
[2020-04-01] MEDS: INSULIN LISPRO 100 UNIT/ML 3 ML VIAL SUBCUT SCH ×4 (00:30→18:18)
[2020-04-01] MEDS: PIPERACILLIN SODIUM/TAZOBACTAM 3.375 GM in NORMAL SALINE 100 ML IV SCH ×4 (03:53→23:42)
[2020-04-01] MEDS: HEPARIN SOD (PORCINE) 5,000 UNIT/ML 1 ML VIAL SUBCUT SCH ×3 (05:57→23:41)
[2020-04-01 06:01] LABS: ANION GAP 9 (5-19); BLOOD UREA NITROGEN 23 mg/dL (7-20); CALCIUM 8.2 mg/dL (8.4-10.2); CARBON DIOXIDE 23 mmol/L (22-30); CHLORIDE 113 mmol/L (98-107); GLUCOSE 253 mg/dL (75-110)
[2020-04-01] MEDS: VANCOMYCIN HCL 750 MG in DEXTROSE 5%-WATER 250 ML IV SCH ×2 (10:39→22:45)
[2020-04-01] MEDS: CLOPIDOGREL BISULFATE 75 MG TABLET PEG SCH (10:40)
[2020-04-01] MEDS: LOSARTAN POTASSIUM 25 MG TABLET PEG SCH (10:40)
[2020-04-01] MEDS: VERAPAMIL HCL 80 MG TABLET PEG SCH ×2 (10:41→23:42)
[2020-04-01] MEDS: INSULIN GLARGINE,HUM.REC.ANLOG 1,000 UNIT/10 ML VIAL SUBCUT SCH (10:41)
[2020-04-01] MEDS: LEVETIRACETAM ORAL SOLN 500 MG/5 ML UDCUP PEG SCH ×2 (10:41→23:41)
--- NOTE | 2020-04-01 16:12 | PDOC PROGRESS REPORT ---
Subjective Progress Note for:: 04/01/20 Subjective:: 84-year-old male resident of [facility] who is bedbound with severe dementia noncommunicative, who has a PEG tube, was brought to ED from [facility] who was brought to ED after EMS was called and patient was noted to have high blood sugars, hypoxic, hypotensive and tachypneic. 03/28/2020. No acute events overnight, unfortunately patient does not communicate due to his profound dementia, he is awake and alert does not follow any command, does not seem to be in any acute distress, does move all extremities. 03/29/2020. No acute events overnight. Unfortunately patient still does not communicate much due to underlying multiple CVAs and profound dementia, patient is awake and does not appear to be in any apparent distress, moves all his extremities. Patient sodium is improving. 03/30/2020. No acute events overnight. Unfortunately patient still does not communicate much due to profound dementia multiple CVAs, patient still awake and moving all his extremities, does not appear to be in any distress, sodium is slowly trending up. 03/31/2020. No acute events overnight. Unfortunate patient does not communicate due to profound dementia and multiple CVA, awake and does not seem to be in apparent distress, sodium level is optimized patient's IV fluids have been DC'd. Possible transfer back to halfway tomorrow. 04/01/2020. No acute events overnight. Patient was having high residuals last night and his tube feeds were held, restarted this morning at a lower late with a goal of 40 instead of 50. Reason For Visit: ACUTE HYPOXIC RESPIRATORY FAILURE,LLL PNA Physical Exam Vital Signs: Temp Pulse Resp BP Pulse Ox 98.3 F 85 23 H 137/79 H 94 04/01/20 11:27 04/01/20 11:27 04/01/20 11:27 04/01/20 11:27 04/01/20 11:27 Intake & Output 03/31/20 04/01/20 04/02/20 06:59 06:59 06:59 Intake Total 2150 2280 Balance 2150 2280 Weight 78.7 kg 78.9 kg General appearance: PRESENT: no acute distress, well-developed, well-nourished Head exam: PRESENT: atraumatic, normocephalic Respiratory exam: PRESENT: clear to auscultation samreen. ABSENT: rales, rhonchi, wheezes Cardiovascular exam: PRESENT: bradycardia, RRR. ABSENT: diastolic murmur, rubs, systolic murmur GI/Abdominal exam: PRESENT: normal bowel sounds, soft. ABSENT: distended, guarding, mass, organolmegaly, rebound, tenderness Neurological exam: PRESENT: awake Skin exam: PRESENT: dry, intact, warm. ABSENT: cyanosis, rash Results Laboratory Results: 03/30/20 07:53 04/01/20 05:15 04/01/20 05:15 Sodium 144.5 Potassium 4.0 Chloride 113 H Carbon Dioxide 23 Anion Gap 9 BUN 23 H Creatinine 1.16 Est GFR ( Amer) > 60 Glucose 253 H Calcium 8.2 L 03/26/20 10:05 Troponin I 0.040 Impressions: Chest X-Ray 03/26/20 11:11 IMPRESSION: Low lung volumes with patchy left basilar airspace disease compatible with pneumonia. Head CT 03/26/20 11:12 IMPRESSION: MICROVASCULAR ISCHEMIA AND GENERALIZED ATROPHY. NO ACUTE IMAGING FINDINGS IN THE BRAIN. MAXILLARY SINUS DISEASE. EVIDENCE OF ACUTE STROKE: NO. Assessment and Plan - Diagnosis (1) Acute respiratory failure with hypoxia Is this a current diagnosis for this admission?: Yes Plan: Likely due to healthcare associated pneumonia or aspiration pneumonia, COVID-19 pneumonia is also possibility. On admission CXR. Patchy left basilar airspace disease compatible, pneumonia. WBC trending down. Afebrile. SPO2 WNL on 2.5 L nasal cannula. Day 7 IV antibiotics. Day 7 IV Zosyn. Day 5 IV vancomycin. Received 6 days of p.o. dexamethasone. Continue empiric broad-spectrum IV antibiotics, duo nebs, incentive spirometry, flutter valve, steroids, LABA, LABA, ICS. Follow-up sputum and blood culture. (2) Acute kidney injury superimposed on CKD Is this a current diagnosis for this admission?: Yes Plan: Resolved. Prerenal likely due to profound dehydration complicated by severe hyperglycemia. Continue volume decision guided blood cultures, monitor electrolytes and replace as needed. Avoid nephrotoxic meds. (3) Hypernatremia Is this a current diagnosis for this admission?: Yes Plan: Resolved. Sodium 146. Likely due to profound dehydration in the setting of uncontrolled diabetes, patient has a PEG tube and he has severe dementia and history of CVA and is bedbound. No seizure activities or changes in mental status has been observed. Continue free water boluses through PEG tube. BMP tomorrow. (4) Person under investigation for COVID-19 Is this a current diagnosis for this admission?: Yes Plan: COVID-19 negative. (5) Aphasia as late effect of cerebrovascular accident Is this a current diagnosis for this admission?: Yes Plan: Due to remote history of CVA. Continue supportive measures. (6) Dehydration Is this a current diagnosis for this admission?: Yes Plan: Euvolemic. Normotensive. Mostly due to low p.o. intake complicated by severe hyperglycemia. Continue volume status resuscitation guided by serum sodium and volume status. 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 Initially was placed on insulin drip, blood glucose improving, patient still on steroids which may adversely increase blood glucose level. Continue Accu-Chek, diabetic diet, basal, prandial and correctional insulin, hypoglycemic protocol. (8) LLL pneumonia Qualifiers: Pneumonia type: aspiration pneumonia Aspiration pneumonia type: due to regurgitated food Qualified Code(s): J69.0 - Pneumonitis due to inhalation of food and vomit Is this a current diagnosis for this admission?: Yes Plan: As per #1. (9) Sepsis Qualifiers: Sepsis type: sepsis due to unspecified organism Sepsis acute organ dysfunction status: with acute organ dysfunction Severe sepsis acute organ dysfunction type: acute respiratory failure Acute respiratory failure type: with hypoxia Severe sepsis shock status: without septic shock Qualified Code(s): A41.9 - Sepsis, unspecified organism; R65.20 - Severe sepsis without septic shock; J96.01 - Acute respiratory failure with hypoxia Is this a current diagnosis for this admission?: Yes Plan: Resolved. WBC trending up likely due to steroid, SPO2 WNL on RA, vitals stable. Presented with elevated creatinine, leukocytosis, lymphopenia, hypoxia, hypotension. Plan as per #1. (10) Dementia Qualifiers: Dementia type: unspecified type Dementia behavioral disturbance: without behavioral disturbance Qualified Code(s): F03.90 - Unspecified dementia without behavioral disturbance Is this a current diagnosis for this admission?: Yes Plan: Severe dementia, patient is nonverbal and noncommunicative. Continue supportive measures. - Plan Summary Summary: Continue Zosyn. Coronavirus testing pending. His blood sugars have resolved and so now the extent of his hypernatremia is known. Change in fluids to half- normal saline. Every 4 hour BMP. Tube feeds to be resumed today. Insulin drip discontinued, sliding scale started. - Time Time Spent with patient: 25-34 minutes Medications reviewed and adjusted accordingly: Yes Anticipated Discharge Disposition: Assisted Care Facility Anticipated Discharge Timeframe: when bed available
[2020-04-02] MEDS: PIPERACILLIN SODIUM/TAZOBACTAM 3.375 GM in NORMAL SALINE 100 ML IV SCH ×3 (04:28→14:27)
[2020-04-02] MEDS: INSULIN LISPRO 100 UNIT/ML 3 ML VIAL SUBCUT SCH ×4 (04:29→17:30)
[2020-04-02] MEDS: HEPARIN SOD (PORCINE) 5,000 UNIT/ML 1 ML VIAL SUBCUT SCH ×2 (06:17→14:28)
[2020-04-02 09:52] LABS: ABSOLUTE EOSINOPHILS # (AUTO) 0.2 10^3/uL (0.0-0.6); ABSOLUTE LYMPHOCYTES (AUTO) 0.9 10^3/uL (0.5-4.7); ABSOLUTE MONOCYTES (AUTO) 0.7 10^3/uL (0.1-1.4); ABSOLUTE NEUT (AUTO) 6.2 10^3/uL (1.7-8.2); BASOPHILS % (AUTO) 0.2 % (0-2); EOSINOPHILS % (AUTO) 2.8 % (0-6); HEMATOCRIT 33.7 % (37.9-51.0); HEMOGLOBIN 10.7 g/dL (13.5-17.0); LYMPHOCYTES % (AUTO) 10.7 % (13-45); MEAN CORPUSCULAR HEMOGLOBIN 23.3 pg (27.0-33.4); MEAN CORPUSCULAR HGB CONC 31.7 g/dL (32.0-36.0); MEAN CORPUSCULAR VOLUME 74 fl (80-97); MONOCYTES % (AUTO) 9.1 % (3-13); PLATELET COUNT 342 10^3/uL (150-450); RED BLOOD COUNT 4.59 10^6/uL (4.35-5.55); RED CELL DISTRIBUTION WIDTH 15.5 % (11.5-14.0); SEGMENTED NEUTROPHILS % (AUTO) 77.2 % (42-78); TOTAL CELLS COUNTED % (AUTO) 100 %
[2020-04-02] MEDS: LEVETIRACETAM ORAL SOLN 500 MG/5 ML UDCUP PEG SCH (10:09)
[2020-04-02] MEDS: VERAPAMIL HCL 80 MG TABLET PEG SCH (10:09)
[2020-04-02] MEDS: CLOPIDOGREL BISULFATE 75 MG TABLET PEG SCH (10:10)
[2020-04-02] MEDS: LOSARTAN POTASSIUM 25 MG TABLET PEG SCH (10:10)
[2020-04-02] MEDS: INSULIN GLARGINE,HUM.REC.ANLOG 1,000 UNIT/10 ML VIAL SUBCUT SCH (10:10)
[2020-04-02 10:23] LABS: ANION GAP 8 (5-19); BLOOD UREA NITROGEN 19 mg/dL (7-20); CALCIUM 8.4 mg/dL (8.4-10.2); CARBON DIOXIDE 24 mmol/L (22-30); CHLORIDE 109 mmol/L (98-107); GLUCOSE 243 mg/dL (75-110); POTASSIUM 4.1 mmol/L (3.6-5.0)
[2020-04-02 10:31] LABS: VANCOMYCIN,TROUGH 15.8 ug/mL (5.0-20.0)
--- NOTE | 2020-04-02 16:01 | PDOC TRANSFER SUMMARY ---
Impression - Admit/DC Date/PCP Admission Date/Primary Care Provider: 03/26/20 13:22 REY CHICAS MD Discharge Date: 04/02/20 - Discharge Diagnosis (1) Acute respiratory failure with hypoxia Is this a current diagnosis for this admission?: Yes (2) Acute kidney injury superimposed on CKD Is this a current diagnosis for this admission?: Yes (3) Hypernatremia Is this a current diagnosis for this admission?: Yes (4) Person under investigation for COVID-19 Is this a current diagnosis for this admission?: Yes (5) Aphasia as late effect of cerebrovascular accident Is this a current diagnosis for this admission?: Yes (6) Dehydration Is this a current diagnosis for this admission?: Yes (7) Diabetes Is this a current diagnosis for this admission?: Yes (8) LLL pneumonia Is this a current diagnosis for this admission?: Yes (9) Sepsis Is this a current diagnosis for this admission?: Yes (10) Dementia Is this a current diagnosis for this admission?: Yes - Additional Information Referrals: REY CHICAS MD [Primary Care Provider] - Follow up as needed Prescriptions: Insulin Lispro [Humalog Insulin (Lispro) 100 unit/mL] 0 - 12 unit SUBCUT .SLD SCALE 30 Days #10 ml Insulin Glargine,Hum.rec.anlog [Lantus (Pyxis) Insulin 100 Unit/1 ml 10 ml] 10 unit SUBCUT QAM 30 Days #1 unit Home Medications: Clopidogrel Bisulfate [Plavix 75 mg Tablet] 75 mg PEG DAILY 03/05/17 Simvastatin [Zocor 40 mg Tablet] 20 mg PEG QHS 03/05/17 Acetaminophen [Tylenol 325 mg Tablet] 650 mg GT Q6HP PRN 10/14/17 Famotidine [Pepcid 20 mg Tablet] 20 mg PEG QHS 10/14/17 Bimatoprost [Lumigan 0.01% Oph Soln 2.5 ml/Bottle] 1 drop OU QHS 02/17/20 Brinzolamide/Brimonidine Tart [Simbrinza 1%-0.2% Eye Drops] 1 drop OU TID 02/17/20 Polyvinyl Alcohol/Povidone/Pf [Refresh Classic Eye Drops] 2 drop OU DAILY 02/17/20 Sennosides [Senna] 10 ml PEG QHS 02/17/20 Verapamil HCl [Calan 80 mg Tablet] 80 mg PEG Q12 02/17/20 Acetaminophen [Tylenol 650 mg Supp] 650 mg RI Q4HP PRN supp.rect 02/28/20 Amlodipine Besylate [Norvasc 10 mg Tablet] 10 mg PO DAILY #30 tablet 02/28/20 Ipratropium/Albuterol Sulfate [Duoneb 3 ml Ampul] 3 ml NEB RTQ4HP PRN 03/26/20 Levetiracetam 1,000 mg PEG Q12 03/26/20 Losartan Potassium [Cozaar 25 mg Tablet] 25 mg PEG DAILY 03/26/20 Nut.tx.gluc Intol,Lf,Soy/Fiber [Diabetisource AC 1.2 Luis Liq] 60 ml PUMP CONTINUOUS PRN 03/26/20 Insulin Glargine,Hum.rec.anlog [Lantus (Pyxis) Insulin 100 Unit/1 ml 10 ml] 10 unit SUBCUT QAM 30 Days #1 unit 04/02/20 Insulin Lispro [Humalog Insulin (Lispro) 100 unit/mL] 0 - 12 unit SUBCUT .SLD SCALE 30 Days #10 ml 04/02/20 History of Present Illiness History of Present Illness: As per admitting physician COMPA CHOI JR is an unfortunate 84-year-old male who is a resident at [facility], apparently is bedbound, aphasic, and has a PEG tube through which he takes medications and feedings. He is unable to provide me with any kind of a history, but understands that he may have been symptomatic for couple days at the [facility]; however, the details on this are sketchy. All I know for certain is that EMS was called to see him at [facility], and they found he had a high blood sugar and brought him over here. I believe at that time he was tachypneic as well. He was not hypoxic on room air at that time. By the time I came to see him he was on 2 L with his saturations in the upper 90s but he was breathing about 38 times a minute. He has not been febrile here, his temperature was 99.2 Fahrenheit. He did have a very congested-sounding breath sounds and they were having a hard time getting a Lee catheter into him. Initially I was told they had swabbed him for coronavirus at the [facility], but the patient's nurse told me that he called verify this and it turns out he was not swabbed at [facility]. I was told that a coronavirus swab was sent from the ER. His blood glucose in the ER was 724. He has been given a couple of bags of fluid and the plan was to start an insulin drip. He had left lower lobe opacity on chest x-ray. Hospital Course Hospital Course: (1) Acute respiratory failure with hypoxia Likely due to healthcare associated pneumonia or aspiration pneumonia, COVID-19 pneumonia is also possibility. On admission CXR. Patchy left basilar airspace disease compatible, pneumonia. WBC WNL. Afebrile. SPO2 WNL on 1 to 2 L nasal cannula. Received 8 days of IV antibiotics. Received 8 days of IV Zosyn. Received 8 days of IV vancomycin. Received 6 days of p.o. dexamethasone. All cultures remain negative on this admission. Continue duo nebs as needed, LABA, LABA, ICS and pulmonary toileting. Patient PCP and pulmonology follow-up. (2) Acute kidney injury superimposed on CKD Resolved. Prerenal likely due to profound dehydration complicated by severe hyperglycemia. Monitor volume status and electrolytes replace as needed. Avoid nephrotoxic meds. Outpatient PCP follow-up. (3) Hypernatremia Resolved. Likely due to profound dehydration in the setting of uncontrolled diabetes, patient has a PEG tube and he has severe dementia and history of CVA and is bedbound. No seizure activities or changes in mental status has been observed. Continue free water boluses to 250 cc every 6 hours on top of PEG tube feeds. Patient has to have her volume status carefully monitored and has to have frequent BMP measured to avoid severe hyponatremia. (4) Person under investigation for COVID-19 COVID-19 negative. (5) Aphasia as late effect of cerebrovascular accident Due to remote history of CVA. Continue supportive measures. (6) Dehydration Euvolemic. Normotensive. Mostly due to low p.o. intake complicated by severe hyperglycemia. As per plan #3. (7) Diabetes Improved. Mildly hyperglycemic due to steroids for acute respiratory failure. Steroids currently DC'd. Patient has a continue management of his diabetes. He needs to continue long-acting insulin and sliding scale insulin and his A1c needs to be monitored closely. Continue basal, sliding scale insulin, continue Accu-Chek, continue diabetic diet, continue hypoglycemic protocol. Outpatient PCP follow-up. (8) LLL pneumonia As per #1. (9) Sepsis Resolved. Presented with elevated creatinine, leukocytosis, lymphopenia, hypoxia, hypotension. Plan as per #1. (10) Dementia Severe dementia, patient is nonverbal and noncommunicative. Continue supportive measures. Physical Exam Vital Signs: Temp Pulse Resp BP Pulse Ox 98.8 F 78 18 126/88 H 94 04/02/20 11:28 04/02/20 14:00 04/02/20 11:28 04/02/20 11:28 04/02/20 11:28 Intake & Output 04/01/20 04/02/20 04/03/20 06:59 06:59 06:59 Intake Total 2280 1726 Balance 2280 1726 Weight 78.9 kg 78.9 kg 78.9 kg General appearance: PRESENT: no acute distress, well-developed, well-nourished Head exam: PRESENT: atraumatic, normocephalic Respiratory exam: PRESENT: clear to auscultation samreen. ABSENT: rales, rhonchi, wheezes Cardiovascular exam: PRESENT: RRR. ABSENT: diastolic murmur, rubs, systolic murmur Neurological exam: PRESENT: other - Somnolent but arousable, moves all extremities. Not follow commands or communicate. Skin exam: PRESENT: dry, intact, warm. ABSENT: cyanosis, rash Results Laboratory Results: WBC 8.0 10^3/uL (4.0-10.5) 04/02/20 09:34 RBC 4.59 10^6/uL (4.35-5.55) 04/02/20 09:34 Hgb 10.7 g/dL (13.5-17.0) L 04/02/20 09:34 Hct 33.7 % (37.9-51.0) L 04/02/20 09:34 MCV 74 fl (80-97) L 04/02/20 09:34 MCH 23.3 pg (27.0-33.4) L 04/02/20 09:34 MCHC 31.7 g/dL (32.0-36.0) L 04/02/20 09:34 RDW 15.5 % (11.5-14.0) H 04/02/20 09:34 Plt Count 342 10^3/uL (150-450) 04/02/20 09:34 Lymph % (Auto) 10.7 % (13-45) L 04/02/20 09:34 Johnston % (Auto) 9.1 % (3-13) 04/02/20 09:34 Eos % (Auto) 2.8 % (0-6) 04/02/20 09:34 Baso % (Auto) 0.2 % (0-2) 04/02/20 09:34 Absolute Neuts (auto) 6.2 10^3/uL (1.7-8.2) 04/02/20 09:34 Absolute Lymphs (auto) 0.9 10^3/uL (0.5-4.7) 04/02/20 09:34 Absolute Monos (auto) 0.7 10^3/uL (0.1-1.4) 04/02/20 09:34 Absolute Eos (auto) 0.2 10^3/uL (0.0-0.6) 04/02/20 09:34 Absolute Basos (auto) 0.0 10^3/uL (0.0-0.2) 04/02/20 09:34 Seg Neutrophils % 77.2 % (42-78) 04/02/20 09:34 PT 15.3 SEC (11.4-15.4) 03/26/20 10:05 INR 1.19 03/26/20 10:05 VBG pH 7.43 (7.30-7.42) H 03/26/20 11:06 VBG pCO2 48.0 mmHg (35-63) 03/26/20 11:06 VBG HCO3 30.9 mmol/L (20-32) 03/26/20 11:06 VBG Base Excess 5.4 mmol/L 03/26/20 11:06 Sodium 140.5 mmol/L (137-145) 04/02/20 09:34 Potassium 4.1 mmol/L (3.6-5.0) 04/02/20 09:34 Chloride 109 mmol/L (98-107) H 04/02/20 09:34 Carbon Dioxide 24 mmol/L (22-30) 04/02/20 09:34 Anion Gap 8 (5-19) 04/02/20 09:34 BUN 19 mg/dL (7-20) 04/02/20 09:34 Creatinine 1.07 mg/dL (0.52-1.25) 04/02/20 09:34 Creatinine Cancelled 04/02/20 09:34 Est GFR ( Amer) > 60 (>60) 04/02/20 09:34 Est GFR ( Amer) Cancelled 04/02/20 09:34 Est GFR (Non-Af Amer) Cancelled 04/02/20 09:34 Est GFR (MDRD) Non-Af > 60 (>60) 04/02/20 09:34 Est GFR (MDRD) Non-Af Cancelled 04/02/20 09:34 Glucose 243 mg/dL (75-110) H 04/02/20 09:34 POC Glucose 255 mg/dL (70-110) H 04/02/20 11:28 Lactic Acid 2.7 mmol/L (0.7-2.1) H 03/26/20 22:15 Calcium 8.4 mg/dL (8.4-10.2) 04/02/20 09:34 Total Bilirubin 1.0 mg/dL (0.2-1.3) 03/27/20 05:42 Direct Bilirubin 0.4 mg/dL (0.0-0.4) 03/27/20 05:42 Neonat Total Bilirubin Not Reportable 03/27/20 05:42 Neonat Direct Bilirubin Not Reportable 03/27/20 05:42 Neonat Indirect Bili Not Reportable 03/27/20 05:42 AST 23 U/L (17-59) 03/27/20 05:42 ALT 19 U/L (<50) 03/27/20 05:42 Alkaline Phosphatase 109 U/L (38-126) 03/27/20 05:42 Troponin I 0.040 ng/mL 03/26/20 10:05 Total Protein 5.6 g/dL (6.3-8.2) L 03/27/20 05:42 Albumin 2.7 g/dL (3.5-5.0) L 03/27/20 05:42 EGFR Cancelled 04/02/20 09:34 Time Trough Drawn 0934 04/02/20 09:34 Vancomycin Trough 15.8 ug/mL (5.0-20.0) 04/02/20 09:34 COVID-19 Source See comment 03/26/20 12:55 COVID-19 (TEETEE) Not Detected (Not Detect) 03/26/20 12:55 03/26/20 10:05 Troponin I 0.040 Impressions: Chest X-Ray 03/26/20 11:11 IMPRESSION: Low lung volumes with patchy left basilar airspace disease compatible with pneumonia. Head CT 03/26/20 11:12 IMPRESSION: MICROVASCULAR ISCHEMIA AND GENERALIZED ATROPHY. NO ACUTE IMAGING FINDINGS IN THE BRAIN. MAXILLARY SINUS DISEASE. EVIDENCE OF ACUTE STROKE: NO. Stroke Is this a Stroke Patient?: No Acute Heart Failure Is this a Heart Failure Patient?: No
[2020-04-02 16:32] VITALS: BP 134/73
[2020-04-02] MEDS ORDERED: VANCOMYCIN HCL 750 MG in DEXTROSE 5%-WATER 250 ML IV SCH (18:00)
[2020-04-03] MEDS ORDERED: INFLUENZA QUAD (6MOS+) 2020-21 VAC 0.5 ML SYR IM ONE (08:00)
== END 2020-04-02 18:52 | DRG 871 ==
LOC: ER 09:55 → EH 13:22 → 3N 15:34 → 5 03-28 17:14
PROVIDERS: ADMIT Family Medicine; ATTEND Internal Medicine
DX: A41.9 Sepsis, unspecified organism (principal); J69.0 Pneumonitis due to inhalation of food and vomit; J96.01 Acute respiratory failure with hypoxia; N18.6 End stage renal disease; R40.2112 Coma scale, eyes open, never, at arrival to emergency department; R40.2212 Coma scale, best verbal response, none, at arrival to emergency department; R40.2312 Coma scale, best motor response, none, at arrival to emergency department; I12.0 Hypertensive chronic kidney disease with stage 5 chronic kidney disease or end stage renal disease; N17.9 Acute kidney failure, unspecified; E87.0 Hyperosmolality and hypernatremia; R65.20 Severe sepsis without septic shock; E11.65 Type 2 diabetes mellitus with hyperglycemia; E86.0 Dehydration; E11.22 Type 2 diabetes mellitus with diabetic chronic kidney disease; E78.00 Pure hypercholesterolemia, unspecified; K21.9 Gastro-esophageal reflux disease without esophagitis; F03.90 Unspecified dementia, unspecified severity, without behavioral disturbance, psychotic disturbance, mood disturbance, and anxiety; I69.920 Aphasia following unspecified cerebrovascular disease; Z20.828 Contact with and (suspected) exposure to other viral communicable diseases; Z93.1 Gastrostomy status; Z74.01 Bed confinement status; Z79.01 Long term (current) use of anticoagulants; Z79.51 Long term (current) use of inhaled steroids; Z79.899 Other long term (current) drug therapy
CPT/HCPCS: 36415; 70450; 71045; 80048; 80053; 80202; 82565; 82803; 82947; 82962; 83605; 84484; 85025; 85027; 85610; 87040; 87070; 87635; 93005; 93010; 99291; C9803; J0692; J1100; J1644; J1815; J2543; J3370; J3480; J3490; J7030; J7050; J7060; J8540